=== PATIENT | female | born 1970 | race Caucasian/White ===

== ENCOUNTER → 2016-03-25 | Outpatient (REF) | payer OTHER | END | disposition home or self-care (01) | LOC: M LABDRAW1 17:11 | PROVIDERS: ATTEND Internal Medicine Gastroenterology | DX: R19.7 Diarrhea, unspecified (principal) ==

== ENCOUNTER → 2016-04-07 | Outpatient (CLI) | payer OTHER ==
--- NOTE | 2016-04-07 12:47 | REPMRS ---
Patient History The patient states she had a clinical breast exam in 03/2016. Patient had first child at age 38. Family history of prostate cancer in father at age 50 or over. Took hormonal contraceptives for 8 years. Digital Woman Screen Mammo: April 07, 2016 - Exam #: [id number] Bilateral CC and MLO view(s) were taken. Technologist: Lindsay Kirk, Technologist Prior study comparison: December 25, 2014, digital woman screen mammo performed at [facility] to [facility]. November 15, 2013, digital woman screen mammo performed at [facility]. May 22, 2012, bilateral bilat screen digital mammo, performed at [facility] ([facility] FINDINGS: There are scattered fibroglandular densities. There has been no change in the appearance of the mammogram from the prior studies. There is a mild amount of scattered fibroglandular density which is fairly symmetric. There is no interval development of dominant mass, architectural distortion, or clustered microcalcification suggestive of malignancy. ASSESSMENT: BI-RADS/ACR category 1 mammogram. Negative. Recommendation Routine screening mammogram in 1 year (for women over age 40). This mammogram was interpreted with the aid of an FDA-approved computer-aided dectection system. Electronically Signed By: Giovani Hazel MD 04/07/16 [id number]
== END | disposition home or self-care (01) ==
LOC: M WHC 10:34
PROVIDERS: ATTEND Nurse Practitioner Women's Health
DX: Z12.31 Encounter for screening mammogram for malignant neoplasm of breast (principal); Z78.0 Asymptomatic menopausal state

== ENCOUNTER → 2016-04-07 | Outpatient (REF) | payer OTHER | END | disposition home or self-care (01) | LOC: M SFHCWAGY 10:47 | PROVIDERS: ATTEND Nurse Practitioner Women's Health | DX: Z01.419 Encounter for gynecological examination (general) (routine) without abnormal findings (principal); Z11.51 Encounter for screening for human papillomavirus (HPV) ==

== ENCOUNTER → 2016-05-06 | Outpatient (REF) | payer OTHER ==
[~2016-05-06] MED LIST: BENT10CA PO; CLAR10CA3 PO; GLYB5TA GT; INSUH10VL SC; INVO300T PO; LISI10TA4 PO; LOVA20TA2 PO; METF500T PO
== END ==
LOC: M LABDRAW1 11:41
PROVIDERS: ATTEND Student in an Organized Health Care Education/Training Program
DX: E11.65 Type 2 diabetes mellitus with hyperglycemia (principal)

== ENCOUNTER 2016-05-21 16:06 | Inpatient (IN) | payer OTHER ==
[~2016-05-21] VITALS: Ht 172.7 cm; Wt 79.6 kg
[~2016-05-21 16:06] MED LIST changes: -GLYB5TA GT; +GLYB5TA PO; +INSUDET SC; +METF1000 PO
[2016-05-21] MEDS ORDERED: NS 1,000 ML IV ONE ×2 (17:15→18:30)
[2016-05-21] MEDS ORDERED: METOCLOPRAMIDE INJ 10MG/2ML VIAL (J2765) IV ONE (17:15)
[2016-05-21 18:00] LABS: BASO # 0.1 K/mm3 (0.0-0.2); BASO % 0.6 % (0.0-1.0); EOS % 0.3 % (0.0-3.0); LARGE UNSTAINED CELL # 0.3 K/mm3 (0.0-0.4); LARGE UNSTAINED CELL % 2.4 % (0.0-4.0); LYMPH # 1.1 K/mm3 (1.5-4.5); LYMPH % 10.1 % (24.0-44.0); MEAN CORPUSCULAR HEMOGLOBIN 30.5 pg (27.0-33.0); MEAN CORPUSCULAR HGB CONC 31.6 g/dl (32.0-36.5); MEAN CORPUSCULAR VOLUME 96.5 fl (80.0-96.0); MONO # 0.2 K/mm3 (0.0-0.8); MONO % 2.2 % (0.0-5.0); NEUTROPHILS % 84.5 % (36.0-66.0); PLATELET COUNT, AUTOMATED 287 k/mm3 (150-450); RED CELL DISTRIBUTION WIDTH 12.5 % (11.5-14.5); WHITE BLOOD COUNT 10.7 K/mm3 (4.0-10.0)
[2016-05-21 18:13] LABS: CONTROL LINE HCG INT CTR LINE PRESENT
[2016-05-21 18:24] LABS: ALBUMIN 4.2 GM/DL (3.2-5.2); ALBUMIN/GLOBULIN RATIO 0.84 (1.00-1.93); ALKALINE PHOSPHATASE 84 U/L (45-117); ALT/SGPT 24 U/L (12-78); ANION GAP 25 MEQ/L (8-16); AST/SGOT 14 U/L (15-37); BILIRUBIN,DIRECT 0.1 MG/DL (0.0-0.2); BILIRUBIN,TOTAL 0.5 MG/DL (0.2-1.0); BLOOD UREA NITROGEN 19 MG/DL (7-18); CALCIUM LEVEL 9.3 MG/DL (8.5-10.1); CARBON DIOXIDE LEVEL 9 MEQ/L (21-32); CHLORIDE LEVEL 98 MEQ/L (98-107); CREATININE FOR GFR 1.25 MG/DL (0.55-1.02); GLOMERULAR FILTRATION RATE 49.6 (>58); GLUCOSE, FASTING 321 MG/DL (70-105); SODIUM LEVEL 132 MEQ/L (136-145); TOTAL PROTEIN 9.2 GM/DL (6.4-8.2)
[2016-05-21 18:26] LABS: POTASSIUM SERUM 5.4 MEQ/L (3.5-5.1)
[2016-05-21] MEDS ORDERED: INSULIN IV RATE CHANGE DOCUMENTATION ML/HR XX SCH (18:45)
[2016-05-21] MEDS ORDERED: SODIUM CHLORIDE 0.9% 1000 ML IV ONE (18:45)
[2016-05-21] MEDS ORDERED: INSULIN HUMAN REGULAR 100 UNITS in NS 99 ML IV SCH (18:45)
[2016-05-21 19:39] LABS: VENOUS BASE EXCESS -24.9 (-2.0-2.0); VENOUS O2 SATURATION 98.5 % (60.0-80.0); VENOUS PARTIAL PRESSURE CO2 27.6 mmHg (38.0-50.0); VENOUS PARTIAL PRESSURE O2 147.3 mmHg (30.0-50.0); VENOUS STANDARD HCO3 8.6 MEQ/L
[2016-05-21] MEDS ORDERED: LORA10TA2 PO (19:55)
[2016-05-21] MEDS ORDERED: METF500T4 PO (19:55)
[2016-05-21] MEDS ORDERED: METF-415 PO (19:55)
[2016-05-21] MEDS: LORATADINE 10 MG TAB PO SCH (21:00)
[2016-05-21] MEDS ORDERED: D5W 1,000 ML IV SCH (21:38)
--- NOTE | 2016-05-21 21:55 | HPEPDOC ---
General Date of Admission 05/21/16 10:00pm Chief Complaint The patient is a 46-year-old female admitted with a reason for visit of Vomiting /Diarrhea. Source: Patient Exam Limitations: No limitations Timing/Duration: Day(s) (4) Severity: Moderate Associated Symptoms: Nausea, Vomiting History of Present Illness 46-year old female with PMHx of IDDM, dyslipidemia, HTN, depression, PCOS presents for 4 day history of nausea, vomiting and diarrhea. She describes her vomiting as non-bilous and non-bloody. She states her symptoms did improve until when she began taking bowel prep for a planned EGD and colonoscopy. She states the investigations were for further evaluation of celiac disease. She also describes mid-epigastric pain, non-radiating, sharp, 7/ 10 intensity. She denies shortness of breath, chest pain, headaches, changes in vision. She states she is compliant with her medications, however she states she has been taking less of of basal insulin. She states she was instructed by her PCP to take less insulin when she is not feeling well. Home Medications Scheduled Canagliflozin (Invokana) 300 Mg Tab 300 MG PO DAILY (Reported) Dicyclomine Hcl (Bentyl) 10 Mg Cap 10 MG PO DAILY (Reported) Glyburide (Glyburide) 5 Mg Tab 5 MG PO BID (Reported) Insulin Aspart (Novolog) 100 U/Ml Inj 22 UNITS SC TID (Reported) Insulin Detemir (Levemir) 1 Units/0.01 Ml Susp 40 UNITS SC QHS (Reported) Lisinopril (Lisinopril) 10 Mg Tab 10 MG PO DAILY (Reported) Loratadine (Loratadine) 10 Mg Tab 10 MG PO QHS (Reported) Lovastatin (Lovastatin) 20 Mg Tab 20 MG PO QHS (Reported) Metformin Hydrochloride (Metformin HCl ER) 500 Mg Tab 500 MG PO QAM (Reported) Metformin Hydrochloride (Metformin HCl ER) 1,000 Mg Tab 1,000 MG PO QPM ( Reported) Allergies Coded Allergies: No Known Drug Allergy (Verified Allergy, Unknown, 06/12/12) Social History * Smoker: Denies Alcohol: Denies Drugs: marijuana Review of Symptoms Constitutional: Denies: Chills, Fever, Malaise Eyes: Denies: Pain, Vision change ENT: Denies: Dysphagia, Head Aches Skin: Denies: Jaundice, Rash Pulmonary: Denies: Cough, Dyspnea Cardiovascular: Denies: Chest Pain, Palpitations Gastrointestinal: Reports: Abdominal Pain, Diarrhea, Nausea, Vomiting Genitourinary: Denies: Dysuria Endocrine: Reports: Polydipsia Psych: Reports: Mood Normal Physical Examination General Exam: Positive: Alert, Cooperative, Mild Distress Eye Exam: Positive: Conjunctiva & lids normal, EOMI, PERRLA ENT Exam: Positive: Atraumatic, Mucous membr. moist/pink Neck Exam: Positive: Supple Chest Exam: Positive: Clear to auscultation, Normal air movement Heart Exam: Positive: Rate Normal, Regular Rhythm Telemetry: Positive: No significant arrhythmia Abdomen Exam: Positive: Normal bowel sounds, Soft, Tenderness Extremity Exam: Negative: Edema Psych Exam: Positive: Mental status NL, Oriented x 3 Vital Signs Refer to ER documentation. Laboratory Data Labs 24H Laboratory Tests 2 05/21/16 17:49: Aspartate Amino Transf (AST/SGOT) 14L, Alanine Aminotransferase (ALT/SGPT) 24, Alkaline Phosphatase 84, Total Bilirubin 0.5, Direct Bilirubin 0.1, Albumin 4.2 , Albumin/Globulin Ratio 0.84L, Anion Gap 25H, White Blood Count 10.7H, Red Blood Count 5.99H, Hemoglobin 18.3H, Hematocrit 57.8H, Mean Corpuscular Volume 96.5H, Mean Corpuscular Hemoglobin 30.5, Mean Corpuscular Hemoglobin Concent 31.6L, Red Cell Distribution Width 12.5, Platelet Count 287, Neutrophils (%) ( Auto) 84.5H, Lymphocytes (%) (Auto) 10.1L, Monocytes (%) (Auto) 2.2, Eosinophils (%) (Auto) 0.3, Basophils (%) (Auto) 0.6, Neutrophils # (Auto) 9.0H , Lymphocytes # (Auto) 1.1L, Monocytes # (Auto) 0.2, Eosinophils # (Auto) 0.0, Basophils # (Auto) 0.1, Calcium Level 9.3, Glomerular Filtration Rate 49.6L, Human Chorionic Gonadotropin, Qual NEGATIVE, Lactic Acid (Sepsis) 4.1*H, Large Unclassified Cells # 0.3, Large Unclassified Cells % 2.4, Lipase 83, Osmolality 308H, Salicylates Level 4.9L, Total Protein 9.2H 05/21/16 19:24: Blood Gas Bicarbonate Standard 8.6, Venous Blood Base Excess -24.9L, Venous Blood pH 6.963L, Venous Blood Partial Pressure CO2 27.6L, Venous Blood Partial Pressure O2 147.3H, Venous Blood Total Carbon Dioxide 7.0L, Venous Blood HCO3 6.1L, Venous Blood Oxygen Saturation 98.5H 05/21/16 20:20: Bedside Glucose (Misc Panel) 289H 05/21/16 21:28: Bedside Glucose (Misc Panel) 279H CBC/BMP Laboratory Tests 05/21/16 17:49 Red Blood Count 5.99 H, Mean Corpuscular Volume 96.5 H, Mean Corpuscular Hemoglobin 30.5, Mean Corpuscular Hemoglobin Concent 31.6 L, Red Cell Distribution Width 12.5, Neutrophils (%) (Auto) 84.5 H, Lymphocytes (%) (Auto) 10.1 L, Monocytes (%) (Auto) 2.2, Eosinophils (%) (Auto) 0.3, Basophils (%) ( Auto) 0.6, Neutrophils # (Auto) 9.0 H, Lymphocytes # (Auto) 1.1 L, Monocytes # ( Auto) 0.2, Eosinophils # (Auto) 0.0, Basophils # (Auto) 0.1 Problems (1) DKA (diabetic ketoacidoses) Status: Acute Discussed With: Patient Problem Specific Plan: Monitor Clinically, Repeat Labs Problem Text: Appears to be secondary to non-compliance. Serial BMP, insulin gtt, IV fluids NS transition D5 when FS<200. Transition SC insulin when AG is WNL. Clear liquids for now. (2) Diabetes Status: Chronic Discussed With: Patient Problem Text: Home medications on hold. (3) Hyperlipidemia Status: Chronic Problem Text: Zocor (4) HTN (hypertension) Status: Chronic Discussed With: Patient Problem Specific Plan: Monitor Clinically Problem Text: Lisinopril (5) Depression Status: Chronic (6) PCOS (polycystic ovarian syndrome) Status: Chronic Problem Text: Metformin on hold Plan / VTE VTE Prophylaxis Ordered?: Yes Plan Plan 46-year old female for DKA, appears to be secondary to non-compliance, no obvious infectious process. DKA protocol as above. IVF: Continue Diagnostics: Repeat Labs in AM Anticipated Discharge: Home NELIA LEDBETTER MD May 21, 2016 21:50
[2016-05-21 22:56] LABS: CALCIUM LEVEL 8.4 MG/DL (8.5-10.1); CREATININE FOR GFR 1.27 MG/DL (0.55-1.02); GLOMERULAR FILTRATION RATE 48.7 (>58)
[2016-05-21] MEDS: INSULIN HUMAN REGULAR 100 UNITS in NS 99 ML IV SCH (23:11)
[2016-05-21] MEDS: INSULIN IV RATE CHANGE DOCUMENTATION ML/HR XX SCH (23:26)
[2016-05-21] MEDS: NS 1,000 ML IV SCH (23:27)
[2016-05-21 23:30] VITALS: BP 147/75
[2016-05-21] MEDS: SIMVASTATIN 20 MG TAB PO SCH (23:55)
[2016-05-21] MEDS: ONDANSETRON 4MG/2ML VIAL (J2405) IV PRN (23:56)
[2016-05-22 01:17] LABS: CALCIUM LEVEL 8.2 MG/DL (8.5-10.1); CREATININE FOR GFR 1.2 MG/DL (0.55-1.02); POTASSIUM SERUM 4.8 MEQ/L (3.5-5.1)
[2016-05-22 02:00] VITALS: BP 137/81
[2016-05-22] MEDS: NS 1,000 ML IV SCH (02:23)
[2016-05-22 02:39] LABS: CALCIUM LEVEL 8.2 MG/DL (8.5-10.1); CREATININE FOR GFR 1.14 MG/DL (0.55-1.02); GLOMERULAR FILTRATION RATE 55.1 (>58)
[2016-05-22 02:50] LABS: POTASSIUM SERUM 5.3 MEQ/L (3.5-5.1)
[2016-05-22] MEDS: ONDANSETRON 4MG/2ML VIAL (J2405) IV PRN ×3 (03:24→22:13)
[2016-05-22] MEDS: INSULIN IV RATE CHANGE DOCUMENTATION ML/HR XX SCH ×2 (03:32→06:51)
[2016-05-22 04:00] VITALS: BP 168/81
[2016-05-22] MEDS: D5W/0.45% SODIUM CHLORIDE 1,000 ML IV SCH (04:19)
[2016-05-22] MEDS ORDERED: OMEPRAZOLE 20 MG CAP PO ONE (05:30)
[2016-05-22 06:38] LABS: BASO % 0.2 % (0.0-1.0); EOS # 0.1 K/mm3 (0.0-0.50); EOS % 0.6 % (0.0-3.0); LARGE UNSTAINED CELL # 0.2 K/mm3 (0.0-0.4); LARGE UNSTAINED CELL % 1.1 % (0.0-4.0); LYMPH % 7.2 % (24.0-44.0); MEAN CORPUSCULAR HEMOGLOBIN 30.6 pg (27.0-33.0); MEAN CORPUSCULAR HGB CONC 31.9 g/dl (32.0-36.5); MEAN CORPUSCULAR VOLUME 95.9 fl (80.0-96.0); MONO # 0.5 K/mm3 (0.0-0.8); MONO % 3.6 % (0.0-5.0); NEUTROPHILS # 12.4 K/mm3 (1.8-7.7); NEUTROPHILS % 87.3 % (36.0-66.0); PLATELET COUNT, AUTOMATED 271 k/mm3 (150-450); RED CELL DISTRIBUTION WIDTH 12.7 % (11.5-14.5); WHITE BLOOD COUNT 14.2 K/mm3 (4.0-10.0)
[2016-05-22 07:01] LABS: CALCIUM LEVEL 8.4 MG/DL (8.5-10.1); CREATININE FOR GFR 1.15 MG/DL (0.55-1.02); GLOMERULAR FILTRATION RATE 54.6 (>58)
[2016-05-22 07:04] LABS: POTASSIUM SERUM 5.8 MEQ/L (3.5-5.1)
[2016-05-22 07:28] LABS: MAGNESIUM LEVEL 2.5 MG/DL (1.8-2.4)
[2016-05-22 08:00] VITALS: BP 146/82
--- NOTE | 2016-05-22 08:09 | REP ---
REASON FOR EXAM: Abdominal pain. Comparison exam 12/15/2005, which is the latest prior, a contrast enhanced exam. The lack of intravenous contrast decreases the sensitivity of the exam. The lung bases are clear and unchanged. Limited evaluation of the solid intra-abdominal organs and gallbladder show no gross abnormalities. Granulomatous calcifications are again seen in the liver and spleen status quo. Limited evaluation of the pancreas and adrenal glands shown no gross abnormalities or significant changes from the prior exam. Limited evaluation of the kidneys show no gross abnormalities or significant changes from the prior exam. Limited evaluation of the abdominal aorta and para-aortic regions show no gross abnormalities or significant changes from the prior exam. The intra-abdominal and intrapelvic bowel loops and their mesenteries show no gross abnormalities or significant changes from the prior exam. Scattered colonic diverticula are noted status quo. The appendix is well visualized and is normal. There is no free air or free fluid in the abdomen. No abnormal urinary bladder calcifications are present. There are bilateral pelvic phleboliths. There is no evidence of an intra-abdominal or intrapelvic mass or adenopathy. Bone window technique throughout the exam shows the osseous structures to be stable and intact. IMPRESSION: Limited noncontrast enhanced examination of the abdomen and pelvis is essentially unchanged from the prior exam showing no evidence of acute intra-abdominal or intrapelvic disease. Signed by Patricio Youngblood DO 05/22/2016 10:04 A
[2016-05-22] MEDS: PANTOPRAZOLE 40MG INJ (PROTONIX) (C9113) IV SCH (08:20)
[2016-05-22] MEDS: LISINOPRIL 10 MG TAB PO SCH (08:20)
[2016-05-22] MEDS: DICYCLOMINE 10 MG CAP PO SCH (08:20)
[2016-05-22] MEDS: ENOXAPARIN 40 MG/0.4 ML SYRINGE (J1650) SC SCH (08:21)
[2016-05-22 08:37] LABS: ANION GAP 18 MEQ/L (8-16); BLOOD UREA NITROGEN 20 MG/DL (7-18); CARBON DIOXIDE LEVEL 8 MEQ/L (21-32); CHLORIDE LEVEL 106 MEQ/L (98-107); CREATININE FOR GFR 1.26 MG/DL (0.55-1.02); GLOMERULAR FILTRATION RATE 49.1 (>58); GLUCOSE, FASTING 233 MG/DL (70-105); SODIUM LEVEL 132 MEQ/L (136-145)
[2016-05-22 08:41] LABS: POTASSIUM SERUM 5.2 MEQ/L (3.5-5.1)
--- NOTE | 2016-05-22 09:12 | ECGEPIP ---
Stationary ECG Study [facility] ED Test Date: 2016-05-21 Pat Name: CHRISTY CURTIS Department: Room: [place] [address] Gender: F Manager Of Health: ivania : 1970 Requested By: Etelvina Pemberton Order Number: [id number] Reading MD: Etelvina Pemberton Measurements Intervals [place] Rate: 102 P: 40 PA: 104 QRS: 46 QRSD: 89 T: 11 QT: 351 QTc: 459 Interpretive Statements SINUS TACHYCARDIA WITH SHORT PA INTERVAL ABNORMAL RHYTHM ECG NO PRIOR FOR COMPARISON Electronically Signed On 05-22-2016 9:12:05 EST by Etelvina Pemberton
[2016-05-22 09:25] LABS: VENOUS BASE EXCESS -24.3 (-2.0-2.0); VENOUS O2 SATURATION 53.6 % (60.0-80.0); VENOUS PARTIAL PRESSURE CO2 33.2 mmHg (38.0-50.0); VENOUS PARTIAL PRESSURE O2 27.8 mmHg (30.0-50.0); VENOUS STANDARD HCO3 7.9 MEQ/L; VENOUS TOTAL CO2 8.2 MEQ/L (24.0-28.0)
--- NOTE | 2016-05-22 10:33 | IPNPDOC ---
Text Note Date of Service The patient was seen on 05/22/16. NOTE Subjective: 46 yo F was seen and examined at bedside. Admits to burning reflux type pain going up to her throat. Admits to weakness, fatigue, chills, and nausea at times. Admits to dizziness only when standing to go to the bathroom. She denied dizziness while lying on bed, denies blurred vision, fevers, chest pain, SOB, vomiting, diarrhea, constipation, abdominal pain, rashes/lesions, urinary incontinence, increased urinary frequency, dysuria, hematuria, hematochezia. Nursing reports no acute events overnight. Objective: Vitals: T 97.2, P 112, RR 22, BP 168/81 (110), Pulse Ox: 99% on RA. I's/O's: 350/1600 mLs, -1250 mL balance, Wt: 80.1 kg down from 86.183 kg, BMs: ? General: Ill appearing and fatigued-looking middle-aged female resting in bed. Cooperative but weak. Patient awake, alert and oriented, verbal and able to answer questions appropriately. In mild distress. HEENT: Normocephalic Atraumatic. Grossly normal hearing bilaterally. Sclera Nonicteric. No external nasal lesions. Endocrinology: No thyromegaly. Neck: Supple. No cervical LAD bilaterally. Heart: Regular rhythm, tachycardic, normal S1-S2. No murmurs, rubs, clicks or gallops Respiratory: Lungs clear to auscultation bilaterally. No wheezes, rales or rhonchi. +Tachypnea. Abdomen: Active bowel sounds, soft, no masses to palpation. Generalized nonspecific mild tenderness to palpation of abdomen in all quadrants without rebound or guarding. Extremities: No clubbing, cyanosis, edema. Without amputations/deformities. No pedal edema. MSK: Normal ROM. Vascular: +2 radial pulses bilaterally. Psychiatric: No signs of depression or anxiety Laboratory data: Please see below. Toxicology: Salicylates of 4.9 (low) Most recent fasting glucose: 233 from 237 POC glucose at 9:07: 239 from 220 M.5 (H) Phos pending BUN/Cr: 20/1.26 (high) from 19/1.15 Ca: 8 (low) VBG: pH 6.963 (low) pCO2: 27.6 (low) pO2: 147.3 (high) Compare with BMP value Bicarb/CO2: 8 (low) Imaging: No new imaging today. CT Abdomen/Pelvis prelim report: showed no acute abdominal or intrapelvic disease. Assessment/Plan: 46 yo F with PMH significant for IDDM, HTN, dyslipidemia, PCOS, is presenting for nausea, vomiting, and diarrhea clinically presenting as DKA secondary to non-compliance with her insulin. 1) DKA secondary to noncompliance: ABG shows severe metabolic acidosis. Continue to monitor O2 saturations. Keep NPO. Continue regular insulin drip with NS, monitor fingersticks q1 hours, monitor BMP q2 hours, and monitoring electrolytes. Continue IV fluids NS until fasting glucose reaches <200, and transition to D5 1/2 NS once this occurs. Monitor for normal anion gap. Stop insulin drip once reach normal AG. Follow DKA protocol. Transition to subcutaneous insulin when normal AG reached. Give zofran for nausea and continue protonix for heartburn symptoms. If heartburn not improved, may consider changing PPI or adding another medication. Monitor Mg, phos, levels as well. 2) Severe Metabolic Acidosis and Acute Kidney Injury: VBG as above. BUN 20 and Cr 1.26. Likely intravascular depletion. Nephrology consulted. Appreciate Nephrology input. 3) DM: hold home medications for now until DKA resolves. 4) HTN: continue lisinopril 10 mg daily. 5) HLD: continue simvastatin 20 mg daily. 6) Depression: monitor affect and for any clinical signs that are concerning: i.e. suicidal ideations or wish to harm others or plan. 7) PCOS: hold metformin for now. 8) Generalized Abdominal pain/discomfort: Possibly secondary to DKA. Follow up on GI panel. CT abdomen/pelvis did not show any acute intra-abdominal or intrapelvic disease. 9) Continue home medications. DVT ppx: continue lovenox. GI ppx: protonix. Immunizations as per protocol. VS,Fishbone, I+O VS, Fishbone, I+O Laboratory Tests 05/21/16 17:49 Red Blood Count 5.99 H, Mean Corpuscular Volume 96.5 H, Mean Corpuscular Hemoglobin 30.5, Mean Corpuscular Hemoglobin Concent 31.6 L, Red Cell Distribution Width 12.5, Neutrophils (%) (Auto) 84.5 H, Lymphocytes (%) (Auto) 10.1 L, Monocytes (%) (Auto) 2.2, Eosinophils (%) (Auto) 0.3, Basophils (%) ( Auto) 0.6, Neutrophils # (Auto) 9.0 H, Lymphocytes # (Auto) 1.1 L, Monocytes # ( Auto) 0.2, Eosinophils # (Auto) 0.0, Basophils # (Auto) 0.1 05/21/16 22:08 Calcium Level 8.4 L 05/22/16 00:27 Calcium Level 8.2 L 05/22/16 02:05 Calcium Level 8.2 L 05/22/16 06:27 Calcium Level 8.4 L, Red Blood Count 5.49 H, Mean Corpuscular Volume 95.9, Mean Corpuscular Hemoglobin 30.6, Mean Corpuscular Hemoglobin Concent 31.9 L, Red Cell Distribution Width 12.7, Neutrophils (%) (Auto) 87.3 H, Lymphocytes (%) ( Auto) 7.2 L, Monocytes (%) (Auto) 3.6, Eosinophils (%) (Auto) 0.6, Basophils (% ) (Auto) 0.2, Neutrophils # (Auto) 12.4 H, Lymphocytes # (Auto) 1.0 L, Monocytes # (Auto) 0.5, Eosinophils # (Auto) 0.1, Basophils # (Auto) 0.0 05/22/16 07:52 Calcium Level 8.0 L Vital Signs Date Time Temp Pulse Resp B/P Pulse Ox O2 Delivery O2 Flow Rate FiO2 05/22/16 08:00 97.1 119 20 146/82 98 Room Air I&O- Last 24 Hours up to 6 AM 05/22/16 06:00 Intake Total 1412 ml Output Total 700 ml Balance 712 ml GME ATTESTATION GME ATTESTATION My preceptor for this patient encounter was Dr. Jono Meyer, and was physically present in the building during the encounter and was fully available. As needed, all aspects of the patient interview, examination, medical decision making process, and medical care plan development were reviewed and approved by the preceptor. Preceptor is aware and concurs with the plan as stated in the body of this note and will attest to such by his/her cosignature. JONO ESCALONAME-1 May 22, 2016 10:33
[2016-05-22 10:50] LABS: PHOSPHORUS LEVEL 2.7 MG/DL (2.5-4.9)
[2016-05-22 11:54] LABS: CALCIUM LEVEL 8.2 MG/DL (8.5-10.1); CREATININE FOR GFR 1.23 MG/DL (0.55-1.02); GLOMERULAR FILTRATION RATE 50.5 (>58)
[2016-05-22 11:58] LABS: POTASSIUM SERUM 5.6 MEQ/L (3.5-5.1)
[2016-05-22 12:00] VITALS: BP 158/79
[2016-05-22] MEDS ORDERED: SODIUM BICARBONATE 100 MEQ in D5W 1,000 ML IV SCH (12:00)
[2016-05-22 14:07] LABS: CREATININE FOR GFR 1.19 MG/DL (0.55-1.02); GLOMERULAR FILTRATION RATE 52.5 (>58); POTASSIUM SERUM 4.6 MEQ/L (3.5-5.1)
[2016-05-22 14:27] LABS: ABG BASE EXCESS -21.1 (-2.0-2.0); ABG HCO3 4.7 MEQ/L (22.0-26.0); ABG PARTIAL PRESSURE O2 155.6 mmHg (75.0-100.0); ABG STANDARD HCO3 9.9 MEQ/L (22.0-26.0); ABG TOTAL CO2 5.1 MEQ/L (22.0-29.0)
[2016-05-22 14:29] LABS: ABG PARTIAL PRESSURE CO2 13.3 mmHg (35.0-45.0); ABG pH (ARTERIAL) 7.168 UNITS (7.350-7.450)
[2016-05-22 16:00] VITALS: BP 120/59
[2016-05-22 16:01] LABS: CALCIUM LEVEL 8.1 MG/DL (8.5-10.1); CREATININE FOR GFR 1.07 MG/DL (0.55-1.02); GLOMERULAR FILTRATION RATE 59.3 (>58); POTASSIUM SERUM 4.4 MEQ/L (3.5-5.1)
[2016-05-22] MEDS: SODIUM BICARBONATE 150 MEQ in D5W 1,000 ML IV SCH ×2 (17:30→22:09)
[2016-05-22 17:53] LABS: CALCIUM LEVEL 8.2 MG/DL (8.5-10.1); CREATININE FOR GFR 1.08 MG/DL (0.55-1.02); GLOMERULAR FILTRATION RATE 58.7 (>58); POTASSIUM SERUM 4.3 MEQ/L (3.5-5.1)
[2016-05-22 19:59] LABS: ANION GAP 20 MEQ/L (8-16); BLOOD UREA NITROGEN 14 MG/DL (7-18); CALCIUM LEVEL 8.3 MG/DL (8.5-10.1); CARBON DIOXIDE LEVEL 10 MEQ/L (21-32); CHLORIDE LEVEL 102 MEQ/L (98-107); CREATININE FOR GFR 1.05 MG/DL (0.55-1.02); GLOMERULAR FILTRATION RATE > 60.0 (>58); GLUCOSE, FASTING 258 MG/DL (70-105); POTASSIUM SERUM 3.9 MEQ/L (3.5-5.1); SODIUM LEVEL 132 MEQ/L (136-145)
[2016-05-22 20:00] VITALS: BP 129/60
[2016-05-22 21:57] LABS: ANION GAP 20 MEQ/L (8-16); BLOOD UREA NITROGEN 12 MG/DL (7-18); CALCIUM LEVEL 7.8 MG/DL (8.5-10.1); CARBON DIOXIDE LEVEL 11 MEQ/L (21-32); CHLORIDE LEVEL 102 MEQ/L (98-107); CREATININE FOR GFR 0.99 MG/DL (0.55-1.02); GLOMERULAR FILTRATION RATE > 60.0 (>58); GLUCOSE, FASTING 256 MG/DL (70-105); POTASSIUM SERUM 3.6 MEQ/L (3.5-5.1); SODIUM LEVEL 133 MEQ/L (136-145)
[2016-05-22] MEDS: SIMVASTATIN 20 MG TAB PO SCH (22:10)
[2016-05-22] MEDS: LORATADINE 10 MG TAB PO SCH (22:10)
[2016-05-22] MEDS: INSULIN HUMAN REGULAR 100 UNITS in NS 99 ML IV SCH (22:13)
[2016-05-22] MEDS ORDERED: POTASSIUM CHLORIDE 10 MEQ SR TABLET PO ONE (22:15)
[2016-05-22 22:59] LABS: ABG BASE EXCESS -11.1 (-2.0-2.0); ABG HCO3 11.5 MEQ/L (22.0-26.0); ABG PARTIAL PRESSURE CO2 20.2 mmHg (35.0-45.0); ABG PARTIAL PRESSURE O2 125.3 mmHg (75.0-100.0); ABG TOTAL CO2 12.1 MEQ/L (22.0-29.0); ABG pH (ARTERIAL) 7.372 UNITS (7.350-7.450)
[2016-05-22] MEDS ORDERED: IBUPROFEN 600 MG TAB PO ONE (23:15)
[2016-05-23] VITALS (7 sets, daily range): BP systolic 111–141; BP diastolic 58–91
[2016-05-23] MEDS: SODIUM BICARBONATE 150 MEQ in D5W 1,000 ML IV SCH ×2 (03:19→08:24)
[2016-05-23 03:30] LABS: ANION GAP 21 MEQ/L (8-16); BLOOD UREA NITROGEN 12 MG/DL (7-18); CALCIUM LEVEL 7.8 MG/DL (8.5-10.1); CARBON DIOXIDE LEVEL 15 MEQ/L (21-32); CHLORIDE LEVEL 100 MEQ/L (98-107); CREATININE FOR GFR 0.99 MG/DL (0.55-1.02); GLOMERULAR FILTRATION RATE > 60.0 (>58); GLUCOSE, FASTING 297 MG/DL (70-105); POTASSIUM SERUM 3.7 MEQ/L (3.5-5.1); SODIUM LEVEL 136 MEQ/L (136-145)
[2016-05-23 05:07] LABS: ANION GAP 18 MEQ/L (8-16); BLOOD UREA NITROGEN 12 MG/DL (7-18); CALCIUM LEVEL 7.7 MG/DL (8.5-10.1); CARBON DIOXIDE LEVEL 17 MEQ/L (21-32); CHLORIDE LEVEL 101 MEQ/L (98-107); CREATININE FOR GFR 0.94 MG/DL (0.55-1.02); GLOMERULAR FILTRATION RATE > 60.0 (>58); GLUCOSE, FASTING 285 MG/DL (70-105); MAGNESIUM LEVEL 2.2 MG/DL (1.8-2.4); POTASSIUM SERUM 3.5 MEQ/L (3.5-5.1); SODIUM LEVEL 136 MEQ/L (136-145)
[2016-05-23 05:20] LABS: BASO % 0.3 % (0.0-1.0); EOS # 0.1 K/mm3 (0.0-0.50); EOS % 0.9 % (0.0-3.0); LARGE UNSTAINED CELL # 0.3 K/mm3 (0.0-0.4); LARGE UNSTAINED CELL % 1.9 % (0.0-4.0); LYMPH # 1.6 K/mm3 (1.5-4.5); LYMPH % 10.2 % (24.0-44.0); MEAN CORPUSCULAR HEMOGLOBIN 30.9 pg (27.0-33.0); MEAN CORPUSCULAR HGB CONC 34.5 g/dl (32.0-36.5); MONO # 0.9 K/mm3 (0.0-0.8); MONO % 6.4 % (0.0-5.0); NEUTROPHILS # 10.6 K/mm3 (1.8-7.7); NEUTROPHILS % 80.4 % (36.0-66.0); PLATELET COUNT, AUTOMATED 228 k/mm3 (150-450); RED CELL DISTRIBUTION WIDTH 12.9 % (11.5-14.5); WHITE BLOOD COUNT 13.2 K/mm3 (4.0-10.0)
[2016-05-23 05:21] LABS: MEAN CORPUSCULAR VOLUME 89.5 fl (80.0-96.0)
[2016-05-23] MEDS ORDERED: POTASSIUM CHLORIDE 10 MEQ SR TABLET PO ONE ×2 (06:30→10:00)
[2016-05-23] MEDS: LISINOPRIL 10 MG TAB PO SCH (08:24)
[2016-05-23] MEDS: PANTOPRAZOLE 40MG INJ (PROTONIX) (C9113) IV SCH (08:24)
[2016-05-23] MEDS: DICYCLOMINE 10 MG CAP PO SCH (08:24)
[2016-05-23] MEDS: ENOXAPARIN 40 MG/0.4 ML SYRINGE (J1650) SC SCH (08:24)
[2016-05-23 09:18] LABS: ANION GAP 16 MEQ/L (8-16); BLOOD UREA NITROGEN 10 MG/DL (7-18); CALCIUM LEVEL 8.3 MG/DL (8.5-10.1); CARBON DIOXIDE LEVEL 19 MEQ/L (21-32); CHLORIDE LEVEL 101 MEQ/L (98-107); CREATININE FOR GFR 0.89 MG/DL (0.55-1.02); GLOMERULAR FILTRATION RATE > 60.0 (>58); GLUCOSE, FASTING 241 MG/DL (70-105); POTASSIUM SERUM 3.3 MEQ/L (3.5-5.1); SODIUM LEVEL 136 MEQ/L (136-145)
[2016-05-23] MEDS: IBUPROFEN 400 MG TAB PO PRN ×2 (10:02→18:23)
[2016-05-23 12:37] LABS: ANION GAP 19 MEQ/L (8-16); BLOOD UREA NITROGEN 11 MG/DL (7-18); CALCIUM LEVEL 8.2 MG/DL (8.5-10.1); CARBON DIOXIDE LEVEL 18 MEQ/L (21-32); CHLORIDE LEVEL 100 MEQ/L (98-107); CREATININE FOR GFR 0.82 MG/DL (0.55-1.02); GLOMERULAR FILTRATION RATE > 60.0 (>58); GLUCOSE, FASTING 228 MG/DL (70-105); POTASSIUM SERUM 3.6 MEQ/L (3.5-5.1); SODIUM LEVEL 137 MEQ/L (136-145)
[2016-05-23] MEDS: INSULIN IV RATE CHANGE DOCUMENTATION ML/HR XX SCH (13:12)
[2016-05-23] MEDS ORDERED: SODIUM BICARBONATE 150 MEQ, POTASSIUM CHLORIDE INJ 20 MEQ in D5W 1,000 ML IV SCH (14:00)
--- NOTE | 2016-05-23 14:30 | IPNPDOC ---
Subjective Date Seen The patient was seen on 05/23/16. Subjective Chief Complaint/HPI The patient is a 46-year-old female admitted with a reason for visit of DKA. General: Denies: Chills, Night Sweats Constitutional: Denies: Chills, Fever Eyes: Denies: Pain, Vision change ENT: Denies: Ear Pain, Head Aches Skin: Denies: Lesions, Rash Pulmonary: Denies: Cough, Dyspnea Cardiovascular: Denies: Chest Pain, Palpitations Gastrointestinal: Denies: Abdominal Pain, Nausea, Vomiting Genitourinary: Denies: Dysuria, Frequency Hematologic: Denies: Bleeding Excessively, Bruising Objective Physical Examination General Exam: Positive: Alert, Cooperative, No Acute Distress ENT Exam: Positive: Atraumatic, Mucous membr. moist/pink Neck Exam: Negative: JVD Chest Exam: Positive: Clear to auscultation, Normal air movement Heart Exam: Positive: Rate Normal, Regular Rhythm Telemetry: Positive: Sinus Abdomen Exam: Positive: Soft, Tenderness Extremity Exam: Negative: Swelling, Tenderness Psych Exam: Positive: Mental status NL, Oriented x 3 Assessment /Plan Problems (1) DKA (diabetic ketoacidoses) Status: Acute Response to Treatment: Improving Discussed With: Patient Problem Specific Plan: Monitor Clinically, Repeat Labs Problem Text: 2/2 Gastroenteritis, Decreased Dose of Insulin taken at home On Insulin Drip, Initially Started on NSS-->This has been transitioned to D5W + 150 meq of Bicarbonate with the assistance of Nephrology due to persistent Metabolic Acidemia from volume depletion Will transition to SC insulin when AG closes, and the patient is ready to eat Clear liquids for now. (2) Metabolic acidemia Status: Acute Response to Treatment: Improving Problem Text: 2/2 Above Patient on D5W + 100 meq of Bicarbonate for correction of underlying acidosis Nephrology on board Patient currently compensated Metabolic Acidosis with Respiratory alkalosis Has received 7+ L of Fluids since admission Clinical condition, mentation much improved today We will cont to monitor the patient's BMP (3) Diabetes Status: Chronic Discussed With: Patient Problem Text: Home medications on hold 2/2 above (4) Hyperlipidemia Status: Chronic Response to Treatment: Stable Problem Text: Zocor (5) HTN (hypertension) Status: Chronic Response to Treatment: Stable Discussed With: Patient Problem Specific Plan: Monitor Clinically Problem Text: Lisinopril (6) Depression Status: Chronic Response to Treatment: Stable (7) PCOS (polycystic ovarian syndrome) Status: Chronic Problem Text: Metformin on hold Plan/VTE VTE Prophylaxis Ordered?: Yes Plan IVF: Continue Diagnostics: Repeat Labs in AM Anticipated Discharge: Home VS, I&O, 24H, [facility] Vital Signs/I&O Vital Signs Date Time Temp Pulse Resp B/P Pulse Ox O2 Delivery O2 Flow Rate FiO2 05/23/16 12:00 98.1 118 16 131/78 96 Room Air I&O- Last 24 Hours up to 6 AM 05/23/16 05:59 Intake Total 5055 ml Output Total 5010 ml Balance 45 ml Laboratory Data 24H LABS Laboratory Tests 2 05/22/16 15:07: Bedside Glucose (Misc Panel) 239H 05/22/16 15:21: Anion Gap 19H, Blood Urea Nitrogen 15, Creatinine 1.07H, Sodium Level 129L, Potassium Level 4.4, Chloride Level 100, Carbon Dioxide Level 10L, Calcium Level 8.1L, Glomerular Filtration Rate 59.3 05/22/16 16:06: Bedside Glucose (Misc Panel) 256H 05/22/16 17:08: Bedside Glucose (Misc Panel) 234H 05/22/16 17:21: Anion Gap 21H, Blood Urea Nitrogen 15, Creatinine 1.08H, Sodium Level 131L, Potassium Level 4.3, Chloride Level 101, Carbon Dioxide Level 9L, Calcium Level 8.2L, Glomerular Filtration Rate 58.7 05/22/16 18:08: Bedside Glucose (Misc Panel) 263H 05/22/16 19:28: Anion Gap 20H, Blood Urea Nitrogen 14, Creatinine 1.05H, Sodium Level 132L, Potassium Level 3.9, Chloride Level 102, Carbon Dioxide Level 10L, Calcium Level 8.3L, Glomerular Filtration Rate > 60.0 05/22/16 19:48: Bedside Glucose (Misc Panel) 242H 05/22/16 21:14: Bedside Glucose (Misc Panel) 240H 05/22/16 21:25: Anion Gap 20H, Blood Urea Nitrogen 12, Creatinine 0.99, Sodium Level 133L, Potassium Level 3.6, Chloride Level 102, Carbon Dioxide Level 11L, Calcium Level 7.8L, Glomerular Filtration Rate > 60.0 05/22/16 22:12: Bedside Glucose (Misc Panel) 269H 05/22/16 22:53: Arterial Blood pH 7.372, Arterial Blood Partial Pressure CO2 20.2L, Arterial Blood Partial Pressure O2 125.3H, Arterial Blood Total CO2 12.1L, Arterial Blood HCO3 11.5L, Arterial Blood Base Excess -11.1L, Arterial Blood Oxygen Saturation 99.2H, Blood Gas Bicarbonate Standard 16.0L 05/22/16 23:23: Bedside Glucose (Misc Panel) 246H 05/23/16 00:32: Bedside Glucose (Misc Panel) 259H 05/23/16 01:29: Bedside Glucose (Misc Panel) 273H 05/23/16 01:35: Anion Gap 21H, Blood Urea Nitrogen 12, Creatinine 0.99, Sodium Level 136, Potassium Level 3.7, Chloride Level 100, Carbon Dioxide Level 15L, Calcium Level 7.8L, Glomerular Filtration Rate > 60.0 05/23/16 03:22: Bedside Glucose (Misc Panel) 257H 05/23/16 04:18: Bedside Glucose (Misc Panel) 258H, Anion Gap 18H, White Blood Count 13.2H, Red Blood Count 4.91, Hemoglobin 15.2, Hematocrit 44.0, Mean Corpuscular Volume 89.5 #, Mean Corpuscular Hemoglobin 30.9, Mean Corpuscular Hemoglobin Concent 34.5, Red Cell Distribution Width 12.9, Platelet Count 228, Neutrophils (%) (Auto) 80.4H, Lymphocytes (%) (Auto) 10.2L, Monocytes (%) (Auto) 6.4H, Eosinophils (%) (Auto) 0.9, Basophils (%) (Auto) 0.3, Neutrophils # (Auto) 10.6H, Lymphocytes # (Auto) 1.6, Monocytes # (Auto) 0.9H, Eosinophils # (Auto) 0.1, Basophils # (Auto ) 0.0, Blood Urea Nitrogen 12, Creatinine 0.94, Sodium Level 136, Potassium Level 3.5, Chloride Level 101, Carbon Dioxide Level 17L, Calcium Level 7.7L, Glomerular Filtration Rate > 60.0, Large Unclassified Cells # 0.3, Large Unclassified Cells % 1.9, Magnesium Level 2.2 05/23/16 05:43: Bedside Glucose (Misc Panel) 271H 05/23/16 06:35: Bedside Glucose (Misc Panel) 255H 05/23/16 07:43: Bedside Glucose (Misc Panel) 231H 05/23/16 08:51: Anion Gap 16, Blood Urea Nitrogen 10, Creatinine 0.89, Sodium Level 136, Potassium Level 3.3L, Chloride Level 101, Carbon Dioxide Level 19L, Calcium Level 8.3L, Glomerular Filtration Rate > 60.0 05/23/16 09:10: Bedside Glucose (Misc Panel) 222H 05/23/16 10:04: Bedside Glucose (Misc Panel) 251H 05/23/16 11:01: Bedside Glucose (Misc Panel) 228H 05/23/16 11:57: Bedside Glucose (Misc Panel) 216H 05/23/16 12:06: Anion Gap 19H, Blood Urea Nitrogen 11, Creatinine 0.82, Sodium Level 137, Potassium Level 3.6, Chloride Level 100, Carbon Dioxide Level 18L, Calcium Level 8.2L, Glomerular Filtration Rate > 60.0 05/23/16 13:08: Bedside Glucose (Misc Panel) 188H 05/23/16 14:11: Bedside Glucose (Misc Panel) 170H CBC/BMP Laboratory Tests 05/22/16 15:21 Calcium Level 8.1 L 05/22/16 17:21 Calcium Level 8.2 L 05/22/16 19:28 Calcium Level 8.3 L 05/22/16 21:25 Calcium Level 7.8 L 05/23/16 01:35 Calcium Level 7.8 L 05/23/16 04:18 Calcium Level 7.7 L, Red Blood Count 4.91, Mean Corpuscular Volume 89.5 #, Mean Corpuscular Hemoglobin 30.9, Mean Corpuscular Hemoglobin Concent 34.5, Red Cell Distribution Width 12.9, Neutrophils (%) (Auto) 80.4 H, Lymphocytes (%) (Auto) 10.2 L, Monocytes (%) (Auto) 6.4 H, Eosinophils (%) (Auto) 0.9, Basophils (%) ( Auto) 0.3, Neutrophils # (Auto) 10.6 H, Lymphocytes # (Auto) 1.6, Monocytes # ( Auto) 0.9 H, Eosinophils # (Auto) 0.1, Basophils # (Auto) 0.0 05/23/16 08:51 Calcium Level 8.3 L 05/23/16 12:06 Calcium Level 8.2 L LE VENTURA MD May 23, 2016 14:30
[2016-05-23 16:31] LABS: ANION GAP 17 MEQ/L (8-16); BLOOD UREA NITROGEN 10 MG/DL (7-18); CALCIUM LEVEL 7.8 MG/DL (8.5-10.1); CARBON DIOXIDE LEVEL 18 MEQ/L (21-32); CHLORIDE LEVEL 102 MEQ/L (98-107); CREATININE FOR GFR 0.78 MG/DL (0.55-1.02); GLOMERULAR FILTRATION RATE > 60.0 (>58); GLUCOSE, FASTING 203 MG/DL (70-105); POTASSIUM SERUM 3.6 MEQ/L (3.5-5.1); SODIUM LEVEL 137 MEQ/L (136-145)
--- NOTE | 2016-05-23 17:54 | CR ---
DATE OF CONSULTATION: 05/22/2016 REQUESTING PHYSICIAN: Jono Meyer MD. REASON FOR CONSULTATION: Severe metabolic acidosis in this lady who was admitted with diabetic ketoacidosis. HISTORY OF PRESENT ILLNESS: This is a 46-year-old female who was admitted last evening to [facility] with a history of vomiting and diarrhea for four days. She was found to have diabetic ketoacidosis on admission and has been treated with insulin drip and intravenous (IV) fluids. Nephrology consultation was requested this morning as the patient has been persistently acidotic. PAST MEDICAL AND SURGICAL HISTORY: Significant for: 1. Insulin dependent diabetes. 2. Dyslipidemia. 3. Hypertension. 4. Depression. 5. Polycystic ovary syndrome. MEDICATIONS: Her home medications include: - Invokana 300 mg daily - Bentyl 10 mg daily - glyburide 5 mg twice a day - NovoLog insulin 22 units three times a day - Levemir insulin 40 units at bedtime - lisinopril 10 mg daily - loratadine 10 mg at bedtime - lovastatin 20 mg at bedtime - metformin 500 mg every morning and 1000 mg every evening ALLERGIES: The patient has no known drug allergies. PERSONAL AND SOCIAL HISTORY: No history of smoking, alcohol or drugs other than marijuana. FAMILY HISTORY: There is no family history for kidney problems or diabetes. REVIEW OF SYSTEMS: The patient has been feeling very weak and exhausted. She has complained of excessive thirst and nausea. She denies any fever or chills. She has no headache. She has a dry mouth but denies any ears, nose or sinus problems. Cardiovascular system is significant for shortness of breath. She denies any chest pain. Respiratory system is negative for cough or hemoptysis. Gastrointestinal (GI) system is significant for nausea and diarrhea. She denies any abdominal pain. Genitourinary () system is negative for dysuria or hematuria. There is no history of kidney stones. Musculoskeletal system is negative for arthralgias. There is no history of leg edema. Endocrine system is significant for insulin-requiring diabetes. She denies any thyroid problems or endocrine problems. Hematological system is negative for anticoagulation, excessive bleeding or bruising. Neurological system is negative for seizures or stroke. Psychosocial system is significant for depression. Skin is negative for rash or ulcers. PHYSICAL EXAMINATION: GENERAL: This is a young female lying in the bed who looks quite acutely ill. VITAL SIGNS: Temperature is 96.7 degrees Fahrenheit, heart rate 120 per minute and respiratory rate 26 per minute. Blood pressure 137/80 mmHg and oxygen saturation 99% on room air. HEENT: Head is atraumatic. Oral mucosa is dry. Pupils are equal and reactive to light and sclerae are anicteric. Ears, nose and throat are unremarkable. NECK: Neck is supple and without jugular venous distention (JVD) or thyroid enlargement. RESPIRATORY: Lungs are clear to auscultation bilaterally. CARDIAC: Heart sounds are tachycardiac but regular. ABDOMEN: Soft, mildly tender. Bowel sounds are normal. There is no palpable organomegaly. EXTREMITIES: Have no cyanosis or clubbing. SKIN: Has no rash or ulcers. NEUROLOGIC: She is awake and alert and oriented times three. There is no focal neurological deficit. LABORATORY DATA: Initial CBC showed a WBC count 10.7, hemoglobin 18.3 and hematocrit 57.8. Today WBC count is 14.2, hemoglobin 16.8 and hematocrit 52.6. Platelets are 271. She had a venous blood gas done which showed pH of 6.95, pCO2 of 33.2, pO2 27.8 and bicarb 7.9. A salicylate level is 4.9. Her initial chemistry showed sodium 132 and potassium 5.4. CO2 was 9, BUN 19 and creatinine 1.25. A lactic acid level was 4.1. A repeat lactic acid level this morning is 3.2, sodium is 134 and potassium 5.3. Most recent lactic acid level is now down to 1.4. Sodium is 132 and potassium 5.2. CO2 is 8, BUN 20 and creatinine 1.26. Glucose 233 and calcium 8.0. IMAGING: CT scan of her abdomen and pelvis without IV contrast was unremarkable. PROBLEMS: 1. Severe metabolic acidosis. The patient has multiple risk factors for metabolic acidosis including uncontrolled diabetes with diabetic ketosis, lactic acidosis related to metformin use and metabolic acidosis related to acute renal failure. At present is quite dehydrated and also acidotic. We will switch her IV fluid to sodium bicarbonate drip. Her chemistries are being repeated every two hours. 2. Acute renal failure. This is related to dehydration caused by diabetic ketoacidosis. The patient will be aggressively hydrated with IV fluid 200 mL per hour. We will also start oral fluids as tolerated and clear liquids are being ordered. 3. Hyperkalemia. This is mild and improving. Most likely related to severe acidosis and acute renal failure. We will have to monitor her electrolytes closely as her hyperkalemia is likely to correct as her acidosis is improving. I thank you for involving me in the care of Ms. Stoddard. I will follow her along with you.
[2016-05-23] MEDS ORDERED: DEXTROSE 50% 50 ML SYRINGE IV PRN (18:15)
[2016-05-23] MEDS ORDERED: GLUCAGON FOR INJ 1 MG VIAL (J1610) SC PRN (18:15)
[2016-05-23] MEDS ORDERED: GLUCOSE 4 GM CHEW TABLET PO PRN (18:15)
[2016-05-23] MEDS ORDERED: LEVEMIR (INSULIN DETEMIR) 1 UNITS/0.01ML SC ONE (18:45)
[2016-05-23 20:19] LABS: ANION GAP 18 MEQ/L (8-16); BLOOD UREA NITROGEN 12 MG/DL (7-18); CALCIUM LEVEL 7.8 MG/DL (8.5-10.1); CARBON DIOXIDE LEVEL 16 MEQ/L (21-32); CHLORIDE LEVEL 102 MEQ/L (98-107); CREATININE FOR GFR 0.78 MG/DL (0.55-1.02); GLOMERULAR FILTRATION RATE > 60.0 (>58); GLUCOSE, FASTING 269 MG/DL (70-105); POTASSIUM SERUM 3.8 MEQ/L (3.5-5.1); SODIUM LEVEL 136 MEQ/L (136-145)
[2016-05-23] MEDS: SIMVASTATIN 20 MG TAB PO SCH (20:31)
[2016-05-23] MEDS: HumaLOG INSULIN (NovoLOG) PER UNIT SC SCH (20:32)
[2016-05-23] MEDS: LORATADINE 10 MG TAB PO SCH (20:32)
[2016-05-23] MEDS ORDERED: HumaLOG INSULIN (NovoLOG) PER UNIT SC ONE (20:45)
[2016-05-23] MEDS ORDERED: SODIUM BICARBONATE 150 MEQ, POTASSIUM CHLORIDE INJ 20 MEQ in STERILE WATER LITER BAG 1,... IV SCH (21:00)
[2016-05-24] VITALS (7 sets, daily range): BP systolic 119–154; BP diastolic 74–106
[2016-05-24 00:36] LABS: ANION GAP 16 MEQ/L (8-16); BLOOD UREA NITROGEN 13 MG/DL (7-18); CALCIUM LEVEL 8.4 MG/DL (8.5-10.1); CARBON DIOXIDE LEVEL 19 MEQ/L (21-32); CHLORIDE LEVEL 103 MEQ/L (98-107); CREATININE FOR GFR 0.66 MG/DL (0.55-1.02); GLOMERULAR FILTRATION RATE > 60.0 (>58); GLUCOSE, FASTING 116 MG/DL (70-105); POTASSIUM SERUM 3.4 MEQ/L (3.5-5.1); SODIUM LEVEL 138 MEQ/L (136-145)
[2016-05-24] MEDS: IBUPROFEN 400 MG TAB PO PRN ×3 (03:54→21:12)
[2016-05-24 05:17] LABS: BASO % 0.4 % (0.0-1.0); EOS # 0.1 K/mm3 (0.0-0.50); EOS % 1.1 % (0.0-3.0); LARGE UNSTAINED CELL # 0.2 K/mm3 (0.0-0.4); LARGE UNSTAINED CELL % 2.3 % (0.0-4.0); LYMPH # 2.2 K/mm3 (1.5-4.5); LYMPH % 27.1 % (24.0-44.0); MEAN CORPUSCULAR HEMOGLOBIN 30.1 pg (27.0-33.0); MEAN CORPUSCULAR HGB CONC 34.6 g/dl (32.0-36.5); MEAN CORPUSCULAR VOLUME 87.2 fl (80.0-96.0); MONO # 0.7 K/mm3 (0.0-0.8); MONO % 8.6 % (0.0-5.0); NEUTROPHILS % 60.5 % (36.0-66.0); PLATELET COUNT, AUTOMATED 213 k/mm3 (150-450); RED CELL DISTRIBUTION WIDTH 12.8 % (11.5-14.5); WHITE BLOOD COUNT 8.2 K/mm3 (4.0-10.0)
[2016-05-24 05:23] LABS: ANION GAP 13 MEQ/L (8-16); BLOOD UREA NITROGEN 12 MG/DL (7-18); CALCIUM LEVEL 7.5 MG/DL (8.5-10.1); CARBON DIOXIDE LEVEL 22 MEQ/L (21-32); CHLORIDE LEVEL 103 MEQ/L (98-107); CREATININE FOR GFR 0.67 MG/DL (0.55-1.02); GLOMERULAR FILTRATION RATE > 60.0 (>58); GLUCOSE, FASTING 103 MG/DL (70-105); MAGNESIUM LEVEL 2.1 MG/DL (1.8-2.4); POTASSIUM SERUM 3.4 MEQ/L (3.5-5.1); SODIUM LEVEL 138 MEQ/L (136-145)
[2016-05-24] MEDS ORDERED: POTASSIUM CHLORIDE 10 MEQ SR TABLET PO ONE (07:00)
[2016-05-24] MEDS: HumaLOG INSULIN (NovoLOG) PER UNIT SC SCH ×4 (07:25→21:00)
[2016-05-24] MEDS ORDERED: TANZ1INJ SC (07:27)
[2016-05-24] MEDS: FLUCONAZOLE 100 MG TAB PO SCH (08:35)
[2016-05-24] MEDS: DICYCLOMINE 10 MG CAP PO SCH (08:35)
[2016-05-24] MEDS: PANTOPRAZOLE 40MG TAB (PROTONIX) PO SCH ×2 (08:35→21:12)
[2016-05-24] MEDS: LISINOPRIL 10 MG TAB PO SCH (08:35)
[2016-05-24] MEDS: ENOXAPARIN 40 MG/0.4 ML SYRINGE (J1650) SC SCH (08:36)
[2016-05-24] MEDS: MAALOX 30 ML SUSP *UDC PO PRN ×2 (08:38→21:12)
[2016-05-24] MEDS ORDERED: PANTOPRAZOLE 40MG INJ (PROTONIX) (C9113) IV SCH (09:00)
--- NOTE | 2016-05-24 11:26 | IPNPDOC ---
Text Note Date of Service The patient was seen on 05/24/16. NOTE Subjective: 46 yo F was seen and examined at bedside. Admits to midepigastric tightness/burning/reflux type pain going up to her throat. Denies headache, confusion, dizziness, weakness, fatigue, fevers, chills, chest pain, SOB, nausea , vomiting diarrhea, rashes/lesions, urinary incontinence, increased urinary frequency, dysuria, hematuria, hematochezia. Has not had a bowel movement since she has got here. States she is feeling much better today. Has not eaten for ~1 week. Nursing reports no acute events overnight. Objective: Vitals: T 98, P 84, RR 20, BP 142/94 (110), Pulse Ox: 98% room air. I's/O's: 5019/4500 mLs yesterday, +519 mL balance yesterday, Wt: 79.6 kg today from 80.1 kg yesterday, BMs: 0. General: Stable and well appearing middle-aged female resting in bed. Cooperative with more alertness and mentation. Patient awake and oriented, verbal and able to answer questions appropriately. In no acute distress. HEENT: Normocephalic Atraumatic. Grossly normal hearing bilaterally. Sclera Nonicteric. No external nasal lesions. +Oral thrush. Endocrinology: No thyromegaly. Neck: Supple. No cervical LAD bilaterally. Heart: Regular rhythm, rate, normal S1-S2. No murmurs, rubs, clicks or gallops Respiratory: Lungs clear to auscultation bilaterally. No wheezes, rales or rhonchi. Abdomen: Active bowel sounds, soft, nontender, nondistended, no masses to palpation. Extremities: No clubbing, cyanosis, edema. Without amputations/deformities. No pedal edema. MSK: Normal ROM. Vascular: +2 radial pulses bilaterally. Psychiatric: No signs of depression or anxiety Laboratory data: Please see below. Toxicology: Beta-hydroxybuturate of >46 on 05/22 Most recent fasting glucose: 103 POC glucose at 7:20: 125 M.1 (N) BUN/Cr: 12/0.67 normalized now Ca: 7.5 (low) No ABG today. pH normalized on 05/22. Imaging: No new imaging today. Assessment/Plan: 46 yo F with PMH significant for IDDM, HTN, dyslipidemia, PCOS, is presenting for nausea, vomiting, and diarrhea clinically presenting as DKA secondary to non-compliance with her insulin. 1) DKA secondary to noncompliance: Patient doing much better today with improved mentation and feels better. Is status-post ~10 liters of fluid. Severe metabolic acidosis has improved/ resolved on bicarb drip. Patient was also placed on BiPAP 2 days ago which was stopped after a Pulmonology consult for Dr. Evangelista. Appreciate Pulmonology input. Was being given 3 amps of bicarb this morning which has been stopped as patient's bicarb has normalized. Anion gap has closed and is 13. Patient attempting to eat today. Have transitioned from insulin drip to subcutaneous insulin: levemir 20 units QHS and lispro AC, QHS sliding scale protocol. Has orders for dextrose 50% IV PRN, glucose PO 16 grams PRN, and glucagon 1 mg PRN. Continue to monitor O2 saturations. Is on consistent carbohydrate diet. Give zofran for nausea. Protonix and added mylanta for heartburn symptoms. Will continue to monitor BMPs daily. 2) Severe Metabolic Acidosis and Acute Kidney Injury: FLACA has resolved with BUN 12 and Cr 0.67 today. Was given bicarb drip: D5 1/2 NS with bicarb and managed by nephrology. Has resolved. Follow any further nephrology recommendations. Appreciate Nephrology input. 3) DM: levemir sc 20 units started at lower dose until patient can eat so her sugars do not go too low. 4) HTN: continue lisinopril 10 mg daily. 5) HLD: continue simvastatin 20 mg daily. 6) Depression: monitor affect and for any clinical signs that are concerning: i.e. suicidal ideations or wish to harm others or plan. 7) PCOS: hold metformin for now. 8) Generalized Abdominal pain/discomfort: Possibly secondary to DKA/acidity. CT abdomen/pelvis did not show any acute intra-abdominal or intrapelvic disease. Continue to monitor for improvement. 9) Oral Thrush: Developed today. Have ordered fluconazole 100 mg PO daily. 10) Continue home medications. DVT ppx: continue lovenox. GI ppx: protonix. Immunizations as per protocol. VS,Fishbone, I+O VS, Fishbone, I+O Laboratory Tests 05/23/16 12:06 Calcium Level 8.2 L 05/23/16 16:07 Calcium Level 7.8 L 05/23/16 19:52 Calcium Level 7.8 L 05/24/16 00:01 Calcium Level 8.4 L 05/24/16 04:18 Calcium Level 7.5 L, Red Blood Count 4.92, Mean Corpuscular Volume 87.2, Mean Corpuscular Hemoglobin 30.1, Mean Corpuscular Hemoglobin Concent 34.6, Red Cell Distribution Width 12.8, Neutrophils (%) (Auto) 60.5, Lymphocytes (%) (Auto) 27.1, Monocytes (%) (Auto) 8.6 H, Eosinophils (%) (Auto) 1.1, Basophils (%) ( Auto) 0.4, Neutrophils # (Auto) 5.0, Lymphocytes # (Auto) 2.2, Monocytes # (Auto ) 0.7, Eosinophils # (Auto) 0.1, Basophils # (Auto) 0.0 Vital Signs Date Time Temp Pulse Resp B/P Pulse Ox O2 Delivery O2 Flow Rate FiO2 05/24/16 08:35 149/93 05/24/16 08:00 97.7 70 18 97 Room Air I&O- Last 24 Hours up to 6 AM 05/24/16 06:00 Intake Total 4139 ml Output Total 4150 ml Balance -11 ml GME ATTESTATION GME ATTESTATION My preceptor for this patient encounter was Dr. Jono Meyer, and was physically present in the building during the encounter and was fully available. As needed, all aspects of the patient interview, examination, medical decision making process, and medical care plan development were reviewed and approved by the preceptor. Preceptor is aware and concurs with the plan as stated in the body of this note and will attest to such by his/her cosignature. JONO ESCALONA OGME-1 May 24, 2016 11:26
--- NOTE | 2016-05-24 11:27 | IPN ---
DATE: 05/23/2016 Ms. Stoddard is seen this morning on her bedside. She was seen yesterday for initial consultation due to severe metabolic acidosis in the setting of diabetic ketoacidosis and acute kidney injury. She is feeling much better today. Her fluids were adjusted and labs were monitored closely all day and night. This morning, she reports that her nausea has improved. She denies any fever or chills. She has no dyspnea or chest pain. She is receiving sodium bicarbonate drip at 250 mL per hour since yesterday. Intake and output records from yesterday showed total intake 4035 and output 4960. This morning so far her intake is 2700 and output 1550. On physical exam, temperature 98.8 degrees Fahrenheit, heart rate 88 per minute and respiratory rate 18 per minute. Blood pressure 129/62 mmHg and oxygen saturation 95% on room air. Head is atraumatic. Pupils equal and reactive to light and sclera is anicteric. Ears, nose and throat are unremarkable. Heart exam reveals regular S1, S2. Lungs: Clear to auscultation. Abdomen: Soft and nontender. Without palpable organomegaly. Bowel sounds are normal. Extremities have no cyanosis or clubbing. Skin has no rash or ulcers. Neurologically, she is awake and alert and without a focal neurological deficit. Today's labs show WBC count 13.2, hemoglobin 15.2 and hematocrit 44.0. Platelets 228. Sodium 136 and potassium 3.3. BUN is 10 and creatinine 0.89. Glucose 241 and calcium 8.3. A repeat blood gas last evening showed a pH of 7.37, pCO2 of 20.2 and pO2 125. Bicarb 16. PROBLEMS: 1. Diabetic ketoacidosis. The patient is improving nicely and her acidosis has improved. She has been on intravenous sodium bicarbonate drip at 250 mL/hour. She seems quite well-hydrated now and is tolerating oral intake well. I will cut down the IV fluid to 100 mL/hour. 2. Acute kidney injury. This was mostly due to dehydration and has already improved. She seems well-hydrated now. 3. Hypokalemia. We will add potassium chloride 20 mEq in each liter of IV fluid. Oral potassium supplement might worsen her nausea, so I will avoid it. She has no oral intake of diet so far. I have advised her to increase her oral intake and advance her diet to as tolerated. 4. Hypertension and tachycardia. Blood pressure is controlled and tachycardia has improved as she is now well hydrated. We will continue with IV fluid at 100 mL/hour.
--- NOTE | 2016-05-24 12:36 | IPN ---
DATE: 05/22/2016 NOTE: I was contacted by Dr. Meyer to be aware of Ms. Liz Stoddard in case she required intubation. He was concerned that she might be tiring. It was reported to me that blood gas was 6.9 and that her pCO2 had increased with that level of pH from 27 to 33. I had recommended the use of noninvasive mechanical ventilator to support her while her metabolic acidemia corrected. When I went to enter the orders into the chart, it was noted that those were venous blood gases and not arterial blood gases, and therefore, the pCO2 is meaningless. Arterial blood gas was done which showed a pH of 7.2 and a pCO2 of 13. She also had not tolerated the noninvasive that had been started. I told them to stop the noninvasive mechanical ventilation as it was not indicated as she was clearing her pCO2 better than we would be able to do with any device orthopaedic physician assistant. Her followup blood gas was 7.37/20. She did well overnight and it was appropriately decided that a formal consultation was not indicated.
[2016-05-24] MEDS ORDERED: LIDOCAINE VISCOUS 2% SOLN 15ML UDC SSP PRN (17:30)
[2016-05-24] MEDS: SIMVASTATIN 20 MG TAB PO SCH (21:12)
[2016-05-24] MEDS: LORATADINE 10 MG TAB PO SCH (21:12)
[2016-05-24] MEDS: LEVEMIR (INSULIN DETEMIR) 1 UNITS/0.01ML SC SCH (21:13)
--- NOTE | 2016-05-24 21:56 | IPN ---
DATE: 05/24/2016 SUBJECTIVE: This is a 46-year-old female who was seen and examined at bedside. Overnight, we discontinued her intravenous (IV) fluids and she was given potassium supplementation early this morning. Her insulin drip was discontinued , and she was placed on bridging subcu insulin. This morning, she feels a lot better. She states that previously the reason for her not taking her medication was because she was prepped for an esophagogastroduodenoscopy (EGD) and colonoscopy to workup for celiac disease and, therefore, did not take her insulin and the rest of her diabetic medication for at least a day or two prior to admission. Her shortness of breath is now resolved. She has epigastric pain but only after eating. She has been walking around in her room and is making good urine. No nausea, vomiting, diarrhea, constipation, fevers, chills. OBJECTIVE: VITAL SIGNS: Blood pressure 149/93, heart rate 70, temperature 97.7, respiratory rate 18, pulse oximetry 97% on room air. INTAKE/OUTPUT: Last 24 hours: 5019 and 4500. Weight is 79.6, yesterday it was 80.1. No bowel movement documented. GENERAL: The patient is sitting in bed, comfortable, in no acute distress. She is alert, awake, oriented times three, pleasant, cooperative. No acute respiratory distress. HEENT: Normocephalic, atraumatic. Moist oral mucosa. She does have aphthous ulcer bilateral tongue. CHEST: Epigastric region is exquisitely tender to palpation. HEART: Regular rate and rhythm. S1, S2 present. Did not appreciate murmur. LUNGS: Clear to auscultation bilaterally without wheezing, rales or rhonchi. ABDOMEN: Soft, nontender, nondistended. Bowel sounds present. No guarding, no rebound. No palpable organomegaly. EXTREMITIES: No pedal edema. Pedal pulses present bilaterally. NEUROLOGIC: She is alert, awake, oriented times three without focal deficit. PSYCHIATRIC: Pleasant, cooperative. Normal affect. LABORATORY DATA: WBC 8.2, hemoglobin 14.8, hematocrit 42.9, platelets 213. Sodium 138, potassium 3.4, chloride 103, carbon dioxide 22, BUN 12, creatinine 0.67, glucose 103, calcium 7.5. Glucose had been ranging 107 to 251. IMPRESSION AND PLAN: Ms. Stoddard is a 46-year-old female with a history of insulin-dependent diabetes, presented with severe acidosis. 1. Diabetic ketoacidosis. She was on sodium bicarbonate drip last night and has been responding well and acidosis has improved significantly. Because of her significantly improved condition, we have discontinued bicarbonate early this morning. Advised against restarting metformin in the future as she is at risk for acidosis. 2. Acute kidney injury. Secondary to dehydration from diabetic ketoacidosis. Her renal function is now normalized. 3. Hypokalemia. We have given her a one-time dose of potassium supplementation now that she is back on a diet. No longer reports nausea and should be able to take this without any issues. 4. Hypertension, tachycardia. Blood pressure is somewhat reasonable and tachycardia is now resolved. She is on her home dose lisinopril. 5. Dysphagia. Apparently there was plan for her to have an esophagogastroduodenoscopy, colonoscopy outpatient which prevented her from taking her antihyperglycemic agents. This is being addressed by primary team. Again, the patient is advised against restarting metformin in the future as she is at risk for recurrence of severe acidosis. My preceptor for this patient encounter was Dr. Parker. The preceptor was physically present in the building during the encounter and was fully available. As needed, all aspects of the patient interview, examination, medical decision making process, and medical care plan development were reviewed and approved by the preceptor. The preceptor is aware and concurs with the plan as stated in the body of this note and will attest to such by his/her cosignature. VIK
[2016-05-25 02:00] VITALS: BP 127/77
[2016-05-25 06:00] VITALS: BP 157/90
[2016-05-25] MEDS: IBUPROFEN 400 MG TAB PO PRN ×2 (06:17→18:11)
[2016-05-25] MEDS: MAALOX 30 ML SUSP *UDC PO PRN ×3 (06:18→18:10)
[2016-05-25 07:18] LABS: ANION GAP 16 MEQ/L (8-16); BLOOD UREA NITROGEN 12 MG/DL (7-18); CALCIUM LEVEL 8.1 MG/DL (8.5-10.1); CARBON DIOXIDE LEVEL 15 MEQ/L (21-32); CHLORIDE LEVEL 107 MEQ/L (98-107); CREATININE FOR GFR 0.68 MG/DL (0.55-1.02); GLOMERULAR FILTRATION RATE > 60.0 (>58); GLUCOSE, FASTING 117 MG/DL (70-105); MAGNESIUM LEVEL 2.2 MG/DL (1.8-2.4); POTASSIUM SERUM 3.7 MEQ/L (3.5-5.1); SODIUM LEVEL 138 MEQ/L (136-145)
[2016-05-25 07:25] LABS: BASO % 0.7 % (0.0-1.0); EOS # 0.1 K/mm3 (0.0-0.50); EOS % 1.9 % (0.0-3.0); LARGE UNSTAINED CELL # 0.2 K/mm3 (0.0-0.4); LARGE UNSTAINED CELL % 2.3 % (0.0-4.0); LYMPH # 1.9 K/mm3 (1.5-4.5); LYMPH % 28.5 % (24.0-44.0); MEAN CORPUSCULAR HEMOGLOBIN 30.2 pg (27.0-33.0); MEAN CORPUSCULAR HGB CONC 33.9 g/dl (32.0-36.5); MEAN CORPUSCULAR VOLUME 89.1 fl (80.0-96.0); MONO # 0.5 K/mm3 (0.0-0.8); NEUTROPHILS # 3.9 K/mm3 (1.8-7.7); NEUTROPHILS % 59.6 % (36.0-66.0); PLATELET COUNT, AUTOMATED 193 k/mm3 (150-450); RED CELL DISTRIBUTION WIDTH 12.8 % (11.5-14.5); WHITE BLOOD COUNT 6.5 K/mm3 (4.0-10.0)
[2016-05-25] MEDS: DICYCLOMINE 10 MG CAP PO SCH (09:20)
[2016-05-25] MEDS: PANTOPRAZOLE 40MG TAB (PROTONIX) PO SCH ×2 (09:26→21:30)
[2016-05-25] MEDS: FLUCONAZOLE 100 MG TAB PO SCH (09:26)
[2016-05-25] MEDS: LISINOPRIL 10 MG TAB PO SCH (09:26)
[2016-05-25] MEDS: ENOXAPARIN 40 MG/0.4 ML SYRINGE (J1650) SC SCH (09:27)
[2016-05-25] MEDS: HumaLOG INSULIN (NovoLOG) PER UNIT SC SCH ×4 (09:28→21:31)
--- NOTE | 2016-05-25 13:51 | IPNPDOC ---
Text Note Date of Service The patient was seen on 05/25/16. NOTE Subjective: 46 yo F was seen and examined at bedside. Admits to midepigastric pain type pain after she tries to eat or drink anything. Has been having difficulty swallowing soft foods like apple sauce, could not tolerate mash potatoes. Patient also is not tolerating soft diet such as jello, had chicken noodle soup last night without the chicken due to dysphagia and epigastric pain as described above. Also states she tried swallowing a pill which just came back right out. Reports a poor appetite. Denies throat pain, but admits that parts of what she tries to swallow get stuck in her throat but she is eventually able to get it down. Nursing reports that patient gets some relief with maalox and prilosec when taken, however, when patient tried to have dinner last night with viscous lidocaine, it made the patient want to vomit x3, and did not afford enough relief. Denies headache, confusion, dizziness, weakness, fatigue, fevers, chills, chest pain, SOB, nausea, vomiting, diarrhea, rashes/ lesions, urinary incontinence, increased urinary frequency, dysuria, hematuria, hematochezia. Has not had a bowel movement since she has got here. Nursing reports no acute events overnight. Patient states she is receptive to staying in the hospital for doing an upper endoscopy, however, is resistant to doing bowel prep again for a colonoscopy. Objective: Vitals: T 97.5, P 91, RR 20, BP 157/90 (112), Pulse Ox: 99% room air. I's/O's: 2140/3500 mLs yesterday, -1360 mL balance yesterday, Wt: 79.6 kg yesterday. No wt reported today. BMs: 0. General: Stable and well appearing middle-aged female resting in bed. Cooperative and pleasant. Patient awake and oriented, verbal and able to answer questions appropriately. In no acute distress. HEENT: Normocephalic Atraumatic. Grossly normal hearing bilaterally. Sclera Nonicteric. No external nasal lesions. +Oral thrush. + Bilateral tongue ulcers/ sores. No aphthous ulcers on buccal mucosa very noticeable. Endocrinology: No thyromegaly. Neck: Supple. No cervical LAD bilaterally. Heart: Regular rhythm, rate, normal S1-S2. No murmurs, rubs, clicks or gallops Respiratory: Lungs clear to auscultation bilaterally. No wheezes, rales or rhonchi. Abdomen: +Tenderness to palpation of epigastric area and at xiphoid process. Active bowel sounds, soft, nontender, nondistended, no masses to palpation. Extremities: No clubbing, cyanosis, edema. Without amputations/deformities. No pedal edema. MSK: Normal ROM. Vascular: +2 radial pulses bilaterally. Psychiatric: No signs of depression or anxiety Laboratory data: Please see below. Most recent fasting glucose: 117 POC glucose at 2:29: 126 M.2 (N) Ca: 8.1 (low) Imaging: No new imaging today. Assessment/Plan: 46 yo F with PMH significant for IDDM, HTN, dyslipidemia, PCOS, is presenting for nausea, vomiting, and diarrhea clinically presenting as DKA secondary to non-compliance with her insulin. 1) DKA secondary to noncompliance: Has much improved from acidemia. Severe metabolic acidosis has improved/ resolved with previous management of IV fluids, insulin, D5W with bicarb drip. Anion gap has closed. Patient, however, not tolerating soft diet as expected. On levemir 20 units QHS and lispro AC, QHS sliding scale protocol. Has orders for dextrose 50% IV PRN, glucose PO 16 grams PRN, and glucagon 1 mg PRN. Continue to monitor O2 saturations. Is on consistent carbohydrate diet. Give zofran for nausea. On protonix and mylanta for heartburn symptoms/ esophageal discomfort. Dis continue viscous lidocaine. Will continue to monitor BMPs daily. Patient's metformin is being discontinued and will not be recommended to restart as outpatient due to risk of lactic acidosis/metabolic acidosis. 2) Severe Metabolic Acidosis and Acute Kidney Injury: FLACA has resolved. Follow any further nephrology recommendations. Appreciate Nephrology input. Nephrology has signed off today. 3) Dysphagia, Postprandial Midepigastric Pain, and Oral Bilateral Tongue Ulcers : Patient having dysphagia with both solids and liquids. Differential includes carcinoid tumor vs. crohn's disease vs. celiac's disease vs. wretching vs. other etiology. Patient has positive family hx of Crohn's disease in maternal grandmother and she suspects that her own mother may have had Crohn's as well. Patient states she has had a hx of vomiting and diarrheal symptoms that are severe and caused hot flushing, palpitations, and making her feel very sick. Will make NPO tonight. Will have EGD tomorrow morning by Gastroenterology to evaluate etiology of dysphagia. Patient not interested in doing bowel prep for colonoscopy at this time. 4) DM: levemir sc 20 units started at lower dose until patient can eat normally so her sugars do not go too low. 5) HTN: Stable. Will monitor. Continue lisinopril 10 mg daily for now. 6) HLD: continue simvastatin 20 mg daily. 7) Depression: monitor affect and for any clinical signs that are concerning: i.e. suicidal ideations or wish to harm others or plan. 8) PCOS: hold metformin for now. 9) Oral Thrush/Bilateral Tongue Ulcers: Developed yesterday. Improved from prior. Have ordered fluconazole 100 mg PO daily. 10) Continue home medications. DVT ppx: continue lovenox. GI ppx: protonix. Immunizations as per protocol. VS,Fishbone, I+O VS, Fishbone, I+O Laboratory Tests 05/25/16 06:48 Calcium Level 8.1 L, Red Blood Count 5.03, Mean Corpuscular Volume 89.1, Mean Corpuscular Hemoglobin 30.2, Mean Corpuscular Hemoglobin Concent 33.9, Red Cell Distribution Width 12.8, Neutrophils (%) (Auto) 59.6, Lymphocytes (%) (Auto) 28.5, Monocytes (%) (Auto) 7.0 H, Eosinophils (%) (Auto) 1.9, Basophils (%) ( Auto) 0.7, Neutrophils # (Auto) 3.9, Lymphocytes # (Auto) 1.9, Monocytes # (Auto ) 0.5, Eosinophils # (Auto) 0.1, Basophils # (Auto) 0.0 Vital Signs Date Time Temp Pulse Resp B/P Pulse Ox O2 Delivery O2 Flow Rate FiO2 05/25/16 06:00 97.5 91 20 157/90 99 Room Air I&O- Last 24 Hours up to 6 AM 05/25/16 06:00 Intake Total 2000 ml Output Total 3950 ml Balance -1950 ml GME ATTESTATION GME ATTESTATION My preceptor for this patient encounter was Dr. Heriberto Peterson, and was physically present in the building during the encounter and was fully available. As needed , all aspects of the patient interview, examination, medical decision making process, and medical care plan development were reviewed and approved by the preceptor. Preceptor is aware and concurs with the plan as stated in the body of this note and will attest to such by his/her cosignature. LE ESCALONA OGME-1 May 25, 2016 13:51
[2016-05-25 14:00] VITALS: BP 158/94
--- NOTE | 2016-05-25 16:22 | IPN ---
DATE: 05/25/2016 SUBJECTIVE: This is a 46-year-old female who was seen and examined in the medical/surgical floor. She was transferred from the intensive care unit (ICU) yesterday. This morning denies any chest pain, shortness of breath, palpitations, nausea, vomiting, diarrhea, constipation. She does have pain in her epigastric region which improves with Mylanta. Currently there is plan for her to be nothing by mouth with endoscopy tomorrow with gastroenterology to evaluate her dysphagia. OBJECTIVE: VITAL SIGNS: Blood pressure 127/77, heart rate 76, temperature 98.7, repeat was 97.5, respiration rate 18, pulse oximetry 99% on room air. Intake and output last 24 hours: 2140 and 3500, net negative of 1360. Weight is 79.6 from yesterday, no weight documented today. GENERAL: Patient was lying in bed, comfortable, in no acute distress. She is alert, awake, oriented times three, pleasant and cooperative. No acute respiratory distress. HEENT: Normocephalic, atraumatic. Moist oral mucosa. Aphthous ulcer on tongue bilaterally. CHEST: Epigastric region is mildly tender to palpation. LUNGS: Clear to auscultation bilaterally without audible wheezing, rales, or rhonchi. HEART: Regular rate and rhythm, S1, S2 normal. Could not appreciate murmurs, rubs, or gallops. ABDOMEN: Soft, nontender, nondistended. Bowel sounds present. No guarding. No rebound. EXTREMITIES: No pedal edema. Pedal pulses present bilaterally. NEUROLOGIC: No focal deficits. PSYCHIATRIC: Normal affect. LABORATORY DATA: WBC 6.5, hemoglobin 15.2, hematocrit 44.9, platelets 193. Sodium 138, potassium 3.7, chloride 107, carbon dioxide 15, BUN 12, creatinine 0.68, glucose 117, calcium 8.1, magnesium 2.2. IMPRESSION AND PLAN: Ms. Stoddard is a 46-year-old female with history of insulin-dependent diabetes who presented with severe acidosis. 1. Diabetic ketoacidosis. Previously was on sodium bicarbonate drip and responded well. Acidosis is now resolved. Her acidosis was likely secondary to metformin combined with her underlying diabetic ketoacidosis (DKA) and diarrhea. Will recommend against continuing metformin in the future. 2. Acute kidney injury, secondary to dehydration from diabetic ketoacidosis (DKA). Renal function has normalized. 3. Hypokalemia, resolved. 4. Hypertension. Blood pressure is within reasonable range. She is on her home dose angiotensin-converting enzyme (LINDA) inhibitor. 5. Dysphagia. Currently there is plan for consideration of an endoscopy. From a renal standpoint, the patient has been doing well, therefore we will sign off at this time. Please call with any questions. My preceptor for this patient encounter was Dr. Liset Parker. The preceptor was physically present in the building during the encounter and was fully available. As needed, all aspects of the patient interview, examination, medical decision making process, and medical care plan development were reviewed and approved by the preceptor. The preceptor is aware and concurs with the plan as stated in the body of this note and will attest to such by his cosignature. VIK
[2016-05-25] MEDS: LEVEMIR (INSULIN DETEMIR) 1 UNITS/0.01ML SC SCH (21:30)
[2016-05-25] MEDS: LORATADINE 10 MG TAB PO SCH (21:30)
[2016-05-25] MEDS: SIMVASTATIN 20 MG TAB PO SCH (21:30)
[2016-05-25 22:00] VITALS: BP 133/87
[2016-05-26] VITALS (8 sets, daily range): BP systolic 130–159; BP diastolic 77–99
[2016-05-26] MEDS: D5W/0.9% SODIUM CHLORIDE 1,000 ML IV SCH ×2 (00:46→10:58)
[2016-05-26 07:55] LABS: BASO % 0.6 % (0.0-1.0); EOS # 0.3 K/mm3 (0.0-0.50); EOS % 4.2 % (0.0-3.0); LARGE UNSTAINED CELL # 0.2 K/mm3 (0.0-0.4); LARGE UNSTAINED CELL % 2.8 % (0.0-4.0); LYMPH # 1.8 K/mm3 (1.5-4.5); LYMPH % 29.1 % (24.0-44.0); MEAN CORPUSCULAR HEMOGLOBIN 29.5 pg (27.0-33.0); MEAN CORPUSCULAR HGB CONC 33.6 g/dl (32.0-36.5); MONO # 0.4 K/mm3 (0.0-0.8); MONO % 6.4 % (0.0-5.0); NEUTROPHILS # 3.5 K/mm3 (1.8-7.7); NEUTROPHILS % 56.9 % (36.0-66.0); PLATELET COUNT, AUTOMATED 211 k/mm3 (150-450); RED CELL DISTRIBUTION WIDTH 12.7 % (11.5-14.5); WHITE BLOOD COUNT 6.2 K/mm3 (4.0-10.0)
[2016-05-26 07:59] LABS: ANION GAP 14 MEQ/L (8-16); BLOOD UREA NITROGEN 11 MG/DL (7-18); CALCIUM LEVEL 7.9 MG/DL (8.5-10.1); CARBON DIOXIDE LEVEL 16 MEQ/L (21-32); CHLORIDE LEVEL 110 MEQ/L (98-107); CREATININE FOR GFR 0.57 MG/DL (0.55-1.02); GLOMERULAR FILTRATION RATE > 60.0 (>58); GLUCOSE, FASTING 190 MG/DL (70-105); MAGNESIUM LEVEL 2.1 MG/DL (1.8-2.4); POTASSIUM SERUM 3.7 MEQ/L (3.5-5.1); SODIUM LEVEL 140 MEQ/L (136-145)
[2016-05-26] MEDS: PANTOPRAZOLE 40MG TAB (PROTONIX) PO SCH ×2 (08:51→21:40)
[2016-05-26] MEDS: HumaLOG INSULIN (NovoLOG) PER UNIT SC SCH ×4 (08:52→21:00)
[2016-05-26] MEDS: LISINOPRIL 10 MG TAB PO SCH (08:53)
[2016-05-26] MEDS: DICYCLOMINE 10 MG CAP PO SCH (09:00)
[2016-05-26] MEDS: ENOXAPARIN 40 MG/0.4 ML SYRINGE (J1650) SC SCH (09:00)
[2016-05-26] MEDS: FLUCONAZOLE 100 MG TAB PO SCH (09:00)
[2016-05-26] MEDS ORDERED: LIDOCAINE 2% INJ 100 MG/5 ML SDV (FOR ANES.) As Ordered ONE (12:31)
[2016-05-26] MEDS ORDERED: PROPOFOL 200 MG/20 ML VIAL As Ordered ONE (12:31)
--- NOTE | 2016-05-26 12:51 | ROOR ---
Patient Name: Liz Stoddard Procedure Date: 05/26/2016 12:29 PM Date of : 1970 Age: 46 Room: [facility] Gender: Female Note Status: Finalized Procedure: Upper GI endoscopy + SBB + Biopsies Indications: Dysphagia, Heartburn, Positive celiac serologies Providers: Serjio Ramsay MD Referring MD: Erasmo Stack MD, RAMOS MORELOS DO Requesting Provider: Medicines: Monitored Anesthesia Care Complications: No immediate complications. Procedure: Pre-Anesthesia Assessment: - The heart rate, respiratory rate, oxygen saturations, blood pressure, adequacy of pulmonary ventilation, and response to care were monitored throughout the procedure. The Endoscope was introduced through the mouth, and advanced to the second part of duodenum. The upper GI endoscopy was accomplished without difficulty. The patient tolerated the procedure well. Findings: The Z-line was regular and was found 40 cm from the incisors. Mildly severe esophagitis with no bleeding was found. Biopsies were taken with a cold forceps for histology. The exam of the stomach was otherwise normal. Diffuse mild inflammation characterized by congestion (edema), erosions and erythema was found in the first portion of the duodenum and in the second portion of the duodenum. Biopsies for histology were taken with a cold forceps for evaluation of celiac disease. The exam was otherwise without abnormality. Impression: - Z-line regular, 40 cm from the incisors. - Mildly severe acute esophagitis. Biopsied. - Acute duodenitis. Biopsied. - The examination was otherwise normal. Recommendation: - Patient has a contact number available for emergencies. The signs and symptoms of potential delayed complications were discussed with the patient. Return to normal activities tomorrow. Written discharge instructions were provided to the patient. - High fiber diet. - Continue present medications. - Await pathology results. - Telephone GI clinic for pathology results in 1 week. - Return to referring physician. - The findings and recommendations were discussed with the patient. Serjio Ramsay MD Serjio Ramsay MD 05/26/2016 12:50:43 PM This report has been signed electronically. Number of Addenda: 0 Note Initiated On: 05/26/2016 12:29 PM Estimated Blood Loss: Estimated blood loss: none.
--- NOTE | 2016-05-26 15:51 | IPNPDOC ---
Text Note Date of Service The patient was seen on 05/26/16. NOTE Subjective: 46 yo F was seen and examined at bedside. Admits to improvement in her midepigastric type pain postprandially than before. Admits that she is having an easier time swallowing pills. Was able to eat dinner last night but had to force herself for 2 hours and made her food more soft by mixing gravy into it. Denies food being more stuck in her throat today. Reports that after she ate dinner last night, there was pain initially while eating, but after she was done, she was having no acidity or pain in her stomach. Denies headache, confusion, dizziness, weakness, fatigue, fevers, chills, chest pain, SOB, nausea , vomiting, diarrhea, rashes/lesions, urinary incontinence, increased urinary frequency, dysuria, hematuria, hematochezia. Has not had a bowel movement since she has got here. There were no acute events overnight. Objective: Vitals: T 99.3, P 102, RR 18, BP100/58 (72), Pulse Ox: 99% room air. I's/O's: 2840/3450 mLs yesterday, -610 mLs balance yesterday, No wt reported today. BMs: 0. General: Stable and well appearing middle-aged female resting in bed. Cooperative and pleasant. Patient awake and oriented, verbal and able to answer questions appropriately. In no acute distress. HEENT: Normocephalic Atraumatic. Grossly normal hearing bilaterally. Sclera Nonicteric. No external nasal lesions. + Bilateral tongue ulcers/sores. No aphthous ulcers on buccal mucosa very noticeable. Endocrinology: No thyromegaly. Neck: Supple. No cervical LAD bilaterally. Heart: Regular rhythm, rate, normal S1-S2. No murmurs, rubs, clicks or gallops Respiratory: Lungs clear to auscultation bilaterally. No wheezes, rales or rhonchi. Abdomen: +Mild tenderness to palpation of epigastric area near/at xiphoid process, much improved from yesterday. No other abdominal tenderness. Active bowel sounds, soft, nontender, nondistended, no masses to palpation. Extremities: No clubbing, cyanosis, edema. Without amputations/deformities. No pedal edema. MSK: Normal ROM. Vascular: +2 radial pulses bilaterally. Psychiatric: No signs of depression or anxiety Laboratory data: Please see below. Most recent fasting glucose: 190 POC glucose at 145 at 11:29 Anion Gap: 14. Bicarb Serum: 16 (low) Imaging: No new imaging today. Assessment/Plan: 46 yo F with PMH significant for IDDM, HTN, dyslipidemia, PCOS, is presenting for nausea, vomiting, and diarrhea clinically presenting as DKA secondary to non-compliance with her insulin. 1) DKA secondary to noncompliance: Has resolved. However, patient's Anion Gap is going up and was 14 today and her bicarb was low at 16. Will have to keep a close eye on that. Patient, however, not tolerating soft diet as much as is expected, but is improved from prior. On levemir 20 units QHS and lispro AC, QHS sliding scale protocol. Has orders for dextrose 50% IV PRN, glucose PO 16 grams PRN, and glucagon 1 mg PRN. Continue to monitor O2 saturations. Was made NPO after midnight for EGD procedure today and given D5 Normal Saline throughout night. Give zofran for nausea. On protonix and mylanta for heartburn symptoms/ esophageal discomfort. Still has viscous lidocaine on board. Will continue to monitor BMPs daily. Patient's metformin is being discontinued and will not be recommended to restart as outpatient due to risk of lactic acidosis/metabolic acidosis. 2) Severe Metabolic Acidosis and Acute Kidney Injury: FLACA has resolved. Follow any further nephrology recommendations. Appreciate Nephrology input. Nephrology has signed off today. 3) Dysphagia, Postprandial Midepigastric Pain, and Oral Bilateral Tongue Ulcers : Patient having dysphagia with both solids and liquids. Differential includes carcinoid tumor vs. crohn's disease vs. celiac's disease vs. wretching vs. other etiology. Patient has positive family hx of Crohn's disease in maternal grandmother and she suspects that her own mother may have had Crohn's as well. Was made NPO after midnight last night. Will have EGD tomorrow today by Gastroenterology scheduled ~1:15 PM to evaluate etiology of dysphagia. We have also ordered a 5HIAA 24 hour urine test for ruling out possible carcinoid tumor. 4) Type 2 DM Uncontrolled and On Insulin: levemir sc 20 units started at lower dose until patient can eat normally so her sugars do not go too low. On D5 NS fluids for now. 5) HTN: Stable. Will monitor. Continue lisinopril 10 mg daily for now. 6) HLD: continue simvastatin 20 mg daily. 7) Depression: monitor affect and for any clinical signs that are concerning: i.e. suicidal ideations or wish to harm others or plan. 8) PCOS: hold metformin for now. 9) Oral Thrush/Bilateral Tongue Ulcers: Improved from prior. Have ordered fluconazole 100 mg PO daily. Will continue to monitor. 10) Continue home medications. DVT ppx: continue lovenox. GI ppx: protonix. Immunizations as per protocol. VS,Fishbone, I+O VS, Fishbone, I+O Laboratory Tests 05/26/16 07:16 Calcium Level 7.9 L, Red Blood Count 5.04, Mean Corpuscular Volume 88.0, Mean Corpuscular Hemoglobin 29.5, Mean Corpuscular Hemoglobin Concent 33.6, Red Cell Distribution Width 12.7, Neutrophils (%) (Auto) 56.9, Lymphocytes (%) (Auto) 29.1, Monocytes (%) (Auto) 6.4 H, Eosinophils (%) (Auto) 4.2 H, Basophils (%) ( Auto) 0.6, Neutrophils # (Auto) 3.5, Lymphocytes # (Auto) 1.8, Monocytes # (Auto ) 0.4, Eosinophils # (Auto) 0.3, Basophils # (Auto) 0.0 Vital Signs Date Time Temp Pulse Resp B/P Pulse Ox O2 Delivery O2 Flow Rate FiO2 05/26/16 15:00 98.4 95 18 142/92 99 Room Air I&O- Last 24 Hours up to 6 AM 05/26/16 06:00 Intake Total 2340 ml Output Total 3100 ml Balance -760 ml GME ATTESTATION GME ATTESTATION My preceptor for this patient encounter was Dr. Heriberto Peterson, and was physically present in the building during the encounter and was fully available. As needed , all aspects of the patient interview, examination, medical decision making process, and medical care plan development were reviewed and approved by the preceptor. Preceptor is aware and concurs with the plan as stated in the body of this note and will attest to such by his/her cosignature. LE ESCALONA OGME-1 May 26, 2016 15:51
--- NOTE | 2016-05-26 17:23 | IPN ---
DATE: 05/26/2016 Ms. Stoddard is feeling much better today. She was able to take some dinner last evening. She worked at it slowly. When she had food in her stomach, she said she felt better. Today, temperature is 99.3, pulse 102, respiratory rate 18, blood pressure 100/58, 99% on room air. Intake and output notable for a negative fluid balance of -610. She is awake, appropriately interactive, pleasantly conversant. Breathing is symmetrical and rested. Heart is in a regular rate and rhythm. Abdomen is soft, doughy, nontender. LABORATORY DATA: White cell count 6.2, hemoglobin 14.9. Carbon dioxide 16 which is up from yesterday with an anion gap of 14. ASSESSMENT: This is a 46-year-old who had presented with diabetic ketoacidosis (DKA) and continues to have abdominal pain and difficulty swallowing. Planned for esophagogastroduodenoscopy (EGD) today which has completed at this point. PLAN: 1. Diabetic ketoacidosis. The patient has resolved from that. We will continue with home insulin and advanced diet after EGD. 2. EGD today has shown mildly severe acute esophagitis which was biopsied, acute duodenitis which was biopsied. The patient has been started on sucralfate, and appropriate diet, and proton pump inhibitor (PPI). The patient would benefit from outpatient colonoscopy. Also, we have ordered a 24-hour urine collection for 5H1AA for the possibility of carcinoid. 3. The patient has hypertension which is stable. 4. The patient has hyperlipidemia. 5. The patient has history of depression. 6. The patient has polycystic ovarian syndrome, holding metformin.
[2016-05-26] MEDS: LEVEMIR (INSULIN DETEMIR) 1 UNITS/0.01ML SC SCH (21:40)
[2016-05-26] MEDS: LORATADINE 10 MG TAB PO SCH (21:40)
[2016-05-26] MEDS: SIMVASTATIN 20 MG TAB PO SCH (21:40)
[2016-05-26] MEDS: IBUPROFEN 400 MG TAB PO PRN (21:45)
[2016-05-27 06:00] VITALS: BP 131/89
[2016-05-27 07:18] LABS: ANION GAP 13 MEQ/L (8-16); BLOOD UREA NITROGEN 12 MG/DL (7-18); CALCIUM LEVEL 8.3 MG/DL (8.5-10.1); CARBON DIOXIDE LEVEL 20 MEQ/L (21-32); CHLORIDE LEVEL 108 MEQ/L (98-107); CREATININE FOR GFR 0.45 MG/DL (0.55-1.02); GLOMERULAR FILTRATION RATE > 60.0 (>58); GLUCOSE, FASTING 121 MG/DL (70-105); MAGNESIUM LEVEL 2.2 MG/DL (1.8-2.4); POTASSIUM SERUM 3.2 MEQ/L (3.5-5.1); SODIUM LEVEL 141 MEQ/L (136-145)
[2016-05-27 07:24] LABS: BASO % 0.8 % (0.0-1.0); EOS # 0.3 K/mm3 (0.0-0.50); LARGE UNSTAINED CELL # 0.2 K/mm3 (0.0-0.4); LARGE UNSTAINED CELL % 2.8 % (0.0-4.0); LYMPH # 1.8 K/mm3 (1.5-4.5); LYMPH % 32.5 % (24.0-44.0); MEAN CORPUSCULAR HGB CONC 34.5 g/dl (32.0-36.5); MEAN CORPUSCULAR VOLUME 86.8 fl (80.0-96.0); MONO # 0.4 K/mm3 (0.0-0.8); MONO % 6.4 % (0.0-5.0); NEUTROPHILS # 2.8 K/mm3 (1.8-7.7); NEUTROPHILS % 51.4 % (36.0-66.0); PLATELET COUNT, AUTOMATED 215 k/mm3 (150-450); RED CELL DISTRIBUTION WIDTH 12.9 % (11.5-14.5); WHITE BLOOD COUNT 5.4 K/mm3 (4.0-10.0)
[2016-05-27 08:41] VITALS: BP 139/93
[2016-05-27] MEDS: ENOXAPARIN 40 MG/0.4 ML SYRINGE (J1650) SC SCH (08:41)
[2016-05-27] MEDS: DICYCLOMINE 10 MG CAP PO SCH ×2 (08:41→08:43)
[2016-05-27] MEDS: LISINOPRIL 10 MG TAB PO SCH (08:41)
[2016-05-27] MEDS: PANTOPRAZOLE 40MG TAB (PROTONIX) PO SCH (08:41)
[2016-05-27] MEDS: FLUCONAZOLE 100 MG TAB PO SCH (08:41)
[2016-05-27] MEDS: HumaLOG INSULIN (NovoLOG) PER UNIT SC SCH ×2 (08:42→11:54)
[2016-05-27] MEDS ORDERED: INSUDET SC (10:18)
[2016-05-27] MEDS ORDERED: PANT40TA2 PO (10:18)
[2016-05-27] MEDS ORDERED: FLUC10TA PO (10:18)
[2016-05-27] MEDS ORDERED: INSUHUMDS SC ×2 (10:18)
[2016-05-27] MEDS ORDERED: POTASSIUM CHLORIDE 10 MEQ SR TABLET PO ONE (10:45)
[2016-05-27] MEDS ORDERED: OSEL75CA PO (11:18)
[2016-05-27 14:00] VITALS: BP 132/84
--- NOTE | 2016-05-28 08:12 | DSES ---
DATE OF ADMISSION: 05/21/2016 DATE OF DISCHARGE: 05/27/2016 SPECIALISTS INVOLVED IN HER CARE: Dr. Ramsay. PROCEDURES PERFORMED DURING HER STAY: EGD. DISCHARGE DIAGNOSES: Diabetic ketoacidosis. Hypolipidemia. Hypertension. Depression. Polycystic ovarian syndrome. Dysphagia. Hypokalemia. Mildly severe esophagitis without bleeding. Suspected celiac disease. Possible carcinoid syndrome. Possible Crohn's disease. OTHER SPECIALISTS INVOLVED IN HER CARE: Dr. Evangelista. Dr. Parker. SUMMARY OF HER HOSPITALIZATION: This is a 46-year-old with past medical history of diabetes not known to be insulin dependent. She presented with nausea and vomiting that had been associated with a gastrointestinal (GI) illness and made worse with use of a bowel prep for a planned EGD and colonoscopy. She was found to have diabetic ketoacidosis and severe acidosis at that, was admitted to the intensive care unit, was treated with fluids and insulin with consultation from critical care as well as nephrology as she had persistent metabolic acidosis. Her lowest recorded pH was 6.96 which was venous. She improved slowly. Did receive bicarbonate supplementation. Her hydroxybutyrate was greater than 46. She went on to complain of abdominal discomfort. Refused further colonoscopy attempts but did have an EGD which showed mildly severe esophagitis. On day of discharge, she is tolerating diet and feels much better. Has no complaints of pain, chest pain, shortness of breath. Her son has just been diagnosed with influenza. Temperature is 98.9, pulse 88, respiratory rate 20, blood pressure 131/89, 99% on room air. Awake, alert, pleasant, easily conversant. Breathing is symmetrical and rested. Heart: Regular rate and rhythm. Abdomen: Soft, doughy, nontender. White cell count 5.4, hemoglobin 14.6, BUN 12, creatinine 0.45, carbon dioxide 20. Potassium is 3.2 and will be supplemented. DISCHARGE INSTRUCTIONS: Followup with resident clinic on 06/03 at 2:30. Activity as tolerated. Continue consistent carbohydrate diet. Continue fluconazole 100 mg by mouth daily for 5 more days. Continue Levemir 20 units subcutaneously daily at bedtime. Continue sliding scale as written. Protonix 40 mg by mouth twice daily which I would continue for at least 1 month, Bentyl 10 mg by mouth daily, lisinopril 10 mg by mouth daily, loratadine 10 mg by mouth daily at bedtime, Lovastatin 20 mg by mouth at bedtime. Discontinue her Invokana. Discontinue her glyburide. Discontinue her previous insulin orders. Discontinue metformin and discontinue Tanzeum. Call gastrointestinal (GI) office for pathology followup next week for followup instructions. Patient could likely benefit from colonoscopy as Crohn's is under consideration. Patient is to followup with Dr. Rodarte.
== END 2016-05-27 16:32 | disposition home or self-care (01) | DRG 420 ==
LOC: M ED 18:28 → M ED INP 21:38 → M ICU 23:15 → M MSPAV 05-24 16:13
PROVIDERS: ADMIT Internal Medicine; ATTEND Internal Medicine
PROC: 0DB58ZX Excision of Esophagus, Via Natural or Artificial Opening Endoscopic, Diagnostic (ICD-10-PCS; 2016-05-26)
PROC: 0DB98ZX Excision of Duodenum, Via Natural or Artificial Opening Endoscopic, Diagnostic (ICD-10-PCS; principal; 2016-05-26 11:50)
DX: E13.10 Other specified diabetes mellitus with ketoacidosis without coma (principal); N17.9 Acute kidney failure, unspecified; B37.0 Candidal stomatitis; K90.0 Celiac disease; R13.10 Dysphagia, unspecified; K50.90 Crohn's disease, unspecified, without complications; E78.5 Hyperlipidemia, unspecified; I10 Essential (primary) hypertension; F32.9 Major depressive disorder, single episode, unspecified; E28.2 Polycystic ovarian syndrome; E87.6 Hypokalemia; E86.0 Dehydration; K20.8 Other esophagitis; K29.80 Duodenitis without bleeding; E11.65 Type 2 diabetes mellitus with hyperglycemia; Z79.84 Long term (current) use of oral hypoglycemic drugs; Z91.14 Patient's other noncompliance with medication regimen; Z79.4 Long term (current) use of insulin; Z79.899 Other long term (current) drug therapy

== ENCOUNTER → 2016-06-29 | Outpatient (REF) | payer OTHER ==
[~2016-06-29] MED LIST changes: +FLUC10TA PO; +INSUHUMDS SC; +LORA10TA2 PO; +METF-415 PO; +METF500T4 PO; +OSEL75CA PO; +PANT40TA2 PO; +TANZ1INJ SC
[2016-06-29 16:21] LABS: ANION GAP 8 MEQ/L (8-16); BLOOD UREA NITROGEN 19 MG/DL (7-18); CALCIUM LEVEL 7.9 MG/DL (8.5-10.1); CARBON DIOXIDE LEVEL 24 MEQ/L (21-32); CHLORIDE LEVEL 110 MEQ/L (98-107); CREATININE FOR GFR 0.85 MG/DL (0.55-1.02); GLOMERULAR FILTRATION RATE > 60.0 (>58); GLUCOSE, FASTING 133 MG/DL (70-105); POTASSIUM SERUM 4.4 MEQ/L (3.5-5.1); SODIUM LEVEL 142 MEQ/L (136-145)
== END ==
LOC: M LABDRAW1 15:28
PROVIDERS: ATTEND Physician Assistant Medical
DX: E11.65 Type 2 diabetes mellitus with hyperglycemia (principal); E55.9 Vitamin D deficiency, unspecified

== ENCOUNTER → 2016-07-27 | Outpatient (REF) | payer OTHER | LOC: M SFHCWAGY 11:12 | PROVIDERS: ATTEND Nurse Practitioner Women's Health | DX: N89.8 Other specified noninflammatory disorders of vagina (principal); N90.89 Other specified noninflammatory disorders of vulva and perineum ==

== ENCOUNTER → 2016-08-27 | Outpatient (REF) | payer OTHER | LOC: M SFHCWAGY 17:07 | PROVIDERS: ATTEND Family Medicine | DX: Z11.3 Encounter for screening for infections with a predominantly sexual mode of transmission (principal) ==

== ENCOUNTER → 2016-10-08 | Outpatient (REF) | payer OTHER ==
[~2016-10-08] MED LIST changes: -METF1000 PO; +METF10004 PO; -METF500T PO; +METF500T13 PO
== END ==
LOC: M SFHCWAGY 15:48
PROVIDERS: ATTEND Family Medicine
DX: Z53.8 Procedure and treatment not carried out for other reasons (principal); A59.9 Trichomoniasis, unspecified

== ENCOUNTER → 2017-04-18 | Outpatient (REF) | payer OTHER ==
[2017-04-20 14:13] LABS: HPV HYBRID CAPTURE II Positive (Negative)
== END ==
LOC: M SFHCWAGY 11:04
DX: Z12.4 Encounter for screening for malignant neoplasm of cervix (principal)

== ENCOUNTER → 2017-04-18 | Outpatient (CLI) | payer OTHER | LOC: M WHC 10:06 | DX: Z12.31 Encounter for screening mammogram for malignant neoplasm of breast (principal); Z92.0 Personal history of contraception | CPT/HCPCS: 77067 ==

== ENCOUNTER → 2017-04-19 | Outpatient (REF) | payer BC ==
[2017-04-19 17:24] LABS: INFLUENZA A AMPLIFICATION NEGATIVE (NEGATIVE); INFLUENZA B AMPLIFICATION NEGATIVE (NEGATIVE); RSV AMPLIFICATION NEGATIVE (NEGATIVE)
== END ==
LOC: M LAB REF 16:43
DX: J11.1 Influenza due to unidentified influenza virus with other respiratory manifestations (principal)
CPT/HCPCS: 87070

== ENCOUNTER → 2017-09-04 | Outpatient (CLI) | payer OTHER | LOC: M WUC 10:22 | DX: M51.36 Other intervertebral disc degeneration, lumbar region (principal); M25.78 Osteophyte, vertebrae | CPT/HCPCS: 72110 ==

== ENCOUNTER → 2018-06-08 | Outpatient (CLI) | payer OTHER ==
[~2018-06-08] MED LIST changes: +LORA-243 PO; -LORA10TA2 PO; -PANT40TA2 PO; +PANT40TA3 PO
--- NOTE | 2018-06-08 14:57 | REPMRS ---
Patient History The patient states she had a clinical breast exam in 05/2018. Patient had first child at age 38. Family history of colorectal cancer at age 50 or over and prostate cancer at age 50 or over in father. Taking hormonal contraceptives for 9 years. 3D TOMOSYNTHESIS WAS PERFORMED. Digital Woman Screen Mammo: June 08, 2018 - Exam #: [id number] Bilateral CC and MLO view(s) were taken. Technologist: Shama Colvin, Technologist Prior study comparison: April 18, 2017, digital woman screen mammo performed at [facility]. April 07, 2016, digital woman screen mammo performed at [facility]. FINDINGS: There are scattered fibroglandular densities. There has been no change in the appearance of the mammogram from the prior studies. There is a mild amount of residual fibroglandular tissue which is fairly symmetric. There is no interval development of dominant mass, architectural distortion, or clustered microcalcification suggestive of malignancy. Assessment: BI-RADS/ACR category 1 mammogram. Negative Mammogram. Recommendation Routine screening mammogram in 1 year (for women over age 40). This mammogram was interpreted with the aid of an FDA-approved computer-aided dectection system. Electronically Signed By: Misael Palacios MD 06/08/18 [id number]
== END ==
LOC: M WHC 13:14
PROVIDERS: ATTEND Nurse Practitioner Women's Health
DX: Z12.31 Encounter for screening mammogram for malignant neoplasm of breast (principal)

== ENCOUNTER → 2018-06-08 | Outpatient (REF) | payer OTHER ==
[2018-06-10 16:40] LABS: HPV HYBRID CAPTURE II Negative (Negative)
== END ==
LOC: M SFHCWAGY 13:40
PROVIDERS: ATTEND Nurse Practitioner Women's Health
DX: R87.810 Cervical high risk human papillomavirus (HPV) DNA test positive (principal); Z12.4 Encounter for screening for malignant neoplasm of cervix; Z87.898 Personal history of other specified conditions

== ENCOUNTER → 2019-09-04 | Outpatient (CLI) | payer OTHER ==
[~2019-09-04] MED LIST changes: +METF-838 PO; -METF500T4 PO
== END ==
LOC: M LABSMTC 12:35
PROVIDERS: ATTEND Family Medicine
DX: Z03.818 Encounter for observation for suspected exposure to other biological agents ruled out (principal); Z11.59 Encounter for screening for other viral diseases
CPT/HCPCS: C9803; U0003

== ENCOUNTER → 2020-01-18 | Outpatient (CLI) | payer OTHER ==
[~2020-01-18] MED LIST changes: +PANT40TA29 PO; -PANT40TA3 PO
--- NOTE | 2020-01-18 12:06 | REPMRS ---
Patient History The patient states she had a clinical breast exam in January 2020.Family history of colorectal cancer at age 50 or over and prostate cancer at age 50 or over in father. Taking hormonal contraceptives for 9 years. 3D TOMOSYNTHESIS WAS PERFORMED. The Luis Lopes lifetime risk for breast cancer is 16.0%. Volpara breast density b. Digital Woman Screen Mammo: January 18, 2020 - Exam #: [id number] Bilateral CC and MLO view(s) were taken. Technologist: Arpita Garcia, Technologist Prior study comparison: June 08, 2018, bilateral digital woman screen mammo performed at [facility]. April 18, 2017, digital woman screen mammo performed at [facility]. FINDINGS: There are scattered fibroglandular densities. There has been no change in the appearance of the mammogram from the prior studies. There is a mild amount of residual fibroglandular tissue which is fairly symmetric. There is no interval development of dominant mass, architectural distortion, or clustered microcalcification suggestive of malignancy. Assessment: BI-RADS/ACR category 1 mammogram. Negative Mammogram. Recommendation Routine screening mammogram in 1 year (for women over age 40). This mammogram was interpreted with the aid of an FDA-approved computer-aided dectection system. Electronically Signed By: Misael Palacios MD 01/18/20 [id number]
== END ==
LOC: M WHC 09:21
PROVIDERS: ATTEND Nurse Practitioner Women's Health
DX: Z12.31 Encounter for screening mammogram for malignant neoplasm of breast (principal); Z80.0 Family history of malignant neoplasm of digestive organs; Z80.42 Family history of malignant neoplasm of prostate

== ENCOUNTER → 2020-02-19 | Outpatient (REF) | payer OTHER ==
[2020-02-19 17:38] LABS: BASO # 0.1 10^3/uL (0.0-0.2); BASO % 0.8 % (0.0-1.0); EOS # 0.2 10^3/uL (0.0-0.5); EOS % 2.8 % (0.0-3.0); HEMATOCRIT 43.9 % (36.0-47.0); HEMOGLOBIN 14.7 g/dl (12.0-15.5); LYMPH # 2.5 10^3/uL (1.5-5.0); LYMPH % 29.1 % (24.0-44.0); MEAN CORPUSCULAR HEMOGLOBIN 30.9 pg (27.0-33.0); MEAN CORPUSCULAR HGB CONC 33.5 g/dl (32.0-36.5); MEAN CORPUSCULAR VOLUME 92.4 fl (80.0-96.0); MONO # 0.7 10^3/uL (0.0-0.8); MONO % 7.8 % (0.0-5.0); NEUTROPHILS % 58.9 % (36.0-66.0); PLATELET COUNT, AUTOMATED 209 10^3/uL (150-450); RED BLOOD COUNT 4.75 10^6/uL (4.00-5.40); WHITE BLOOD COUNT 8.5 10^3/uL (4.0-10.0)
[2020-02-19 17:55] LABS: ALBUMIN 3.3 GM/DL (3.2-5.2); ALT/SGPT 41 U/L (12-78); BILIRUBIN,TOTAL 0.5 MG/DL (0.2-1.0); BLOOD UREA NITROGEN 15 MG/DL (7-18); CALCIUM LEVEL 8.8 MG/DL (8.5-10.1); CARBON DIOXIDE LEVEL 28 MEQ/L (21-32); CHLORIDE LEVEL 100 MEQ/L (98-107); CHOLESTEROL LEVEL 141 MG/DL (<200); CHOLESTEROL RISK RATIO 2.517 (<5); CREATININE FOR GFR 0.88 MG/DL (0.55-1.30); FERRITIN 158 NG/ML (8-252); GLOMERULAR FILTRATION RATE > 60.0 (>58); GLUCOSE, FASTING 388 MG/DL (70-100); HDL CHOLESTEROL 56 MG/DL (>40); IRON (FE) 115 UG/DL (50-170); LDL CHOLESTEROL 55 MG/DL (<100); NON-HDL-C 85 MG/DL; PERCENT SATURATION 30.7 % (13.2-45.0); POTASSIUM SERUM 4.4 MEQ/L (3.5-5.1); SODIUM LEVEL 131 MEQ/L (136-145); TOTAL IRON BINDING CAPACITY 374 UG/DL (250-450); TOTAL PROTEIN 6.7 GM/DL (6.4-8.2); TRIGLYCERIDES LEVEL 150 MG/DL (<150)
[2020-02-19 18:00] LABS: HEMOGLOBIN A1c 11.3 %
[2020-02-19 18:15] LABS: CREATININE, URINE 32.5 MG/DL; MALB URINE SIEMENS < 5.0 MG/L; MAU/CREAT RATIO 15.3 MCG/MG (0.0-30.0)
== END ==
LOC: M SFHCPLAZ 15:44
PROVIDERS: ATTEND Internal Medicine
DX: K90.0 Celiac disease (principal); E13.9 Other specified diabetes mellitus without complications; E78.2 Mixed hyperlipidemia

== ENCOUNTER → 2020-03-19 | Outpatient (CLI) | payer OTHER ==
[~2020-03-19] MED LIST changes: +ABIL10TA9 PO; +ADME100I SC; +BASA100I SC; +CYMB60CA3 PO; +PROP40TA62 PO; +SIMV40TA20 PO
== END ==
LOC: M LABSMTC 12:26
PROVIDERS: ATTEND Anesthesiology
DX: Z01.812 Encounter for preprocedural laboratory examination (principal); Z20.822 Contact with and (suspected) exposure to COVID-19

== ENCOUNTER 2020-03-24 07:31 | Day surgery (SDC) | payer OTHER ==
[~2020-03-24] VITALS: Ht 167.6 cm; Wt 96.2 kg
[~2020-03-24 07:31] MED LIST changes: +NS 1,000 ML IV ONE
[2020-03-24] MEDS ORDERED: fentaNYL 100 MCG/2 ML INJECTION (J3010) As Ordered ONE (08:51)
[2020-03-24] MEDS ORDERED: LIDOCAINE 2% 100MG/5ML SDV (FOR ANES.) As Ordered ONE (08:51)
[2020-03-24] MEDS ORDERED: propofoL 500 MG/50 ML VIAL As Ordered ONE (08:51)
--- NOTE | 2020-03-24 08:57 | ROOR ---
Patient Name: Liz Stoddard Procedure Date: 03/24/2020 8:39 AM Date of : 1970 Age: 49 Room: [facility] Gender: Female Note Status: Finalized Procedure: Upper Endoscopy + Biopsies Indications: Exclusion of celiac disease, Follow-up of celiac disease, Diarrhea Providers: Serjio Ramsay MD Referring MD: Garry Pimentel MD Requesting Provider: Medicines: Monitored Anesthesia Care Complications: No immediate complications. Procedure: Pre-Anesthesia Assessment: - The heart rate, respiratory rate, oxygen saturations, blood pressure, adequacy of pulmonary ventilation, and response to care were monitored throughout the procedure. The Endoscope was introduced through the mouth, and advanced to the second part of duodenum. The upper GI endoscopy was accomplished without difficulty. The patient tolerated the procedure well. Findings: The Z-line was regular and was found 40 cm from the incisors. Multiple biopsies were obtained with cold forceps for evaluation to rule out Sewell's Esophagus randomly at the gastroesophageal junction. No other significant abnormalities were identified in a careful examination of the stomach. Biopsies were taken with a cold forceps in the gastric antrum for Helicobacter pylori testing. Decreased folds were found in the first portion of the duodenum and flattening was found in the first portion of the duodenum. Biopsies for histology were taken with a cold forceps for evaluation of celiac disease. The exam was otherwise without abnormality. Impression: - Z-line regular, 40 cm from the incisors. - Duodenal mucosal changes seen, consistent with celiac disease. Biopsied. - The examination was otherwise normal. - Multiple biopsies were obtained at the gastroesophageal junction. - Biopsies were taken with a cold forceps for Helicobacter pylori testing. - The examination was otherwise normal. Recommendation: - Patient has a contact number available for emergencies. The signs and symptoms of potential delayed complications were discussed with the patient. Return to normal activities tomorrow. Written discharge instructions were provided to the patient. - Resume previous diet. - Discharge patient to home. - Continue present medications. - Await pathology results. - Telephone GI clinic for pathology results in 1 week. - Return to referring physician. - The findings and recommendations were discussed with the patient. Procedure Code(s): --- Professional --- 69918, Esophagogastroduodenoscopy, flexible, transoral; with biopsy, single or multiple Diagnosis Code(s): --- Professional --- K31.89, Other diseases of stomach and duodenum K90.0, Celiac disease R19.7, Diarrhea, unspecified CPT copyright 2019 [employer]. All rights reserved. The codes documented in this report are preliminary and upon superintendent tests review may be revised to meet current compliance requirements. Serjio Ramsay MD Serjio Ramsay MD 03/24/2020 8:57:24 AM Electronically signed by Serjio Ramsay MD Number of Addenda: 0 Note Initiated On: 03/24/2020 8:39 AM Estimated Blood Loss: Estimated blood loss: none.
--- NOTE | 2020-03-24 09:23 | ROOR ---
Patient Name: Liz Stoddard Procedure Date: 03/24/2020 8:40 AM Date of : 1970 Age: 49 Room: [facility] Gender: Female Note Status: Finalized Procedure: Total Colonoscopy to Cecum + Cold Snare Polypectomy + Hemoclips + Biopsies Indications: Clinically significant diarrhea of unexplained origin Providers: Serjio Ramsay MD Referring MD: Garry Pimentel MD Requesting Provider: Medicines: Monitored Anesthesia Care Complications: No immediate complications. Procedure: Pre-Anesthesia Assessment: - The heart rate, respiratory rate, oxygen saturations, blood pressure, adequacy of pulmonary ventilation, and response to care were monitored throughout the procedure. The Colonoscope was introduced through the anus and advanced to the cecum, identified by appendiceal orifice and ileocecal valve. The colonoscopy was performed without difficulty. The patient tolerated the procedure well. The quality of the bowel preparation was excellent. Findings: The perianal and digital rectal examinations were normal. Non-bleeding internal hemorrhoids were found during retroflexion. The hemorrhoids were small and Grade I (internal hemorrhoids that do not prolapse). Scattered small-mouthed diverticula were found in the recto-sigmoid colon, sigmoid colon and descending colon. A small polyp was found in the ascending colon. The polyp was sessile. The polyp was removed with a cold snare. Resection and retrieval were complete. Biopsies for histology were taken with a cold forceps from the ascending colon, transverse colon and descending colon for evaluation of microscopic colitis. The exam was otherwise without abnormality on direct and retroflexion views. Impression: - Non-bleeding internal hemorrhoids. - Diverticulosis in the recto-sigmoid colon, in the sigmoid colon and in the descending colon. - One small polyp in the ascending colon, removed with a cold snare. Resected and retrieved. - The examination was otherwise normal on direct and retroflexion views. - Biopsies were taken with a cold forceps from the ascending colon, transverse colon and descending colon for evaluation of microscopic colitis. - The exam was otherwise normal to the cecum. Recommendation: - Patient has a contact number available for emergencies. The signs and symptoms of potential delayed complications were discussed with the patient. Return to normal activities tomorrow. Written discharge instructions were provided to the patient. - High fiber diet. - Discharge patient to home. - Continue present medications. - Await pathology results. - Telephone GI clinic for pathology results in 1 week. - Return to referring physician. - Repeat colonoscopy for surveillance based on pathology results. - Return to referring physician. - The findings and recommendations were discussed with the patient. Procedure Code(s): --- Professional --- 96006, Colonoscopy, flexible; with removal of tumor(s), polyp(s), or other lesion(s) by snare technique 68125, 59, Colonoscopy, flexible; with biopsy, single or multiple Diagnosis Code(s): --- Professional --- K64.0, First degree hemorrhoids K63.5, Polyp of colon R19.7, Diarrhea, unspecified K57.30, Diverticulosis of large intestine without perforation or abscess without bleeding CPT copyright 2019 [employer]. All rights reserved. The codes documented in this report are preliminary and upon scraper operator review may be revised to meet current compliance requirements. Serjio Ramsay MD Serjio Ramsay MD 03/24/2020 9:22:46 AM Electronically signed by Serjio Ramsay MD Number of Addenda: 0 Note Initiated On: 03/24/2020 8:40 AM Estimated Blood Loss: Estimated blood loss: none.
[2020-03-24 09:55] VITALS: BP 110/59
== END 2020-03-24 09:40 | disposition home or self-care (01) ==
LOC: M OPP 07:31
PROVIDERS: ATTEND Internal Medicine Gastroenterology
DX: R19.7 Diarrhea, unspecified (principal); K90.0 Celiac disease; D12.2 Benign neoplasm of ascending colon; K64.0 First degree hemorrhoids; K57.30 Diverticulosis of large intestine without perforation or abscess without bleeding; D13.1 Benign neoplasm of stomach; D13.2 Benign neoplasm of duodenum; K31.89 Other diseases of stomach and duodenum; I10 Essential (primary) hypertension; E78.5 Hyperlipidemia, unspecified; E10.9 Type 1 diabetes mellitus without complications; K21.9 Gastro-esophageal reflux disease without esophagitis; F41.9 Anxiety disorder, unspecified; F32.9 Major depressive disorder, single episode, unspecified; G43.909 Migraine, unspecified, not intractable, without status migrainosus; F43.10 Post-traumatic stress disorder, unspecified; Z79.4 Long term (current) use of insulin; Z79.899 Other long term (current) drug therapy
CPT/HCPCS: 43239; 45380; 45385; 88305; J3010

== ENCOUNTER → 2020-04-28 | Outpatient (CLI) | payer OTHER ==
[~2020-04-28] MED LIST changes: -GLYB5TA PO; +GLYB5TAB6 PO; +LISI10TA22 PO; -LISI10TA4 PO; -NS 1,000 ML IV ONE
== END ==
LOC: M LABSMTC 12:42
PROVIDERS: ATTEND Family Medicine
DX: Z20.822 Contact with and (suspected) exposure to COVID-19 (principal)
CPT/HCPCS: C9803; U0003

== ENCOUNTER → 2020-12-05 | Outpatient (CLI) | payer OTHER ==
[2020-12-05 16:20] LABS: BASO # 0.1 10^3/uL (0.0-0.2); EOS # 0.2 10^3/uL (0.0-0.5); EOS % 3.6 % (0.0-3.0); HEMATOCRIT 43.1 % (36.0-47.0); HEMOGLOBIN 14.1 g/dl (12.0-15.5); LYMPH % 34.7 % (24.0-44.0); MEAN CORPUSCULAR HEMOGLOBIN 31.3 pg (27.0-33.0); MEAN CORPUSCULAR HGB CONC 32.7 g/dl (32.0-36.5); MEAN CORPUSCULAR VOLUME 95.6 fl (80.0-96.0); MONO # 0.5 10^3/uL (0.0-0.8); MONO % 8.3 % (2.0-8.0); NEUTROPHILS % 52.1 % (36.0-66.0); PLATELET COUNT, AUTOMATED 221 10^3/uL (150-450); RED BLOOD COUNT 4.51 10^6/uL (4.00-5.40); WHITE BLOOD COUNT 5.8 10^3/uL (4.0-10.0)
[2020-12-05 16:21] LABS: HEMATOCRIT 43.3 % (36.0-47.0)
[2020-12-05 16:51] LABS: ALBUMIN 2.9 GM/DL (3.2-5.2); ALT/SGPT 21 U/L (12-78); BILIRUBIN,TOTAL 0.5 MG/DL (0.2-1.0); BLOOD UREA NITROGEN 10 MG/DL (7-18); CALCIUM LEVEL 8.8 MG/DL (8.5-10.1); CARBON DIOXIDE LEVEL 26 MEQ/L (21-32); CHLORIDE LEVEL 105 MEQ/L (98-107); CREATININE FOR GFR 0.69 MG/DL (0.55-1.30); FERRITIN 80 NG/ML (8-252); GLOMERULAR FILTRATION RATE > 60.0 (>58); GLUCOSE, FASTING 151 MG/DL (70-100); IRON (FE) 56 UG/DL (50-170); MAGNESIUM LEVEL 1.9 MG/DL (1.8-2.4); PERCENT SATURATION 18.6 % (13.2-45.0); PHOSPHORUS LEVEL 3.4 MG/DL (2.5-4.9); POTASSIUM SERUM 3.7 MEQ/L (3.5-5.1); SODIUM LEVEL 140 MEQ/L (136-145); TOTAL 25(OH) VITAMIN D 20.8 NG/ML (30.0-100.0); TOTAL IRON BINDING CAPACITY 301 UG/DL (250-450); TOTAL PROTEIN 6.1 GM/DL (6.4-8.2); VITAMIN B12 LEVEL > 2000 PG/ML (247-911)
[2020-12-05 17:53] LABS: HEMOGLOBIN A1c 10.7 %
== END ==
LOC: M WUC 13:24
PROVIDERS: ATTEND Surgery
DX: K91.2 Postsurgical malabsorption, not elsewhere classified (principal); Z98.84 Bariatric surgery status; E55.9 Vitamin D deficiency, unspecified

== ENCOUNTER 2021-01-06 07:47 | Inpatient (IN) | payer OTHER ==
[~2021-01-06] VITALS: Ht 172.7 cm; Wt 96.2 kg
[~2021-01-06 07:47] MED LIST changes: -CYMB60CA3 PO; +CYMB60CA4 PO
[2021-01-06] MEDS ORDERED: NS 1,000 ML IV ONE ×2 (07:55)
--- NOTE | 2021-01-06 08:32 | REP ---
INDICATION: DKA. COMPARISON: 05/22/2013 TECHNIQUE: Portable FINDINGS: The technique utilized in obtaining the radiograph has magnified the cardiac silhouette and accentuated the interstitial markings. The superior mediastinal structures are midline. The cardiac silhouette is unremarkable in size, shape, and position. The diaphragmatic surfaces of the lungs are regular, and the costophrenic angles are clear. The pulmonary morrissey are clear. The imaged osseous structures are intact. IMPRESSION: There is no acute cardiopulmonary disease. <Electronically signed by Patricio Youngblood > 01/06/21 [id number]
[2021-01-06] MEDS ORDERED: INSULIN IV RATE CHANGE DOCUMENTATION ML/HR XX SCH (08:50)
[2021-01-06] MEDS ORDERED: HumuLIN R (REGULAR) INSULIN (NovoLIN R) **100U/ML** PER UNIT IV ONE (08:50)
[2021-01-06] MEDS ORDERED: INSULIN REGULAR IN 0.9 % NACL 100 UNIT in IV 1 EA IV SCH ×2 (08:50)
[2021-01-06 08:51] LABS: BASO # 0.2 10^3/uL (0.0-0.2); BASO % 0.8 % (0.0-1.0); EOS % 0.1 % (0.0-3.0); HEMATOCRIT 55.3 % (36.0-47.0); HEMOGLOBIN 16.7 g/dl (12.0-15.5); LYMPH # 2.2 10^3/uL (1.5-5.0); LYMPH % 7.6 % (24.0-44.0); MEAN CORPUSCULAR HEMOGLOBIN 30.9 pg (27.0-33.0); MEAN CORPUSCULAR HGB CONC 30.2 g/dl (32.0-36.5); MEAN CORPUSCULAR VOLUME 102.2 fl (80.0-96.0); MONO # 1.9 10^3/uL (0.0-0.8); MONO % 6.8 % (2.0-8.0); NEUTROPHILS # 23.1 10^3/uL (1.5-8.5); NEUTROPHILS % 81.3 % (36.0-66.0); PLATELET COUNT, AUTOMATED 322 10^3/uL (150-450); RED BLOOD COUNT 5.41 10^6/uL (4.00-5.40); WHITE BLOOD COUNT 28.4 10^3/uL (4.0-10.0)
[2021-01-06 08:51] LABS: ABG BASE EXCESS -31.1 (-2.0-2.0); ABG O2 SATURATION 98.2 % (95.0-99.0); ABG PARTIAL PRESSURE O2 146.4 mmHg (75.0-100.0); ABG STANDARD HCO3 5.4 MEQ/L (22.0-26.0); ABG TOTAL CO2 2.3 MEQ/L (22.0-29.0)
[2021-01-06 08:55] LABS: ABG PARTIAL PRESSURE CO2 11.9 mmHg (35.0-45.0); ABG pH (ARTERIAL) 6.836 UNITS (7.350-7.450)
[2021-01-06] MEDS ORDERED: ARIP1TAB6 PO (09:08)
[2021-01-06] MEDS ORDERED: OMEP-221 PO (09:08)
[2021-01-06] MEDS ORDERED: ALBU8.5H INH (09:09)
[2021-01-06] MEDS ORDERED: HOME MED LIST COMPLETE! XX SCH (09:10)
[2021-01-06 09:24] LABS: ALBUMIN 3.8 GM/DL (3.2-5.2); ALT/SGPT 25 U/L (12-78); BILIRUBIN,DIRECT 0.2 MG/DL (0.0-0.2); BILIRUBIN,TOTAL 0.7 MG/DL (0.2-1.0); BLOOD UREA NITROGEN 21 MG/DL (7-18); CALCIUM LEVEL 9.6 MG/DL (8.5-10.1); CARBON DIOXIDE LEVEL 4 MEQ/L (21-32); CHLORIDE LEVEL 99 MEQ/L (98-107); CREATININE FOR GFR 1.85 MG/DL (0.55-1.30); GLUCOSE, FASTING 716 MG/DL (70-100); LIPASE 21 U/L (73-393); MAGNESIUM LEVEL 2.7 MG/DL (1.8-2.4); PHOSPHORUS LEVEL 7.7 MG/DL (2.5-4.9); POTASSIUM SERUM 6.8 MEQ/L (3.5-5.1); SODIUM LEVEL 128 MEQ/L (136-145)
[2021-01-06 09:32] LABS: HEMOGLOBIN A1c 9.1 %
[2021-01-06] MEDS ORDERED: PIPERACILLIN/TAZOBACTAM SOD 4.5 GM in D5W MINI-BAG PLUS 50 ML IV ONE (09:45)
[2021-01-06] MEDS ORDERED: SODIUM BICARBONATE 8.4% INJ 50 ML SYRINGE IV SCH ×2 (09:45→14:00)
[2021-01-06 10:10] LABS: OSMOLALITY SERUM 329 MOSM/KG (275-295)
--- OUTSIDE RECORDS SUMMARY | 2021-01-06 10:10 | CCD ---
Author Author [facility] Organization [facility] Address Unknown Phone Unavailable Care Team Providers Care Pesticide Applicator Name Role Phone Dayron Syed Unavailable PROBLEMS Type Condition ICD9-CM Code [id number] Code Onset Dates Condition S tatus W/U Status Risk SNOMED Code Notes Problem Bipolar 1 disorder, depressed, partial remission F 31.75 Active confirmed 10017108 Problem Edema extremities R60.0 Active confirmed 42 3295491 Problem Hypertension complicating diabetes E11.69 Activ e confirmed 81684508 Problem Essential hypertension I10 Active confirmed 05847833 Problem PCOS (polycystic ovarian syndrome) E28.2 Activ e confirmed 13017168 Problem Type 1 diabetes mellitus with hyperglycemia E10.65 Active confirmed 283586645942804 Problem Dyslipidemia E78.5 Active confirmed 4000284 07 Problem Type 1 diabetes mellitus without complication E10. 9 Active confirmed 120017568 Problem Celiac disease K90.0 Active confirmed 20302 1005 Problem Mixed hyperlipidemia E78.2 Active confirmed 850273578 Problem Essential (primary) hypertension I10 Active conf irmed 48701913 Problem Insomnia, unspecified type G47.00 Active confirmed 057985185 Problem Depression, unspecified depression type F32.9 Active confirmed 89501796 Problem Moderately severe depression F32.2 Active confirme d 572925756 Problem Bilateral carpal tunnel syndrome G56.03 Active conf irmed 72671793 Problem Papanicolaou smear of cervix with positive high risk human papilloma virus (HPV) test R87.810 Active confirmed 254359061 Problem Allergic rhinitis, unspecified seasonality, unspecifie d trigger J30.9 Active confirmed 06413652 Problem Myalgia M79.1 Active confirmed 50853513 Problem OAB (overactive bladder) N32.81 Active confirmed 936361839 Problem Allergic rhinitis, seasonal J30.2 Active confirmed 270202242 Problem Hypercholesteremia E78.0 Active confirmed 1 5868555 Problem Migraine with aura and without status migrainosu s, not intractable G43.109 Active confirmed 2007056 Problem Severe episode of recurrent major depressive disorder, without psychotic features F33.2 Active confirmed 95111122 Problem KRISTA (latent autoimmune diabetes of adulthood), managed as type 1 E13.9 Active confirmed 169371112 Problem BMI 32.0-32.9,adult Z68.32 Active confirmed 446365118 ALLERGIES Allergen (clinical drug ingredient) Drug/Non Drug Allergy do cumented on EMR Reaction Allergy Type Onset Date Status Gluten Gluten GI Drug Allergy Active ENCOUNTERS from 1970 to 2021-01-03 Encounter Location Date Provider Diagnosis [place] [id number] [facility] [phone] [place] [address] Dec, Dayron Syed IMMUNIZATIONS Vaccine Route Administration Date Status COVID-19 dose #2 given elsewhere Unspecified Unknown Apr 10, 2020 Administered COVID-19 dose #1 given elsewhere Unspecified Unknown Mar 17, 2020 Administered Pneumococcal Adult 0.5mL Pneumovax 23 IM Intramuscular May 20, 2017 Administered Influenza 6mo & up Fluzone IM Intramuscular May 20, 2017 Admi nistered Influenza 6mo & up Fluzone IM Intramuscular Jan 02, 2016 Admi nistered Influenza 6mo & up Fluzone IM Intramuscular Dec 13, 2014 Admi nistered Influenza 18 yrs & older Flublok IM Intramuscular Feb 18, 2020 Administered Influenza 6mo & up Fluzone IM Intramuscular Dec 06, 2013 Admi nistered Influenza 18 yrs & older Flublok IM Intramuscular Jan 02, 2021 Administered Influenza 6mo & up Fluzone IM Intramuscular Feb 23, 2012 Admi nistered Influenza 6mo & up Fluzone IM Intramuscular Dec 18, 2009 Admi nistered SOCIAL HISTORY Tobacco Use: Social History Observation Description Date Details (start date - stop date) Never Smoker Sex Assigned At : Social History Observation Description Sex Assigned At Unknown Audit Question Answer Notes Total Score: 0 Interpretation: Alcohol Education Sexual Hx: Question Answer Notes Had sex in the last 12 months (vaginal, oral, or anal)? Yes LMP: 06/01/18 Have you ever had an STD? Yes Prevention Strategies discussed: Condoms with Men only Use protection? Yes Other? Yes Herpes? No Syphilis? No GC? No Chlamydia? No How often? Most of the time Drug and Alcohol Question Answer Notes Total Score: 0 Interpretation: No problems reported Alcohol Screening: Question Answer Notes Did you have a drink containing alcohol in the past year? No Points 0 Interpretation Negative BMI Care Goal Follow-Up Question Answer Notes Above Normal BMI Follow-Up Lifestyle education regarding t Tobacco Use: Question Answer Notes Are you a: never smoker REASON FOR REFERRAL No Information VITAL SIGNS No information MEDICATIONS Medication SIG (Take, Route, Frequency, Duration) Notes Start Da te End Date Status Imitrex 25 MG 1 tablet as needed; if no re lief in 2 hours, may take a second tablet Orally as directed for 30 day(s) Apr, Active Cefdinir 300 MG 2 capsules Orally once a day for 10 day(s) Sep, Not-Taking Cyclobenzaprine HCl 10 MG 1 tablet at bedtime as neede d Orally TID prn for 10 days May, Not-Taking FreeStyle Sedrick 14 Day Conklin - as directed subcutaneously qid f or 9999 days Dec, Active Safety Insulin Syringes 30G X 5/16" 0.5 ML as directed subcutaneously four times daily for 30 day(s) Jun, Active FreeStyle Sedrick 14 Day Sensor - as directed subcutaneously qid f or 999 days Dec, Active Diclofenac Sodium 75 MG 1 tablet with food or milk O rally Twice a day for 10 days May, Not-Taking Ditropan XL 5 MG 1 tablet Orally Once a day for 30 day(s) Sep, Not-Taking Hibiclens 4 % as directed Externally as ne eded as directed once three times a week Aug, Active predniSONE 10 MG 3 tabs x 2 days, 2 tabs x 2 days, 1 tab x 3 days Orally Once a day for 7 day(s) Sep, Not-Taking Fluconazole 150 MG 1 tablet Orally once daily for 1 day(s) Jan, Not-Taking Admelog 100 UNIT/ML INJECT FOUR TIMES A DAY D IRECTED MAXIMUM DAILY DOSE = 80 UNITS Subcutaneous 20 units QID Active ZyrTEC Allergy 10 MG 1 tablet Orally Once a day for 30 Active Simvastatin 40 MG 1 tablet in the evening Orally Once a day for 30 Active metFORMIN HCl 500 MG 1 tablet with a meal Orally bid for 30 Not-Taking Propranolol HCl 40 MG 1 tablet Orally Once a day for 30 days Active Benzonatate 200 MG 1 capsule Orally Three times a day as needed for cough for 20 days Sep, Not-Taking ARIPiprazole 5 MG 1 tablet Orally Once a day for 30 Active Albuterol Sulfate HFA 108 (90 Base) MCG/ACT INHALE 2 P UFFS BY MOUTH EVERY 4 TO 6 HOURS NEEDED for 25 Active Needle (Disp) for levemir flex pen 1 needle SQ once a day/Dx: E11.9 for 30 day(s) Active OneTouch Verio IQ System w/Device as directed subcutaneously qid for 999 days Dec, Active Lancets 1 lancet ICD:250.02 NIDDM Once a day for 30 Active Glucometer One glucometer Dec, Active Basaglar KwikPen 100 UNIT/ML INJECT 74 UNITS SUBCUTANE OUSLY EVERY MORNING intramuscularly once daily Activ e Nystatin 128047 UNIT/GM 1 application Externally Twice a day for 14 Not-Taking Cymbalta 60 MG 1 capsule Orally Once a day for 30 Active Glucose strip (Verio IQ) as directed subcutaneously qid for 90 day(s) Active Lisinopril 10 MG 1 tab(s) Orally Once a day for 30 Active Mirena (52 MG) 20 MCG/24HR as directed Intrauterine good until 2 025 May, Active PROCEDURES No Information RESULTS No Results REASON FOR VISIT blood sugars MEDICAL (GENERAL) HISTORY Type Description Date Medical History Type I Diabetes Mellitus Medical History Depression Medical History Hypertension Medical History PCOS Medical History past Hx of substance abuse Medical History Mixed hyperlipidemia Medical History Allergic rhinitis, cause unspecified Medical History Edema Medical History Herpes simplex without mention of compli cation Medical History Celiac disease Surgical History C section 05/29/2008 Surgical History colposcopy with jaleel 05/16/17 Hospitalization History Child 05/2008 Hospitalization History DKA 05/21/16-05/27/16 Goals Section No Information Health Concerns No Information MEDICAL EQUIPMENT No Information MENTAL STATUS No Information FUNCTIONAL STATUS No Information ASSESSMENTS No Information PLAN OF TREATMENT Next Appt Details Provider Name:Dayron Syed, 2020-11-0 5 12:45:00 AM, [address] [place] [address] [place], [address], Insurance Providers Payer Name Payer Address Payer Phone Insured Name Patient Relati onship to Insured Coverage Start Date Coverage End Date [facility] [address] [facility] [id number] CHRISTY CURTIS self
--- OUTSIDE RECORDS SUMMARY | 2021-01-06 10:10 | CCD ---
Author Author [facility] Organization [facility] Address Unknown Phone Unavailable Care Team Providers Care Surfacing Technician Name Role Phone Dayron Syed Unavailable PROBLEMS Type Condition ICD9-CM Code [id number] Code Onset Dates Condition S tatus W/U Status Risk SNOMED Code Notes Problem Bipolar 1 disorder, depressed, partial remission F 31.75 Active confirmed 98577895 Problem Edema extremities R60.0 Active confirmed 42 3473050 Problem Hypertension complicating diabetes E11.69 Activ e confirmed 81381017 Problem Essential hypertension I10 Active confirmed 35387892 Problem PCOS (polycystic ovarian syndrome) E28.2 Activ e confirmed 33845915 Problem Type 1 diabetes mellitus with hyperglycemia E10.65 Active confirmed [id number] Problem Dyslipidemia E78.5 Active confirmed 2574550 07 Problem Type 1 diabetes mellitus without complication E10. 9 Active confirmed 495297077 Problem Celiac disease K90.0 Active confirmed 67435 1005 Problem Mixed hyperlipidemia E78.2 Active confirmed 317397969 Problem Essential (primary) hypertension I10 Active conf irmed 39402782 Problem Insomnia, unspecified type G47.00 Active confirmed 967694264 Problem Depression, unspecified depression type F32.9 Active confirmed 64194443 Problem Moderately severe depression F32.2 Active confirme d 041035242 Problem Bilateral carpal tunnel syndrome G56.03 Active conf irmed 88338305 Problem Papanicolaou smear of cervix with positive high risk human papilloma virus (HPV) test R87.810 Active confirmed 557144446 Problem Allergic rhinitis, unspecified seasonality, unspecifie d trigger J30.9 Active confirmed 35920045 Problem Myalgia M79.1 Active confirmed 60601423 Problem OAB (overactive bladder) N32.81 Active confirmed 518443400 Problem Allergic rhinitis, seasonal J30.2 Active confirmed 560897325 Problem Hypercholesteremia E78.0 Active confirmed 1 7753318 Problem Migraine with aura and without status migrainosu s, not intractable G43.109 Active confirmed 1403653 Problem Severe episode of recurrent major depressive disorder, without psychotic features F33.2 Active confirmed 76451881 Problem KRISTA (latent autoimmune diabetes of adulthood), managed as type 1 E13.9 Active confirmed 872899032 Problem BMI 32.0-32.9,adult Z68.32 Active confirmed 385233676 ALLERGIES Allergen (clinical drug ingredient) Drug/Non Drug Allergy do cumented on EMR Reaction Allergy Type Onset Date Status [place] GI Non Drug Allergy Active ENCOUNTERS from 1972 to 2020-11-11 Encounter Location Date Provider Diagnosis [facility] [place] [address] [facility] [phone] [place] [address] 17 Oct, 2020 Dayron Syed Pre-op evaluation Z0 1.818 ; KRISTA (latent autoimmune diabetes of adulthood), managed as type 1 E13.9 and Elevated pulse rate R00.0 IMMUNIZATIONS Vaccine Route Administration Date Status Pneumococcal Adult 0.5mL Pneumovax 23 IM Intramuscular May 20, 2017 Administered Influenza 6mo & up Fluzone IM Intramuscular May 20, 2017 Admi nistered Influenza 6mo & up Fluzone IM Intramuscular Jan 02, 2016 Admi nistered COVID-19 dose #2 given elsewhere Unspecified Unknown Apr 10, 2020 Administered COVID-19 dose #1 given elsewhere Unspecified Unknown Mar 17, 2020 Administered Influenza 6mo & up Fluzone IM Intramuscular Dec 13, 2014 Admi nistered Influenza 18 yrs & older Flublok IM Intramuscular Feb 18, 2020 Administered Influenza 6mo & up Fluzone IM Intramuscular Dec 06, 2013 Admi nistered Influenza 6mo & up Fluzone [...] REASON FOR REFERRAL No Information VITAL SIGNS Weight 215.4 lbs Oct, Weight-kg 97.7 kg Oct, Height 68 in Oct, BMI 32.75 kg/m2 Oct, Heart Rate 107 (repeat 96 bpm) /min Oct, Respiratory Rate 18 /min Oct, Temperature 98.0 degrees Fahrenheit Oct, Oximetry 97 Oct, Blood pressure systolic 122 mm Hg Oct, Blood pressure diastolic 80 mm Hg Oct, MEDICATIONS Medication SIG (Take, Route, Frequency, Duration) Notes Start Da te End Date Status Diclofenac Sodium 75 MG 1 tablet with food or milk O rally Twice a day for 10 days May, Not-Taking Needle (Disp) for levemir flex pen 1 needle SQ once a day/Dx: E11.9 for 30 day(s) Active ZyrTEC Allergy 10 MG 1 tablet Orally Once a day for 30 Active Cefdinir 300 MG 2 capsules Orally once a day for 10 day(s) Sep, Not-Taking Glucometer One glucometer Dec, Active OneTouch Verio IQ System w/Device as directed subcutaneously qid for 999 days Dec, Active Albuterol Sulfate HFA 108 (90 Base) MCG/ACT INHALE 2 P UFFS BY MOUTH EVERY 4 TO 6 HOURS NEEDED for 25 Active Ditropan XL 5 MG 1 tablet Orally Once a day for 30 day(s) Sep, Not-Taking FreeStyle Sedrick 14 Day Hoyt - as directed subcutaneously qid f or 9999 days Dec, Active predniSONE 10 MG 3 tabs x 2 days, 2 tabs x 2 days, 1 tab x 3 days Orally Once a day for 7 day(s) Sep, Not-Taking Fluconazole 150 MG 1 tablet Orally once daily for 1 day(s) Jan, Not-Taking FreeStyle Sedrick 14 Day Sensor - as directed subcutaneously qid f or 999 days Dec, Active ARIPiprazole 5 MG 1 tablet Orally Once a day for 30 Active Lancets 1 lancet ICD:250.02 NIDDM Once a day for 30 Active Cymbalta 60 MG 1 capsule Orally Once a day for 30 Active Simvastatin 40 MG 1 tablet in the evening Orally Once a day for 30 Active Benzonatate 200 MG 1 capsule Orally Three times a day as needed for cough for 20 days Sep, Not-Taking Nystatin 971440 UNIT/GM 1 application Externally Twice a day for 14 Active Basaglar KwikPen 100 UNIT/ML INJECT 74 UNITS SUBCUTANE OUSLY EVERY MORNING intramuscularly once daily Activ e Imitrex 25 MG 1 tablet as needed; if no re lief in 2 hours, may take a second tablet Orally as directed for 30 day(s) Apr, Active Safety Insulin Syringes 30G X 5/16" 0.5 ML as directed subcutaneously four times daily for 30 day(s) Jun, Active Glucose strip (Verio IQ) as directed subcutaneously qid for 90 day(s) Active Cyclobenzaprine HCl 10 MG 1 tablet at bedtime as neede d Orally TID prn for 10 days May, Not-Taking metFORMIN HCl 500 MG 1 tablet with a meal Orally bid for 30 Active Lisinopril 10 MG 1 tab(s) Orally Once a day for 30 Active Mirena (52 MG) 20 MCG/24HR as directed Intrauterine good until 2 025 May, Active Propranolol HCl 40 MG 1 tablet Orally Once a day for 30 Active Admelog 100 UNIT/ML INJECT FOUR TIMES A DAY D IRECTED MAXIMUM DAILY DOSE = 80 UNITS Subcutaneous 20 units QID Active Hibiclens 4 % as directed Externally as ne eded as directed once three times a week Aug, Active PROCEDURES No Information RESULTS No Results REASON FOR VISIT Bariatric Surgery on 11/11/20 @ [facility], done by under general anesthe [facility], Dx Code E66.01. Contact number #[phone] fax # [phone] MEDICAL (GENERAL) HISTORY Type Description Date Medical [...] No Information FUNCTIONAL STATUS No Information ASSESSMENTS Encounter Date Diagnosis Assessment Notes Treatment Notes Treatm ent Clinical Notes Oct, Pre-op evaluation (ICD-10 - Z01.818) Patient will be undergoing Lakesha en Y gastric bypass surgery in 2 weeks time (11/11/20) with Dr. Brennan Forbes at [facility] in [place]. While she has had a preadmission testing session last week at [facility], we went through the nature of the surgery, common side effects, and what will need to change regarding diet and vitamin supplementation post surgery. She recognizes all the side effects and alternatives to surgery and is willing to proceed. A revised cardiac risk index score (RCRI) was calculated today and she scored one-point, class II risk (low risk). On review of current literature for gastric bypass/Lakesha en Y surgery, high risk patients or those with age greater than or equal to 65, BMI greater than or equal to 50, and the presence of at least 2 of 6 cardiopulmonary vascular comorbidities (ischemic heart disease, hypertension, COPD, CHF, ZAHRA, or past history of DVT or PE). Patient is less than 65 years old (50 years old), her BMI today was less than 50 (32.75) and while she is currently being treated for hypertension, she has no history of COPD, CHF, ischemic heart disease, prior DVT or PE, or ZAHRA). Based on this she is not in this high risk gastric bypass class of patient. A stop bang sleep apnea screen was performed today; result is patient is of low risk (2 points; positive for being treated for hypertension and neck circumference of 40 cm). In terms of issues with anesthesia, patient did report some mild to moderate nausea with no emesis that she attributes to the anesthesia during her C- section. Other than this, she has no remarkable prior difficulty with tolerating anesthesia. She just did have both an EGD and a colonoscopy (conscious sedation) 7 months ago that she tolerated without incident. While patient does not dedicate specific time to exercise, she is ambulatory with no restrictions and able to climb a flight of stairs without getting significantly short of breath. Therefore she has at least a metabolic equivalents (METS) of 4 or greater. As stated in HPI, we did not perform any preoperative lab work or administer an EKG today as patient received TSH, A1c, CMP, CBC, and an EKG at her preadmission testing at [facility] last week. Patient signed a release of medical information sheet today which we faxed to Dr. Forbes's office urgently in order to obtain the results of that lab work so we can assess her recent control of her diabetes, electrolytes, renal functioning, kidney functioning, any cardiac electrical abnormalities, and thyroid functioning. In terms of her current medications, this list was reviewed today. Patient reports that Dr. Forbes's office has instructed her to fast for the 3 days prior to her surgery. As a result, we recommended she take half of her long acting dose (37 units of her usual total 74) on the mornings of the days she is fasting as well as the day of her surgery, that she not take her short acting insulin prior to meals over those 3 days, and that she not take her Metformin those 3 days and especially the day of surgery. She is not currently on any antiplatelet medications nor any anticoagulants. She is not currently taking any NSAID medications. We advised that she continue to take her propranolol which she takes primarily for daily prophylaxis of migraines. As she has been on this beta-missael for an extended period of time okay for patient to continue with this and to take with a sip of water on the day of her surgery. We also recommended that the patient continue with both her Abilify and duloxetine for mood and that it is okay to take these medications with a sip of water on the day of her surgery. She will continue to take her lisinopril medication up until 24 hours prior to her surgery, and will resume the lisinopril on day #2 post surgery. All other medications she will take up until the day before surgery but not the day of. At this juncture, until we are able to assess the results of her preoperative lab work and EKG, no decision can be made on whether or not patient is optimized for surgery. *UPDATE: Unfortunately Dr. Forbes's office never got our fax request for records from the preadmission testing at [facility] on 10/21. After repeated attempts over the past week to contact their office to get those records, they were eventually faxed over on 11/10; results as below: Hemoglobin A1c 11.9%, serum glucose 215 Serum calcium 8.4 (lab NL 8.5 to 10.1), serum albumin 3.2 (lab NL 3.4 to 5.0), total protein 6.6, sodium 138, potassium 4.2, chloride 106, bicarb 25.9, anion gap of 10.3, AST 21, ALT 41, alkaline phosphatase 94, total bilirubin 0.40, BUN 14, creatinine 0.66, with calculated glomerular filtration rate greater than 90% WBC 6.7, RBC 4.73, hemoglobin 14.7, hematocrit 45.1, MCV 95.3, MCH 31.1 (lab NL 27 to 31), MCHC 32.6, platelet count 231,000 TSH 2.41 EKG was sent but unfortunately as it was a photocopied version it was relatively difficult to appreciate some of the minute details. It was sinus rhythm with a rate of 60 bpm, QTC of 449 with what appears to be some low voltage in the precordial leads. There is not appear to be any Q waves, ST T wave abnormalities (ST depression, ST elevation), or any U waves;*but it is important to keep in mind that again this was a photocopied version with a lot of background ink making it difficult to fully and accurately assess the study. As a result of this patient's still very poorly controlled A1c (nearly 12%) and the high associated risks that comes with this in terms of poor wound healing and increased risk of infection, along with possible metabolic post operative complications, we do not feel the patient is optimized for her surgery. She needs to have better control of her diabetes. On review of current literature, as a class II obesity patient with diabetes the recommended hemoglobin A1c target prior to bariatric surgery is 6.5 to 7% or less for all patients but can be extended to a hemoglobin A1c of 7 to 8% or less in those pa tients who are difficult to control. This patient clearly is difficult to control but she is nowhere close to the 7 to 8% hemoglobin A1c range. We also spoke directly with an spooler operator who confirmed the increased risk this patient faces of infection, poor wound healing, and possible metabolic issues postoperatively and that until her diabetes is better controlled she should not go for surgery. It will be important to assess with pt's surgeon's office (Dr. Forbes), what they feel is an optimized a1c for bariatric surgery. This pt will need to be seen by endocrinology to assist in better control of her sugars. That may be difficult as the only spooler operator in [place] (Dr. Natalie Rodarte) has discharged this pt for repeated non-compliance and she has been lost to f/u at the [facility] in [place]. We will need to possibly look at other endo outpt offices in [facility], [facility], or [facility]. Oct, KRISTA (latent autoimmune diab etes of adulthood), managed as type 1 (ICD-10 - E13.9) Patient is treated as a type I diabetic. She has a history of positive di antibodies when she was admitted for DKA in 2017. She currently takes 74 units of long acting insulin every morning, along with 20 mg of short acting insulin before meals and 500 mg of Metformin bid. She has been fired by the local spooler operator in [place] previously (Dr. Maria Del Carmen Rodarte) and was lost to follow-up at the [facility] in [place]. When she established care with me, she really checked her blood sugars and when she did they were in the mid to upper 300s. Over the past 8 months she has been titrating up her long-acting dose from 66 units every morning to now 74 units and still is poorly controlled. As discussed in the preop evaluation assessment section, patient's diabetes remains poorly controlled at this time (A1c of 11.9%). As a result, until she gets better control of her diabetes, she is not optimized for bariatric surgery at this time. We calculated her estimated average glucose related to the 11% A1c and that is approximately 280. We also calculated her correction factor as well as insulin to carb ratio. We will need her to see her back but will advise that she increase her long-acting dose to 90 units every morning, as well as take 9 units of short acting prior to meals in addition to a 1:10 scale (sGlu 151 to 160 take additional 1 unit short acting; sGlu 161 to 170 take additional 2 units short acting; etc). 17 Oct, 2020 Elevated pulse rate (ICD-10 - R00.0) Initial presenting heart rate was 107 bpm. When I saw the patient later during the visit while conducting my examination, I measured her pulse to be 96 bpm. She does not usually run on the faster end of normal (her last appointment with me heart rate was 87). As discussed in HPI, she denies any current or recent dyspnea, chest pain, chest pressure, or palpitations. An EKG was done 1 week ago at [facility] in [place] for her preadmission testing. We have requested records to be sent over which will include assessing the recent EKG. PLAN OF TREATMENT Treatment Notes Assessment Notes Clinical Notes Pre-op evaluation Patient will be unde rgoing Lakesha en Y gastric bypass surgery in 2 weeks time (11/11/20) with Dr. Brennan Forbes at [facility] in [place]. While she has had a preadmission testing session last week at [facility], we went through the nature of the surgery, common side effects, and what will need to change regarding diet and vitamin supplementation post surgery. She recognizes all the side effects and alternatives to surgery and is willing to proceed.A revised cardiac risk index score (RCRI) was calculated today and she scored one-point, class II risk (low risk).On review of current literature for gastric bypass/Lakesha en Y surgery, high risk patients or those with age greater than or equal to 65, BMI greater than or equal to 50, and the presence of at least 2 of 6 cardiopulmonary vascular comorbidities (ischemic heart disease, hypertension, COPD, CHF, ZAHRA, or past history of DVT or PE).Patient is less than 65 years old (50 years old), her BMI today was less than 50 (32.75) and while she is currently being treated for hypertension, she has no history of COPD, CHF, ischemic heart disease, prior DVT or PE, or ZAHRA). Based on this she is not in this high risk gastric bypass class of patient.A stop bang sleep apnea screen was performed today; result is patient is of low risk (2 points; positive for being treated for hypertension and neck circumference of 40 cm).In terms of issues with anesthesia, patient did report some mild to moderate nausea with no emesis that she attributes to the anesthesia during her . Other than this, she has no remarkable prior difficulty with tolerating anesthesia. She just did have both an EGD and a colonoscopy (conscious sedation) 7 months ago that she tolerated without incident.While patient does not dedicate specific time to exercise, she is ambulatory with no restrictions and able to climb a flight of stairs without getting significantly short of breath. Therefore she has at least a metabolic equivalents (METS) of 4 or greater.As stated in HPI, we did not perform any preoperative lab work or administer an EKG today as patient received TSH, A1c, CMP, CBC, and an EKG at her preadmission testing at [facility] last week. Patient signed a release of medical information sheet today which we faxed to Dr. Forbes's office urgently in order to obtain the results of that lab work so we can assess her recent control of her diabetes, electrolytes, renal functioning, kidney functioning, any cardiac electrical abnormalities, and thyroid functioning.In terms of her current medications, this list was reviewed today.Patient reports that Dr. Forbes's office has instructed her to fast for the 3 days prior to her surgery. As a result, we recommended she take half of her long acting dose (37 units of her usual total 74) on the mornings of the days she is fasting as well as the day of her surgery, that she not take her short acting insulin prior to meals over those 3 days, and that she not take her Metformin those 3 days and especially the day of surgery.She is not currently on any antiplatelet medications nor any anticoagulants. She is not currently taking any NSAID medications. We advised that she continue to take her propranolol which she takes primarily for daily prophylaxis of migraines. As she has been on this beta-missael for an extended period of time okay for patient to continue with this and to take with a sip of water on the day of her surgery. We also recommended that the patient continue with both her Abilify and duloxetine for mood and that it is okay to take these medications with a sip of water on the day of her surgery. She will continue to take her lisinopril medication up until 24 hours prior to her surgery, and will resume the lisinopril on day #2 post surgery. All other medications she will take up until the day before surgery but not the day of.At this juncture, until we are able to assess the results of her preoperative lab work and EKG, no decision can be made on whether or not patient is optimized for surgery.*UPDATE:Unfortunately Dr. Forbes's office never got our fax request for records from the preadmission testing at [facility] on 10/21. After repeated attempts over the past week to contact their office to get those records, they were eventually faxed over on 11/10; results as below:Hemoglobin A1c 11.9%, serum glucose 215Serum calcium 8.4 (lab NL 8.5 to 10.1), serum albumin 3.2 (lab NL 3.4 to 5.0), total protein 6.6, sodium 138, potassium 4.2, chloride 106, bicarb 25.9, anion gap of 10.3, AST 21, ALT 41, alkaline phosphatase 94, total bilirubin 0.40, BUN 14, creatinine 0.66, with calculated glomerular filtration rate greater than 90%WBC 6.7, RBC 4.73, hemoglobin 14.7, hematocrit 45.1, MCV 95.3, MCH 31.1 (lab NL 27 to 31), MCHC 32.6, platelet count 231,000TSH 2.41EKG was sent but unfortunately as it was a photocopied version it was relatively difficult to appreciate some of the minute details. It was sinus rhythm with a rate of 60 bpm, QTC of 449 with what appears to be some low voltage in the precordial leads. There is not appear to be any Q waves, ST T wave abnormalities (ST depression, ST elevation), or any U waves;*but it is important to keep in mind that again this was a photocopied version with a lot of background ink making it difficult to fully and accurately assess the study.As a result of this patient's still very poorly controlled A1c (nearly 12%) and the high associated risks that comes with this in terms of poor wound healing and increased risk of infection, along with possible metabolic post operative complications, we do not feel the patient is optimized for her surgery.She needs to have better control of her diabetes. On review of current literature, as a class II obesity patient with diabetes the recommended hemoglobin A1c target prior to bariatric surgery is 6.5 to 7% or less for all patients but can be extended to a hemoglobin A1c of 7 to 8% or less in those patients who are difficult to control. This patient clearly is difficult to control but she is nowhere close to the 7 to 8% hemoglobin A1c range. We also spoke directly with an spooler operator who confirmed the increased risk this patient faces of infection, poor wound healing, and possible metabolic issues postoperatively and that until her diabetes is better controlled she should not go for surgery.It will be important to assess with pt's surgeon's office (Dr. Forbes), what they feel is an optimized a1c for bariatric surgery. This pt will need to be seen by endocrinology to assist in better control of her sugars. That may be difficult as the only spooler operator in [place] (Dr. Natalie Rodarte) has discharged this pt for repeated non-compliance and she has been lost to f/u at the [facility] in [place]. We will need to possibly look at other endo outpt offices in [facility], [facility], or [facility]. KRISTA (latent autoimmune diabetes of adulthood), managed as t ype 1 Patient is treated as a type I diabetic. She has a history of positive di antibodies when she was admitted for DKA in 2017. She currently takes 74 units of long acting insulin every morning, along with 20 mg of short acting insulin before meals and 500 mg of Metformin bid. She has been fired by the local spooler operator in [place] previously (Dr. Maria Del Carmen Rodarte) and was lost to follow-up at the [facility] in [place]. When she established care with me, she really checked her blood sugars and when she did they were in the mid to upper 300s. Over the past 8 months she has been titrating up her long-acting dose from 66 units every morning to now 74 units and still is poorly controlled.As discussed in the preop evaluation assessment section, patient's diabetes remains poorly controlled at t his time (A1c of 11.9%). As a result, until she gets better control of her diabetes, she is not optimized for bariatric surgery at this time.We calculated her estimated average glucose related to the 11% A1c and that is approximately 280. We also calculated her correction factor as well as insulin to carb ratio. We will need her to see her back but will advise that she increase her long- acting dose to 90 units every morning, as well as take 9 units of short acting prior to meals in addition to a 1:10 scale (sGlu 151 to 160 take additional 1 unit short acting; sGlu 161 to 170 take additional 2 units short acting; etc). Elevated pulse rate Initial presenting h eart rate was 107 bpm. When I saw the patient later during the visit while conducting my examination, I measured her pulse to be 96 bpm. She does not usually run on the faster end of normal (her last appointment with me heart rate was 87). As discussed in HPI, she denies any current or recent dyspnea, chest pain, chest pressure, or palpitations. An EKG was done 1 week ago at [facility] in [place] for her preadmission testing. We have requested records to be sent over which will include assessing the recent EKG. Next Appt Details 1 MO Reason:post-gastric bypass sx appt and other chronic issues Provider Name:Dayron Kunal, 2020-10-2 2 01:30:00 PM, [address] [facility], , [place], [address], Follow Up:1 MOpost-gastric bypass sx appt and other chronic issues Insurance Providers Payer Name Payer Address Payer Phone Insured Name Patient Relati onship to Insured Coverage Start Date Coverage End Date [facility] [address] [facility] [phone] CHRISTY CURTIS self
--- OUTSIDE RECORDS SUMMARY | 2021-01-06 10:10 | CCD ---
Author Author [facility] Organization [facility] Address Unknown Phone Unavailable Care Team Providers Care Yardage Estimator Name Role Phone Dayron Syed Unavailable PROBLEMS Type Condition ICD9-CM Code [id number] Code Onset Dates Condition S tatus W/U Status Risk SNOMED Code Notes Problem Bipolar 1 disorder, depressed, partial remission F 31.75 Active confirmed 84730457 Problem Edema extremities R60.0 Active confirmed 42 4261546 Problem Hypertension complicating diabetes E11.69 Activ e confirmed 65335283 Problem Essential hypertension I10 Active confirmed 70559152 Problem PCOS (polycystic ovarian syndrome) E28.2 Activ e confirmed 81536204 Problem Type 1 diabetes mellitus with hyperglycemia E10.65 Active confirmed 649733027760865 Problem Dyslipidemia E78.5 Active confirmed 0199194 07 Problem Type 1 diabetes mellitus without complication E10. 9 Active confirmed 805368889 Problem Celiac disease K90.0 Active confirmed 07618 1005 Problem Mixed hyperlipidemia E78.2 Active confirmed 395090471 Problem Essential (primary) hypertension I10 Active conf irmed 80526431 Problem Insomnia, unspecified type G47.00 Active confirmed 200889905 Problem Depression, unspecified depression type F32.9 Active confirmed 71654746 Problem Moderately severe depression F32.2 Active confirme d 409636746 Problem Bilateral carpal tunnel syndrome G56.03 Active conf irmed 80063816 Problem Papanicolaou smear of cervix with positive high risk human papilloma virus (HPV) test R87.810 Active confirmed 978430314 Problem Allergic rhinitis, unspecified seasonality, unspecifie d trigger J30.9 Active confirmed 43187464 Problem Myalgia M79.1 Active confirmed 66070751 Problem OAB (overactive bladder) N32.81 Active confirmed 105959492 Problem Allergic rhinitis, seasonal J30.2 Active confirmed 510329540 Problem Hypercholesteremia E78.0 Active confirmed 1 2089292 Problem Migraine with aura and without status migrainosu s, not intractable G43.109 Active confirmed 1297464 Problem Severe episode of recurrent major depressive disorder, without psychotic features F33.2 Active confirmed 72958600 Problem KRISTA (latent autoimmune diabetes of adulthood), managed as type 1 E13.9 Active confirmed 333718969 Problem BMI 32.0-32.9,adult Z68.32 Active confirmed 832806728 ALLERGIES Allergen (clinical drug ingredient) Drug/Non Drug Allergy do cumented on EMR Reaction Allergy Type Onset Date Status Glutten GI Non Drug Allergy Active ENCOUNTERS from 1972 to 2020-12-04 Encounter Location Date Provider Diagnosis [address] [phone] [place] [address] Nov, Dayron Syed IMMUNIZATIONS Vaccine Route Administration Date Status COVID-19 dose #1 given elsewhere Unspecified Unknown Mar 17, 2020 Administered Influenza 18 yrs & older Flublok IM Intramuscular Feb 18, 2020 Administered Pneumococcal Adult 0.5mL Pneumovax 23 IM Intramuscular May 20, 2017 Administered Influenza 6mo & up Fluzone IM Intramuscular May 20, 2017 Admi nistered Influenza 6mo & up Fluzone IM Intramuscular Jan 02, 2016 Admi nistered Influenza 6mo & up Fluzone IM Intramuscular Dec 13, 2014 Admi nistered COVID-19 dose #2 given elsewhere Unspecified Unknown Apr 10, 2020 Administered Influenza 6mo & up Fluzone [...] Notes Start Da te End Date Status Albuterol Sulfate HFA 108 (90 Base) MCG/ACT INHALE 2 P UFFS BY MOUTH EVERY 4 TO 6 HOURS NEEDED for 25 Active Needle (Disp) for levemir flex pen 1 needle SQ once a day/Dx: E11.9 for 30 day(s) Active Diclofenac Sodium 75 MG 1 tablet with food or milk O rally Twice a day for 10 days May, Not-Taking Cefdinir 300 MG 2 capsules Orally once a day for 10 day(s) Sep, Not-Taking predniSONE 10 MG 3 tabs x 2 days, 2 tabs x 2 days, 1 tab x 3 days Orally Once a day for 7 day(s) Sep, Not-Taking OneTouch Verio IQ System w/Device as directed subcutaneously qid for 999 days Dec, Active Glucometer One glucometer Dec, Active Ditropan XL 5 MG 1 tablet Orally Once a day for 30 day(s) Sep, Not-Taking FreeStyle Sedrick 14 Day [place] - [place] [address] days Dec, Active Propranolol HCl 40 MG 1 tablet Orally Once a day for 30 days Active Fluconazole 150 MG 1 tablet Orally once daily for 1 day(s) Jan, Not-Taking FreeStyle Sedrick 14 Day S[place] - as directed subcutaneously qid f or 999 days Dec, Active Basaglar KwikPen 100 UNIT/ML INJECT 74 UNITS SUBCUTANE OUSLY EVERY MORNING intramuscularly once daily Activ e ARIPiprazole 5 MG 1 tablet Orally Once a day for 30 Active Glucose strip (Verio IQ) as directed subcutaneously qid for 90 day(s) Active Cyclobenzaprine HCl 10 MG 1 tablet at bedtime as neede d Orally TID prn for 10 days May, Not-Taking Benzonatate 200 MG 1 capsule Orally Three times a day as needed for cough for 20 days Sep, Not-Taking metFORMIN HCl 500 MG 1 tablet with a meal Orally bid for 30 Active Simvastatin 40 MG 1 tablet in the evening Orally Once a day for 30 Active Imitrex 25 MG 1 tablet as needed; if no re lief in 2 hours, may take a second tablet Orally as directed for 30 day(s) Apr, Active Safety Insulin Syringes 30G X 5/16" 0.5 ML as directed subcutaneously four times daily for 30 day(s) Jun, Active Nystatin 816653 UNIT/GM 1 application Externally Twice a day for 14 Active ZyrTEC Allergy 10 MG 1 tablet Orally Once a day for 30 Active Lancets 1 lancet ICD:250.02 NIDDM Once a day for 30 Active Cymbalta 60 MG 1 capsule Orally Once a day for 30 Active Mirena (52 MG) 20 MCG/24HR as directed Intrauterine good until 2 025 May, Active Lisinopril 10 MG 1 tab(s) Orally Once a day for 30 Active Admelog 100 UNIT/ML INJECT FOUR TIMES A DAY D IRECTED MAXIMUM DAILY DOSE = 80 UNITS Subcutaneous 20 units QID Active Hibiclens 4 % as directed Externally as ne eded as directed once three times a week Aug, Active PROCEDURES No Information RESULTS No Results REASON FOR VISIT refill MEDICAL (GENERAL) HISTORY Type Description Date Medical [...] Information ASSESSMENTS No Information PLAN OF TREATMENT Medication Medication Name Sig Start Date Stop Date Propranolol HCl 40 MG 1 tablet Orally Once a day for 30 days Next Appt Details Provider Name:Dayron Kunal, 1-10-2 2 01:30:00 PM, [address] [facility] [address], , [place], [address], Insurance Providers Payer Name Payer Address Payer Phone Insured Name Patient Relati onship to Insured Coverage Start Date Coverage End Date [facility] PLAN [facility] [address] [facility] [phone] CHRISTY CURTIS self
--- OUTSIDE RECORDS SUMMARY | 2021-01-06 10:10 | CCD ---
Author Author [facility] Organization [facility] Address Unknown Phone Unavailable Care Team Providers Care Business Data Analyst Name Role Phone Dayron Syed Unavailable PROBLEMS Type Condition ICD9-CM Code [id number] Code Onset Dates Condition S tatus W/U Status Risk SNOMED Code Notes Problem Bipolar 1 disorder, depressed, partial remission F 31.75 Active confirmed 39603250 Problem Edema extremities R60.0 Active confirmed 42 8564163 Problem Hypertension complicating diabetes E11.69 Activ e confirmed 69341967 Problem Essential hypertension I10 Active confirmed 09646335 Problem PCOS (polycystic ovarian syndrome) E28.2 Activ e confirmed 02798113 Problem Type 1 diabetes mellitus with hyperglycemia E10.65 Active confirmed 633831148320140 Problem Dyslipidemia E78.5 Active confirmed 0933643 07 Problem Type 1 diabetes mellitus without complication E10. 9 Active confirmed 560128937 Problem Celiac disease K90.0 Active confirmed 17598 1005 Problem Mixed hyperlipidemia E78.2 Active confirmed 124218892 Problem Essential (primary) hypertension I10 Active conf irmed 51053750 Problem Insomnia, unspecified type G47.00 Active confirmed 686515267 Problem Depression, unspecified depression type F32.9 Active confirmed 00869786 Problem Moderately severe depression F32.2 Active confirme d 516972070 Problem Bilateral carpal tunnel syndrome G56.03 Active conf irmed 84280291 Problem Papanicolaou smear of cervix with positive high risk human papilloma virus (HPV) test R87.810 Active confirmed 044896170 Problem Allergic rhinitis, unspecified seasonality, unspecifie d trigger J30.9 Active confirmed 44339966 Problem Myalgia M79.1 Active confirmed 07031508 Problem OAB (overactive bladder) N32.81 Active confirmed 078751632 Problem Allergic rhinitis, seasonal J30.2 Active confirmed 924330502 Problem Hypercholesteremia E78.0 Active confirmed 1 3509099 Problem Migraine with aura and without status migrainosu s, not intractable G43.109 Active confirmed 1992183 Problem Severe episode of recurrent major depressive disorder, without psychotic features F33.2 Active confirmed 68870502 Problem KRISTA (latent autoimmune diabetes of adulthood), managed as type 1 E13.9 Active confirmed 242797959 Problem BMI 32.0-32.9,adult Z68.32 Active confirmed 181304171 ALLERGIES Allergen (clinical drug ingredient) Drug/Non Drug Allergy do cumented on EMR Reaction Allergy Type Onset Date Status Glutten GI Non Drug Allergy Active ENCOUNTERS from 1972 to 2020-11-11 Encounter Location Date Provider Diagnosis [place] [address] [facility] [phone] [place] [address] Oct, Dayron Syed IMMUNIZATIONS Vaccine Route Administration Date Status Pneumococcal [...] Sep, Not-Taking Glucometer One glucometer Dec, Active VocollectTouch Verio IQ System w/Device as directed subcutaneously qid for 999 days Dec, Active Albuterol Sulfate HFA 108 (90 Base) MCG/ACT INHALE 2 P UFFS BY MOUTH EVERY 4 TO 6 HOURS NEEDED for 25 Active Ditropan XL 5 MG 1 tablet Orally Once a day for 30 day(s) Sep, Not-Taking FreeStyle Sedrick 14 Day [place] - as directed subcutaneously qid f or [...] cough for 20 days Sep, Not-Taking Nystatin 061102 UNIT/GM 1 application Externally Twice a day [...] Information RESULTS No Results REASON FOR VISIT Pre Op clearance surgey tomorrow MEDICAL (GENERAL) HISTORY Type Description Date Medical [...] OF TREATMENT Next Appt Details Provider Name:Dayron Spearsarz, 2020-10-2 2 01:30:00 PM, [address] [facility], , [place], [place], [facility], Insurance Providers Payer Name Payer Address Payer Phone Insured Name Patient Relati onship to Insured Coverage Start Date Coverage End Date [facility] [address] [facility] [phone] CHRISTY CURTIS self
--- OUTSIDE RECORDS SUMMARY | 2021-01-06 10:11 | CCD | Summary of Care ---
Author Author [facility] Organization [facility] Address Unknown Phone Unavailable Care Team Providers Care Flarer Name Role Phone PCP Unavailable Reason for Visit * Auth/Cert Referred By Contact Referred To Contact Status Reason Specialty Diagnoses / Procedures Susana Forbes MD [address] [place] [address] [facility] Or [address] [place] [address] Diagnoses Morbid obesity (CMS/HCC) morbid obesity P rocedures LAPAROSCOPIC ANNIE-EN-Y GASTRIC BYPASS POSSIBLE GASTRIC SLEEVE RESECTION PASSIBLE LAPAROTOMY POSSIBLE HIATAL HERNIA REPAIR POSSIBLE LIVER WEDGE BIOPSY POSSIBLE BOTOX INJECTION Encounter Details Care Team Description Date Type Department Susana Forbes MD [address] [facility] [address] [place], [place] [id number] Ranjan Aviles MD [address] [place] [id number] 11/11/2020 Hospital [facility] - Encounter SURGICAL/ORTHOPEDIC AND 11/14/2020 BARIATRIC UNIT [address] [place] [address] Allergies No Known Active Allergiesdocumented as of this encounter (statuses as of 11/14/2020) Medications End Date Status Medication Sig Dispensed Refills Start Date Active ARIPiprazole (ABILIFY) 5 Take 5 mg by 0 09/17 mg tablet mouth 1 (one) 1 time each day at night. Active fluconazole (DIFLUCAN) Take 150 mg 0 06/18/ 02 150 mg tablet by mouth 1 1 (one) time each day if needed. Active propranoloL (INDERAL) 40 Take 40 mg by 0 06/14 mg tablet mouth 1 (one) 1 time each day at night. 12/11/2020 Active acetaminophen (TYLENOL) Take 2 30 tablet 0 325 mg tablet tablets (650 1 mg total) by mouth every 6 (six) hours if needed for mild pain, headaches or fever. 11/11/2021 Active cyanocobalamin (VITAMIN Take 1 tablet 30 tablet 11 B-12) 1,000 mcg tablet (1,000 mcg 1 total) by mouth 1 (one) time each day. 11/11/2021 Active flintstones complete Chew 2 60 tablet 11 11/11 (FLINTSTONES) chewable tablets 1 1 tablet (one) time each day. Active omeprazole (PriLOSEC) 40 Take 1 [address] capsule capsule (40 mg total) by mouth 1 (one) time each day. For three months after surgery. Do not crush or chew. 12/11/2020 Active simethicone (MYLICON) 80 Chew 1 tablet 30 tablet 0 mg chewable tablet (80 mg total) 1 every 6 (six) hours if needed for flatulence (for gas pain). Active magnesium hydroxide (MILK Take 30 mL by 360 mL 0 OF MAGNESIA) 400 mg/5 mL mouth 2 (two) 1 suspension times a day if needed for constipation. Active enoxaparin (LOVENOX) 40 Inject 0.4 mL 0 mg/0.4 mL syringe (40 mg total) 1 under the skin 1 (one) time each day. For twenty days after discharge Active Basaglar KwikPen U-100 Inject 30 0 02 Insulin 100 unit/mL (3 Units under 1 mL) injection the skin 1 (one) time each day. pcp to decide what doses pre op 11/14/2020 Discontinued (Reorder) Basaglar KwikPen U-100 Inject 74 0 02 Insulin 100 unit/mL (3 Units under 1 mL) injection the skin 1 (one) time each day at night. pcp to decide what doses pre op 11/11/2020 Discontinued (Reorder) enoxaparin (LOVENOX) 40 Inject 0.4 mL 0 mg/0.4 mL syringe (40 mg total) under the skin 1 (one) time each day. For ten days after discharge documented as of this encounter (statuses as of 11/14/2020) Active Problems Problem Noted Date Morbid obesity 10/30/2020 Obesity 10/30/2020 Chronic bronchitis 09/11/2020 PONV (postoperative nausea and vomiting ) Hypertension Hyperlipidemia Diabetes mellitus GERD (gastroesophageal reflux disease) Anxiety Depression documented as of this encounter (statuses as of 11/14/2020) Immunizations Name Administration Dates Next Due Jordya SARS-CoV-2 04/08/2020, 03/11/2020 Vaccination documented as of this encounter Social History Date Tobacco Use Types Packs/Day Years Used Quit: 2011 Former Smoker Cigarettes 1 4 Smokeless Tobacco: Never Used Comments Alcohol Use Standard Drinks/Week rare Yes 0 (1 standard drink = 0.6 o z pure alcohol) Sex Assigned at Date Recorded Not on file Date Recorded COVID-19 Exposure Response 11/11/2020 7:07 AM EDT In the last month, have you been in contact with No / Unsure someone who was confirmed or suspected to have Coronavirus / COVID-19? documented as of this encounter Last Filed Vital Signs Reading Time Taken Comments Vital Sign 118/90 11/14/2020 7:38 AM EDT Blood Pressure 68 11/14/2020 7:38 AM EDT Pulse 36.6 C (97.8 F) 11/14/2020 7:38 AM EDT Temperature 14 11/14/2020 7:38 AM EDT Respiratory Rate 97% 11/14/2020 12:00 AM EDT Oxygen Saturation - - Inhaled Oxygen Concentration 96.5 kg (212 lb 12.8 oz) 11/11/2020 7:01 AM EDT Weight 170.2 cm (5' 7") 11/11/2020 7:01 AM EDT Height 33.33 11/11/2020 7:01 AM EDT Body Mass Index documented in this encounter Discharge Instructions * Attachments The following attachments cannot be sent through Care Everywhere.* Laparoscopic Gastric Bypass Surgery ([place] Islander) documented in this encounter Progress Notes * Jayna Cuellar PA - 11/13/2020 4:37 PM EDT Inpatient Progress Note Christy Stoddard Length of Stay:2 Post Op Day#: 2 Days Post-Op Procedure(s): LAPAROSCOPIC ANNIE-EN-Y GASTRIC BYPASS, LYSIS OF ADHESIONS, LIVER WEDGE BIOPSY Subjective: Patient c/o abdominal pain in the epigastrum. Patient tolerating si ps but has been nauseous all day. No vomiting. Patient is ambulating without dif ficulty. Patient is using incentive spirometer up to 1500. Patient is voiding wi thout difficulty. Patient is passing flatus. Patient c/o migraine. Has had one dose of imitrex but not a second. Had CT this am. Patient denies diarrhea, shortness of breath, chest pain, or calf pain. Physical Exam: Temp (24hrs), Av.3 C (97.4 F), Min:35.8 C (96.4 F), Max:36.8 C (98.3 F) Blood Pressure: BP: 180/92 Pulse: Heart Rate: 77 Temperature: Temp: 36.4 C (97.6 F) Respirations: Resp: 17 Admission Weight: Weight: 96.5 kg (212 lb 12.8 oz) O2 Saturation: SpO2: 96 % Today's Weight: Weight: 96.5 kg (212 lb 12.8 oz) BMI: Body mass index is 33.33 k g/m. Height: Height: 170.2 cm (5' 7") I/O last 3 completed shifts: In: 1380 (14.3 mL/kg) [P.O.:480; I.V.:900 (9.3 mL/kg)] Out: 2500 (25.9 mL/kg) [Urine:2500 (0.7 mL/kg/hr)] Weight: 96.5 kg General: No acute distress CVS: Regular, rhythm and rate Pulmonary: Respirations unlabored Abdomen: Soft and benign; incisions clean, dry, intact; no ecchymosis Extremities: No calf tenderness bilaterally Labs, Imaging, and other Diagnostics: Diagnostic tests reviewed for today's visit: CT scan abd/pelvis shows no gastric dilatation. NO obstruction. Glucometer: 221-330 Had 20 units levemir yesterday Assessment and Plan: Progressing slowly s/p Lap RNY, liver wedge biopsy with persistent nausea, migra ine and hypertension 1. Continue routine post op care. 2. Encourage PO, IS and ambulation 3. Give second dose of imitrex 4. Stop propanolol and start labetalol 5. Marcaine injection for epigastric pain. Dr Forbes injected 10 ML of marcaine with epi in the area of maximum tenderness. She had good relief of her pain. 6. Levemir 30 units today. Will need daily insulin. 7. Not ready for discharge yet. Discussed with Dr Forbes. Signature: JAYNA CUELLAR PA Date: November 13, 2020 Time: 4:38 PM Associated attestation - Susana Forbes MD - 11/13/2020 11:13 PM EDT I agree with above assessment, no changes are recommended. Additional dose Labetalol for 200 mg tonight Then 200 BID starting in AM Turn down IV fluid One dose Lasix Doing somewhat better Still nauseated Susana Forbes MD * Sarahi Méndez - 11/13/2020 11:09 AM EDT Discharge Planning Progress Note Patient Name: Christy Stoddard Today's Date: 11/13/2020 Assessment: Met with patient in accordance with COVID 19 restrictions and protocols who was admitted from home where she lives with her 12 yo son and 5 yo nephew. Patient reports she is independent of all ADLs and denies the use of DME or services at this time. Patient has no HCP, her friend, Garry Lundberg ([phone]) is her em ergency contact. Patient has no advanced directives. PCP is Dr. Cabrera at [facility]. Patient uses [facility] in [place] for prescriptions. 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 Patient received COVID vaccine ( Moderna). Discharge plan is to home pending medical course. SW to follow. Sarahi LAI Discharge Planning: Living Arrangements: Children Support Systems: Family members, Friends/neighbors Assistance Needed: none Type of Residence: Other (Comment) (apartment) Home Care Services: No Patient expects to be discharged to:: home Caregiver: Friend- Garry Lundberg Caregiver Information: [phone] * Pat Guillen, LABORATORY SAMPLE CARRIER - 11/13/2020 10:14 AM EDT Bariatric Surgery Progress Note Christy Stoddard 2 Days Post-Op Pre-Op Diagnosis: Morbid Obesity Post-Op Diagnosis: Morbid Obesity Procedure: Annie Y Gastric Bypass 50 cm pancreaticobiliary limb 150 cm Annie limb Antecolic, Antegastric Wedge liver biopsy Esophagogastrojejunoscopy Lysis of adhesion 20 minutes Subjective: Events of previous shift noted. Patient still feeling nauseous. No dry heaves. Reports that she experienced hiccups prior to dry heaving last night. CT did n ot show any gastric remnant distention. She continues to report epigastric discomfort. Medially to port site. Denies any further involuntary movements of legs or arms that she experienced af ter Zyprexa dose yesterday. Denies SOB, CP, or calf pain. Only taking minimal sips of water with meds.. Belching intermittently , not pa ssing flatus. Patient is ambulating to bathroom, using incentive spirometer, , and voiding we ll. BP had been high. On Propanolol for headaches at home and Lisinopril. Has receiv ed vasotec prn IV. Physical Exam: Temp: [35.8 C (96.4 F)-36.7 C (98.1 F)] 35.8 C (96.4 F) Heart Rate: [64-84] 84 Resp: [16-18] 16 BP: (118-198)/(60-100) 146/84 Intake/Output Summary (Last 24 hours) at 11/13/2020 1014 Last data filed at 11/13/2020 0700 Gross per 24 hour Intake 2310 ml Output 1300 ml Net 1010 ml I/O last 3 completed shifts: In: 1380 (14.3 mL/kg) [P.O.:480; I.V.:900 (9.3 mL/kg)] Out: 2500 (25.9 mL/kg) [Urine:2500 (0.7 mL/kg/hr)] Weight: 96.5 kg General: appears nauseas, tired Heart:: RRR Lungs: no labored breathing Abd: appropriately tender, 6 surgical sites clean, dry and intact. No erythema noted. Ext:No calf tenderness, no edema present in bilateral lower extremities Accucheck: 330 this am(Patient had Levemir 20 units subcut yesterday) Assessment and Plan: 50 yo Female, s/p LRNY with persistant nausea, hypertensive and uncontrolled blo od sugars 2 Days Post-Op Continue routine post op care. Ambulate, Encourage ICS DVT prophylaxis/Heparin. GI prophylaxis/Protonix. Zofran 16mg IV Levemir 30 units this am, Glycemic control D/W Dr. Forbes, who examined patient this am. ADOD: Not ready for discharge Signature: PAT GUILLEN FNP Date: November 13, 2020 Time: 10:14 AM Associated attestation - Susana Forbes MD - 11/13/2020 11:11 PM EDT I agree with above assessment, no changes are recommended. Injected marcaine 0.25% epigastric port site Pt feeling somewhat better Needs better BP controll Start Labetealol 100 BID Stop propranolol Susana Forbes MD * Susana Forbes MD - 11/13/2020 5:36 AM EDT Called Pt in pain Hypertension and "dry heaves" Stat CT No gastric dilitation , no sbo Discussed adan nursing Additional toradol dose Vasotec, zofran Will see this AM Susana Forbes MD * Sarahi Méndez - 11/12/2020 3:30 PM EDT Discharge Planning Progress Note Patient Name: Christy Stoddard Today's Date: 11/12/2020 Assessment: Attempted to meet with patient x 2 who is sleeping and does not awaken to this w orkers presence. SW to follow. Sarahi LAI Discharge Planning: * Pat Guillen, LABORATORY SAMPLE CARRIER - 11/12/2020 7:20 AM EDT Bariatric Surgery Progress Note Christy Stoddard 1 Day Post-Op Pre-Op Diagnosis: Morbid Obesity Post-Op Diagnosis: Morbid Obesity Procedure: Annie Y Gastric Bypass 50 cm pancreaticobiliary limb 150 cm Annie limb Antecolic, Antegastric Wedge liver biopsy Esophagogastrojejunoscopy Lysis of adhesion 20 minutes Subjective: Events of previous shift noted. Patient feels alittle better this am. Stated sh e had increased nausea and dry heaves last night. Had one episode of emesis whic h she described as blood tinged . She is experiencing epigastric discomfort. No hiccups. Denies SOB, CP, or calf pain. Not Belching but states she passed alittle flatus last night. She denies feeling bloated. Patient is ambulating , using incentive spirometer to 1500, and voiding well. Patient developed dry heaves again. Dr Aviles called. Orders given. Physical Exam: Temp: [36.2 C (97.2 F)-37.2 C (99 F)] 36.9 C (98.4 F) Heart Rate: [76-86] 84 Resp: [11-26] 18 BP: (120-154)/(66-93) 136/76 Intake/Output Summary (Last 24 hours) at 11/12/2020 0720 Last data filed at 11/12/2020 0100 Gross per 24 hour Intake 2420 ml Output 1900 ml Net 520 ml I/O last 3 completed shifts: In: 2420 (25.1 mL/kg) [P.O.:120; I.V.:1800 (18.6 mL/kg); IV Piggyback:500] Out: 1900 (19.7 mL/kg) [Urine:1900 (0.5 mL/kg/hr)] Weight: 96.5 kg General: NAD, comfortable, affect great Heart:: RRR Lungs: no labored breathing Abd: appropriately tender, 6 surgical sites clean, dry and intact. No erythema noted. Ext:No calf tenderness, no edema present in bilateral lower extremities Accucheck: 258-324, (Had Levemir 30 units in PACU) Assessment and Plan: 1 Day Post-Op Continue routine post op care. Ambulate, Encourage ICS & lovenox education. Discharge Instructions given to patient DVT prophylaxis/Heparin. GI prophylaxis/Protonix. Glycemic control, Levemir 20 units given today. Patient instructed to stay NPO. Zyprexa 10mg IM once ordered.. D/W Dr. Aviles ADOD: Not ready for discharge Signature: PAT GUILLEN FNP Date: November 12, 2020 Time: 7:20 AM Associated attestation - Ranjan Aviles MD - 11/12/2020 12:33 PM EDT I saw and evaluated the patient, participating in the schaefer portions of the servic e. I reviewed Rachel Coyle note. I agree with the findings and pl an. Nausea persists but somewhat better with zyprexa. Needs to increase po intak e. Not ready for discharge * Jayna Cuellar PA - 11/11/2020 6:00 PM EDT Subjective Patient is awake alert comfortable. Some nausea. Speaking freely. Tolerating sip s. Ambulated to BR. Voiding. Objective Physical Exam Vitals reviewed. Constitutional: General: She is not in acute distress. Appearance: Normal appearance. She is obese. HENT: Head: Normocephalic and atraumatic. Eyes: General: No scleral icterus. Extraocular Movements: Extraocular movements intact. Conjunctiva/sclera: Conjunctivae normal. Pupils: Pupils are equal, round, and reactive to light. Cardiovascular: Rate and Rhythm: Normal rate and regular rhythm. Pulmonary: Effort: Pulmonary effort is normal. No respiratory distress. Abdominal: General: There is no distension. Palpations: Abdomen is soft. There is no mass. Comments: Surgical wounds well apposed and without erythema or drainage. Musculoskeletal: General: No swelling or tenderness. Normal range of motion. Cervical back: Normal range of motion and neck supple. No tenderness. Skin: General: Skin is warm and dry. Findings: No rash. Neurological: General: No focal deficit present. Mental Status: She is alert and oriented to person, place, and time. Last Recorded Vitals Blood pressure 140/82, pulse 82, temperature 36.9 C (98.4 F), resp. rate 16, height 1.702 m (5' 7"), weight 96.5 kg (212 lb 12.8 oz), last menstrual per iod 11/11/2020, SpO2 99 %, not currently . Relevant Results I have reviewed the available lab and diagnostic results as appropriate. GLUCOSE: 324, 309, 239 Had 30 units levemir Assessment/Plan Assesment: stable post op s/p Laparoscopic RNY, liver wedge biopsy, CARSON PLAN: Continue to monitor Continue current care. Encourage po fluids, ICS and ambulation when able. ADOD in 1-[address] Forbes Associated attestation - Susana Forbes MD - 11/13/2020 5:39 AM EDT I agree with above assessment, no changes are recommended. Susana Forbes MD documented in this encounter H&P Notes * Susana Forbes MD - 11/11/2020 9:26 AM EDT Brought in for scanning, thanks] No changes Susana Forbes MD documented in this encounter Consult Notes * Claudette Raza RD CDN - 11/12/2020 8:33 AM EDT Adult Nutrition Assessment Name: Christy Stoddard Date: 1970 Date of Visit: 11/12/20 Reason for Assessment: Post bariatric surgery consult Interview deferred "I feel sick". Nutritional Orders: No Known Allergies Dietary Orders (From admission, onward) Start Ordered 11/11/20 1304 Adult NPO diet NPO except: Other (specify); Explanatory comment: Water and dilute juice Diet effective now Question Answer Comment NPO except: Other (specify) Explanatory comment: Water and dilute juice 11/11/20 1303 Assessment Anthropometrics Measurements: Height: 1.702 m (5' 7") Weight: 96.5 kg (212 lb 12.8 oz) Body mass index is 33.33 kg/m. 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 Nutrition Focused Physical Findings: Overall appearance: appears well nourished Body language: sitting up in bed appears ill and stated "I feel sick" Nerves and cognition: alert and oriented Cardiovascular/pulmonary: room air Head and Eyes: WNL Digestive system: Had N , dry heaves, 1 episode of emesis. Per pt not tolerating sips. N/A gas pain. N/A belch. a little per notes flatus. Skin: surgical lap sites Diagnosis Nutrition Diagnosis Obese, Class III related to energy intake greater than energy needs for extended period as evidenced by BMI of 33.33. Intervention Nutrition Prescription Meals/Snacks: Continue to follow post bariatric surgery diet Supplements: n/a Nutrition Education: Monitor need to review schaefer points of post bariatric diet and mportance of hydrat ion Monitoring and Evaluating Nutrition Goals/Monitoring: Food & Nutrition Related History Outcomes: tolerance to diet advancement Anthropometric Measurement Outcomes: weight loss toward healthy BMI Followup: Level: B documented in this encounter Nursing Notes * Patricia Erazo RN - 11/14/2020 1:19 AM EDT Assessment per nursing flow sheet, AAO, able to make her needs known. LSC, denies SOB or difficulty breathing. RA. 6 abdominal lap sites clean/dry/intact. C/o nausea, Zofran given with relief. At HS BP 170/92, PRN Vasotec IV 1.25 mg and scheduled Lisinopril given, at 231 5 BP-98/60, Labetalol 100mg was not given. CS-342, 303, insulin coverage given as ordered. Will continue to monitor, call oro within reach. EOSS: pt states feels much better, slept in short intervals, safety and comfort maintained. * Natalia Aguiar RN - 11/13/2020 5:34 PM EDT Assessment per fs- Pt A&O x4, can make needs known. LSC, abd rounded, tender, BS hypoactive. 6 lap sites C/D/I. +flatus, LBM 8/28. Pt reports not taking many sips today, reports nausea when sipping. Dry heaves a times, spit up saliva. Pt had a few ice chips throughout the day. Pts BP high throughout the shift, MD aware, meds adjusted, vasotec, Sumatriptan, and lasix x1. IVPB zofran x1. Will continue to monitor. Pt voiding, menses, oob independently. Pt resting in bed with call oro in reach. EOSS- Md in pts room, stated to give night dose of labetalol now- given, report given to oncoming rn. * Dafne Bell RN - 11/13/2020 4:00 AM EDT At 0400- 0500- Pt. Complained of severe headache and nausea- Imitrex and Compazi ne given with no relief . BP 198/100- Vasotec given. BP down to 184/82.Pt then d eveloped dry hives bringing up phlegm and severe epigastric pain. Dr. Leidy moore led - returned call after 3rd attempt. Stat CT scan ordered and performed. Dr. Archie britton called to report to this technical report writer that there where no significant findings found on CT Scan. Toradol and Zofran ordered and given. 0600- Pt. Repo rts some relief with headache epigastric discomfort but continues with severe na usea. BP at this time. 180/90. Devorah ALMOND PASTE MOLDER in to see pt. At this time and is aware of recent events. Dr. Forbes to be in to see the patient. * Dafne Bell RN - 11/13/2020 1:23 AM EDT Assessment per flow sheet. Lap sites x 6- dry with dermabond intact. +BS- hypoac tive. Pt. States a small amount of flatus and belching. Pt. States nausea much i mproved from earlier post-op and has started to sip on water and is tolerating i t well . Some meds attempted and pt. Tolerated them also. Pt. OOB to BR- voidin g large amounts without difficulty- +menses. CS's- 184/201. RA sat 98%. ICS enco uraged- uses up to 1500. VSS. * Chastity Dickson RN - 11/12/2020 5:44 PM EDT Assessment per FS. Able to make needs known. 6 Lap sites clean dry and intact. Nausea and vomiting noted this am. Routine zofran given for N/V with little effe ct. Zyprexa ordered x1 and tolerated well. C/O headache PRN tordal given x2. Vas otec x2 for increased BP with effect. SCD's on. Took miniscule sips of water in am.. Tolerated a few ice chips. States passing flatus. OOB to bathroom voiding w ell. New IV placed in R hand & infusing. Safety maintained. * Saqib Cortes RN - 11/12/2020 1:19 AM EDT Assessment per FS; Pt AAOx3, pt tolerates RA WDL, iv site intact and patent w/ f luids infusing, LR bolus due in the AM, pt throughout the first half of the shif t was quite tired, nauseous and in discomfort, calls were put out to MD Stefan martin nd he was made aware of the pt's condition(being nauseous for hours, not being a ble to take in oral medications, not tolerating sips of water), however, pt's co ndition has changed for the better since midnight, voids WDL, call oro within r each and safety maintained. * Kandace Ruano RN - 11/11/2020 6:09 PM EDT Assessment per fs. From Pacu 1300. AAO, sleeps in between care. OOB to br, voide d. Abd soft, bs hypo, little belching, no flatus. 6 lap sites D&I with dermabond. IVF infusing. Tolerating small sips, intermittent nausea, no v omiting. Meds per emar. Vasotec given for elevated BP. documented in this encounter Miscellaneous Notes * Care Plan - Patricia Erazo RN - 11/14/2020 3:25 AM EDT Problem: Pain - Adult Goal: Verbalizes/displays adequate comfort level or baseline comfort level Outcome: Progressing Flowsheets (Taken 11/14/2020323) Verbalizes/displays adequate comfort level or baseline comfort level: Encourage patient to monitor pain and request assistance Assess pain using appropriate pain scale Problem: Gastrointestinal - Adult Goal: Minimal or absence of nausea and vomiting Outcome: Progressing Flowsheets (Taken 11/14/2020323) Minimal or absence of nausea and vomiting: Administer IV fluids as ordered to ensure adequate hydration Maintain NPO status until nausea and vomiting are resolved Administer ordered antiemetic medications as needed Goal: Maintains or returns to baseline bowel function Outcome: Progressing Flowsheets (Taken 11/14/2020323) Maintains or returns to baseline bowel function: Assess bowel function Encourage oral fluids to ensure adequate hydration Problem: Skin/Tissue Integrity - Adult Goal: Skin integrity remains intact Outcome: Progressing Flowsheets (Taken 11/14/2020323) Skin integrity remains intact: TWICE DAILY: Assess and document skin integrity EVERY SHIFT: Monitor for areas of redness and/or skin breakdown Goal: Incisions, wounds, or drain sites healing without S/S of infection Outcome: Progressing Flowsheets (Taken 11/14/2020 0324) Incision(s), wound(s), or drain site(s) healing without S/S of infection: TWICE DAILY: Assess and document skin integrity TWICE DAILY: Assess and document dressing/incision, wound bed, drain sites and surrounding tissue Goal: Oral mucous membranes remain intact Outcome: Progressing Flowsheets (Taken 11/14/2020323) Oral mucous membranes remain intact: Assess oral mucosa and hygiene practices Problem: Chronic Conditions and Co-morbidities Goal: Patient's chronic conditions and co-morbidity symptoms are monitored and m aintained or improved Outcome: Progressing Problem: Safety Adult - Fall Goal: Free from fall injury Outcome: Progressing Flowsheets (Taken 11/14/2020323) Free from fall injury: Assess patient frequently for physical needs Educate patient/family on patient safety, including physical limitations Modify environment to reduce risk of injury [place] fall precautions as indicated by assessment Instruct patient to call for assistance with activity based on assessment Problem: Discharge Planning Goal: Discharge to home or other facility with appropriate resources Outcome: Progressing Problem: Gastrointestinal - Adult Goal: Maintains adequate nutritional intake Outcome: Not Progressing * Aurora Yang - Natalia Aguiar RN - 11/13/2020 5:33 PM EDT Problem: Pain - Adult Goal: Verbalizes/displays adequate comfort level or baseline comfort level Outcome: Not Progressing Problem: Gastrointestinal - Adult Goal: Minimal or absence of nausea and vomiting Outcome: Not Progressing Goal: Maintains or returns to baseline bowel function Outcome: Not Progressing Goal: Maintains adequate nutritional intake Outcome: Not Progressing Problem: Discharge Planning Goal: Discharge to home or other facility with appropriate resources Outcome: Not Progressing Problem: Skin/Tissue Integrity - Adult Goal: Skin integrity remains intact Outcome: Progressing Goal: Incisions, wounds, or drain sites healing without S/S of infection Outcome: Progressing Goal: Oral mucous membranes remain intact Outcome: Progressing Problem: Chronic Conditions and Co-morbidities Goal: Patient's chronic conditions and co-morbidity symptoms are monitored and m aintained or improved Outcome: Progressing Problem: Safety Adult - Fall Goal: Free from fall injury Outcome: Progressing * Care Plan - Dafne Bell RN - 11/13/2020 12:43 AM EDT Problem: Gastrointestinal - Adult Goal: Minimal or absence of nausea and vomiting Outcome: Progressing Goal: Maintains or returns to baseline bowel function Outcome: Progressing Goal: Maintains adequate nutritional intake Outcome: Progressing Problem: Skin/Tissue Integrity - Adult Goal: Skin integrity remains intact Outcome: Progressing Goal: Oral mucous membranes remain intact Outcome: Progressing Problem: Chronic Conditions and Co-morbidities Goal: Patient's chronic conditions and co-morbidity symptoms are monitored and m aintained or improved Outcome: Progressing Problem: Safety Adult - Fall Goal: Free from fall injury Outcome: Progressing Problem: Discharge Planning Goal: Discharge to home or other facility with appropriate resources Outcome: Progressing * Aurora Yang - Chastity Dickson RN - 11/12/2020 5:43 PM EDT Problem: Pain - Adult Goal: Verbalizes/displays adequate comfort level or baseline comfort level Outcome: Progressing Problem: Gastrointestinal - Adult Goal: Minimal or absence of nausea and vomiting Outcome: Progressing Goal: Maintains or returns to baseline bowel function Outcome: Progressing Goal: Maintains adequate nutritional intake Outcome: Progressing Goal: Establish and maintain optimal ostomy function Outcome: Progressing Problem: Skin/Tissue Integrity - Adult Goal: Skin integrity remains intact Outcome: Progressing Goal: Incisions, wounds, or drain sites healing without S/S of infection Outcome: Progressing Goal: Oral mucous membranes remain intact Outcome: Progressing Problem: Chronic Conditions and Co-morbidities Goal: Patient's chronic conditions and co-morbidity symptoms are monitored and m aintained or improved Outcome: Progressing Problem: Safety Adult - Fall Goal: Free from fall injury Outcome: Progressing Problem: Discharge Planning Goal: Discharge to home or other facility with appropriate resources Outcome: Progressing * Saqib Robertson RN - 11/12/2020 1:19 AM EDT Problem: Pain - Adult Goal: Verbalizes/displays adequate comfort level or baseline comfort level Outcome: Progressing Problem: Gastrointestinal - Adult Goal: Minimal or absence of nausea and vomiting Outcome: Progressing Goal: Maintains or returns to baseline bowel function Outcome: Progressing Goal: Maintains adequate nutritional intake Outcome: Progressing Goal: Establish and maintain optimal ostomy function Outcome: Progressing Problem: Skin/Tissue Integrity - Adult Goal: Skin integrity remains intact Outcome: Progressing Goal: Incisions, wounds, or drain sites healing without S/S of infection Outcome: Progressing Goal: Oral mucous membranes remain intact Outcome: Progressing Problem: Chronic Conditions and Co-morbidities Goal: Patient's chronic conditions and co-morbidity symptoms are monitored and m aintained or improved Outcome: Progressing Problem: Safety Adult - Fall Goal: Free from fall injury Outcome: Progressing Problem: Discharge Planning Goal: Discharge to home or other facility with appropriate resources Outcome: Progressing * Care Plan - Kandace Ruano RN - 11/11/2020 4:52 PM EDT Problem: Pain - Adult Goal: Verbalizes/displays adequate comfort level or baseline comfort level Outcome: Progressing Problem: Gastrointestinal - Adult Goal: Minimal or absence of nausea and vomiting Outcome: Progressing Goal: Maintains or returns to baseline bowel function Outcome: Progressing Goal: Maintains adequate nutritional intake Outcome: Progressing Goal: Establish and maintain optimal ostomy function Outcome: Progressing Problem: Skin/Tissue Integrity - Adult Goal: Skin integrity remains intact Outcome: Progressing Goal: Incisions, wounds, or drain sites healing without S/S of infection Outcome: Progressing Goal: Oral mucous membranes remain intact Outcome: Progressing Problem: Chronic Conditions and Co-morbidities Goal: Patient's chronic conditions and co-morbidity symptoms are monitored and m aintained or improved Outcome: Progressing Problem: Safety Adult - Fall Goal: Free from fall injury Outcome: Progressing Problem: Discharge Planning Goal: Discharge to home or other facility with appropriate resources Outcome: Progressing * Perioperative Nursing Note - Hanna Dunne RN - 11/11/2020 1:03 PM EDT Report given to: Kim Mohr RN. on 1st floor. Reviewed medical history, allergies, medications, and surgical complications as necessary. * Progress Note - Hanna Dunne RN - 11/11/2020 12:48 PM EDT Pt medicated with Hydralaize 5 mg for SBP 142/93 * Progress Note - Hanna Dunne RN - 11/11/2020 12:47 PM EDT Pt medicated with Labetalol 10mg for SBP 142/93 * Op Note - Susana Forbes MD - 11/11/2020 10:30 AM EDT Bariatric Surgery Operative Report Patient Name: Christy Stoddard Date of : 1970 Age 50 y.o. Procedure: Surgeon Susana Forbes MD Annie Y Gastric Bypass 50 cm pancreaticobiliary limb 150 cm Annie limb Antecolic, Antegastric Wedge liver biopsy Esophagogastrojejunoscopy Lysis of adhesion 20 minutes Senior Electrical Engineer Supervisor Reclamation: Christian Garica RN Scrub Person: [facility] [place] Primary Dock Manager: DOUG Honeycutt Anesthesia Anesthesia Staff: Anesthesiologist: Kamilah Goetz MD Anesthesia: General Diagnoses Pre-Op Diagnosis: Pre-op Diagnosis * Morbid obesity (CMS/HCC) [E66.01] Post-Op Diagnosis: Post-op Diagnosis * Morbid obesity (CMS/HCC) [E66.01] Estimated Blood Loss: 5 ml Complications: none Implants: None Drains: none Findings Central obesity and fatty liver. Blunt edge, enlarged, omental adhesions LUQ, no clear explaination, lysed to get access to abdominal wall Indications Christy Stoddard is a 50 y.o. year old female who suffers from severe obesity for her entire adult life. She cannot control her weight with diet and exercise. We ight 221 pounds 66 inches tall , BMI 35.6 herweight status significantly impacts her activities of daily lewis ng. her comorbid conditions are Diabetes, Hypertension and Hyperlipidemia , She meets the NIH criteria for weight loss surgery, surgery is medically necessary. I recommended a Annie Y Gastric Bypass. Description of Procedure: Christy Stoddard was placed on the table in supine position, administered general anesthesia, and endotracheally intubated. her abdomen was prepped and draped as a sterile field, entered under direct vision with a 12-mm Optiview port, RUQ, p neumoperitoneum was established, 10-mm scope was introduced, and standard 6-port technique was used. After omental adhesions to the lUQ abdominal wall were lyse d. There are two 12 mm ports on the right, midclavicular line, two 12 mm ports on the left anterior axillary line, a 12 mm periumbilical port, and a 5 mm subxi phoid port. The omentum was divided and a wedge biopsy was obtained from the left lobe of th e liver. The Annie was constructed by starting at the ligament of Treitz measurin g 50 cm along the jejunum for the pancreaticobiliary limb, this was pushed to th e patient's left and an additional 150 cm for the Annie limb. A 60-mm blue cartri dge was used to divide the bowel at 50 cm and create the jejunojejunostomy. The mesenteric defect and enterotomy was closed with a V-Loc, exposed by my shyam harris.The Annie was brought antecolic antegastric, the patient was placed in steep r everse Trendelenburg, and the NG tube was removed. A Hiatal hernia was not present. The gastric pouch was created by sharpening the angle of His as well as exposing left elian, measuring 7 cm along the lesser curve and dissecting the lesser omen marcie from the lesser curve entering the lesser sac. A 60-mm green cartridge was u sed to staple transversely across the lesser curve 50 mm and then parallel to th e lesser curve to the angle of His, the pouch from the stomach using a 30-Gabonese bougie as a guide. The gastrojejunal anastomosis was created by stap ling the Annie to the anterior wall of the pouch with a 60-mm blue cartridge inse rted 3 cm, the remaining enterotomy was closed in 2 layers with a V-Loc and the Annie limb was anchored to the pouch at the apex of the anastomosis with another V-Loc. This was tested for leaks, my academic affairs assistant clamped the Annie limb with a phyllis l clamp, and flooded the field with saline. I endoscoped the patient, insuffla ting air into the pouch , there were no leaks. The retro Annie space was closed w ith a V-Loc. The ports were removed under direct vision. The umbilical port site fascia was closed with a 0-Vicryl. Hemostasis was excellent. Pneumoperitoneum was relieved. Skin incisions were closed with subcuticular sutures of 4-0 Vicry l. Sterile dressings were applied. The patient tolerated the procedure well. Signature: SUSANA FORBES MD Date: November 11, 2020 Time: 11:24 AM documented in this encounter Plan of Treatment Order Schedule Name Type Priority Associated Diag noses 0000, 0400, 0800, 1200, 1600, 2000 until discontinued starting 11/11/2020, 18 completed POCT glucose meter docked Point of Care Routine device Testing-Docked Device For RT frequency use only for continuous procedures with task-based reminders at 8a and 8p until discontinued starting 11/11/2020, 7 completed BIPAP/CPAP - Mode: CPAP; Respiratory Routine Specify pressure: Auto Care (4-20); Keep O2 Sat greater than: 92%; Times to be worn: Times of sleep Health Maintenance Due Date Last Done Comments Cervical Cancer Screening 1970 Colonoscopy 1970 Colorectal Cancer 1970 Screening FIT-DNA 1970 FOBT Annual 1970 Sigmoidoscopy 1970 MMR Vaccines (1 of 1 - 1973 Standard series) Varicella Vaccines (1 of 1973 2 - 2-dose childhood series) DTaP,Tdap,and Td Vaccines 05/17/1979 (1 - Tdap) Influenza Vaccine (#1) 2020 Pneumococcal Vaccine: 65+ 2037 Years (1 of 1 - PPSV23) COVID-19 Vaccine Completed 04/08/2020, 03/11/2020 HIB Vaccines Aged Out No longer eligible based on patient's age to complete this topic Hepatitis A Vaccines Aged Out No longer eligibl e based on patient's age to complete this topic Hepatitis B Vaccines Aged Out No longer eligibl e based on patient's age to complete this topic IPV Vaccines Aged Out No longer eligible based on patient's age to complete this topic documented as of this encounter Procedures Comments Procedure Name Priority Date/Time Associated Diag nosis POCT GLUCOSE METER Routine 11/14/2020 UNSOLICITED RESULTS 4:35 PM EDT POCT GLUCOSE METER Routine 11/14/2020 UNSOLICITED RESULTS 12:24 PM EDT POCT GLUCOSE METER Routine 11/14/2020 UNSOLICITED RESULTS 8:36 AM EDT POCT GLUCOSE METER Routine 11/14/2020 UNSOLICITED RESULTS 3:38 AM EDT POCT GLUCOSE METER Routine 11/13/2020 UNSOLICITED RESULTS 11:32 PM EDT POCT GLUCOSE METER Routine 11/13/2020 UNSOLICITED RESULTS 8:46 PM EDT POCT GLUCOSE METER Routine 11/13/2020 UNSOLICITED RESULTS 4:15 PM EDT POCT GLUCOSE METER Routine 11/13/2020 UNSOLICITED RESULTS 11:54 AM EDT POCT GLUCOSE METER Routine 11/13/2020 UNSOLICITED RESULTS 8:08 AM EDT BIPAP/CPAP Routine 11/13/2020 8:[address] ABDOMEN PELVIS WO STAT 11/13/2020 CONTRAST 5:27 AM EDT POCT GLUCOSE METER Routine 11/13/2020 UNSOLICITED RESULTS 3:56 AM EDT POCT GLUCOSE METER Routine 11/12/2020 UNSOLICITED RESULTS 11:42 PM EDT POCT GLUCOSE METER Routine 11/12/2020 UNSOLICITED RESULTS 8:10 PM EDT BIPAP/CPAP Routine 11/12/2020 8:00 PM EDT POCT GLUCOSE METER Routine 11/12/2020 UNSOLICITED RESULTS 5:57 PM EDT POCT GLUCOSE METER Routine 11/12/2020 UNSOLICITED RESULTS 1:28 PM EDT POCT GLUCOSE METER Routine 11/12/2020 UNSOLICITED RESULTS 9:25 AM EDT BIPAP/CPAP Routine 11/12/2020 8:00 AM EDT POCT GLUCOSE METER Routine 11/12/2020 UNSOLICITED RESULTS 3:34 AM EDT POCT GLUCOSE METER Routine 11/11/2020 UNSOLICITED RESULTS 11:41 PM EDT POCT GLUCOSE METER Routine 11/11/2020 UNSOLICITED RESULTS 8:06 PM EDT BIPAP/CPAP Routine 11/11/2020 8:00 PM EDT POCT GLUCOSE METER Routine 11/11/2020 UNSOLICITED RESULTS 4:55 PM EDT POCT GLUCOSE METER Routine 11/11/2020 UNSOLICITED RESULTS 12:40 PM EDT POCT GLUCOSE METER Routine 11/11/2020 UNSOLICITED RESULTS 11:42 AM EDT SURGICAL PATHOLOGY Routine 11/11/2020 10:39 AM EDT OXYGEN DAILY PROTOCOL Routine 11/11/2020 10:00 AM EDT OXYGEN DAILY PROTOCOL Routine 11/11/2020 10:00 AM EDT BIPAP/CPAP Routine 11/11/2020 10:00 AM EDT BIPAP/CPAP Routine 11/11/2020 10:00 AM EDT BIPAP/CPAP Routine 11/11/2020 10:00 AM EDT CREATION, GASTRIC BYPASS, 11/11/2020 Morbid obes ity (CMS/HCC) LAPAROSCOPIC, WITH 9:49 AM EDT ANNIE-EN-Y GASTROENTEROSTOMY POCT GLUCOSE METER Routine 11/11/2020 UNSOLICITED RESULTS 6:15 AM EDT , URINE STAT 11/11/2020 5:50 AM EDT documented in this encounter Results * POCT whole blood glucose unsolicited results (11/14/2020 4:35 PM EDT) Glucose, 266 (H) 70 - 110 mg/dl MV Fingerstick Comment: LABORATORIES The above 1 analytes were performed by [facility] [address], ,[place] [address] Specimen Kasqh-pp-Dznn Whole Blood Performing Organization Address [facility] P ck Number [facility] [address] [place], [place] [id number] DAGMAR RONQUILLO MD * POCT whole blood glucose unsolicited results (11/14/2020 12:24 PM EDT) Glucose, 297 (H) 70 - 110 mg/dl [facility] Fingerstick Comment: LABORATORIES The above 1 analytes were performed by [facility] [address] ,[place] [address] Specimen Sbvzh-td-Inbg Whole Blood Performing Organization Address [facility] [facility] P ck Number [facility] [address] [place] [address] DAGMAR RONQUILLO MD * POCT whole blood glucose unsolicited results (11/14/2020 8:36 AM EDT) Glucose, 335 (H) 70 - 110 mg/dl [facility] Fingerstick Comment: LABORATORIES The above 1 analytes were performed by [facility] [address], ,[place] [address] Specimen Fbdzx-dy-Vfkq Whole Blood Performing Organization Address [facility] P ck Number [facility] [address] [place] [id number] DAGMAR RONQUILLO MD * POCT whole blood glucose unsolicited results (11/14/2020 3:38 AM EDT) Glucose, 269 (H) 70 - 110 mg/dl [facility] Fingerstick Comment: LABORATORIES The above 1 analytes were performed by [facility] [address], ,[place] [address] Specimen Qxuqt-fm-Mjzs Whole Blood Performing Organization Address [facility] [facility] P ck Number [facility] [address] [place] [id number] DAGMAR RONQUILLO MD * POCT whole blood glucose unsolicited results (11/13/2020 11:32 PM EDT) Glucose, 303 (H) 70 - 110 mg/dl [facility] Fingerstick Comment: LABORATORIES The above 1 analytes were performed by [facility] [address], ,[place] [address] Specimen Milih-yx-Tkhu Whole Blood Performing Organization Address [facility] P ck Number [facility] [address] [place] [id number] DAGMAR RONQUILLO MD * POCT whole blood glucose unsolicited results (11/13/2020 8:46 PM EDT) Glucose, 342 (H) 70 - 110 mg/dl [facility] Fingerstick Comment: LABORATORIES The above 1 analytes were performed by [facility] [address], ,[place] [address] Specimen Wngbk-be-Dnls Whole Blood Performing Organization Address [facility] P ck Number [facility] [address] [place] [id number] DAGMAR RONQUILLO MD * POCT whole blood glucose unsolicited results (11/13/2020 4:15 PM EDT) Glucose, 268 (H) 70 - 110 mg/dl [facility] Fingerstick Comment: LABORATORIES The above 1 analytes were performed by [facility] [address], ,[place] [address] Specimen Kyrim-zd-Pcjv Whole Blood Performing Organization Address [facility] P ck Number [facility] [address] [place] [id number] DAGMAR RONQUILLO MD * POCT whole blood glucose unsolicited results (11/13/2020 11:54 AM EDT) Glucose, 234 (H) 70 - 110 mg/dl [facility] Fingerstick Comment: LABORATORIES The above 1 analytes were performed by [facility] [address], ,[place] [address] Specimen Iufyh-pk-Kjti Whole Blood Performing Organization Address City/[facility] [facility]/ZIP Code P ck Number [facility] [address] [place] [address] DAGMAR RONQUILLO MD * POCT whole blood glucose unsolicited results (11/13/2020 8:08 AM EDT) Glucose, 330 (H) 70 - 110 mg/dl [facility] Fingerstick Comment: LABORATORIES The above 1 analytes were performed by [facility] [address] ,[place] [address] Specimen Ddgch-mr-Jydn Whole Blood Performing Organization Address [facility] P ck Number [facility] [address] [place] [id number] DAGMAR RONQUILLO MD * CT abdomen pelvis wo IV contrast (11/13/2020 5:27 AM EDT) Specimen Impressions Performed At . [facility] PS[facility] Findings compatible with the recent gastric bypass s urgery, with no obvious RESULTING AGENCY radiographic evidence of intestinal obs truction or ileus. Small amount of free intraperitoneal air consistent with the recent procedure. Examination slightly limited by the lack of intravenous and oral contrast. 2. Slightly prominent urinary bladder dis tention, clinical correlation advised. 3. Additional, nonurgent observations, as noted in the body of the report. Electronically Signed by Hillary Peres 11/13/2020 8:00 AM Narrative Performed At Patient: CHRISTY STODDARD [facility] PS[facility] RESULTING AGENCY : 1970 PACS [facility] Procedure: CT ABDOMEN PELVIS WO CONTRAS T Provider: SUSANA FORBES CLINICAL HISTORY: 50-year-old female status post gastric bypass surgery 11/11/2020 with moderate, left-sided abd ominal pain and nausea since the surgery. TECHNIQUE: Axial images of the abdomen and pelvis were obtained and displayed with coronal and sagittal reformats. The patient was not administered intravenous contrast, as per requisitio n. Sips of oral contrast were attempted but unsuccessful. CT imaging was performed utilizing dos e reduction techniques, including automated exposure control an d iterative reconstruction technique. ENCOUNTER: Initial. COMPARISON: No prior studies are availa ble for comparison. FINDINGS: Please note that the lack of intravenou s and oral contrast somewhat compromises the overall sensitivity and specificity of the exam. Lower Thorax: The lung bases are clear. The heart is not enlarged. Bones: Degenerative changes of the spin e. Abdominal Wall: Small-moderate amount o f subcutaneous emphysema and areas of subcutaneous stranding compatible with the recent surgical procedure. No significant abdominal wall hernia. Liver: Punctate calcifications. Otherwise unremarkable. Gallbladder and Biliary System: Gallbladder unremarkable, with no calc ified gallstones. No intra- or extra-hepatic biliary ductal dilatation. Spleen: Punctate calcifications. Pancreas: Normal. Adrenal Glands: Normal. Kidneys and Ureters: Normal. No hydronephrosis. Urinary Bladder: Somewhat prominently distended urinary bladder. Reproductive: IUD within the uterus. No obvious pelvic masses. Stomach and Bowel: Findings compatible with the recent ga stric bypass surgery. No dilated loops of large or small phyllis l. Scattered colonic diverticula, with no radiographic evidence of diverticuli tis. Appendix: Normal. Peritoneum and Mesentery: Small amount of free intraperitoneal a ir compatible with the recent surgical procedure. No abnormal fluid collections. Lymph Nodes: No abdominal, retroperitoneal, pelvic or inguinal adenopathy. Vasculature: Normal. No abdominal aorti c aneurysm. Procedure Note Interface, Radiology Results In - 11/13/2020 8:01 AM EDT Patient: CHRISTY STODDARD : 1970 PACS System: [employer] [facility] Procedure: CT ABDOMEN PELVIS WO CONTRAST Provider: SUSANA FORBES CLINICAL HISTORY: 50-year-old female status post gastric bypass surgery 11/11/2020 with moderate, left-sided abdo gildardo pain and nausea since the surgery. TECHNIQUE: Axial images of the abdomen and pelvis were obtained and displayed with coronal and sagittal reformats. The patient was not administered intravenous contrast, as per requisition. Sips of oral contrast were attempted but unsuccessful. CT imaging was performed utilizing dose reduction techniques, including automated exposure control and iterative reconstruction technique. ENCOUNTER: Initial. COMPARISON: No prior studies are available for comparison. FINDINGS: Please note that the lack of intravenous and oral contrast somewhat compromises the overall sensitivity and specificity of the exam. Lower Thorax: The lung bases are clear. The heart is not enlarged. Bones: Degenerative changes of the spine. Abdominal Wall: Small-moderate amount of subcutaneous emphysema and areas of subcutaneous stranding compatible with the recent surgical procedure. No significant abdominal wall hernia. Liver: Punctate calcifications. Otherwise unremarkable. Gallbladder and Biliary System: Gallbladder unremarkable, with no calcified gallstones. No intra- or extra-hepatic biliary ductal dilatation. Spleen: Punctate calcifications. Pancreas: Normal. Adrenal Glands: Normal. Kidneys and Ureters: Normal. No hydronephrosis. Urinary Bladder: Somewhat prominently distended urinary bladder. Reproductive: IUD within the uterus. No obvious pelvic masses. Stomach and Bowel: Findings compatible with the recent gastric bypass surgery. No dilated loops of large or small bowel. Scattered colonic diverticula, with no radiographic evidence of diverticulitis. Appendix: Normal. Peritoneum and Mesentery: Small amount of free intraperitoneal air compatible with the recent surgical procedure. No abnormal fluid collections. Lymph Nodes: No abdominal, retroperitoneal, pelvic or inguinal adenopathy. Vasculature: Normal. No abdominal aortic aneurysm. IMPRESSION: 1. Findings compatible with the recent gastric bypass surgery, with no obvious radiographic evidence of intestinal obstruction or ileus. Small amount of free intraperitoneal air consistent with the recent procedure. Examination slightly limited by the lack of intravenous and oral contrast. 2. Slightly prominent urinary bladder d istention, clinical correlation advised. 3. Additional, nonurgent observations, as noted in the body of the report. Electronically Signed by Desmond Lester MD 11/13/2020 8:00 AM Performing Organization Address City/State/[facility] Code P ck Number [facility] INCOMING PS360 RESULTING AGENCY * POCT whole blood glucose unsolicited results (11/13/2020 3:56 AM EDT) Glucose, 221 (H) 70 - 110 mg/dl [facility] Fingerstick Comment: LABORATORIES The above 1 analytes were performed by [facility] [address] [place] [address], ,[place] [address] Specimen Mywqa-qd-Yjng Whole Blood Performing Organization Address City/[facility]/ZIP Code P ck Number [facility] [address] [place] [id number] DAGMAR RONQUILLO MD * POCT whole blood glucose unsolicited results (11/12/2020 11:42 PM EDT) Glucose, 201 (H) 70 - 110 mg/dl [facility] Fingerstick Comment: LABORATORIES The above 1 analytes were performed by [facility] [address], ,[place] [address] Specimen Yxxcg-zq-Zgew Whole Blood Performing Organization Address [facility] P ck Number [facility] [address] [place] [phone] DAGMAR RONQUILLO MD * POCT whole blood glucose unsolicited results (11/12/2020 8:10 PM EDT) Glucose, 184 (H) 70 - 110 mg/dl [facility] Fingerstick Comment: LABORATORIES The above 1 analytes were performed by [facility] [address], ,[place] [address] Specimen Dcuvg-hk-Mobq Whole Blood Performing Organization Address [facility] P ck Number [facility] [address] [place] [id number] DAGMAR RONQUILLO MD * POCT whole blood glucose unsolicited results (11/12/2020 5:57 PM EDT) Glucose, 229 (H) 70 - 110 mg/dl [facility] Fingerstick Comment: LABORATORIES The above 1 analytes were performed by [facility] [address], ,[place] [address] Specimen Bdsub-to-Dtvw Whole Blood Performing Organization Address [facility] P ck Number [facility] [address] [place] [phone] DAGMAR RONQUILLO MD * POCT whole blood glucose unsolicited results (11/12/2020 1:28 PM EDT) Glucose, 214 (H) 70 - 110 mg/dl [facility] Fingerstick Comment: LABORATORIES The above 1 analytes were performed by [facility] [address], ,[place] [address] Specimen Gwnjd-ko-Ivzw Whole Blood Performing Organization Address City/[facility] P ck Number [facility] [address] [place] [phone] DAGMAR RONQUILLO MD * POCT whole blood glucose unsolicited results (11/12/2020 9:25 AM EDT) Glucose, 227 (H) 70 - 110 mg/dl [facility] Fingerstick Comment: LABORATORIES The above 1 analytes were performed by [facility] [address], ,[place] [address] Specimen Eflbx-zg-Ukne Whole Blood Performing Organization Address [facility] P ck Number [facility] [address] [place] [phone] DAGMAR RONQUILLO MD * POCT whole blood glucose unsolicited results (11/12/2020 3:34 AM EDT) Glucose, 258 (H) 70 - 110 mg/dl [facility] Fingerstick Comment: LABORATORIES The above 1 analytes were performed by [facility] [address], ,[place] [address] Specimen Zurzn-lx-Xeeh Whole Blood Performing Organization Address [facility] P ck Number [facility] [address] [place] [phone] DAGMAR RONQUILLO MD * POCT whole blood glucose unsolicited results (11/11/2020 11:41 PM EDT) Glucose, 286 (H) 70 - 110 mg/dl [facility] Fingerstick Comment: LABORATORIES The above 1 analytes were performed by [facility] [address], ,[place] [address] Specimen Epzpm-bc-Gmlx Whole Blood Performing Organization Address [facility] P ck Number [facility] [address] [place] [phone] DAGMAR RONQUILLO MD * POCT whole blood glucose unsolicited results (11/11/2020 8:06 PM EDT) Glucose, 228 (H) 70 - 110 mg/dl [facility] Fingerstick Comment: LABORATORIES The above 1 analytes were performed by [facility] [address], ,[place] [address] Specimen Lynaj-qm-Qjxo Whole Blood Performing Organization Address [facility] P ck Number [facility] [address] [place] [id number] DAGMAR RONQUILLO MD * POCT whole blood glucose unsolicited results (11/11/2020 4:55 PM EDT) Glucose, 239 (H) 70 - 110 mg/dl [facility] Fingerstick Comment: LABORATORIES The above 1 analytes were performed by [facility] [address], ,[place] [address] Specimen Atiyx-mi-Cdeh Whole Blood Performing Organization Address [facility] P ck Number [facility] [address] [place] [id number] DAGMAR RONQUILLO MD * POCT whole blood glucose unsolicited results (11/11/2020 12:40 PM EDT) Glucose, 309 (H) 70 - 110 mg/dl [facility] Fingerstick Comment: LABORATORIES The above 1 analytes were performed by [facility] [address], ,[place] [address] Specimen Dtrtj-ud-Lnwk Whole Blood Performing Organization Address [facility] P ck Number [facility] [address] [place] [phone] DAGMAR RONQUILLO MD * POCT whole blood glucose unsolicited results (11/11/2020 11:42 AM EDT) Glucose, 324 (H) 70 - 110 mg/dl [facility] Fingerstick Comment: LABORATORIES The above 1 analytes were performed by [facility] [address], ,[place] [address] Specimen Sxruj-mi-Wycn Whole Blood Performing Organization Address [facility] P ck Number [facility] [address] [place] [id number] DAGMAR RONQUILLO MD * Surgical Pathology (11/11/2020 10:39 AM EDT) Specimen Tissue - Liver structure (body structure) Narrative Performed At [facility] [address] [place] [address] [place] Fax PATHOLOGY CLIA# [id number] Surgical Pathology Report PATIENT: CHRISTY STODDARD MR #: [id number] Date Collected: 11/11/2020 Date Received: 11/11/2020 : 1970 Age: 50 y.o. Date Reported: 11/13/2020 Sex: F Location: [place] [address] Attending Physician: SUSANA FORBES Clinical Information: MORBID OBESITY Specimen: LIVER WEDGE BIOPSY FINAL DIAGNOSIS LIVER WEDGE BIOPSY: STEATOSIS, MINIMAL. NO SIGNIFICANT FIBROSIS, HEPATOCELLULAR DEGENERATIVE CHANGE OR INFLAMMATORY COM PONENT IDENTIFIED. NEGATIVE FOR KUPFFER CELL OR HEPATOCELL ULAR IRON DEPOSITION. LDM/KB Comment The subcapsular wedge of liver biopsy h as minimal macrovesicular steatosis estimated at <2%. Portal area s are readily identified without increased number of chronic inflammator y cells or fibrosis. Some hepatocyte optically clear nuclei are p resent. No significant hepatocellular degenerative change is found. Trichrome and reticulin stains are evaluated. An iron stain is negative for hepatocel lular or Kupffer cell iron deposition. Correlation with clinical, imaging and additional laboratory data is recommended. LDM/kb Gross The specimen is received in formalin, l abeled liver wedge biopsy and consists of two brown irregular portion s of hepatic tissue measuring 1.3 x 1.0 x 0.7 cm and 1.5 x 1.2 x 1.0 cm. De th portions of tissue display areas of smooth glistening capsule. Sectioning o f the tissue reveals light brown homogenous smooth cut surfaces without gross lesions. A account development representative section of each portion of tissue is padilla bmitted in the same cassette. TJ/slm Electronically Signed By: Richard Ronquillo MD CPT: 15663q0, 23265 Pathologist I ATTEST THAT THE ABOVE DIAGNOSIS IS BA SED UPON MY PERSONAL MICROSCOPIC EXAMINATION OF THE SLIDES (AND/OR OTHER MATERIAL), AND THAT I HAV E REVIEWED AND APPROVED THIS REPORT. PERFORMED AT: [facility] [address] [place] [address] THE TECHNICAL COMPONENT WAS PERFORMED A T [facility], [address] [place] [address]. VENUE MANAGER: RICHARD RONQUILLO M.D. IA# [id number]. CHRISTY STODDARD Page 1 of 1 Performing Organization Address [facility] P ck Number [facility] [address] [place] [address] DAGMAR RONQUILLO MD * POCT whole blood glucose unsolicited results (11/11/2020 6:15 AM EDT) [facility] Glucose, 291 (H) 70 - 110 mg/dl [facility] Fingerstick Comment: LABORATORIES The above 1 analytes were performed by [facility] [address] [place] [address], ,[place] [address] Specimen Zwrzd-aj-Myju Whole Blood Performing Organization Address [facility] P ck Number [facility] [address] [place] [address] DAGMAR RONQUILLO MD * , urine (11/11/2020 5:50 AM EDT) [facility] Urine Negative Negative [facility] Comment: LABORATORIES The above 1 analytes were performed by [facility] [address] [place] [address], ,[place] [address] Specimen Urine Performing Organization Address [facility] P ck Number [facility] [address] [place] [address] DAGMAR RONQUILLO MD documented in this encounter Visit Diagnoses Diagnosis Morbid obesity (CMS/HCC) - Primary Morbid obesity Obesity Obesity, unspecified PONV (postoperative nausea and vomiting ) Nausea with vomiting Hypertension Unspecified essential hypertension Hyperlipidemia Other and unspecified hyperlipidemia Chronic bronchitis (CMS/HCC) Unspecified chronic bronchitis Diabetes mellitus (CMS/HCC) Type II or unspecified type diabetes me llitus without mention of complication, not stated as uncontrolled GERD (gastroesophageal reflux disease) Esophageal reflux Anxiety Anxiety state, unspecified Depression Depressive disorder, not elsewhere clas sified documented in this encounter Administered Medications Action Date Dose Rate Site Medication Order MAR Action 11/14/2020 12:25 PM EDT 1,000 mg acetaminophen (TYLENOL) tablet 1,000 mg Given 1,000 mg, oral, Every 8 hours, First dose on Tue11/11/20 at 2115, Phase II/O n Unit, start 8 hours after final intravenous acetaminophen dose 1,000 mg Given 11/14/2020 5:47 AM EDT 1,000 mg Given 11/13/2020 9:10 PM EDT 11/13/2020 8:58 PM EDT 5 mg ARIPiprazole (ABILIFY) tablet 5 mg Given 5 mg, oral, Nightly, First dose on Tue11/11/20 at 2100, Phase II/On Unit 5 mg Given 11/12/2020 8:20 PM EDT 5 mg Given 11/11/2020 10:58 PM EDT 11/14/2020 5:53 AM EDT 75 mL/hr 75 mL/hr dextrose 5 % and lactated Ringer's New Bag infusion 75 mL/hr, intravenous, at 75 mL/hr, Continuous, Starting on Tue11/11/20 at 1315, Phase II/On Unit, Discontinue whe n patient taking adequate PO fluids. If patient had urinary catheter discontinued, wait until after first voiding. 75 mL/hr 75 mL/hr Rate/Dose Change 11/13/2020 4:04 PM EDT 150 mL/hr 150 mL/hr New Bag 11/13/2020 6:01 AM EDT 11/13/2020 9:12 PM EDT 1.25 mg enalaprilat (VASOTEC) injection 1.25 mg Given 1.25 mg, intravenous, Every 6 hours PRN , for systolic BP greater than 140 and/or diastolic BP greater than 90, Starting on Tue11/11/20 at 1303, Phase II/On Uni t 1.25 mg Given 11/13/2020 11:49 AM EDT 1.25 mg Given 11/13/2020 4:11 AM EDT 11/14/2020 4:35 PM EDT 300 mg gabapentin (NEURONTIN) capsule 300 mg Given 300 mg, oral, 3 times daily, First dose on Tue11/11/20 at 1600, Phase II/On Uni t 300 mg Given 11/14/2020 8:39 AM EDT 300 mg Given 11/11/2020 3:14 PM EDT 11/14/2020 6:08 AM EDT 5,000 Units Right Lo wer Abdomen heparin (porcine) injection 5,000 Units Given 5,000 Units, subcutaneous, Every 8 hours, First dose on Tue11/11/20 at 1500, Phase II/On Unit, Adjust start time as needed 5,000 Units Left Lower Abdomen Given 11/13/2020 11:40 PM EDT 5,000 Units Left Lower Abdomen Given 11/13/2020 3:14 PM EDT 11/14/2020 12:27 PM EDT 10 Units Left Low er Abdomen insulin aspart (NovoLOG) inj pen 0-14 Given Units 0-14 Units, subcutaneous, Every 4 hours scheduled, First dose on Tue11/11/20 at 1600, Phase II/On Unit, Blood Sugar Dos e Less than 140 No Insulin 141-180 4 Unit s 181-220 6 Units 221-260 8 Units 261-300 10 Units 301-350 12 Units 351-400 14 Units Call Provider if Blood Sugar is greater than 350. 12 Units Left Lower Abdomen Given 11/14/2020 8:50 AM EDT 10 Units Left Upper Arm (Back ) Given 11/14/2020 3:38 AM EDT 11/14/2020 8:38 AM EDT 200 mg labetaloL (NORMODYNE) tablet 200 mg Given 200 mg, oral, 2 times daily, First dose on Tue11/14/20 at 0900 11/13/2020 9:11 PM EDT 10 mg lisinopriL (PRINIVIL) tablet 10 mg Given 10 mg, oral, Nightly, First dose on Tue11/11/20 at 2100, Phase II/On Unit, Hold for systolic blood pressure less than 110 10 mg Given 11/12/2020 8:20 PM EDT 10 mg Given 11/11/2020 10:57 PM EDT 11/14/2020 8:39 AM EDT 4 mg ondansetron (ZOFRAN) injection 4 mg Given 4 mg, intravenous, Every 6 hours, First dose on Tue11/11/20 at 1800, Phase II/O n Unit, Give IV if patient is unable to take orally. 4 mg Given 11/14/2020 3:35 AM EDT 4 mg Given 11/13/2020 9:12 PM EDT 11/14/2020 4:35 PM EDT 4 mg ondansetron (ZOFRAN-ODT) dispersible Given tablet 4 mg 4 mg, oral, Every 6 hours, First dose o n Tue11/11/20 at 1800, Phase II/On Unit 11/11/2020 3:14 PM EDT 40 mg pantoprazole (PROTONIX) EC tablet 40 mg Given 40 mg, oral, Daily, First dose on Tue11/11/20 at 1630, Phase II/On Unit, Do not crush, chew, or split. 11/14/2020 8:39 AM EDT 40 mg pantoprazole (PROTONIX) injection 40 mg Given 40 mg, intravenous, Administer over 2 Minutes, Daily, First dose on Tue11/11/20 at 1630, Phase II/On Unit, Give IV if patient is unable to take orally. 40 mg Given 11/13/2020 8:19 AM EDT 40 mg Given 11/12/2020 11:15 AM EDT 11/13/2020 3:49 AM EDT 10 mg prochlorperazine (COMPAZINE) tablet 10 Given mg 10 mg, oral, Every 6 hours PRN, nausea, Starting on Tue11/11/20 at 1303, Phase II/On Unit 10 mg Given 11/11/2020 3:22 PM EDT 11/14/2020 6:29 PM EDT 80 mg simethicone (MYLICON) chewable tablet 80 Given mg 80 mg, oral, Every 6 hours scheduled, First dose on Tue11/11/20 at 1800, Phas e II/On Unit 80 mg Given 11/14/2020 12:25 PM EDT 80 mg Given 11/14/2020 5:47 AM EDT 11/13/2020 3:52 AM EDT 25 mg SUMAtriptan (IMITREX) tablet 25 mg Given 25 mg, oral, Once as needed, migraine, Starting on Tue11/11/20 at 1303, Phase II/On Unit, May repeat dose once in 2 hours if no relief. Do not exceed 2 doses in 24 hours. Action Date Dose Rate Site Medication Order MAR Action 11/11/2020 3:12 PM EDT 1,000 mg 400 mL/hr acetaminophen (OFIRMEV) IV 1,000 mg New Bag 1,000 mg, intravenous, at 400 mL/hr, Administer over 15 Minutes, Once, On 11/11/20 at 1315, 1 dose, Phase II/On Unit 11/11/2020 7:19 AM EDT 1,000 mg acetaminophen (TYLENOL) tablet 1,000 mg Given 1,000 mg, oral, Once, On Tue11/11/20 at 0600, 1 dose, Preprocedure, house calls nurse to surgery 11/11/2020 7:50 AM EDT 2 puffs albuterol HFA (VENTOLIN HFA) 90 Given mcg/actuation inhaler 2 puff 2 puff, inhalation, Once, On Tue 1 at 0600, 1 dose, Preprocedure 11/11/2020 7:20 AM EDT 0.25 mg ALPRAZolam (XANAX) tablet 0.25 mg Given 0.25 mg, oral, Once, On Tue11/11/20 at 0600, 1 dose, Preprocedure, house calls nurse to surgery 11/11/2020 10:03 AM EDT 2 g 200 mL/hr ceFAZolin (ANCEF) IVPB 2 g New Bag 2 g, intravenous, at 200 mL/hr, Administer over 30 Minutes, house calls nurse, Starting on Tue11/11/20 at 0553, 1 dose , Preprocedure, Administer within 60 minutes of incision. premix bag, Indications: prevention of perioperativ e infection 11/11/2020 7:19 AM EDT 200 mg celecoxib (CeleBREX) capsule 200 mg Given 200 mg, oral, Once, On Tue11/11/20 at 0600, 1 dose, Preprocedure, house calls nurse to surgery 11/11/2020 7:19 AM EDT 0.1 mg cloNIDine (CATAPRES) tablet 0.1 mg Given 0.1 mg, oral, Once, On Tue11/11/20 at 0600, 1 dose, Preprocedure, house calls nurse to surgery 11/11/2020 7:19 AM EDT 4 mg dexAMETHasone (DECADRON) tablet 4 mg Given 4 mg, oral, Once, On Tue11/11/20 at 0600, 1 dose, Preprocedure, house calls nurse to surgery 11/11/2020 7:20 AM EDT 5 mg dronabinoL (MARINOL) capsule 5 mg Given 5 mg, oral, Once, On Tue11/11/20 at 0600, 1 dose, Preprocedure, house calls nurse to surgery 11/14/2020 6:29 PM EDT 40 mg Left Low er Abdomen enoxaparin (LOVENOX) syringe 40 mg Given 40 mg, subcutaneous, During hospitalization, Starting on Tue 1 at 1303, 1 dose, Phase II/On Unit, Give Once, ON DISCHARGE. 11/11/2020 7:19 AM EDT 20 mg famotidine (PEPCID) tablet 20 mg Given 20 mg, oral, Once, On Tue11/11/20 at 0600, 1 dose, Preprocedure, Administer with sip of water on arrival/environmental solutions engineer. 11/13/2020 4:55 PM EDT 20 mg furosemide (LASIX) injection 20 mg Given 20 mg, intravenous, Once, On Annette 11/13/20 at 1645, 1 dose, Phase II/On Unit 11/11/2020 7:20 AM EDT 300 mg gabapentin (NEURONTIN) capsule 300 mg Given 300 mg, oral, Once, On Tue11/11/20 at 0600, 1 dose, Preprocedure, house calls nurse to surgery 11/11/2020 7:20 AM EDT 5,000 Units Left Low er Abdomen heparin (porcine) injection 5,000 Units Given 5,000 Units, subcutaneous, Once, On Tue11/11/20 at 0600, 1 dose, Preprocedure, house calls nurse to surgery 11/11/2020 12:31 PM EDT 5 mg hydrALAZINE (APRESOLINE) injection 5 mg Given 5 mg, intravenous, Every 20 min PRN, Systolic BP >140 and/or Diastolic BP >90, Starting on Tue11/11/20 at 1132, Recovery (only), To be given in PACU Only. 11/11/2020 12:40 PM EDT 12 Units Right Up per Arm (Back) insulin aspart (NovoLOG) inj pen 0-14 Given Units 0-14 Units, subcutaneous, Every 1 hour, First dose on Tue11/11/20 at 1145, Recovery (only), Blood Sugar Dose Less than 140 No Insulin 141-180 4 Units 181-220 6 Units 221-260 8 Units 261-300 10 Units 301-350 12 Units 351-400 14 Units Call Provider if Blood Sugar is greater than 350. 12 Units Left Upper Arm (Back ) Given 11/11/2020 11:45 AM EDT 11/12/2020 10:46 AM EDT 20 Units Left Low er Abdomen insulin detemir (LEVEMIR) inj pen 20 Given Units 20 Units, subcutaneous, Once, On Tue11/12/20 at 0715, 1 dose, Before holding basal insulin, contact provider for approval to hold. 11/11/2020 11:46 AM EDT 30 Units Left Upp er Arm (Back) insulin detemir (LEVEMIR) inj pen 30 Given Units 30 Units, subcutaneous, Once, On Tue11/11/20 at 1200, 1 dose, Recovery (only), IN PACU FOR GLUCOSE 324 11/13/2020 10:18 AM EDT 30 Units Right Lo wer Abdomen insulin detemir (LEVEMIR) inj pen 30 Given Units 30 Units, subcutaneous, Once, On Tue11/13/20 at 1015, 1 dose, Before holding basal insulin, contact provider for approval to hold. 11/14/2020 4:44 PM EDT 30 Units Left Upp er Arm (Back) insulin detemir (LEVEMIR) inj pen 30 Given Units 30 Units, subcutaneous, Once, On Tue11/14/20 at 1630, 1 dose, Before holding basal insulin, contact provider for approval to hold. 11/11/2020 7:53 AM EDT 8 Units Left Upp er Arm (Back) insulin regular (HumuLIN-R) injection 8 Given Units 8 Units, subcutaneous, Once, On Tue11/11/20 at 0715, 1 dose, Preprocedure 11/12/2020 4:19 PM EDT 30 mg ketorolac (TORADOL) injection 30 mg Given 30 mg, intravenous, Every 8 hours PRN, severe pain, moderate to severe pain, Starting on Tue11/11/20 at 1303, 3 doses, Phase II/On Unit 30 mg Given 11/12/2020 9:12 AM EDT 30 mg Given 11/11/2020 10:00 PM EDT 11/13/2020 5:54 AM EDT 30 mg ketorolac (TORADOL) injection 30 mg Given 30 mg, intravenous, Once, On Annette 11/13/20 at 0545, 1 dose 11/11/2020 12:29 PM EDT 10 mg labetaloL (NORMODYNE) injection 10 mg Given 10 mg, intravenous, Every 5 min PRN, Systolic BP >140, Starting on Tue11/11/20 at 1132, Recovery (only), To be given in PACU Only. 11/13/2020 6:15 PM EDT 100 mg labetaloL (NORMODYNE) tablet 100 mg Given 100 mg, oral, 2 times daily, First dose on Annette 11/13/20 at 2100 11/12/2020 6:23 AM EDT 1,000 mL lactated Ringer's bolus 1,000 mL New Bag 1,000 mL, intravenous, Once, On Tue11/12/20 at 0600, 1 dose, Phase II/On Unit, BOLUS - Post-Op Day #1 11/11/2020 7:21 AM EDT 1,000 mL 500 mL/hr lactated Ringer's bolus 500 mL New Bag 500 mL, intravenous, at 500 mL/hr, Administer over 1 Hours, Once, On Tue11/11/20 at 0600, 1 dose, Preprocedure 11/11/2020 10:08 AM EDT lactated Ringer's infusion New Bag 100 mL/hr, intravenous, at 100 mL/hr, Continuous, Starting on Tue11/11/20 at 0600, Preprocedure 100 mL/hr 100 mL/hr New Bag 11/11/2020 9:34 AM EDT 11/11/2020 7:25 AM EDT 100 mL/hr 100 mL/hr lactated Ringer's infusion New Bag 100 mL/hr, intravenous, at 100 mL/hr, Continuous, Starting on Tue11/11/20 at 0600, Preprocedure 11/11/2020 11:40 AM EDT 100 mL/hr 100 mL/hr lactated Ringer's infusion Restarted 100 mL/hr, intravenous, at 100 mL/hr, Continuous, Starting on Tue11/11/20 at 1145, Recovery (only) 11/12/2020 9:13 AM EDT 10 mg Left Del toid OLANZapine (ZyPREXA) injection 10 mg Given 10 mg, intramuscular, Once, On Tue11/12/20 at 0830, 1 dose, Each 10 mg vial to be reconstituted with 2.1 mL sterile water for infusion to give a concentration of approx 5 mg/mL. Use immediately. Discard unused portion. 11/13/2020 10:18 AM EDT 16 mg 200 mL/hr ondansetron (ZOFRAN) 16 mg in sodium New Bag chloride 0.9% 50 mL IVPB 16 mg, intravenous, at 200 mL/hr, Administer over 15 Minutes, Once, On 11/13/20 at 0930, 1 dose, Give IV if patient is unable to take orally. 11/12/2020 5:08 PM EDT 8 mg 200 mL/hr ondansetron (ZOFRAN) 8 mg in sodium New Bag chloride 0.9% 50 mL IVPB 8 mg, intravenous, at 200 mL/hr, Administer over 15 Minutes, Once, On 11/12/20 at 1615, 1 dose 11/11/2020 11:53 AM EDT 4 mg ondansetron (ZOFRAN) injection 4 mg Given 4 mg, intravenous, Every 15 min PRN, nausea, Starting on Tue11/11/20 at 1132 , 1 dose, Recovery (only) 11/11/2020 7:19 AM EDT 10 mg prochlorperazine (COMPAZINE) tablet 10 Given mg 10 mg, oral, Once, On Tue11/11/20 at 0600, 1 dose, Preprocedure, house calls nurse to surgery 11/11/2020 7:19 AM EDT 1 patch Behind L eft Ear scopolamine (TRANSDERM-SCOP) patch 1 Medication patch Applied 1 patch, topical, Administer over 24 Hours, Once, On Tue11/11/20 at 0600, 1 dose, Preprocedure, Apply behind ear prior to going to surgery. Remove patch at 09:00 on POD #1. Apply to hairless area of skin behind the ear. Delivers approximately 1 mg over 3 days. 11/13/2020 4:34 PM EDT 25 mg SUMAtriptan (IMITREX) tablet 25 mg Given 25 mg, oral, Once, On Tue11/13/20 at 1700, 1 dose, May repeat dose once in 2 hours if no relief. Do not exceed 2 doses in 24 hours. documented in this encounter Active and Recently Administered Medications Times are shown in EDT. 11/13/2020 11/14/2020 Medication Order 11/12/2020 0515 (Not Given - Provider: Dafne Servin RN - Reason: Other - Comment: nausea)1315 (Not Given - Provider: Natalia Aguiar RN - Reason: Patient/family refused)2109 (Given - Provider: Patricia Erazo RN) 0547 (Given - Provider: Patricia Erazo RN)1225 (Given - Provider: Chastity Dickson RN)2114 (Due) acetaminophen (TYLENOL) tablet 1,000 mg 0528 (Given - 1,000 mg, oral, Every 8 hours, First Provider: Ahil dose on Tue11/11/20 at 2115, Phase II/On ROLANDO Cortes )1315 Unit, start 8 hours after final (Not Given - intravenous acetaminophen dose Provider: Chastity Dickson RN - Reason: Other - Comment: patient having nausea)2020 (Given - Provider: Dafne Bell RN) 2057 (Given - Provider: Patricia Erazo RN) 2100 (Due) ARIPiprazole (ABILIFY) tablet 5 mg 2019 (Given - 5 mg, oral, Nightly, First dose on Tue Provider: Jevon castillo 11/11/20 at 2100, Phase II/On Unit ROLANDO Bell) 0745 (Due) bupivacaine-epinephrine (MARCAINE w/EPI ) 0.25 %-1:200,000 injection 20 mL 20 mL, infiltration, Once, On Annette 1 at 0745, 1 dose 1829 (Given - Provider: Chastity Dickson RN - Comment: Self adminstered) enoxaparin (LOVENOX) syringe 40 mg (COMPLETED) 40 mg, subcutaneous, During hospitalization, Starting on Tue 1 at 1303, 1 dose, Phase II/On Unit, Give Once, ON DISCHARGE. 1655 (Given - Provider: Natalia sifuentes RN) furosemide (LASIX) injection 20 mg (COMPLETED) 20 mg, intravenous, Once, On Annette 11/13/20 at 1645, 1 dose, Phase II/On Unit 0820 (Not Given - Provider: Natalia vázquez RN - Reason: Patient/family refused)1600 (Not Given - Provider: Natalia Aguiar RN - Reason: Patient/family refused)2100 (Not Given - Provider: Patricia Eraoz RN - Reason: Patient/family refused) 0839 (Given - Provider: Chastity Dickson RN)1635 (Given - Provider: Chastity Dickson RN)2100 (Due) gabapentin (NEURONTIN) capsule 300 mg 0900 (Not Give n - 300 mg, oral, 3 times daily, First dose Provider: Alexandr man on Tue11/11/20 at 1600, Phase II/On Unit ROLANDO Dickson - Reason: Other - Comment: Pt. having nausea vomiting)1600 (Not Given - Provider: Chastity Dicksno RN - Reason: Other - Comment: Nausea)2100 (Not Given - Provider: Dafne Bell RN - Reason: Other - Comment: minimal meds due to nausea) 0624 (Given - Provider: Dafne parrish RN)1514 (Given - Provider: Natalia Aguiar RN)2340 (Given - Provider: Patricia Erazo RN) 0608 (Given - Provider: Patricia Erazo RN)1500 (Not Given - Provider: Chastity Dickson RN - Reason: Contraindicated)2300 (Due) heparin (porcine) injection 5,000 Units 0610 (Given - 5,000 Units, subcutaneous, Every 8 Provider: Ahil hours, First dose on Tue11/11/20 at ROLANDO Cortes)1532 1500, Phase II/On Unit, Adjust start (Given - Provid er: time as needed Chastity Dickson RN)2337 (Given - Provider: Dafne Bell RN) 0359 (Given - Provider: Dafne parrish RN - Comment: [id number])0820 (Given - Provider: Natalia Aguiar RN - Comment: 330)1155 (Given - Provider: Natalia Cosme, RN - Comment: [phone] (Given - Provider: Natalia Aguiar RN - Comment: [phone] (Given - Provider: Patricia Erazo RN - Comment: [phone])2341 (Given - Provider: Patricia Erazo RN - Comment: cs-303) 0338 (Given - Provider: Patricai Erazo RN - Comment: cs 269)0850 (Given - Provider: Chastity Dickson RN - Comment: [phone] (Given - Provider: Chastity Dickson RN)1600 (Not Given - Provider: Chastity Dickson RN - Reason: Other - Comment: Gave x1 order long acting insulin)1999 (Due) insulin aspart (NovoLOG) inj pen 0-14 0500 (Given - Units Provider: Ahil 0-14 Units, subcutaneous, Every 4 hours ROLANDO Cortes) 1047 scheduled, First dose on Tue11/11/20 at (Given - Pro vider: 1600, Phase II/On Unit, Blood Sugar Dose Chastity koehler, Less than 140 No Insulin 141-180 4 Units RN)1332 (Gi soni - 181-220 6 Units 221-260 8 Units 261-300 Provider: Alexandr man 10 Units 301-350 12 Units 351-400 14 ROLANDO Dickson)1800 Units Call Provider if Blood Sugar is (Given - Prov ider: greater than 350. Chastity Dickson RN)2019 (Given - Provider: Dafne Bell RN - Comment: [phone])2348 (Given - Provider: Dafne Bell RN - Comment: cs-201) insulin detemir (LEVEMIR) inj pen 20 1046 (Given - Units (COMPLETED) Provider: Chastity 20 Units, subcutaneous, Once, On Tue ROLANDO Dickson) 11/12/20 at 0715, 1 dose, Before holding basal insulin, contact provider for approval to hold. 1018 (Given - Provider: Natalia sifuentes RN) insulin detemir (LEVEMIR) inj pen 30 Units (COMPLETED) 30 Units, subcutaneous, Once, On Annette 11/13/20 at 1015, 1 dose, Before holding basal insulin, contact provider for approval to hold. 1644 (Given - Provider: Chastity Dickson RN) insulin detemir (LEVEMIR) inj pen 30 Units (COMPLETED) 30 Units, subcutaneous, Once, On Tue11/14/20 at 1630, 1 dose, Before holding basal insulin, contact provider for approval to hold. 0554 (Given - Provider: Dafne parrish RN) ketorolac (TORADOL) injection 30 mg (COMPLETED) 30 mg, intravenous, Once, On Tue11/13/20 at 0545, 1 dose 1815 (Given - Provider: Natalia sifuentes RN - Comment: Dr forbes stated to give night dose now) labetaloL (NORMODYNE) tablet 100 mg (CANCELED) 100 mg, oral, 2 times daily, First dose on Tue11/13/20 at 2100 2315 (Not Given - Provider: Patricia chao RN - Reason: Patient/family refused - Comment: BP-98/60, hr-98) labetaloL (NORMODYNE) tablet 100 mg 100 mg, oral, Once, On Tue11/13/20 at 2315, 1 dose 0838 (Given - Provider: Chastity Dickson RN)2099 (Due) labetaloL (NORMODYNE) tablet 200 mg 200 mg, oral, 2 times daily, First dose on Tue11/14/20 at 0900 lactated Ringer's bolus 1,000 mL 0623 (New Bag - (COMPLETED) Provider: Ahil 1,000 mL, intravenous, Once, On Tue ROLANDO Cortes) 11/12/20 at 0600, 1 dose, Phase II/On Unit, BOLUS - Post-Op Day #1 2110 (Given - Provider: Patricia Erazo RN) 2099 (Due) lisinopriL (PRINIVIL) tablet 10 mg 2019 (Given - 10 mg, oral, Nightly, First dose on Tue Provider: [facility] 11/11/20 at 2100, Phase II/On Unit, Hold ROLANDO Bell) for systolic blood pressure less than 110 2099 (Not Given - Provider: Patricia chao RN - Reason: Patient/family refused) 2099 (Due) loratadine (CLARITIN) tablet 10 mg 2099 (Not Given - 10 mg, oral, Nightly, First dose on Tue Provider: [facility] 11/11/20 at 2100, Phase II/On Unit ROLANDO Bell - Reason: Other - Comment: minimal meds due to nausea) OLANZapine (ZyPREXA) injection 10 mg 0913 (Given - (COMPLETED) Provider: Chastity 10 mg, intramuscular, Once, On Tue ROLANDO Dickson) 11/12/20 at 0830, 1 dose, Each 10 mg vial to be reconstituted with 2.1 mL sterile water for infusion to give a concentration of approx 5 mg/mL. Use immediately. Discard unused portion. 1018 (New Bag - Provider: Natalia wilcox RN) ondansetron (ZOFRAN) 16 mg in sodium chloride 0.9% 50 mL IVPB (COMPLETED) 16 mg, intravenous, at 200 mL/hr, Administer over 15 Minutes, Once, On 11/13/20 at 0930, 1 dose, Give IV if patient is unable to take orally. ondansetron (ZOFRAN) 8 mg in sodium 1708 (New Bag - chloride 0.9% 50 mL IVPB (COMPLETED) Provider: Alessandra ah 8 mg, intravenous, at 200 mL/hr, ROLANDO Dickson) Administer over 15 Minutes, Once, On 11/12/20 at 1615, 1 dose 0501 (Given - Provider: Dafne parrish RN)1514 (Given - Provider: Natalia Aguiar, ROLANDO)2112 (Given - Provider: Patricia Erazo, ROLANDO) 0335 (Given - Provider: Patricia Erazo RN)0839 (Given - Provider: Chastity Dickson RN)1635 (See Alternative - Provider: Chastity Dickson RN)2100 (Due - Provider: Magda Paulino, PharmD) ondansetron (ZOFRAN) injection 4 0528 (Given - mg(Linked Group 1) Provider: Ahil 4 mg, intravenous, Every 6 hours, First Sebastian RN) 1115 dose on Tue11/11/20 at 1800, Phase II/On (Given - Pr ovider: Unit, Give IV if patient is unable to Chastity Dickson , take orally. RN)1800 (See Alternative - Provider: Chastity Dickson RN)2337 (Given - Provider: Dafne Bell RN) 0501 (See Alternative - Provider: Dafne Bell RN)1514 (See Alternative - Provider: Natalia Aguiar RN)2112 (See Alternative - Provider: Patricia Erazo RN) 0335 (See Alternative - Provider: Patricia Erazo RN)0839 (See Alternative - Provider: Chastity Dickson RN)1635 (Given - Provider: Chastity Dickson RN)2100 (Due - Provider: Magda Paulino, EduardoD) ondansetron (ZOFRAN-ODT) dispersible 0528 (See tablet 4 mg(Linked Group 1) Alternative - 4 mg, oral, Every 6 hours, First dose on Provider: Melissa ornelas Tue11/11/20 at 1800, Phase II/On Unit ROLANDO Cortes)11 15 (See Alternative - Provider: Chastity Dickson RN)1800 (Not Given - Provider: Chastity Dickson RN - Reason: Other - Comment: Gave 1700 Zofran)2337 (See Alternative - Provider: Dafne Bell RN) 0819 (See Alternative - Provider: Danitza Aguiar RN) 0839 (See Alternative - Provider: Deep Dickson RN) pantoprazole (PROTONIX) EC tablet 40 1115 (See mg(Linked Group 2) Alternative - 40 mg, oral, Daily, First dose on Tue Provider: Luke [facility] 11/11/20 at 1630, Phase II/On Unit, Do Randolph RN) not crush, chew, or split. 0819 (Given - Provider: Natalia sifuentes RN) 0839 (Given - Provider: Chastity Dickson RN) pantoprazole (PROTONIX) injection 40 1115 (Given - mg(Linked Group 2) Provider: Chastity 40 mg, intravenous, Administer over 2 ROLANDO Dickson) Minutes, Daily, First dose on Tue11/11/20 at 1630, Phase II/On Unit, Give IV if patient is unable to take orally. 0600 (Not Given - Provider: Dafne Servin RN - Reason: Other - Comment: nausea)1153 (Given - Provider: Natalia Aguiar RN)1715 (Given - Provider: Natalia Aguiar RN)2340 (Given - Provider: Patricia Erazo RN) 0547 (Given - Provider: Patricia Erazo RN)1225 (Given - Provider: Chastity Dickson RN)1829 (Given - Provider: Chastity Dickson RN) simethicone (MYLICON) chewable tablet 80 0000 (Not G iven - mg Provider: Saqib 80 mg, oral, Every 6 hours scheduled, ROLANDO Cortes - First dose on Tue11/11/20 at 1800, Phase Reason: II/On Unit Patient/family refused - Comment: Pt states she is "unable to take pills, she feels she will be nausous/throw up".)0528 (Given - Provider: Saqib Cortes RN)1126 (Given - Provider: Chastity Dickson RN)1708 (Given - Provider: Chastity Dickson RN)2340 (Given - Provider: Dafne Bell RN) 2100 (Not Given - Provider: Patricia chao RN - Reason: Patient/family refused) 2100 (Due) simvastatin (ZOCOR) tablet 40 mg 2100 (Not Given - 40 mg, oral, Nightly, First dose on Tue Provider: [facility] 11/11/20 at 2100, Phase II/On Unit ROLANDO Bell - Reason: Other - Comment: minimal meds due to nausea) 1634 (Given - Provider: Natalia sifuentes RN) SUMAtriptan (IMITREX) tablet 25 mg (COMPLETED) 25 mg, oral, Once, On Annette 11/13/20 at 1700, 1 dose, May repeat dose once in 2 hours if no relief. Do not exceed 2 doses in 24 hours. 11/13/2020 11/14/2020 Medication Order 11/12/2020 0601 (New Bag - Provider: Dafne Newton RN)1604 (Rate/Dose Change - Provider: Natalia Aguiar RN) 0553 (New Bag - Provider: Patricia Braun ch, RN) dextrose 5 % and lactated Ringer's 0824 (New Bag - infusion Provider: Chastity 75 mL/hr, intravenous, at 75 mL/hr, Randolph, ROLANDO)1532 (New Continuous, Starting on Tue11/11/20 at Bag - Provide r: 1315, Phase II/On Unit, Discontinue when Chastity koehler, patient taking adequate PO fluids. If RN)2337 (New B ag - patient had urinary catheter Provider: Dafne discontinued, wait until after first ROLANDO Bell ) voiding. 11/13/2020 11/14/2020 Medication Order 11/12/2020 albuterol HFA (VENTOLIN HFA) 90 mcg/actuation inhaler 2 puff 2 puff, inhalation, Every 4 hours PRN, wheezing, shortness of breath, Starting on Tue11/11/20 at 0953, Recovery & On Unit cyclobenzaprine (FLEXERIL) tablet 10 mg 10 mg, oral, 3 times daily PRN, muscle spasms, Starting on Tue11/11/20 at 1303 , Phase II/On Unit dextrose (D10W) 10 % bolus 125-250 mL 125-250 mL, intravenous, at 375-750 mL/hr, Administer over 20 Minutes, As needed, hypoglycemia treatment panel, Starting on Tue11/11/20 at 1303, Phase II/On Unit, Hypoglycemia Treatment Protocol 0411 (Given - Provider: Dafne parrish RN)1149 (Given - Provider: Natalia Aguiar RN)2112 (Given - Provider: Patricia Erazo RN) enalaprilat (VASOTEC) injection 1.25 mg 0932 (Given - 1.25 mg, intravenous, Every 6 hours PRN, Provider: Shiva lundy for systolic BP greater than 140 and/or Randolph, ROLANDO)1 557 diastolic BP greater than 90, Starting (Given - Prov ider: on Tue11/11/20 at 1303, Phase II/On Unit Chastity koehler RN) glucagon injection 1 mg 1 mg, intramuscular, As needed, hypoglycemia treatment panel, Starting on Tue11/11/20 at 1303, Phase II/On Unit, Hypoglycemia Treatment Protocol glucose (GLUTOSE) 40% oral gel 15-30 g 15-30 g, oral, As needed, low blood sugar, hypoglycemia treatment protocol, Starting on Tue11/11/20 at 1303, Phase II/On Unit, Hypoglycemia Treatment Protocol ketorolac (TORADOL) injection 30 mg 0912 (Given - (COMPLETED) Provider: Chastity 30 mg, intravenous, Every 8 hours PRN, ROLANDO Dickson)16 19 severe pain, moderate to severe pain, (Given - Provi jamel: Starting on Tue11/11/20 at 1303, 3 Chastity Randolph, R N) doses, Phase II/On Unit 0349 (Given - Provider: Dafne parrish RN) prochlorperazine (COMPAZINE) tablet 10 mg 10 mg, oral, Every 6 hours PRN, nausea, Starting on Tue11/11/20 at 1303, Phase II/On Unit 0352 (Given - Provider: Dafne parrish RN) SUMAtriptan (IMITREX) tablet 25 mg 25 mg, oral, Once as needed, migraine, Starting on Tue11/11/20 at 1303, Phase II/On Unit, May repeat dose once in 2 hours if no relief. Do not exceed 2 doses in 24 hours. Order Group 1: ondansetron (ZOFRAN-ODT) dispersible ta blet 4 mgJump to med 4 mg, oral, Every 6 hours, First dose o n Tue11/11/20 at 1800, Phase II/On Unit Or ondansetron (ZOFRAN) injection 4 mgJump to med 4 mg, intravenous, Every 6 hours, First dose on Tue11/11/20 at 1800, Phase II/On Unit
Give IV if patient is unable to take orally.
Group 2: pantoprazole (PROTONIX) EC tablet 40 mg Jump to med 40 mg, oral, Daily, First dose on Tue at 1630, Phase II/On Unit
Do not crush, chew, or split.
Or pantoprazole (PROTONIX) injection 40 mg Jump to med 40 mg, intravenous, Administer over 2 M inutes, Daily, First dose on Tue11/11/20 at 1630, Phase II/On Unit
Give IV if patient is unable to take orally.
documented in this encounter Insurance Type Payer Benefit Subscriber ID Effective Phone Address Plan / Dates Group [facility] [id number] 2020-P resent Guarantor Name Account Relation to Date of Phone Florentino dasilva Address Type Patient Christy Stoddard Personal/F Self [phone] [facility] [address] (Home) [place] [address] documented as of this encounter Advance Directives Date Inactivated Comments Code Status Date Activated Full Code 11/11/2020 5:53 AM
--- OUTSIDE RECORDS SUMMARY | 2021-01-06 10:11 | CCD ---
Author Author [facility] Organization [facility] Address Unknown Phone Unavailable Care Team Providers Care Night Supervisor Name Role Phone Arpita Camargo Unavailable PROBLEMS Type Condition ICD9-CM Code [id number] Code Onset Dates Condition S tatus W/U Status Risk SNOMED Code Notes Problem Bipolar 1 disorder, depressed, partial remission F 31.75 Active confirmed 23966516 Problem Edema extremities R60.0 Active confirmed 42 2656152 Problem Hypertension complicating diabetes E11.69 Activ e confirmed 68509702 Problem Essential hypertension I10 Active confirmed 77706658 Problem PCOS (polycystic ovarian syndrome) E28.2 Activ e confirmed 39044477 Problem Type 1 diabetes mellitus with hyperglycemia E10.65 Active confirmed 045447459958393 Problem Dyslipidemia E78.5 Active confirmed 4105319 07 Problem Type 1 diabetes mellitus without complication E10. 9 Active confirmed 808102901 Problem Celiac disease K90.0 Active confirmed 29526 1005 Problem Mixed hyperlipidemia E78.2 Active confirmed 761194935 Problem Essential (primary) hypertension I10 Active conf irmed 83202557 Problem Insomnia, unspecified type G47.00 Active confirmed 627846310 Problem Depression, unspecified depression type F32.9 Active confirmed 84160415 Problem Moderately severe depression F32.2 Active confirme d 649403431 Problem Bilateral carpal tunnel syndrome G56.03 Active conf irmed 52455897 Problem Papanicolaou smear of cervix with positive high risk human papilloma virus (HPV) test R87.810 Active confirmed 556819943 Problem Allergic rhinitis, unspecified seasonality, unspecifie d trigger J30.9 Active confirmed 00332202 Problem Myalgia M79.1 Active confirmed 95374401 Problem OAB (overactive bladder) N32.81 Active confirmed 161012462 Problem Allergic rhinitis, seasonal J30.2 Active confirmed 452398749 Problem Hypercholesteremia E78.0 Active confirmed 1 2443937 Problem Migraine with aura and without status migrainosu s, not intractable G43.109 Active confirmed 3908237 Problem Severe episode of recurrent major depressive disorder, without psychotic features F33.2 Active confirmed 78973141 Problem KRISTA (latent autoimmune diabetes of adulthood), managed as type 1 E13.9 Active confirmed 629251299 Problem BMI 32.0-32.9,adult Z68.32 Active confirmed 067554053 ALLERGIES Allergen (clinical drug ingredient) Drug/Non Drug Allergy do cumented on EMR Reaction Allergy Type Onset Date Status [place] GI Non Drug Allergy Active ENCOUNTERS from 1970 to 2020-10-28 Encounter Location Date Provider Diagnosis [facility] [phone] [place] [address] 16 Oct, 2020 Arpita Camargo Candidiasis of vulva and vagina B37.3 IMMUNIZATIONS Vaccine Route Administration Date Status COVID-19 [...] Notes Start Da te End Date Status Safety Insulin Syringes 30G X 5/16" 0.5 ML as directed subcutaneously four times daily for 30 day(s) Jun, Active Propranolol HCl 40 MG 1 tablet Orally Once a day for 30 Active Fluconazole 150 MG 1 tablet Orally once daily for 1 day(s) Jan, Active Needle (Disp) for levemir flex pen 1 needle SQ once a day/Dx: E11.9 for 30 day(s) Active Simvastatin 40 MG 1 tablet in the evening Orally Once a day for 30 Active Mirena (52 MG) 20 MCG/24HR as directed Intrauterine good until 2 025 May, Active Imitrex 25 MG 1 tablet as needed; if no re lief in 2 hours, may take a second tablet Orally as directed for 30 day(s) Apr, Active ZyrTEC Allergy 10 MG 1 tablet Orally Once a day for 30 Active Hibiclens 4 % as directed Externally as ne eded as directed once three times a week Aug, Active Basaglar KwikPen 100 UNIT/ML INJECT 66 UNITS SUBCUTANE OUSLY AT BEDTIME intramuscularly once daily for 23 Active Admelog 100 UNIT/ML INJECT FOUR TIMES A DAY D IRECTED MAXIMUM DAILY DOSE = 80 UNITS Subcutaneous 20 units QID Active Albuterol Sulfate HFA 108 (90 Base) MCG/ACT INHALE 2 P UFFS BY MOUTH EVERY 4 TO 6 HOURS NEEDED for 25 Active Pravastatin Sodium 40 mg 1 tablet Orally Once a day for 30 day(s ) Dec, Active Glucose strip (Verio IQ) as directed subcutaneously qid for 90 day(s) Active Diclofenac Sodium 75 MG 1 tablet with food or milk O rally Twice a day for 10 days 24 Mar, 2021 Active ARIPiprazole 5 MG 1 tablet Orally Once a day for 30 Active FreeStyle [place] 14 Day [place] - as directed subcutaneously qid f or 9999 days Dec, Active Nystatin 295608 UNIT/GM 1 application Externally Twice a day for 14 Active Glucometer One glucometer Dec, Active FreeStyle [place] 14 Day Sensor - as directed subcutaneously qid f or 999 days Dec, Active [employer] IQ System w/Device as directed subcutaneously qid for 999 days Dec, Active Cefdinir 300 MG 2 capsules Orally once a day for 10 day(s) Sep, Active metFORMIN HCl 500 MG 1 tablet with a meal Orally bid for 30 Active Lancets 1 lancet ICD:250.02 NIDDM Once a day for 30 Active Cyclobenzaprine HCl 10 MG 1 tablet at bedtime as neede d Orally TID prn for 10 days May, Active Benzonatate 200 MG 1 capsule Orally Three times a day as needed for cough for 20 days Sep, Active Ditropan XL 5 MG 1 tablet Orally Once a day for 30 day(s) Sep, Active Lisinopril 10 MG 1 tab(s) Orally Once a day for 30 Active Cymbalta 60 MG 1 capsule Orally Once a day for 30 Active predniSONE 10 MG 3 tabs x 2 days, 2 tabs x 2 days, 1 tab x 3 days Orally Once a day for 7 day(s) Sep, Active PROCEDURES No Information RESULTS No Results [...] C section 05/29/2008 Surgical History colposcopy with arpita 05/16/17 Hospitalization History Child 05/2008 Hospitalization History DKA 05/21/16-05/27/16 Goals Section No Information Health Concerns No Information MEDICAL EQUIPMENT No Information MENTAL STATUS No Information FUNCTIONAL STATUS No Information ASSESSMENTS Encounter Date Diagnosis Assessment Notes Treatment Notes Treatm ent Clinical Notes Oct, Candidiasis of vulva and vagina (ICD-10 - B37.3) PLAN OF TREATMENT Medication Medication Name Sig Start Date Stop Date Ditropan XL 5 MG 1 tablet Orally Once a day for 30 day(s) Sep predniSONE 10 MG 3 tabs x 2 days, 2 tabs x 2 days, 1 tab x 3 days Orally Once a day for 7 day(s) Sep, Fluconazole 150 MG 1 tablet Orally once daily for 1 day(s) 06 2019 Benzonatate 200 MG 1 capsule Orally Three times a day as needed for cough for 20 days Sep, Albuterol Sulfate HFA 108 (90 Base) MCG/ACT INHALE 2 P UFFS BY MOUTH EVERY 4 TO 6 HOURS NEEDED for 25 ZyrTEC Allergy 10 MG 1 tablet Orally Once a day for 30 Cefdinir 300 MG 2 capsules Orally once a day for 10 day(s) 2020 Next Appt Details Provider Name:Dayron Syed, 2020-10- 7 11:15:00 AM, [address] [facility], , [place], [address], Insurance Providers Payer Name Payer Address Payer Phone Insured Name Patient Relati onship to Insured Coverage Start Date Coverage End Date [facility] [employer] [facility] [address] [facility] [address] CHRISTY CURTIS self
--- OUTSIDE RECORDS SUMMARY | 2021-01-06 10:12 | CCD ---
Author Author [facility] Organization [facility] Address Unknown Phone Unavailable Care Team Providers Care Manager Product Support Name Role Phone Cole Martines MD Unavailable Unavailable Cole Martines MD Unavailable Unavailable Cole Martines MD Unavailable Unavailable Cole Martines MD Unavailable Unavailable Cole Martines MD Unavailable Unavailable Cole Martines MD Unavailable Unavailable Cole Martines MD Unavailable Unavailable Cole Martines MD Unavailable Unavailable Cole Martines MD Unavailable Unavailable Cole Martines MD Unavailable Unavailable Cole Martines MD Unavailable Unavailable Cole Martines MD Unavailable Unavailable Cole Martines MD Unavailable Unavailable Cole Martines MD Unavailable Unavailable Cole Martines MD Unavailable Unavailable Cole Martines MD Unavailable Unavailable Cole Martines MD Unavailable Unavailable Cole Martines MD Unavailable Unavailable Cole Martines MD Unavailable Unavailable Cole Martines MD Unavailable Unavailable Cole Martines MD Unavailable Unavailable Cole Martines MD Unavailable Unavailable Cole Martines MD Unavailable Unavailable Cole Martines MD Unavailable Unavailable Cole Martines MD Unavailable Unavailable Cole Martines MD Unavailable Unavailable Cole Martines MD Unavailable Unavailable Cole Martines MD Unavailable Unavailable Cole Martines MD Unavailable Unavailable Cole Martines MD Unavailable Unavailable Cole Martines MD Unavailable Unavailable Cole Martines MD Unavailable Unavailable Cole Martines MD Unavailable Unavailable Cole Martines MD Unavailable Unavailable Cole Martines MD Unavailable Unavailable Cole Martines MD Unavailable Unavailable Cole Martines MD Unavailable Unavailable Cole Martines MD Unavailable Unavailable Cole Martines MD Unavailable Unavailable Cole Martinse MD Unavailable Unavailable Cole Martines MD Unavailable Unavailable Cole Martines MD Unavailable Unavailable Cole Martines MD Unavailable Unavailable Cole Martines MD Unavailable Unavailable Cole Martines MD Unavailable Unavailable Cole Martines MD Unavailable Unavailable Cole Mratines MD Unavailable Unavailable Cole Martines MD Unavailable Unavailable Cole Martines MD Unavailable Unavailable Cole Martines MD Unavailable Unavailable Cole Martines MD Unavailable Unavailable Cole Martines MD Unavailable Unavailable Cole Martines MD Unavailable Unavailable Cole Martines MD Unavailable Unavailable Cole Martines MD Unavailable Unavailable Cole Martines MD Unavailable Unavailable Cole Martines MD Unavailable Unavailable Cole Martines MD Unavailable Unavailable Cole Martines MD Unavailable Unavailable Cole Martines MD Unavailable Unavailable Cole Martines MD Unavailable Unavailable Cole Martines MD Unavailable Unavailable Cole Martines MD Unavailable Unavailable Cole Martines MD Unavailable Unavailable Cole Martines MD Unavailable Unavailable Cole Martines MD Unavailable Unavailable Cole Martines MD Unavailable Unavailable Cole Martines MD Unavailable Unavailable Cole Martines MD Unavailable Unavailable Cole Martines MD Unavailable Unavailable Cole Martines MD Unavailable Unavailable Cole Martines MD Unavailable Unavailable Cole Martines MD Unavailable Unavailable Cole Martines MD Unavailable Unavailable Cole Martines MD Unavailable Unavailable Cole Martines MD Unavailable Unavailable Cole Martines MD Unavailable Unavailable Cole Martines MD Unavailable Unavailable Cole Martines MD Unavailable Unavailable Cole Martines MD Unavailable Unavailable Cole Martines MD Unavailable Unavailable Cole Martines MD Unavailable Unavailable Cole Martines MD Unavailable Unavailable Cole Martines MD Unavailable Unavailable Cole Martines MD Unavailable Unavailable Cole Martines MD Unavailable Unavailable Cole Martines MD Unavailable Unavailable Cole Martines MD Unavailable Unavailable Cole Martines MD Unavailable Unavailable Cole Martines MD Unavailable Unavailable Cole Martines MD Unavailable Unavailable Cole Martines MD Unavailable Unavailable Cole Martines MD Unavailable Unavailable GENOVEVA PENN MD Unavailable Unavailable Agnes Ramsay MD Unavailable Unavailable Agnes Ramsay MD Unavailable Unavailable Agnes Ramsay MD Unavailable Unavailable Agnes Ramsay MD Unavailable Unavailable Agnes Ramsay MD Unavailable Unavailable Agnes Ramsay MD Unavailable Unavailable Agnes Ramsay MD Unavailable Unavailable SobiaAgnes MD Unavailable Unavailable Sobia S Serjio MEDRANO Unavailable Unavailable Sobia S Serjio MEDRANO Unavailable Unavailable Sobia S Serjio MEDRANO Unavailable Unavailable Sobia S Serjio MEDRANO Unavailable Unavailable Sobia S Serjio MEDRANO Unavailable Unavailable Sobia S Serjio MD Unavailable Unavailable Sobia S Serjio MD Unavailable Unavailable Sobia S Serjio MD Unavailable Unavailable Sobia S Serjio MD Unavailable Unavailable Sobia S Serjio MEDRANO Unavailable Unavailable Sobia S Serjio MEDRANO Unavailable Unavailable Sobia S Serjio MEDRANO Unavailable Unavailable Sobia S Serjio MD Unavailable Unavailable Sobia S Serjio MEDRANO Unavailable Unavailable Sobia S Serjio MEDRANO Unavailable Unavailable Sobia S Serjio MEDRANO Unavailable Unavailable SobiaAgnes ware MD Unavailable Unavailable Agnes Ramsay MD Unavailable Unavailable SobiaAgnes ware MD Unavailable Unavailable SobiaAgnes ware MD Unavailable Unavailable Agnes Ramsay MD Unavailable Unavailable Agnes Ramsay MD Unavailable Unavailable Agnes Ramsay MD Unavailable Unavailable Agnes Ramsay MD Unavailable Unavailable Agnes Ramsay MD Unavailable Unavailable Agnes Ramsay MD Unavailable Unavailable Agnes Ramsay MD Unavailable Unavailable Agnes Ramsay MD Unavailable Unavailable Agnes Ramsay MD Unavailable Unavailable Agnes Ramsay MD Unavailable Unavailable Agnes Ramsay MD Unavailable Unavailable Agnes Ramsay MD Unavailable Unavailable Agnes Ramsay MD Unavailable Unavailable Agnes Ramsay MD Unavailable Unavailable Agnes Ramsay MD Unavailable Unavailable Agnes Ramsay MD Unavailable Unavailable Agnes Ramsay MD Unavailable Unavailable Agnes Ramsay MD Unavailable Unavailable Agnes Ramsay MD Unavailable Unavailable Agnes Ramsay MD Unavailable Unavailable Agnes Ramsay MD Unavailable Unavailable Agnes Ramsay MD Unavailable Unavailable Federico Yu DMD Unavailable Unavailable Melissa Forbes MD Unavailable Unavailable Melissa Forbes MD Unavailable Unavailable Melissa Forbes MD Unavailable Unavailable Melissa Forbes MD Unavailable Unavailable Melissa Forbes MD Unavailable Unavailable Melissa Forbes MD Unavailable Unavailable Melissa Forbes MD Unavailable Unavailable Melissa Frobes MD Unavailable Unavailable Melissa Forbes MD Unavailable Unavailable Melissa Forbes MD Unavailable Unavailable Melissa Forbes MD Unavailable Unavailable Melissa Forbes MD Unavailable Unavailable Leidy, A Brennan MEDRANO Unavailable Unavailable Leidy, A Brennan MEDRANO Unavailable Unavailable Leidy, A Brennan MEDRANO Unavailable Unavailable Leidy, A Brennan MEDRANO Unavailable Unavailable Leidy, A Brennan MEDRANO Unavailable Unavailable Leidy, A Brennan MEDRANO Unavailable Unavailable Leidy, A Brennan MEDRANO Unavailable Unavailable Leidy, A Brennan MEDRANO Unavailable Unavailable Leidy, A Brennan MEDRANO Unavailable Unavailable Leidy, A Brennan MEDRANO Unavailable Unavailable Leidy, A Brennan MEDRANO Unavailable Unavailable Leidy, A Brennan MEDRANO Unavailable Unavailable Leidy, A Brennan MEDRANO Unavailable Unavailable Leidy, A Brennan MEDRANO Unavailable Unavailable Leidy, A Brennan MEDRANO Unavailable Unavailable Leidy, A Brennan MEDRANO Unavailable Unavailable Leidy, A Brennan MEDRANO Unavailable Unavailable Leidy, A Brennan MEDRANO Unavailable Unavailable Leidy, A Brennan MEDRANO Unavailable Unavailable Leidy, A Brennan MEDRANO Unavailable Unavailable Leidy, A Brennan MEDRANO Unavailable Unavailable Leidy, A Brennan MEDRANO Unavailable Unavailable Leidy, A Brennan MEDRANO Unavailable Unavailable Leidy, A Brennan MEDRANO Unavailable Unavailable Leidy, A Brennan MEDRANO Unavailable Unavailable Leidy, A Brennan MEDRANO Unavailable Unavailable Leidy, A Brennan MEDRANO Unavailable Unavailable Leidy, A Brennan MEDRANO Unavailable Unavailable Leidy, A Brennan MEDRANO Unavailable Unavailable Leidy, A Brennan MEDRANO Unavailable Unavailable Leidy, A Brennan MEDRANO Unavailable Unavailable Leidy, A Brennan MEDRANO Unavailable Unavailable Leidy, A Brennan MEDRANO Unavailable Unavailable Leidy, A Brennan MEDRANO Unavailable Unavailable Leidy, A Brennan MEDRANO Unavailable Unavailable Leidy, A Brennan MEDRANO Unavailable Unavailable Leidy, A Brennan MEDRANO Unavailable Unavailable Leidy, A Brennan MEDRANO Unavailable Unavailable Leidy, A Brennan MEDRANO Unavailable Unavailable Leidy, A Brennan MEDRANO Unavailable Unavailable Leidy, A Brennan MEDRANO Unavailable Unavailable Leidy, A Brennan MEDRANO Unavailable Unavailable Leidy, A Brennan MEDRANO Unavailable Unavailable Leidy, A Brennan MEDRANO Unavailable Unavailable Leidy, A Brennan MEDRANO Unavailable Unavailable Leidy, A Brennan MEDRANO Unavailable Unavailable Leidy, A Brennan MEDRANO Unavailable Unavailable Leidy, A Brennan MEDRANO Unavailable Unavailable Leidy, A Brennan MEDRANO Unavailable Unavailable Leidy, A Brennan MEDRANO Unavailable Unavailable Leidy, A Brennan MEDRANO Unavailable Unavailable Leidy, A Brennan MEDRANO Unavailable Unavailable Leidy, A Brennan MEDRANO Unavailable Unavailable Leidy, A Brennan MEDRANO Unavailable Unavailable Leidy, A Brennan MEDRANO Unavailable Unavailable Leidy, A Brennan MEDRANO Unavailable Unavailable Leidy, A Brennan MEDRANO Unavailable Unavailable Leidy, A Brennan MEDRANO Unavailable Unavailable Leidy, A Brennan MEDRANO Unavailable Unavailable Leidy, A Brennan MEDRANO Unavailable Unavailable Leidy, A Brennan MEDRANO Unavailable Unavailable Leidy, A Brennan MEDRANO Unavailable Unavailable Leidy, A Brennan MEDRANO Unavailable Unavailable Leidy, A Brennan MD Unavailable Unavailable Leidy, Melissa Amin MD Unavailable Unavailable Leidy, A Brennan MEDRANO Unavailable Unavailable Leidy, Melissa Amin MD Unavailable Unavailable Leidy, Melissa Amin MD Unavailable Unavailable Leidy, Melissa Amin MD Unavailable Unavailable Leidy, Melissa Amin MD Unavailable Unavailable Leidy, Melissa Amin MD Unavailable Unavailable Leidy, Melissa Amin MD Unavailable Unavailable Leidy, Melissa Amin MD Unavailable Unavailable Leidy, Melissa Amin MD Unavailable Unavailable Leidy, Melissa Amin MD Unavailable Unavailable Leidy, Melissa Amin MD Unavailable Unavailable Leidy, Melissa Amin MD Unavailable Unavailable Leidy, Melissa Amin MD Unavailable Unavailable Leidy, Melissa Amin MD Unavailable Unavailable Leidy, Melissa Amin MD Unavailable Unavailable Leidy, A Brennan MEDRANO Unavailable Unavailable Leidy, A Brennan MEDRANO Unavailable Unavailable Leidy, Melissa Amin MD Unavailable Unavailable Leidy, Melissa Amin MD Unavailable Unavailable Leidy, Melissa Amin MD Unavailable Unavailable Leidy, Melissa Amin MD Unavailable Unavailable Leidy, Melissa Amin MD Unavailable Unavailable Leidy, Melissa Amin MD Unavailable Unavailable Leidy, Melissa Amin MD Unavailable Unavailable Leidy, Melissa Amin MD Unavailable Unavailable Leidy, Melissa Amin MD Unavailable Unavailable Leidy, Melissa Amin MD Unavailable Unavailable Leidy, Melissa Amin MD Unavailable Unavailable Leidy, Melissa Amin MD Unavailable Unavailable Leidy, Melissa Amin MD Unavailable Unavailable Commey, Ranjan Unavailable Unavailable Commey, Ranjan Unavailable Unavailable Commey, Ranjan Unavailable Unavailable Commey, Ranjan Unavailable Unavailable Commey, Ranjan Unavailable Unavailable Commey, Ranjan Unavailable Unavailable Commey, Ranjan Unavailable Unavailable Commey, Ranjan Unavailable Unavailable Commey, Ranjan Unavailable Unavailable Commey, Ranjan Unavailable Unavailable Commey, Ranjan Unavailable Unavailable Commey, Ranjan Unavailable Unavailable Commey, Ranjan Unavailable Unavailable Commey, Ranjan Unavailable Unavailable Commey, Ranjan Unavailable Unavailable Commey, Ranjan Unavailable Unavailable Commey, Ranjan Unavailable Unavailable Commey, Ranjan Unavailable Unavailable Commey, Ranjan Unavailable Unavailable Commey, Ranjan Unavailable Unavailable Commey, Ranjan Unavailable Unavailable Commey, Ranjan Unavailable Unavailable Commey, Ranjan Unavailable Unavailable Commey, Ranjan Unavailable Unavailable Commey, Ranjan Unavailable Unavailable Commey, Ranjan Unavailable Unavailable Commey, Ranjan Unavailable Unavailable Commey, Ranjan Unavailable Unavailable Commey, Ranjan Unavailable Unavailable Commey, Ranjan Unavailable Unavailable Commey, Ranjan Unavailable Unavailable Ocampo, [place]al Unavailable Unavailable Ocampo, [place] Unavailable Unavailable Ocampo, [place] Unavailable Unavailable Ocampo, [place] Unavailable Unavailable Ocampo, [place] Unavailable Unavailable Ocampo, [place] Unavailable Unavailable Ocampo, [place] Unavailable Unavailable Ocampo, [place] Unavailable Unavailable Ocampo, [place] Unavailable Unavailable Ocampo, [place] Unavailable Unavailable Ocampo, [place] Unavailable Unavailable Ocampo, [place] Unavailable Unavailable Ocampo, [place] Unavailable Unavailable Re-disclosure Warning The records that you are about to access may contain information from federally-assisted alcohol or drug abuse programs. If such information is present, then the following federally mandated warning applies: This information has been disclosed to you from records protected by federal confidentiality rules (42 CFR part 2). The federal rules prohibit you from making any further disclosure of this information unless further disclosure is expressly permitted by the written consent of the person to whom it pertains or as otherwise permitted by 42 CFR part 2. A general authorization for the release of medical or other information is NOT sufficient for this purpose. The Federal rules restrict any use of the information to criminally investigate or prosecute any alcohol or drug abuse patient.The records that you are about to access may contain highly sensitive health information, the redisclosure of which is protected by Article 27-F of the [facility] Public Health law. If you continue you may have access to information: Regarding HIV / AIDS; Provided by facilities licensed or operated by the [facility] Office of Mental Health; or Provided by the [facility] Office for People With Developmental Disabilities. If such information is present, then the following [facility] mandated warning applies: This information has been disclosed to you from confidential records which are protected by state law. State law prohibits you from making any further disclosure of this information without the specific written consent of the person to whom it pertains, or as otherwise permitted by law. Any unauthorized further disclosure in violation of state law may result in a fine or mcfp sentence or both. A general authorization for the release of medical or other information is NOT sufficient authorization for further disc losure. Allergies and Adverse Reactions Type Description Substance Reaction Status Data Source(s ) Propensity to adverse reactions NO KNOWN ALLERGIES NO KNOWN ALLERGIES [facility] Propensity to adverse reactions NO ALLERGIES ON FILE NO ALLERGIES ON FILE [facility] Allergy to substance Allergy to substance Allergy to substance ANDREZ ([facility]) Allergy to substance Allergy to substance Allergy to substance ANDREZ ([facility]) Allergy to substance Allergy to substance Allergy to substance ANDREZ ([facility]) Allergy to substance Allergy to substance Allergy to substance ANDREZ ([facility]) Family History Family Member Name Family Member Gender Family Member Status Date o f Status Description Data Source(s) Unknown Unknown Problem MEDENT ([facility]) Unknown Male Problem MEDENT ([facility]) Unknown Unknown Problem MEDENT ([facility]) Encounters Encounter Providers Location Date Indications Data Source(s ) Unknown [address] [facility] [address] 12/16/2020 12:00:00 AM EDT eCW1 ([facility]) [place] [address] [facility] [address] 12/02/2020 12:00:00 AM EDT eCW1 ([facility]) INPATIENT Attender: Ranjan Estrella ravin: Brennan Forbes MDAdmitter: Brennan Forbes MD [id number] 11/11/2020 04:57:00 AM EDT - 11/14/2020 06:42:00 PM EDT [facility] Patient discharged. INPATIENT Attender: GUSTABO PENN MD [id number] 11/10/2020 07:38:59 AM EDT [facility] [place] [address] [facility] [address] 11/10/2020 12:00:00 AM EDT eCW1 ([facility]) Outpatient [id number] 11/06/2020 02:42:00 PM EDT - 021 11:59:00 PM EDT [facility] [place] [address] [facility] [address] 10/28/2020 12:00:00 AM EDT eCW1 ([facility]) [place] [address] [facility] [address] 10/27/2020 12:00:00 AM EDT eCW1 ([facility]) Outpatient [id number] 10/21/2020 09:33:00 AM EDT - 021 10:31:36 AM EDT [facility] Unknown [address] [facility] [address] 09/26/2020 12:00:00 AM EDT eCW1 ([facility]) [place] [address] [facility] [address] 09/11/2020 12:00:00 AM EDT eCW1 ([facility]) [place] [address] [facility] [address] 09/11/2020 12:00:00 AM EDT eCW1 ([facility]) [place] [address] [facility] [address] 07/10/2020 12:00:00 AM EDT eCW1 ([facility]) [place] [address] [facility] [address] 06/04/2020 12:00:00 AM EDT eCW1 ([facility]) [place] [address] [facility] [address] 06/04/2020 12:00:00 AM EDT eCW1 ([facility]) Unknown [address] [facility] [address] 06/01/2020 12:00:00 AM EDT eCW1 ([facility]) [place] [address] [facility] [address] 05/20/2020 12:00:00 AM EST eCW1 ([facility]) Unknown [address] [facility] [address] 05/20/2020 12:00:00 AM EST eCW1 ([facility]) Unknown [address] [place] [address], [place] [address] 05/06/2020 12:00:00 AM EST eCW1 ([facility]) Russell Martines MD: [address] [place] [phone], Ph. Attender: Russell Martines MD [facility] Medical 05/02/2020 12:00:00 AM EST ANDREZ ([facility]) Unknown [address] [facility] Y [address] 04/29/2020 12:00:00 AM EST [facility]CW1 ([facility]) Unknown [address] [facility] Y [address] 04/28/2020 12:00:00 AM EST [facility]CW1 [facility]) Unknown [address] [facility] Y [address] 04/25/2020 12:00:00 AM EST [facility]CW1 [facility]) Unknown [address] [facility] Y [address] 04/15/2020 12:00:00 AM EST [facility] Unknown [address] [facility] [address] 04/14/2020 12:00:00 AM EST [facility]CW1 [facility]) DAVID ThackerC: [address] [place] [phone], Ph. Attender: Coral Ocampo [facility] 04/08/2020 12:00:00 AM EST ANDREZ ([facility]) DAVID ThackerC: [address] [place] [phone], Ph. Attender: Coral Ocampo [facility] 04/08/2020 12:00:00 AM EST ANDREZ ([facility]) Russell Martines MD: [address] [place] [phone], Ph. Attender: Russell Martines MD [facility] Medical 03/11/2020 12:00:00 AM EST ANDREZ ([facility]) Russell Martines MD: [address] [place] [address], Ph. Attender: Russell Martines MD [facility] Medical 03/11/2020 12:00:00 AM EST ANDREZ ([facility]) Russell Martines MD: [address] [place] [phone], Ph. Attender: Russell Martines MD [facility] Medical 03/11/2020 12:00:00 AM EST ANDREZ ([facility]) Russell Martines MD: [address] [place] [phone], Ph. Attender: Russell Martines MD [facility] Medical 03/11/2020 12:00:00 AM EST [facility]RE[facility] ([facility]) Unknown [address] [facility] [address] 03/10/2020 12:00:00 AM EST [facility]CW1 [facility] Unknown [address] [facility] Y [address] 03/10/2020 12:00:00 AM EST [facility]CW1 [facility]) Outpatient Attender: Serjio Ramsay MD Main Office 02/26/2020 09:00:00 AM EST MEDENT ([facility]) Outpatient [address] [facility] Y [address] 02/18/2020 12:00:00 AM EST [facility]CW1 [facility] Outpatient [address] [facility] Y [address] 01/18/2020 12:00:00 AM EST [facility]CW1 [facility] Unknown [address] [facility] Y [address] 01/01/2020 12:00:00 AM EDT eCW1 ([facility]) Outpatient Attender: Federico Yu DMD [facility] 12/31/2019 03:05:01 PM EDT [facility] Unknown [address] [facility] Y [address] 12/23/2019 12:00:00 AM EDT eCW1 ([facility]) [place] [address] [facility] [address] 12/21/2019 12:00:00 AM EDT eCW1 ([facility]) [place] [address] [facility] [address] 12/21/2019 12:00:00 AM EDT eCW1 ([facility]) [place] [address] [facility] [address] 12/18/2019 12:00:00 AM EDT eCW1 ([facility]) [place] [address] [facility] [address] 12/13/2019 12:00:00 AM EDT eCW1 ([facility]) Immunizations Vaccine Date Status Description Data Source(s) influenza, recombinant, quadrIvalent,injectable, prese rvative free 01/02/2021 02:09:00 PM EDT completed eCW1 ([facility]) COVID-19 dose #2 given elsewhere Unspecified 04/10/2020 02:5 3:00 PM EST completed eCW1 ([facility]) COVID-19 dose #2 given elsewhere Unspecified 04/10/2020 02:5 3:00 PM EST completed eCW1 ([facility]) COVID-19 dose #2 given elsewhere Unspecified 04/10/2020 02:5 3:00 PM EST completed eCW1 ([facility]) COVID-19 dose #2 given elsewhere Unspecified 04/10/2020 02:5 3:00 PM EST completed eCW1 ([facility]) COVID-19 dose #2 given elsewhere Unspecified 04/10/2020 02:5 3:00 PM EST completed eCW1 ([facility]) COVID-19 dose #2 given elsewhere Unspecified 04/10/2020 02:5 3:00 PM EST completed eCW1 ([facility]) COVID-19 dose #2 given elsewhere Unspecified 04/10/2020 02:5 3:00 PM EST completed eCW1 ([facility]) COVID-19 dose #2 given elsewhere Unspecified 04/10/2020 02:5 3:00 PM EST completed eCW1 ([facility]) COVID-19, mRNA, LNP-S, PF, 100 mcg/0.5 mL dose 04/08/2020 03 :05:20 PM EST completed .5 mL ANDREZ ([facility]) COVID-19, mRNA, LNP-S, PF, 100 mcg/0.5 mL dose 04/08/2020 03 :05:20 PM EST completed .5 mL ANDREZ ([facility]) 207 04/08/2020 12:00:00 AM EST completed <td I D="[id number]">Moderna SARS-CoV-2 Vaccination</td><td>04/08/2020, 03/11/2020</td><td></td> [facility] COVID-19 VACCINE Moderna 04/08/2020 12:00:00 AM EST completed [facility] Vaccine Series Complete: YESThis Data wa s Submitted to [facility] Via [employer]. COVID-19 dose #1 given elsewhere Unspecified 03/17/2020 02:5 2:00 PM EST completed eCW1 ([facility]) COVID-19 dose #1 given elsewhere Unspecified 03/17/2020 02:5 2:00 PM EST completed eCW1 ([facility]) COVID-19 dose #1 given elsewhere Unspecified 03/17/2020 02:5 2:00 PM EST completed eCW1 ([facility]) COVID-19 dose #1 given elsewhere Unspecified 03/17/2020 02:5 2:00 PM EST completed eCW1 ([facility]) COVID-19 dose #1 given elsewhere Unspecified 03/17/2020 02:5 2:00 PM EST completed eCW1 ([facility]) COVID-19 dose #1 given elsewhere Unspecified 03/17/2020 02:5 2:00 PM EST completed eCW1 ([facility]) COVID-19 dose #1 given elsewhere Unspecified 03/17/2020 02:5 2:00 PM EST completed eCW1 ([facility]) COVID-19 dose #1 given elsewhere Unspecified 03/17/2020 02:5 2:00 PM EST completed eCW1 ([facility]) COVID-19, mRNA, LNP-S, PF, 100 mcg/0.5 mL dose 03/11/2020 05 :28:44 PM EST completed 03/11/20200.5 mL ANDREZ ([facility]) COVID-19, mRNA, LNP-S, PF, 100 mcg/0.5 mL dose 03/11/2020 05 :28:44 PM EST completed .5 mL ANDREZ ([facility]) COVID-19, mRNA, LNP-S, PF, 100 mcg/0.5 mL dose 03/11/2020 05 :28:44 PM EST completed 03/11/20200.5 mL ANDREZ ([facility]) COVID-19, mRNA, LNP-S, PF, 100 mcg/0.5 mL dose 03/11/2020 05 :28:44 PM EST completed 03/11/20200.5 mL ANDREZ ([facility]) 207 03/11/2020 12:00:00 AM EST completed <td I D="[id number]">Moderna SARS-CoV-2 Vaccination</td><td>04/08/2020, 03/11/2020</td><td></td> [facility] COVID-19 VACCINE Moderna 03/11/2020 12:00:00 AM EST completed NYSIIS Vaccine Series Complete: NOThis Data was Submitted to [facility] Via [employer]. influenza, recombinant, quadrIvalent,injectable, prese rvative free 02/18/2020 04:44:00 PM EST completed eCW1 ([facility]) influenza, recombinant, quadrIvalent,injectable, prese rvative free 02/18/2020 04:44:00 PM EST completed eCW1 ([facility]) influenza, recombinant, quadrIvalent,injectable, prese rvative free 02/18/2020 04:44:00 PM EST completed eCW1 ([facility]) influenza, recombinant, quadrIvalent,injectable, prese rvative free 02/18/2020 04:44:00 PM EST completed eCW1 ([facility]) influenza, recombinant, quadrIvalent,injectable, prese rvative free 02/18/2020 04:44:00 PM EST completed eCW1 ([facility]) influenza, recombinant, quadrIvalent,injectable, prese rvative free 02/18/2020 04:44:00 PM EST completed eCW1 ([facility]) influenza, recombinant, quadrIvalent,injectable, prese rvative free 02/18/2020 04:44:00 PM EST completed eCW1 ([facility]) influenza, recombinant, quadrIvalent,injectable, prese rvative free 02/18/2020 04:44:00 PM EST completed eCW1 ([facility]) influenza, recombinant, quadrIvalent,injectable, prese rvative free 02/18/2020 04:44:00 PM EST completed eCW1 ([facility]) influenza, recombinant, quadrIvalent,injectable, prese rvative free 02/18/2020 04:44:00 PM EST completed eCW1 ([facility]) influenza, recombinant, quadrIvalent,injectable, prese rvative free 02/18/2020 04:44:00 PM EST completed eCW1 ([facility]) influenza, recombinant, quadrIvalent,injectable, prese rvative free 02/18/2020 04:44:00 PM EST completed eCW1 ([facility]) influenza, recombinant, quadrIvalent,injectable, prese rvative free 02/18/2020 04:44:00 PM EST completed eCW1 ([facility]) influenza, recombinant, quadrIvalent,injectable, prese rvative free 02/18/2020 04:44:00 PM EST completed eCW1 ([facility]) influenza, recombinant, quadrIvalent,injectable, prese rvative free 02/18/2020 04:44:00 PM EST completed eCW1 ([facility]) influenza, recombinant, quadrIvalent,injectable, prese rvative free 02/18/2020 04:44:00 PM EST completed eCW1 ([facility]) influenza, recombinant, quadrIvalent,injectable, prese rvative free 02/18/2020 04:44:00 PM EST completed eCW1 ([facility]) influenza, recombinant, quadrIvalent,injectable, prese rvative free 02/18/2020 04:44:00 PM EST completed eCW1 ([facility]) influenza, recombinant, quadrIvalent,injectable, prese rvative free 02/18/2020 04:44:00 PM EST completed eCW1 ([facility]) influenza, recombinant, quadrIvalent,injectable, prese rvative free 02/18/2020 04:44:00 PM EST completed eCW1 ([facility]) influenza, recombinant, quadrIvalent,injectable, prese rvative free 02/18/2020 04:44:00 PM EST completed eCW1 ([facility]) influenza, recombinant, quadrIvalent,injectable, prese rvative free 02/18/2020 04:44:00 PM EST completed eCW1 ([facility]) influenza, recombinant, quadrIvalent,injectable, prese rvative free 02/18/2020 04:44:00 PM EST completed eCW1 ([facility]) Medications Medication Brand Name Start Date Product Form Dose Route Admi nistrative Instructions Pharmacy Instructions Status Indications Reaction Description Data Source(s) Matty George U-100 Insulin 100 unit/mL (3 mL) injection 2128-9067-43 11/14/2020 12:00:00 AM EDT 30 U subcutaneous active Inject 30 Units under the skin 1 (one) time each day. pcp to decide what doses pre op [facility] Simethicone 80 MG Chewable Tablet simethicone (MYLICON ) 80 mg chewable tablet simethicone (MYLICON) 80 mg chewable tablet 11/11/2020 12:00:00 AM EDT 80 mg oral active Chew 1 tablet (80 mg total) every 6 (six) hours if needed for flatulence (for gas pain). [facility] Magnesium Hydroxide 80 MG/ML Oral Suspen rosario magnesium hydroxide (MILK OF MAGNESIA) 400 mg/5 mL suspension magnesium hydroxide (MILK OF MAGNESIA) 4 00 mg/5 mL suspension 11/11/2020 12:00:00 AM EDT 30 mL oral acti ve Take 30 mL by mouth 2 (two) times a day if needed for constipation. [facility] 0.4 ML Enoxaparin sodium 100 MG/ML Prefi lled Syringe enoxaparin (LOVENOX) 40 mg/0.4 mL syringe enoxaparin (LOVENOX) 40 mg/0.4 mL syringe 11/11/2020 1 2:00:00 AM EDT 40 mg subcutaneous active Inj ect 0.4 mL (40 mg total) under the skin 1 (one) time each day. For twenty days after discharge [facility] Acetaminophen 325 MG Oral Tablet acetaminophen (TYLENO L) 325 mg tablet acetaminophen (TYLENOL) 325 mg tablet 11/11/2020 12:00:00 AM EDT 65 0 mg oral active Take 2 tablets (650 mg total) by mouth every 6 (six) hours if needed for mild pain, headaches or fever. [facility] Vitamin B 12 1 MG Oral Tablet cyanocobalamin (VITAMIN B-12) 1,000 mcg tablet cyanocobalamin (VITAMIN B-12) 1,000 mcg tablet 11/11/2020 12:00:00 AM EDT 1000 ug oral active Take 1 tab let (1,000 mcg total) by mouth 1 (one) time each day. [facility] flintstones complete (FLINTSTONES) chewable tablet 2039071411/11/2020 12:00:00 AM EDT 2 {tbl} oral active Chew 2 tablets 1 (one) time each day. [facility] Basaglar Ariel U-100 Insulin 100 unit/mL (3 mL) injection [id number] 10/01/2020 12:00:00 AM EDT 74 U subcutaneous aborted Inject 74 Units under the skin 1 (one) time each day at night. pcp to decide what doses pre op [facility] aripiprazole 5 MG Oral Tablet ARIPiprazole (ABILIFY) 5 mg tablet ARIPiprazole (ABILIFY) 5 mg tablet 09/17/2020 12:00:00 AM EDT 5 mg oral active Take 5 mg by mouth 1 (one) time each day at night. [facility] cefdinir 300 MG Oral Capsule Cefdinir 300 MG Cefdinir 300 MG 09/11/2020 12:00:00 AM EDT 2.0 {capsules} suspended Cefdin ir 300 MG eCW1 ([facility]) benzonatate 200 MG Oral Capsule Benzonatate 200 MG Benzonata te 200 MG 09/11/2020 12:00:00 AM EDT 1.0 {capsule} active B enzonatate 200 MG eCW1 ([facility]) 24 HR Oxybutynin chloride 5 MG Extended Release Oral Tablet [Ditropan] Ditropan XL 5 MG Ditropan XL 5 MG 09/11/2020 12:00:00 AM EDT 1.0 {tablet} suspended Ditropan XL 5 MG eCW1 ([facility]) cefdinir 300 MG Oral Capsule Cefdinir 300 MG Cefdinir 300 MG 09/11/2020 12:00:00 AM EDT 2.0 {capsules} active Cefdinir 300 MG eCW1 ([facility]) 24 HR Oxybutynin chloride 5 MG Extended Release Oral Tablet [Ditropan] Ditropan XL 5 MG Ditropan XL 5 MG 09/11/2020 12:00:00 AM EDT 1.0 {tablet} suspended Ditropan XL 5 MG eCW1 ([facility]) benzonatate 200 MG Oral Capsule Benzonatate 200 MG Benzonata te 200 MG 09/11/2020 12:00:00 AM EDT 1.0 {capsule} suspended Benzonatate 200 MG eCW1 ([facility]) Prednisone 10 MG Oral Tablet predniSONE 10 MG predniSONE 10 MG 09/11/2020 12:00:00 AM EDT suspended predn iSONE 10 MG eCW1 ([facility]) cefdinir 300 MG Oral Capsule Cefdinir 300 MG Cefdinir 300 MG 09/11/2020 12:00:00 AM EDT 2.0 {capsules} active Cefdinir 300 MG eCW1 ([facility]) benzonatate 200 MG Oral Capsule Benzonatate 200 MG Benzonata te 200 MG 09/11/2020 12:00:00 AM EDT 1.0 {capsule} active Benzonatate 200 MG eCW1 ([facility]) 24 HR Oxybutynin chloride 5 MG Extended Release Oral Tablet [Ditropan] Ditropan XL 5 MG Ditropan XL 5 MG 09/11/2020 12:00:00 AM EDT 1.0 {tablet} active Ditropan XL 5 MG eCW1 ([facility]) cefdinir 300 MG Oral Capsule Cefdinir 300 MG Cefdinir 300 MG 09/11/2020 12:00:00 AM EDT 2.0 {capsules} suspended Cefdi eliezer 300 MG eCW1 ([facility]) cefdinir 300 MG Oral Capsule Cefdinir 300 MG Cefdinir 300 MG 09/11/2020 12:00:00 AM EDT 2.0 {capsules} suspended Cefdi eliezer 300 MG eCW1 ([facility]) benzonatate 200 MG Oral Capsule Benzonatate 200 MG Benzonata te 200 MG 09/11/2020 12:00:00 AM EDT 1.0 {capsule} suspended Benzonatate 200 MG eCW1 ([facility]) 24 HR Oxybutynin chloride 5 MG Extended Release Oral Tablet [Ditropan] Ditropan XL 5 MG Ditropan XL 5 MG 09/11/2020 12:00:00 AM EDT 1.0 {tablet} active Ditropan XL 5 MG eCW1 ([facility]) benzonatate 200 MG Oral Capsule Benzonatate 200 MG Benzonata te 200 MG 09/11/2020 12:00:00 AM EDT 1.0 {capsule} suspended Benzonatate 200 MG eCW1 ([facility]) Prednisone 10 MG Oral Tablet predniSONE 10 MG predniSONE 10 MG 09/11/2020 12:00:00 AM EDT active predniSO NE 10 MG eCW1 ([facility]) cefdinir 300 MG Oral Capsule Cefdinir 300 MG Cefdinir 300 MG 09/11/2020 12:00:00 AM EDT 2.0 {capsules} suspended Cefdi eliezer 300 MG eCW1 ([facility]) 24 HR Oxybutynin chloride 5 MG Extended Release Oral Tablet [Ditropan] Ditropan XL 5 MG Ditropan XL 5 MG 09/11/2020 12:00:00 AM EDT 1.0 {tablet} suspended Ditropan XL 5 MG eCW1 ([facility]) cefdinir 300 MG Oral Capsule Cefdinir 300 MG Cefdinir 300 MG 09/11/2020 12:00:00 AM EDT 2.0 {capsules} active Cefdinir 300 MG eCW1 ([facility]) cefdinir 300 MG Oral Capsule Cefdinir 300 MG Cefdinir 300 MG 09/11/2020 12:00:00 AM EDT 2.0 {capsules} active Cefdinir 300 MG eCW1 ([facility]) 24 HR Oxybutynin chloride 5 MG Extended Release Oral Tablet [Ditropan] Ditropan XL 5 MG Ditropan XL 5 MG 09/11/2020 12:00:00 AM EDT 1.0 {tablet} suspended Ditropan XL 5 MG eCW1 ([facility]) Prednisone 10 MG Oral Tablet predniSONE 10 MG predniSONE 10 MG 09/11/2020 12:00:00 AM EDT active predniSO NE 10 MG eCW1 ([facility]) Prednisone 10 MG Oral Tablet predniSONE 10 MG predniSONE 10 MG 09/11/2020 12:00:00 AM EDT suspended predn iSONE 10 MG eCW1 ([facility]) benzonatate 200 MG Oral Capsule Benzonatate 200 MG Benzonata te 200 MG 09/11/2020 12:00:00 AM EDT 1.0 {capsule} suspended Benzonatate 200 MG eCW1 ([facility]) Prednisone 10 MG Oral Tablet predniSONE 10 MG predniSONE 10 MG 09/11/2020 12:00:00 AM EDT suspended predn iSONE 10 MG eCW1 ([facility]) benzonatate 200 MG Oral Capsule Benzonatate 200 MG Benzonata te 200 MG 09/11/2020 12:00:00 AM EDT 1.0 {capsule} active Benzonatate 200 MG eCW1 ([facility]) Prednisone 10 MG Oral Tablet predniSONE 10 MG predniSONE 10 MG 09/11/2020 12:00:00 AM EDT active predniSO NE 10 MG eCW1 ([facility]) 24 HR Oxybutynin chloride 5 MG Extended Release Oral Tablet [Ditropan] Ditropan XL 5 MG Ditropan XL 5 MG 09/11/2020 12:00:00 AM EDT 1.0 {tablet} active Ditropan XL 5 MG eCW1 ([facility]) Prednisone 10 MG Oral Tablet predniSONE 10 MG predniSONE 10 MG 09/11/2020 12:00:00 AM EDT suspended predn iSONE 10 MG eCW1 ([facility]) 24 HR Oxybutynin chloride 5 MG Extended Release Oral Tablet [Ditropan] Ditropan XL 5 MG Ditropan XL 5 MG 09/11/2020 12:00:00 AM EDT 1.0 {tablet} active Ditropan XL 5 MG eCW1 ([facility]) Prednisone 10 MG Oral Tablet predniSONE 10 MG predniSONE 10 MG 09/11/2020 12:00:00 AM EDT active predniSO NE 10 MG eCW1 ([facility]) benzonatate 200 MG Oral Capsule Benzonatate 200 MG Benzonata te 200 MG 09/11/2020 12:00:00 AM EDT 1.0 {capsule} active Benzonatate 200 MG eCW1 ([facility]) Fluconazole 150 MG Oral Tablet fluconazole (DIFLUCAN) 150 mg tablet fluconazole (DIFLUCAN) 150 mg tablet 06/18/2020 12:00:00 AM EDT 150 mg oral active Take 150 mg by mouth 1 (one) time each day if needed. [facility] Propranolol Hydrochloride 40 MG Oral Tablet propranolo L (INDERAL) 40 mg tablet propranoloL (INDERAL) 40 mg tablet 06/14/2020 12:00:00 AM EDT 40 mg oral active Take 40 mg by mouth 1 (one) time each day at night. [facility] Diclofenac Sodium 75 MG Delayed Release Oral Tablet Diclofen ac Sodium 75 MG 06/04/2020 12:00:00 AM EDT 1.0 {tablet_with_food_or_milk} active Diclofenac Sodium 75 MG eCW1 ([facility]) Cyclobenzaprine hydrochloride 10 MG Oral Tablet Cyclob enzaprine HCl 10 MG Cyclobenzaprine HCl 10 MG 06/04/2020 12:00:00 AM EDT 1.0 {tablet_at_bedtime_as_needed} suspended Cyclobenzaprine HCl 10 MG eCW1 ([facility]) Diclofenac Sodium 75 MG Delayed Release Oral Tablet Diclofen ac Sodium 75 MG 06/04/2020 12:00:00 AM EDT 1.0 {tablet_with_food_or_milk} active Diclofenac Sodium 75 MG eCW1 ([facility]) Diclofenac Sodium 75 MG Delayed Release Oral Tablet Diclofen ac Sodium 75 MG 06/04/2020 12:00:00 AM EDT 1.0 {tablet_with_food_or_milk} active Diclofenac Sodium 75 MG eCW1 ([facility]) Cyclobenzaprine hydrochloride 10 MG Oral Tablet Cyclob enzaprine HCl 10 MG Cyclobenzaprine HCl 10 MG 06/04/2020 12:00:00 AM EDT 1.0 {tablet_at_bedtime_as_needed} active Cy clobenzaprine HCl 10 MG eCW1 ([facility]) Cyclobenzaprine hydrochloride 10 MG Oral Tablet Cyclob enzaprine HCl 10 MG Cyclobenzaprine HCl 10 MG 06/04/2020 12:00:00 AM EDT 1.0 {tablet_at_bedtime_as_needed} suspended Cyclobenzaprine HCl 10 MG eCW1 ([facility]) Cyclobenzaprine hydrochloride 10 MG Oral Tablet Cyclob enzaprine HCl 10 MG Cyclobenzaprine HCl 10 MG 06/04/2020 12:00:00 AM EDT 1.0 {tablet_at_bedtime_as_needed} active Cy clobenzaprine HCl 10 MG eCW1 ([facility]) Cyclobenzaprine hydrochloride 10 MG Oral Tablet Cyclob enzaprine HCl 10 MG Cyclobenzaprine HCl 10 MG 06/04/2020 12:00:00 AM EDT 1.0 {tablet_at_bedtime_as_needed} suspended Cyclobenzaprine HCl 10 MG eCW1 ([facility]) Diclofenac Sodium 75 MG Delayed Release Oral Tablet Diclofen ac Sodium 75 MG 06/04/2020 12:00:00 AM EDT 1.0 {tablet_with_food_or_milk} suspended Diclofenac Sodium 75 MG eCW1 ([facility]) Diclofenac Sodium 75 MG Delayed Release Oral Tablet Diclofen ac Sodium 75 MG 06/04/2020 12:00:00 AM EDT 1.0 {tablet_with_food_or_milk} suspended Diclofenac Sodium 75 MG eCW1 ([facility]) Diclofenac Sodium 75 MG Delayed Release Oral Tablet Diclofen ac Sodium 75 MG 06/04/2020 12:00:00 AM EDT 1.0 {tablet_with_food_or_milk} suspended Diclofenac Sodium 75 MG eCW1 ([facility]) Cyclobenzaprine hydrochloride 10 MG Oral Tablet Cyclob enzaprine HCl 10 MG Cyclobenzaprine HCl 10 MG 06/04/2020 12:00:00 AM EDT 1.0 {tablet_at_bedtime_as_needed} suspended Cyclobenzaprine HCl 10 MG eCW1 ([facility]) Diclofenac Sodium 75 MG Delayed Release Oral Tablet Diclofen ac Sodium 75 MG 06/04/2020 12:00:00 AM EDT 1.0 {tablet_with_food_or_milk} active Diclofenac Sodium 75 MG eCW1 ([facility]) Cyclobenzaprine hydrochloride 10 MG Oral Tablet Cyclob enzaprine HCl 10 MG Cyclobenzaprine HCl 10 MG 06/04/2020 12:00:00 AM EDT 1.0 {tablet_at_bedtime_as_needed} active Cy clobenzaprine HCl 10 MG eCW1 ([facility]) Cyclobenzaprine hydrochloride 10 MG Oral Tablet Cyclob enzaprine HCl 10 MG Cyclobenzaprine HCl 10 MG 06/04/2020 12:00:00 AM EDT 1.0 {tablet_at_bedtime_as_needed} active Cy clobenzaprine HCl 10 MG eCW1 ([facility]) Cyclobenzaprine hydrochloride 10 MG Oral Tablet Cyclob enzaprine HCl 10 MG Cyclobenzaprine HCl 10 MG 06/04/2020 12:00:00 AM EDT 1.0 {tablet_at_bedtime_as_needed} active Cy clobenzaprine HCl 10 MG eCW1 ([facility]) Cyclobenzaprine hydrochloride 10 MG Oral Tablet Cyclob enzaprine HCl 10 MG Cyclobenzaprine HCl 10 MG 06/04/2020 12:00:00 AM EDT 1.0 {tablet_at_bedtime_as_needed} active Cy clobenzaprine HCl 10 MG eCW1 ([facility]) Diclofenac Sodium 75 MG Delayed Release Oral Tablet Diclofen ac Sodium 75 MG 06/04/2020 12:00:00 AM EDT 1.0 {tablet_with_food_or_milk} suspended Diclofenac Sodium 75 MG eCW1 ([facility]) Diclofenac Sodium 75 MG Delayed Release Oral Tablet Diclofen ac Sodium 75 MG 06/04/2020 12:00:00 AM EDT 1.0 {tablet_with_food_or_milk} active Diclofenac Sodium 75 MG eCW1 ([facility]) Diclofenac Sodium 75 MG Delayed Release Oral Tablet Diclofen ac Sodium 75 MG 06/04/2020 12:00:00 AM EDT 1.0 {tablet_with_food_or_milk} active Diclofenac Sodium 75 MG eCW1 ([facility]) Diclofenac Sodium 75 MG Delayed Release Oral Tablet Diclofen ac Sodium 75 MG 06/04/2020 12:00:00 AM EDT 1.0 {tablet_with_food_or_milk} active Diclofenac Sodium 75 MG eCW1 ([facility]) Cyclobenzaprine hydrochloride 10 MG Oral Tablet Cyclob enzaprine HCl 10 MG Cyclobenzaprine HCl 10 MG 06/04/2020 12:00:00 AM EDT 1.0 {tablet_at_bedtime_as_needed} active Cy clobenzaprine HCl 10 MG eCW1 ([facility]) 200 ACTUAT Albuterol 0.09 MG/ACTUAT Mete red Dose Inhaler [ProAir] ProAir HFA 108 (90 Base) MCG/ACT ProAir HFA 108 (90 Base) MCG/ACT 05/20/2020 12:00:00 AM EST 2.0 {puffs_as_needed} active Pr oAir HFA 108 (90 Base) MCG/ACT eCW1 ([facility]) 200 ACTUAT Albuterol 0.09 MG/ACTUAT Mete red Dose Inhaler [ProAir] ProAir HFA 108 (90 Base) MCG/ACT ProAir HFA 108 (90 Base) MCG/ACT 05/20/2020 12:00:00 AM EST 2.0 {puffs_as_needed} active Pr oAir HFA 108 (90 Base) MCG/ACT eCW1 ([facility]) cetirizine hydrochloride 10 MG Oral Tablet [Zyrtec] Zy rtec Allergy 10 MG Zyrtec Allergy 10 MG 05/20/2020 12:00:00 AM EST 1.0 {tablet} active Zyrtec Allergy 10 MG eCW1 ([facility]) cetirizine hydrochloride 10 MG Oral Tablet [Zyrtec] Zy rTEC Allergy 10 MG ZyrTEC Allergy 10 MG 05/20/2020 12:00:00 AM EST 1.0 {tablet} active ZyrTEC Allergy 10 MG eCW1 ([facility]) benzonatate 200 MG Oral Capsule Benzonatate 200 MG Benzonata te 200 MG 05/20/2020 12:00:00 AM EST 1.0 {capsule} active Benzonatate 200 MG eCW1 ([facility]) benzonatate 200 MG Oral Capsule Benzonatate 200 MG Benzonata te 200 MG 05/20/2020 12:00:00 AM EST 1.0 {capsule} active Benzonatate 200 MG eCW1 ([facility]) cetirizine hydrochloride 10 MG Oral Tablet [Zyrtec] Zy rTEC Allergy 10 MG ZyrTEC Allergy 10 MG 05/20/2020 12:00:00 AM EST 1.0 {tablet} active ZyrTEC Allergy 10 MG eCW1 ([facility]) doxycycline hyclate 100 MG Oral Capsule Doxycycline Hy clate 100 MG Doxycycline Hyclate 100 MG 05/20/2020 12:00:00 AM EST 1.0 {capsule} active Doxycycline Hyclate 100 MG eCW1 ([facility]) cetirizine hydrochloride 10 MG Oral Tablet [Zyrtec] Zy rtec Allergy 10 MG Zyrtec Allergy 10 MG 05/20/2020 12:00:00 AM EST 1.0 {tablet} active Zyrtec Allergy 10 MG eCW1 ([facility]) cetirizine hydrochloride 10 MG Oral Tablet [Zyrtec] Zy rtec Allergy 10 MG Zyrtec Allergy 10 MG 05/20/2020 12:00:00 AM EST 1.0 {tablet} active Zyrtec Allergy 10 MG eCW1 ([facility]) 200 ACTUAT Albuterol 0.09 MG/ACTUAT Mete red Dose Inhaler [ProAir] ProAir HFA 108 (90 Base) MCG/ACT ProAir HFA 108 (90 Base) MCG/ACT 05/20/2020 12:00:00 AM EST 2.0 {puffs_as_needed} active Pr oAir HFA 108 (90 Base) MCG/ACT eCW1 ([facility]) doxycycline hyclate 100 MG Oral Capsule Doxycycline Hy clate 100 MG Doxycycline Hyclate 100 MG 05/20/2020 12:00:00 AM EST 1.0 {capsule} active Doxycycline Hyclate 100 MG eCW1 ([facility]) 200 ACTUAT Albuterol 0.09 MG/ACTUAT Mete red Dose Inhaler [ProAir] ProAir HFA 108 (90 Base) MCG/ACT ProAir HFA 108 (90 Base) MCG/ACT 05/20/2020 12:00:00 AM EST 2.0 {puffs_as_needed} active Pr oAir HFA 108 (90 Base) MCG/ACT eCW1 ([facility]) cetirizine hydrochloride 10 MG Oral Tablet [Zyrtec] Zy rtec Allergy 10 MG Zyrtec Allergy 10 MG 05/20/2020 12:00:00 AM EST 1.0 {tablet} active Zyrtec Allergy 10 MG eCW1 ([facility]) cetirizine hydrochloride 10 MG Oral Tablet [Zyrtec] Zy rtec Allergy 10 MG Zyrtec Allergy 10 MG 05/20/2020 12:00:00 AM EST 1.0 {tablet} active Zyrtec Allergy 10 MG eCW1 ([facility]) cetirizine hydrochloride 10 MG Oral Tablet [Zyrtec] Zy rtec Allergy 10 MG Zyrtec Allergy 10 MG 05/20/2020 12:00:00 AM EST 1.0 {tablet} active Zyrtec Allergy 10 MG eCW1 ([facility]) 200 ACTUAT Albuterol 0.09 MG/ACTUAT Mete red Dose Inhaler [ProAir] ProAir HFA 108 (90 Base) MCG/ACT ProAir HFA 108 (90 Base) MCG/ACT 05/20/2020 12:00:00 AM EST 2.0 {puffs_as_needed} active Pr oAir HFA 108 (90 Base) MCG/ACT eCW1 ([facility]) benzonatate 200 MG Oral Capsule Benzonatate 200 MG Benzonata te 200 MG 05/20/2020 12:00:00 AM EST 1.0 {capsule} active Benzonatate 200 MG eCW1 ([facility]) doxycycline hyclate 100 MG Oral Capsule Doxycycline Hy clate 100 MG Doxycycline Hyclate 100 MG 05/20/2020 12:00:00 AM EST 1.0 {capsule} active Doxycycline Hyclate 100 MG eCW1 ([facility]) 200 ACTUAT Albuterol 0.09 MG/ACTUAT Mete red Dose Inhaler [ProAir] ProAir HFA 108 (90 Base) MCG/ACT ProAir HFA 108 (90 Base) MCG/ACT 05/20/2020 12:00:00 AM EST 2.0 {puffs_as_needed} active Pr oAir HFA 108 (90 Base) MCG/ACT eCW1 ([facility]) Nystatin 464189 UNT/ML Topical Cream Nystatin 492424 U NIT/GM Nystatin 639720 UNIT/GM 04/29/2020 12:00:00 AM EST 1.0 {application} active Nystatin 205950 UNIT/GM eCW1 ([facility]) Nystatin 425795 UNT/ML Topical Cream Nystatin 589650 U NIT/GM Nystatin 606293 UNIT/GM 04/29/2020 12:00:00 AM EST 1.0 {application} active Nystatin 539569 UNIT/GM eCW1 ([facility]) Nystatin 775725 UNT/ML Topical Cream Nystatin 434153 U NIT/GM Nystatin 406057 UNIT/GM 04/29/2020 12:00:00 AM EST 1.0 {application} active Nystatin 250730 UNIT/GM eCW1 ([facility]) Nystatin 142508 UNT/ML Topical Cream Nystatin 552419 U NIT/GM Nystatin 723412 UNIT/GM 04/29/2020 12:00:00 AM EST 1.0 {application} active Nystatin 384841 UNIT/GM eCW1 ([facility]) Nystatin 854909 UNT/ML Topical Cream Nystatin 274717 U NIT/GM Nystatin 507317 UNIT/GM 04/29/2020 12:00:00 AM EST 1.0 {application} active Nystatin 062390 UNIT/GM eCW1 ([facility]) Nystatin 895206 UNT/ML Topical Cream Nystatin 391552 U NIT/GM Nystatin 779113 UNIT/GM 04/29/2020 12:00:00 AM EST 1.0 {application} active Nystatin 885040 UNIT/GM eCW1 ([facility]) Nystatin 332762 UNT/ML Topical Cream Nystatin 354782 U NIT/GM Nystatin 473603 UNIT/GM 04/29/2020 12:00:00 AM EST 1.0 {application} active Nystatin 442364 UNIT/GM eCW1 ([facility]) Suprep Bowel Prep Kit Suprep Bowel Prep Kit 02/26/2020 12:00:00 AM EST active MEDENT ([facility]) Metformin hydrochloride 500 MG Oral Tablet Metformin H Cl 500 MG Metformin HCl 500 MG 02/18/2020 12:00:00 AM EST 1.0 {tablet_with_a_meal} active Metformin HCl 500 MG eCW1 ([facility]) Metformin hydrochloride 500 MG Oral Tablet Metformin H Cl 500 MG Metformin HCl 500 MG 02/18/2020 12:00:00 AM EST 1.0 {tablet_with_a_meal} active Metformin HCl 500 MG eCW1 ([facility]) Metformin hydrochloride 500 MG Oral Tablet Metformin H Cl 500 MG Metformin HCl 500 MG 02/18/2020 12:00:00 AM EST 1.0 {tablet_with_a_meal} active Metformin HCl 500 MG eCW1 ([facility]) Metformin hydrochloride 500 MG Oral Tablet Metformin H Cl 500 MG Metformin HCl 500 MG 02/18/2020 12:00:00 AM EST 1.0 {tablet_with_a_meal} active Metformin HCl 500 MG eCW1 ([facility]) Metformin hydrochloride 500 MG Oral Tablet Metformin H Cl 500 MG Metformin HCl 500 MG 02/18/2020 12:00:00 AM EST 1.0 {tablet_with_a_meal} active Metformin HCl 500 MG eCW1 ([facility]) Metformin hydrochloride 500 MG Oral Tablet Metformin H Cl 500 MG Metformin HCl 500 MG 02/18/2020 12:00:00 AM EST 1.0 {tablet_with_a_meal} active Metformin HCl 500 MG eCW1 ([facility]) Metformin hydrochloride 500 MG Oral Tablet Metformin H Cl 500 MG Metformin HCl 500 MG 02/18/2020 12:00:00 AM EST 1.0 {tablet_with_a_meal} active Metformin HCl 500 MG eCW1 ([facility]) Metformin hydrochloride 500 MG Oral Tablet Metformin H Cl 500 MG Metformin HCl 500 MG 02/18/2020 12:00:00 AM EST 1.0 {tablet_with_a_meal} active Metformin HCl 500 MG eCW1 ([facility]) Metformin hydrochloride 500 MG Oral Tablet Metformin H Cl 500 MG Metformin HCl 500 MG 02/18/2020 12:00:00 AM EST 1.0 {tablet_with_a_meal} active Metformin HCl 500 MG eCW1 ([facility]) Metformin hydrochloride 500 MG Oral Tablet Metformin H Cl 500 MG Metformin HCl 500 MG 02/18/2020 12:00:00 AM EST 1.0 {tablet_with_a_meal} active Metformin HCl 500 MG eCW1 ([facility]) Metformin hydrochloride 500 MG Oral Tablet Metformin H Cl 500 MG Metformin HCl 500 MG 02/18/2020 12:00:00 AM EST 1.0 {tablet_with_a_meal} active Metformin HCl 500 MG eCW1 ([facility]) Metformin hydrochloride 500 MG Oral Tablet Metformin H Cl 500 MG Metformin HCl 500 MG 02/18/2020 12:00:00 AM EST 1.0 {tablet_with_a_meal} active Metformin HCl 500 MG eCW1 ([facility]) Metformin hydrochloride 500 MG Oral Tablet Metformin H Cl 500 MG Metformin HCl 500 MG 02/18/2020 12:00:00 AM EST 1.0 {tablet_with_a_meal} active Metformin HCl 500 MG eCW1 ([facility]) Metformin hydrochloride 500 MG Oral Tablet Metformin H Cl 500 MG Metformin HCl 500 MG 02/18/2020 12:00:00 AM EST 1.0 {tablet_with_a_meal} active Metformin HCl 500 MG eCW1 ([facility]) Metformin hydrochloride 500 MG Oral Tablet Metformin H Cl 500 MG Metformin HCl 500 MG 02/18/2020 12:00:00 AM EST 1.0 {tablet_with_a_meal} active Metformin HCl 500 MG eCW1 ([facility]) Fluconazole 150 MG Oral Tablet Fluconazole 150 MG 01/18/2020 12:00: 00 AM EST 1.0 {tablet} active Fluconazole 150 MG eCW1 ([facility]) Fluconazole 150 MG Oral Tablet Fluconazole 150 MG 01/18/2020 12:00: 00 AM EST 1.0 {tablet} active Fluconazole 150 MG eCW1 ([facility]) Fluconazole 150 MG Oral Tablet Fluconazole 150 MG 01/18/2020 12:00: 00 AM EST 1.0 {tablet} active Fluconazole 150 MG eCW1 ([facility]) Fluconazole 150 MG Oral Tablet Fluconazole 150 MG 01/18/2020 12:00: 00 AM EST 1.0 {tablet} active Fluconazole 150 MG eCW1 ([facility]) Fluconazole 150 MG Oral Tablet Fluconazole 150 MG 01/18/2020 12:00: 00 AM EST 1.0 {tablet} suspended Fluconazole 150 M G eCW1 ([facility]) Fluconazole 150 MG Oral Tablet Fluconazole 150 MG 01/18/2020 12:00: 00 AM EST 1.0 {tablet} suspended Fluconazole 150 M G eCW1 ([facility]) Fluconazole 150 MG Oral Tablet Fluconazole 150 MG 01/18/2020 12:00: 00 AM EST 1.0 {tablet} active Fluconazole 150 MG eCW1 ([facility]) Fluconazole 150 MG Oral Tablet Fluconazole 150 MG 01/18/2020 12:00: 00 AM EST 1.0 {tablet} active Fluconazole 150 MG eCW1 ([facility]) Fluconazole 150 MG Oral Tablet Fluconazole 150 MG 01/18/2020 12:00: 00 AM EST 1.0 {tablet} active Fluconazole 150 MG eCW1 ([facility]) Fluconazole 150 MG Oral Tablet Fluconazole 150 MG 01/18/2020 12:00: 00 AM EST 1.0 {tablet} active Fluconazole 150 MG eCW1 ([facility]) Fluconazole 150 MG Oral Tablet Fluconazole 150 MG 01/18/2020 12:00: 00 AM EST 1.0 {tablet} active Fluconazole 150 MG eCW1 ([facility]) Fluconazole 150 MG Oral Tablet Fluconazole 150 MG 01/18/2020 12:00: 00 AM EST 1.0 {tablet} active Fluconazole 150 MG eCW1 ([facility]) Fluconazole 150 MG Oral Tablet Fluconazole 150 MG 01/18/2020 12:00: 00 AM EST 1.0 {tablet} active Fluconazole 150 MG eCW1 ([facility]) Fluconazole 150 MG Oral Tablet Fluconazole 150 MG 01/18/2020 12:00: 00 AM EST 1.0 {tablet} active Fluconazole 150 MG eCW1 ([facility]) Fluconazole 150 MG Oral Tablet Fluconazole 150 MG 01/18/2020 12:00: 00 AM EST 1.0 {tablet} active Fluconazole 150 MG eCW1 ([facility]) Fluconazole 150 MG Oral Tablet Fluconazole 150 MG 01/18/2020 12:00: 00 AM EST 1.0 {tablet} active Fluconazole 150 MG eCW1 ([facility]) Fluconazole 150 MG Oral Tablet Fluconazole 150 MG 01/18/2020 12:00: 00 AM EST 1.0 {tablet} suspended Fluconazole 150 M G eCW1 ([facility]) Fluconazole 150 MG Oral Tablet Fluconazole 150 MG 01/18/2020 12:00: 00 AM EST 1.0 {tablet} active Fluconazole 150 MG eCW1 ([facility]) Fluconazole 150 MG Oral Tablet Fluconazole 150 MG 01/18/2020 12:00: 00 AM EST 1.0 {tablet} active Fluconazole 150 MG eCW1 ([facility]) Fluconazole 150 MG Oral Tablet Fluconazole 150 MG 01/18/2020 12:00: 00 AM EST 1.0 {tablet} active Fluconazole 150 MG eCW1 ([facility]) Fluconazole 150 MG Oral Tablet Fluconazole 150 MG 01/18/2020 12:00: 00 AM EST 1.0 {tablet} active Fluconazole 150 MG eCW1 ([facility]) Fluconazole 150 MG Oral Tablet Fluconazole 150 MG 01/18/2020 12:00: 00 AM EST 1.0 {tablet} active Fluconazole 150 MG eCW1 ([facility]) Fluconazole 150 MG Oral Tablet Fluconazole 150 MG 01/18/2020 12:00: 00 AM EST 1.0 {tablet} active Fluconazole 150 MG eCW1 ([facility]) Fluconazole 150 MG Oral Tablet Fluconazole 150 MG 01/18/2020 12:00: 00 AM EST 1.0 {tablet} suspended Fluconazole 150 M G eCW1 ([facility]) OneTouch Verio IQ System w/Device OneTouch Verio IQ System w /Device 01/01/2020 12:00:00 AM EDT active OneTouch Verio IQ System w/Device eCW1 ([facility]) FreeStyle Sedrick 14 Day Sensor - FreeStyle [place]rick 14 Day Senso r - 01/01/2020 12:00:00 AM EDT active FreeStyl e [place] 14 Day Sensor - eCW1 ([facility]) Simvastatin 40 MG Oral Tablet Simvastatin 40 MG 01/01/2020 12:00:00 AM EDT 1.0 {tablet_in_the_evening} active Simvast atin 40 MG eCW1 ([facility]) FreeStyle [place]rick 14 Day [place] - FreeStyle [place]rick 14 Day [place] - 01/01/2020 12:00:00 AM EDT active FreeStyl e [place] 14 Day [place] - eCW1 ([facility]) FreeStyle [place] 14 Day [place] - FreeStyle [place] 14 Day [place] - 01/01/2020 12:00:00 AM EDT active FreeStyl e [place] 14 Day [place] - eCW1 ([facility]) FreeStyle [place]rick 14 Day Sensor - FreeStyle [place] 14 Day Senso r - 01/01/2020 12:00:00 AM EDT active FreeStyl e [place] 14 Day Sensor - eCW1 ([facility]) OneTouch Verio IQ System w/Device OneTouch Verio IQ System w /Device 01/01/2020 12:00:00 AM EDT active OneTouch Verio IQ System w/Device eCW1 ([facility]) FreeStyle [place] 14 Day [place] - FreeStyle [place] 14 Day [place] - 01/01/2020 12:00:00 AM EDT active FreeStyl e [place] 14 Day [place] - eCW1 ([facility]) FreeStyle [place] 14 Day [place] - FreeStyle [place] 14 Day [place] - 01/01/2020 12:00:00 AM EDT active FreeStyl e [place] 14 Day [place] - eCW1 ([facility]) FreeStyle [place] 14 Day Sensor - FreeStyle [place] 14 Day Senso r - 01/01/2020 12:00:00 AM EDT active FreeStyl e [place] 14 Day Sensor - eCW1 ([facility]) FreeStyle [place] 14 Day Sensor - FreeStyle [place] 14 Day Senso r - 01/01/2020 12:00:00 AM EDT active FreeStyl e [place] 14 Day Sensor - eCW1 ([facility]) Simvastatin 40 MG Oral Tablet Simvastatin 40 MG 01/01/2020 12:00:00 AM EDT 1.0 {tablet_in_the_evening} active Simvast atin 40 MG eCW1 ([facility]) FreeStyle [place] 14 Day Sensor - FreeStyle [place] 14 Day Senso r - 01/01/2020 12:00:00 AM EDT active FreeStyl e [place] 14 Day Sensor - eCW1 ([facility]) OneTouch Verio IQ System w/Device OneTouch Verio IQ System w /Device 01/01/2020 12:00:00 AM EDT active OneTouch Verio IQ System w/Device eCW1 ([facility]) FreeStyle [place] 14 Day [place] - FreeStyle [place] 14 Day [place] - 01/01/2020 12:00:00 AM EDT active FreeStyl e [place] 14 Day [place] - eCW1 ([facility]) FreeStyle [place] 14 Day [place] - FreeStyle [place] 14 Day [place] - 01/01/2020 12:00:00 AM EDT active FreeStyl e [place] 14 Day [place] - eCW1 ([facility]) OneTouch Verio IQ System w/Device OneTouch Verio IQ System w /Device 01/01/2020 12:00:00 AM EDT active OneTouch Verio IQ System w/Device eCW1 ([facility]) FreeStyle [place] 14 Day Sensor - FreeStyle [place] 14 Day Senso r - 01/01/2020 12:00:00 AM EDT active FreeStyl e [place] 14 Day Sensor - eCW1 ([facility]) OneTouch Verio IQ System w/Device OneTouch Verio IQ System w /Device 01/01/2020 12:00:00 AM EDT active OneTouch Verio IQ System w/Device eCW1 ([facility]) OneTouch Verio IQ System w/Device OneTouch Verio IQ System w /Device 01/01/2020 12:00:00 AM EDT active OneTouch Verio IQ System w/Device eCW1 ([facility]) Glucose strip (Verio IQ) UNK 01/01/2020 12:00:00 AM EDT active Glucose strip (Verio IQ) eCW1 ([facility]) FreeStyle [place] 14 Day [place] - FreeStyle [place] 14 Day [place] - 01/01/2020 12:00:00 AM EDT active FreeStyl e [place] 14 Day [place] - eCW1 ([facility]) Simvastatin 40 MG Oral Tablet Simvastatin 40 MG 01/01/2020 12:00:00 AM EDT 1.0 {tablet_in_the_evening} active Simvast atin 40 MG eCW1 ([facility]) FreeStyle [place] 14 Day Sensor - FreeStyle [place] 14 Day Senso r - 01/01/2020 12:00:00 AM EDT active FreeStyl e [place] 14 Day Sensor - eCW1 ([facility]) OneTouch Verio IQ System w/Device OneTouch Verio IQ System w /Device 01/01/2020 12:00:00 AM EDT active OneTouch Verio IQ System w/Device eCW1 ([facility]) OneTouch Verio IQ System w/Device OneTouch Verio IQ System w /Device 01/01/2020 12:00:00 AM EDT active OneTouch Verio IQ System w/Device eCW1 ([facility]) Glucose strip (Verio IQ) UNK 01/01/2020 12:00:00 AM EDT active Glucose strip (Verio IQ) eCW1 ([facility]) OneTouch Verio IQ System w/Device OneTouch Verio IQ System w /Device 01/01/2020 12:00:00 AM EDT active OneTouch Verio IQ System w/Device eCW1 ([facility]) FreeStyle [place] 14 Day [place] - FreeStyle [place] 14 Day [place] - 01/01/2020 12:00:00 AM EDT active FreeStyl e [place] 14 Day [place] - eCW1 ([facility]) OneTouch Verio IQ System w/Device OneTouch Verio IQ System w /Device 01/01/2020 12:00:00 AM EDT active OneTouch Verio IQ System w/Device eCW1 ([facility]) OneTouch Verio IQ System w/Device OneTouch Verio IQ System w /Device 01/01/2020 12:00:00 AM EDT active OneTouch Verio IQ System w/Device eCW1 ([facility]) OneTouch Verio IQ System w/Device OneTouch Verio IQ System w /Device 01/01/2020 12:00:00 AM EDT active OneTouch Verio IQ System w/Device eCW1 ([facility]) FreeStyle [place] 14 Day Sensor - FreeStyle [place] 14 Day Senso r - 01/01/2020 12:00:00 AM EDT active FreeStyl e [place] 14 Day Sensor - eCW1 ([facility]) FreeStyle [place] 14 Day Sensor - FreeStyle [place] 14 Day Senso r - 01/01/2020 12:00:00 AM EDT active FreeStyl e [place] 14 Day Sensor - eCW1 ([facility]) FreeStyle [place] 14 Day [place] - FreeStyle [place] 14 Day [place] - 01/01/2020 12:00:00 AM EDT active FreeStyl e [place] 14 Day [place] - eCW1 ([facility]) Simvastatin 40 MG Oral Tablet Simvastatin 40 MG 01/01/2020 12:00:00 AM EDT 1.0 {tablet_in_the_evening} active Simvast atin 40 MG eCW1 ([facility]) Glucose strip (Verio IQ) UNK 01/01/2020 12:00:00 AM EDT active Glucose strip (Verio IQ) eCW1 ([facility]) FreeStyle [place] 14 Day Sensor - FreeStyle [place] 14 Day Senso r - 01/01/2020 12:00:00 AM EDT active FreeStyl e [place] 14 Day Sensor - eCW1 ([facility]) Glucose strip (Verio IQ) UNK 01/01/2020 12:00:00 AM EDT active Glucose strip (Verio IQ) eCW1 ([facility]) Glucose strip (Verio IQ) UNK 01/01/2020 12:00:00 AM EDT active Glucose strip (Verio IQ) eCW1 ([facility]) FreeStyle [place] 14 Day [place] - FreeStyle [place] 14 Day [place] 01/01/2020 12:00:00 AM EDT active FreeStyl e [place] 14 Day [place] - eCW1 ([facility]) FreeStyle [place] 14 Day Sensor - FreeStyle [place] 14 Day Senso r - 01/01/2020 12:00:00 AM EDT active FreeStyl e [place] 14 Day Sensor - eCW1 ([facility]) FreeStyle [place] 14 Day Sensor - FreeStyle [place] 14 Day Senso r - 01/01/2020 12:00:00 AM EDT active FreeStyl e [place] 14 Day Sensor - eCW1 ([facility]) FreeStyle [place] 14 Day [place] - FreeStyle [place] 14 Day [place] - 01/01/2020 12:00:00 AM EDT active FreeStyl e [place] 14 Day [place] - eCW1 ([facility]) FreeStyle [place] 14 Day Sensor - FreeStyle [place] 14 Day Senso r - 01/01/2020 12:00:00 AM EDT active FreeStyl e [place] 14 Day Sensor - eCW1 ([facility]) OneTouch Verio IQ System w/Device OneTouch Verio IQ System w /Device 01/01/2020 12:00:00 AM EDT active OneTouch Verio IQ System w/Device eCW1 ([facility]) Simvastatin 40 MG Oral Tablet Simvastatin 40 MG 01/01/2020 12:00:00 AM EDT 1.0 {tablet_in_the_evening} active Simvast atin 40 MG eCW1 ([facility]) Simvastatin 40 MG Oral Tablet Simvastatin 40 MG 01/01/2020 12:00:00 AM EDT 1.0 {tablet_in_the_evening} active Simvast atin 40 MG eCW1 ([facility]) OneTouch Verio IQ System w/Device OneTouch Verio IQ System w /Device 01/01/2020 12:00:00 AM EDT active OneTouch Verio IQ System w/Device eCW1 ([facility]) FreeStyle [place] 14 Day Sensor - FreeStyle [place] 14 Day Senso r - 01/01/2020 12:00:00 AM EDT active FreeStyl e [place] 14 Day Sensor - eCW1 ([facility]) FreeStyle [place] 14 Day Sensor - FreeStyle [place] 14 Day Senso r - 01/01/2020 12:00:00 AM EDT active FreeStyl e [place] 14 Day Sensor - eCW1 ([facility]) OneTouch Verio IQ System w/Device OneTouch Verio IQ System w /Device 01/01/2020 12:00:00 AM EDT active OneTouch Verio IQ System w/Device eCW1 ([facility]) FreeStyle [place] 14 Day Sensor - FreeStyle [place] 14 Day Senso r - 01/01/2020 12:00:00 AM EDT active FreeStyl e [place] 14 Day Sensor - eCW1 ([facility]) Glucose strip (Verio IQ) UNK 01/01/2020 12:00:00 AM EDT active Glucose strip (Verio IQ) eCW1 ([facility]) FreeStyle [place] 14 Day Sensor - FreeStyle [place] 14 Day Senso r - 01/01/2020 12:00:00 AM EDT active FreeStyl e [place] 14 Day Sensor - eCW1 ([facility]) FreeStyle [place] 14 Day Sensor - FreeStyle [place] 14 Day Senso r - 01/01/2020 12:00:00 AM EDT active FreeStyl e [place] 14 Day Sensor - eCW1 ([facility]) FreeStyle [place] 14 Day [place] - FreeStyle [place] 14 Day [place] - 01/01/2020 12:00:00 AM EDT active FreeStyl e [place] 14 Day [place] - eCW1 ([facility]) FreeStyle [place]rick 14 Day Sensor - FreeStyle [place] 14 Day Senso r - 01/01/2020 12:00:00 AM EDT active FreeStyl e [place] 14 Day Sensor - eCW1 ([facility]) Simvastatin 40 MG Oral Tablet Simvastatin 40 MG 01/01/2020 12:00:00 AM EDT 1.0 {tablet_in_the_evening} active Simvast atin 40 MG eCW1 ([facility]) FreeStyle [place] 14 Day [place] - FreeStyle [place] 14 Day [place] - 01/01/2020 12:00:00 AM EDT active FreeStyl e [place] 14 Day [place] - eCW1 ([facility]) Simvastatin 40 MG Oral Tablet Simvastatin 40 MG 01/01/2020 12:00:00 AM EDT 1.0 {tablet_in_the_evening} active Simvast atin 40 MG eCW1 ([facility]) Glucose strip (Verio IQ) UNK 01/01/2020 12:00:00 AM EDT active Glucose strip (Verio IQ) eCW1 ([facility]) Glucose strip (Verio IQ) UNK 01/01/2020 12:00:00 AM EDT active Glucose strip (Verio IQ) eCW1 ([facility]) FreeStyle [place] 14 Day [place] - FreeStyle [place] 14 Day [place] - 01/01/2020 12:00:00 AM EDT active FreeStyl e [place] 14 Day [place] - eCW1 ([facility]) OneTouch Verio IQ System w/Device OneTouch Verio IQ System w /Device 01/01/2020 12:00:00 AM EDT active OneTouch Verio IQ System w/Device eCW1 ([facility]) OneTouch Verio IQ System w/Device OneTouch Verio IQ System w /Device 01/01/2020 12:00:00 AM EDT active OneTouch Verio IQ System w/Device eCW1 ([facility]) OneTouch Verio IQ System w/Device OneTouch Verio IQ System w /Device 01/01/2020 12:00:00 AM EDT active OneTouch Verio IQ System w/Device eCW1 ([facility]) Glucose strip (Verio IQ) UNK 01/01/2020 12:00:00 AM EDT active Glucose strip (Verio IQ) eCW1 ([facility]) OneTouch Verio IQ System w/Device OneTouch Verio IQ System w /Device 01/01/2020 12:00:00 AM EDT active OneTouch Verio IQ System w/Device eCW1 ([facility]) FreeStyle [place] 14 Day Sensor - FreeStyle [place] 14 Day Senso r - 01/01/2020 12:00:00 AM EDT active FreeStyl e [place] 14 Day Sensor - eCW1 ([facility]) OneTouch Verio IQ System w/Device OneTouch Verio IQ System w /Device 01/01/2020 12:00:00 AM EDT active OneTouch Verio IQ System w/Device eCW1 ([facility]) Glucose strip (Verio IQ) UNK 01/01/2020 12:00:00 AM EDT active Glucose strip (Verio IQ) eCW1 ([facility]) FreeStyle [place] 14 Day [place] - FreeStyle [place] 14 Day [place] - 01/01/2020 12:00:00 AM EDT active FreeStyl e [place] 14 Day [place] - eCW1 ([facility]) Simvastatin 40 MG Oral Tablet Simvastatin 40 MG 01/01/2020 12:00:00 AM EDT 1.0 {tablet_in_the_evening} active Simvast atin 40 MG eCW1 ([facility]) OneTouch Verio IQ System w/Device OneTouch Verio IQ System w /Device 01/01/2020 12:00:00 AM EDT active OneTouch Verio IQ System w/Device eCW1 ([facility]) Simvastatin 40 MG Oral Tablet Simvastatin 40 MG 01/01/2020 12:00:00 AM EDT 1.0 {tablet_in_the_evening} active Simvast atin 40 MG eCW1 ([facility]) Glucose strip (Verio IQ) UNK 01/01/2020 12:00:00 AM EDT active Glucose strip (Verio IQ) eCW1 ([facility]) Glucose strip (Verio IQ) UNK 01/01/2020 12:00:00 AM EDT active Glucose strip (Verio IQ) eCW1 ([facility]) FreeStyle [place] 14 Day Sensor - FreeStyle [place] 14 Day Senso r - 01/01/2020 12:00:00 AM EDT active FreeStyl e [place] 14 Day Sensor - eCW1 ([facility]) FreeStyle [place] 14 Day [place] - FreeStyle [place] 14 Day [place] - 01/01/2020 12:00:00 AM EDT active FreeStyl e [place] 14 Day [place] - eCW1 ([facility]) Simvastatin 40 MG Oral Tablet Simvastatin 40 MG 01/01/2020 12:00:00 AM EDT 1.0 {tablet_in_the_evening} active Simvast atin 40 MG eCW1 ([facility]) Simvastatin 40 MG Oral Tablet Simvastatin 40 MG 01/01/2020 12:00:00 AM EDT 1.0 {tablet_in_the_evening} active Simvast atin 40 MG eCW1 ([facility]) Glucose strip (Verio IQ) UNK 01/01/2020 12:00:00 AM EDT active Glucose strip (Verio IQ) eCW1 ([facility]) FreeStyle [place] 14 Day [place] - FreeStyle [place] 14 Day [place] - 01/01/2020 12:00:00 AM EDT active FreeStyl e [place] 14 Day [place] - eCW1 ([facility]) OneTouch Verio IQ System w/Device OneTouch Verio IQ System w /Device 01/01/2020 12:00:00 AM EDT active OneTouch Verio IQ System w/Device eCW1 ([facility]) OneTouch Verio IQ System w/Device OneTouch Verio IQ System w /Device 01/01/2020 12:00:00 AM EDT active OneTouch Verio IQ System w/Device eCW1 ([facility]) FreeStyle [place] 14 Day Sensor - FreeStyle [place] 14 Day [place]enso r - 01/01/2020 12:00:00 AM EDT active FreeStyl e [place] 14 Day Sensor - eCW1 ([facility]) FreeStyle [place] 14 Day [place] - FreeStyle [place] 14 Day [place] 01/01/2020 12:00:00 AM EDT active FreeStyl e [place] 14 Day [place] - eCW1 ([facility]) FreeStyle [place] 14 Day Sensor - FreeStyle [place] 14 Day [place]enso r - 01/01/2020 12:00:00 AM EDT active FreeStyl e [place] 14 Day Sensor - eCW1 ([facility]) FreeStyle [place] 14 Day [place] - FreeStyle [place] 14 Day [place] 01/01/2020 12:00:00 AM EDT active FreeStyl e [place] 14 Day [place] - eCW1 ([facility]) FreeStyle [place] 14 Day [place] - FreeStyle [place] 14 Day [place] - 01/01/2020 12:00:00 AM EDT active FreeStyl e [place] 14 Day [place] - eCW1 ([facility]) Simvastatin 40 MG Oral Tablet Simvastatin 40 MG 01/01/2020 12:00:00 AM EDT 1.0 {tablet_in_the_evening} active Simvast atin 40 MG eCW1 ([facility]) FreeStyle [place] 14 Day Sensor - FreeStyle [place] 14 Day Senso r - 01/01/2020 12:00:00 AM EDT active FreeStyl e [place] 14 Day Sensor - eCW1 ([facility]) FreeStyle [place] 14 Day [place] - FreeStyle [place] 14 Day [place] - 01/01/2020 12:00:00 AM EDT active FreeStyl e [place] 14 Day [place] - eCW1 ([facility]) FreeStyle [place] 14 Day Sensor - FreeStyle [place] 14 Day [place] - 01/01/2020 12:00:00 AM EDT active FreeStyl e [place] 14 Day Sensor - eCW1 ([facility]) FreeStyle [place] 14 Day Sensor - FreeStyle [place] 14 Day [place]enso [place] - 01/01/2020 12:00:00 AM EDT active FreeStyl e [place] 14 Day Sensor - eCW1 ([facility]) Glucose strip (Verio IQ) UNK 01/01/2020 12:00:00 AM EDT active Glucose strip (Verio IQ) eCW1 ([facility]) FreeStyle [place] 14 Day [place] - FreeStyle [place] 14 Day [place] - 01/01/2020 12:00:00 AM EDT active FreeStyl e [place] 14 Day [place] - eCW1 ([facility]) OneTouch Verio IQ System w/Device OneTouch Verio IQ System w /Device 01/01/2020 12:00:00 AM EDT active OneTouch Verio IQ System w/Device eCW1 ([facility]) FreeStyle [place] 14 Day Sensor - FreeStyle [place] 14 Day [place]enso r - 01/01/2020 12:00:00 AM EDT active FreeStyl e [place] 14 Day Sensor - eCW1 ([facility]) OneTouch Verio IQ System w/Device OneTouch Verio IQ System w /Device 01/01/2020 12:00:00 AM EDT active OneTouch Verio IQ System w/Device eCW1 ([facility]) OneTouch Verio IQ System w/Device OneTouch Verio IQ System w /Device 01/01/2020 12:00:00 AM EDT active OneTouch Verio IQ System w/Device eCW1 ([facility]) OneTouch Verio IQ System w/Device OneTouch Verio IQ System w /Device 01/01/2020 12:00:00 AM EDT active OneTouch Verio IQ System w/Device eCW1 ([facility]) Simvastatin 40 MG Oral Tablet Simvastatin 40 MG 01/01/2020 12:00:00 AM EDT 1.0 {tablet_in_the_evening} active Simvast atin 40 MG eCW1 ([facility]) Simvastatin 40 MG Oral Tablet Simvastatin 40 MG 01/01/2020 12:00:00 AM EDT 1.0 {tablet_in_the_evening} active Simvast atin 40 MG eCW1 ([facility]) Simvastatin 40 MG Oral Tablet Simvastatin 40 MG 01/01/2020 12:00:00 AM EDT 1.0 {tablet_in_the_evening} active Simvast atin 40 MG eCW1 ([facility]) Glucose strip (Verio IQ) UNK 01/01/2020 12:00:00 AM EDT active Glucose strip (Verio IQ) eCW1 ([facility]) FreeStyle [place] 14 Day [place] - FreeStyle [place] 14 Day [place] - 01/01/2020 12:00:00 AM EDT active FreeStyl e [place] 14 Day [place] - eCW1 ([facility]) FreeStyle [place] 14 Day [place] - FreeStyle [place] 14 Day [place] - 01/01/2020 12:00:00 AM EDT active FreeStyl e [place] 14 Day [place] - eCW1 ([facility]) FreeStyle [place] 14 Day [place] - FreeStyle [place] 14 Day [place] - 01/01/2020 12:00:00 AM EDT active FreeStyl e [place] 14 Day [place] - eCW1 ([facility]) FreeStyle [employer] 14 Day Sensor - FreeStyle [place] 14 Day [place] - 01/01/2020 12:00:00 AM EDT active FreeStyl e [place] 14 Day Sensor - eCW1 ([facility]) FreeStyle [place] 14 Day [place] - FreeStyle [place] 14 Day [place] - 01/01/2020 12:00:00 AM EDT active FreeStyl e [place] 14 Day [place] - eCW1 ([facility]) Glucose strip (Verio IQ) UNK 01/01/2020 12:00:00 AM EDT active Glucose strip (Verio IQ) eCW1 ([facility]) FreeStyle [place] 14 Day [place] - FreeStyle [place] 14 Day [place] - 01/01/2020 12:00:00 AM EDT active FreeStyl e [place] 14 Day [place] - eCW1 ([facility]) OneTouch Verio IQ System w/Device OneTouch Verio IQ System w /Device 01/01/2020 12:00:00 AM EDT active OneTouch Verio IQ System w/Device eCW1 ([facility]) FreeStyle [place] 14 Day [place] - FreeStyle [place] 14 Day [place] - 01/01/2020 12:00:00 AM EDT active FreeStyl e [place] 14 Day [place] - eCW1 ([facility]) Propranolol Hydrochloride 40 MG Oral Tablet Propranolo l HCl 40 MG Propranolol HCl 40 MG 12/20/2019 12:00:00 AM EDT 1.0 {tablet} ac tive Propranolol HCl 40 MG [facility]CW1 [facility] [facility]) Test Strips - UNK 12/20/2019 12:00:00 AM EDT acti ve Test Strips - eCW1 ([facility]) Glucometer UNK 12/20/2019 12:00:00 AM EDT active Glucometer eCW1 ([facility]) Glucometer UNK 12/20/2019 12:00:00 AM EDT active Glucometer eCW1 ([facility]) Propranolol Hydrochloride 40 MG Oral Tablet Propranolo l HCl 40 MG Propranolol HCl 40 MG 12/20/2019 12:00:00 AM EDT 1.0 {tablet} ac tive Propranolol HCl 40 MG eCW1 ([facility]) Glucometer UNK 12/20/2019 12:00:00 AM EDT active Glucometer eCW1 ([facility]) Glucometer UNK 12/20/2019 12:00:00 AM EDT active Glucometer eCW1 ([facility]) Propranolol Hydrochloride 40 MG Oral Tablet Propranolo l HCl 40 MG Propranolol HCl 40 MG 12/20/2019 12:00:00 AM EDT 1.0 {tablet} ac tive Propranolol HCl 40 MG eCW1 ([facility]) Propranolol Hydrochloride 40 MG Oral Tablet Propranolo l HCl 40 MG Propranolol HCl 40 MG 12/20/2019 12:00:00 AM EDT 1.0 {tablet} ac tive Propranolol HCl 40 MG eCW1 ([facility]) Glucometer UNK 12/20/2019 12:00:00 AM EDT active Glucometer eCW1 ([facility]) Test Strips - UNK 12/20/2019 12:00:00 AM EDT acti ve Test Strips - eCW1 ([facility]) Propranolol Hydrochloride 40 MG Oral Tablet Propranolo l HCl 40 MG Propranolol HCl 40 MG 12/20/2019 12:00:00 AM EDT 1.0 {tablet} ac tive Propranolol HCl 40 MG eCW1 ([facility]) Glucometer UNK 12/20/2019 12:00:00 AM EDT active Glucometer eCW1 ([facility]) Glucometer UNK 12/20/2019 12:00:00 AM EDT active Glucometer eCW1 ([facility]) Propranolol Hydrochloride 40 MG Oral Tablet Propranolo l HCl 40 MG Propranolol HCl 40 MG 12/20/2019 12:00:00 AM EDT 1.0 {tablet} ac tive Propranolol HCl 40 MG eCW1 ([facility]) Glucometer UNK 12/20/2019 12:00:00 AM EDT active Glucometer eCW1 ([facility]) Propranolol Hydrochloride 40 MG Oral Tablet Propranolo l HCl 40 MG Propranolol HCl 40 MG 12/20/2019 12:00:00 AM EDT 1.0 {tablet} ac tive Propranolol HCl 40 MG eCW1 ([facility]) Glucometer UNK 12/20/2019 12:00:00 AM EDT active Glucometer eCW1 ([facility]) Test Strips - UNK 12/20/2019 12:00:00 AM EDT acti ve Test Strips - eCW1 ([facility]) Glucometer UNK 12/20/2019 12:00:00 AM EDT active Glucometer eCW1 ([facility]) Test Strips - UNK 12/20/2019 12:00:00 AM EDT acti ve Test Strips - eCW1 ([facility]) Glucometer UNK 12/20/2019 12:00:00 AM EDT active Glucometer eCW1 ([facility]) Glucometer UNK 12/20/2019 12:00:00 AM EDT active Glucometer eCW1 ([facility]) Test Strips - UNK 12/20/2019 12:00:00 AM EDT acti ve Test Strips - eCW1 ([facility]) Glucometer UNK 12/20/2019 12:00:00 AM EDT active Glucometer eCW1 ([facility]) Glucometer UNK 12/20/2019 12:00:00 AM EDT active Glucometer eCW1 ([facility]) Glucometer UNK 12/20/2019 12:00:00 AM EDT active Glucometer eCW1 ([facility]) Propranolol Hydrochloride 40 MG Oral Tablet Propranolo l HCl 40 MG Propranolol HCl 40 MG 12/20/2019 12:00:00 AM EDT 1.0 {tablet} ac tive Propranolol HCl 40 MG eCW1 ([facility]) Test Strips - UNK 12/20/2019 12:00:00 AM EDT acti ve Test Strips - eCW1 ([facility]) Test Strips - UNK 12/20/2019 12:00:00 AM EDT acti ve Test Strips - eCW1 ([facility]) Test Strips - UNK 12/20/2019 12:00:00 AM EDT acti ve Test Strips - eCW1 ([facility]) Test Strips - UNK 12/20/2019 12:00:00 AM EDT acti ve Test Strips - eCW1 ([facility]) Propranolol Hydrochloride 40 MG Oral Tablet Propranolo l HCl 40 MG Propranolol HCl 40 MG 12/20/2019 12:00:00 AM EDT 1.0 {tablet} ac tive Propranolol HCl 40 MG eCW1 ([facility]) Test Strips - UNK 12/20/2019 12:00:00 AM EDT acti ve Test Strips - eCW1 ([facility]) Glucometer UNK 12/20/2019 12:00:00 AM EDT active Glucometer eCW1 ([facility]) Glucometer UNK 12/20/2019 12:00:00 AM EDT active Glucometer eCW1 ([facility]) Glucometer UNK 12/20/2019 12:00:00 AM EDT active Glucometer eCW1 ([facility]) Glucometer UNK 12/20/2019 12:00:00 AM EDT active Glucometer eCW1 ([facility]) Glucometer UNK 12/20/2019 12:00:00 AM EDT active Glucometer eCW1 ([facility]) Test Strips - UNK 12/20/2019 12:00:00 AM EDT acti ve Test Strips - eCW1 ([facility]) Test Strips - UNK 12/20/2019 12:00:00 AM EDT acti ve Test Strips - eCW1 ([facility]) Test Strips - UNK 12/20/2019 12:00:00 AM EDT acti ve Test Strips - eCW1 ([facility]) Glucometer UNK 12/20/2019 12:00:00 AM EDT active Glucometer eCW1 ([facility]) Glucometer UNK 12/20/2019 12:00:00 AM EDT active Glucometer eCW1 ([facility]) Glucometer UNK 12/20/2019 12:00:00 AM EDT active Glucometer eCW1 ([facility]) Glucometer UNK 12/20/2019 12:00:00 AM EDT active Glucometer eCW1 ([facility]) Test Strips - UNK 12/20/2019 12:00:00 AM EDT acti ve Test Strips - eCW1 ([facility]) Glucometer UNK 12/20/2019 12:00:00 AM EDT active Glucometer eCW1 ([facility]) Glucometer UNK 12/20/2019 12:00:00 AM EDT active Glucometer eCW1 ([facility]) Glucometer UNK 12/20/2019 12:00:00 AM EDT active Glucometer eCW1 ([facility]) Glucometer UNK 12/20/2019 12:00:00 AM EDT active Glucometer eCW1 ([facility]) Test Strips - UNK 12/20/2019 12:00:00 AM EDT acti ve Test Strips - eCW1 ([facility]) Test Strips - UNK 12/20/2019 12:00:00 AM EDT acti ve Test Strips - eCW1 ([facility]) Glucometer UNK 12/20/2019 12:00:00 AM EDT active Glucometer eCW1 ([facility]) Glucometer UNK 12/20/2019 12:00:00 AM EDT active Glucometer eCW1 ([facility]) 0.4 ML Enoxaparin sodium 100 MG/ML Prefi lled Syringe enoxaparin (LOVENOX) 40 mg/0.4 mL syringe enoxaparin (LOVENOX) 40 mg/0.4 mL syringe 40 mg subcutaneous aborted Inject 0.4 m L (40 mg total) under the skin 1 (one) time each day. For ten days after discharge [facility] Insurance Providers Payer name Policy type / Coverage type Policy ID Covered alliance party ID Covered alliance party's relationship to tan Policy Tan Plan Information [employer] Medigap Part B [id number] Self [id number] [employer] Medigap Part B [id number] Self [id number] [employer] Medig[employer] Part B [id number] Self [id number] [employer] Medigap Part B [id number] Self [id number] [employer] Medigap Part B [id number] Self [id number] [employer] Medig[employer] Part B [id number] Self [id number] [employer] Medigap Part B [id number] Self [id number] [employer] Medigap Part B [id number] Self [id number] [facility] Community Plan Commercial [id number] Self [id number] [facility] Community Plan Commercial [id number] Self [id number] [facility] Community Plan Commercial [id number] Self [employer] COMMUNITY PLAN MCDHMO [id number] SP [id number] UNHC COMMUNITY PLAN MCDHMO [id number] SP [id number] [facility] MEDICAID [id number] Self [id number] [facility] [id number] Self [id number] [facility] [id number] ANSI-Medicaid [id number] ANSI-Medicaid [id number] ANSI-Medicaid [id number] [employer] Medigap Part B [id number] Self [id number] [facility] ([facility]) [id number] Self [id number] [facility] [id number] SP [id number] BC[employer] CHILD HEALTH PLUS [id number] SP [id number] [facility] ([facility]) [id number] Self [id number] [facility] ([facility]) [id number] Self [employer] Medigap Part B [id number] Self [facility] Medicaid Medicaid [id number] Self [facility] [id number] SP [id number] [employer] P [id number] S [id number] [facility] BLUE [id number] SP [id number] [facility] [id number] SP [id number] [facility](MCAID) O [id number] S [id number] [facility] P [id number] S [id number] Medicaid Dental S [id number] S [id number] ANSI-Medicaid [id number] ANSI-Medicaid [id number] ANSI-Medicaid [id number] ANSI-Medicaid [id number] ANSI-Medicaid [id number] ANSI-Medicaid [id number] ANSI-Medicaid [id number] ANSI-Medicaid [id number] [facility] Health Maintenance Organization (O) [id number] Self [id number] ANSI-Medicaid [id number] ANSI-Medicaid [id number] ANSI-Medicaid [id number] Problems, Conditions, and Diagnoses Code Display Name Description Problem Type Effective Dates Data Source(s) E66.01 Morbid (severe) obesity due to excess ca lories Morbid (severe) obesity due to excess calories Diagnosis 11/11/2020 04:57:00 AM EDT [facility] Z01.818 Encounter for other preprocedural examin ation Encounter for other preprocedural examination Diagnosis 10/21/2020 09:33:29 AM EDT [facility] N32.81 [id number] OAB (overactive bladder) Problem 09/11/2020 12:00:00 AM EDT eCW1 ([facility]) J30.9 [id number] Allergic rhinitis, unspecified s easonality, unspecified trigger Problem 05/20/2020 12:00:00 AM EST eCW1 ([facility]) Z68.32 [id number] BMI 32.0-32.9,adult Problem 05/04/2020 12:00 :00 AM EST eCW1 ([facility]) [id number] Diarrhea Diarrhea Problem 02/26/2020 12:00:00 AM ES T MEDENT ([facility]) E13.9 [id number] 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), managed as type 1 Problem 12/23/2019 12:00:00 AM EDT eCW1 ([facility]) Surgeries/Procedures Procedure Description Date Indications Data Source(s) POCT GLUCOSE METER UNSOLICITED RESULTS <td>POCT GLUCOS E METER UNSOLICITED RESULTS</td><td>Routine</td><td>11/14/2020 4:35 PM EDT</td><td></td><td> </td> 11/14/2020 04:35:00 PM EDT [facility] POCT GLUCOSE METER UNSOLICITED RESULTS <td>POCT GLUCOS E METER UNSOLICITED RESULTS</td><td>Routine</td><td>11/14/2020 12:24 PM EDT</td><td></td><td> </td> 11/14/2020 12:24:00 PM EDT [facility] POCT GLUCOSE METER UNSOLICITED RESULTS <td>POCT GLUCOS E METER UNSOLICITED RESULTS</td><td>Routine</td><td>11/14/2020 8:36 AM EDT</td><td></td><td> </td> 11/14/2020 08:36:00 AM EDT [facility] POCT GLUCOSE METER UNSOLICITED RESULTS <td>POCT GLUCOS E METER UNSOLICITED RESULTS</td><td>Routine</td><td>11/14/2020 3:38 AM EDT</td><td></td><td> </td> 11/14/2020 03:38:00 AM EDT [facility] POCT GLUCOSE METER UNSOLICITED RESULTS <td>POCT GLUCOS E METER UNSOLICITED RESULTS</td><td>Routine</td><td>11/13/2020 11:32 PM EDT</td><td></td><td> </td> 11/13/2020 11:32:00 PM EDT [facility] POCT GLUCOSE METER UNSOLICITED RESULTS <td>POCT GLUCOS E METER UNSOLICITED RESULTS</td><td>Routine</td><td>11/13/2020 8:46 PM EDT</td><td></td><td> </td> 11/13/2020 08:46:00 PM EDT [facility] POCT GLUCOSE METER UNSOLICITED RESULTS <td>POCT GLUCOS E METER UNSOLICITED RESULTS</td><td>Routine</td><td>11/13/2020 4:15 PM EDT</td><td></td><td> </td> 11/13/2020 04:15:00 PM EDT [facility] POCT GLUCOSE METER UNSOLICITED RESULTS <td>POCT GLUCOS E METER UNSOLICITED RESULTS</td><td>Routine</td><td>11/13/2020 11:54 AM EDT</td><td></td><td> </td> 11/13/2020 11:54:00 AM EDT [facility] POCT GLUCOSE METER UNSOLICITED RESULTS <td>POCT GLUCOS E METER UNSOLICITED RESULTS</td><td>Routine</td><td>11/13/2020 8:08 AM EDT</td><td></td><td> </td> 11/13/2020 08:08:00 AM EDT [facility] BIPAP/CPAP <td>BIPAP/CPAP</td><td>Routi ne</td><td>11/13/2020 8:00 AM EDT</td><td></td><td></td> 11/13/2020 08:00:06 AM EDT [facility] CT ABDOMEN & PELVIS W/O CONTRAST MATERIAL <td>CT ABDOM EN PELVIS WO CONTRAST</td><td>STAT</td><td>11/13/2020 5:27 AM EDT</td><td></td><td> </td> 11/13/2020 05:27:40 AM EDT [facility] POCT GLUCOSE METER UNSOLICITED RESULTS <td>POCT GLUCOS E METER UNSOLICITED RESULTS</td><td>Routine</td><td>11/13/2020 3:56 AM EDT</td><td></td><td> </td> 11/13/2020 03:56:00 AM EDT [facility] POCT GLUCOSE METER UNSOLICITED RESULTS <td>POCT GLUCOS E METER UNSOLICITED RESULTS</td><td>Routine</td><td>11/12/2020 11:42 PM EDT</td><td></td><td> </td> 11/12/2020 11:42:00 PM EDT [facility] POCT GLUCOSE METER UNSOLICITED RESULTS <td>POCT GLUCOS E METER UNSOLICITED RESULTS</td><td>Routine</td><td>11/12/2020 8:10 PM EDT</td><td></td><td> </td> 11/12/2020 08:10:00 PM EDT [facility] BIPAP/CPAP <td>BIPAP/CPAP</td><td>Routi ne</td><td>11/12/2020 8:00 PM EDT</td><td></td><td></td> 11/12/2020 08:00:05 PM EDT [facility] POCT GLUCOSE METER UNSOLICITED RESULTS <td>POCT GLUCOS E METER UNSOLICITED RESULTS</td><td>Routine</td><td>11/12/2020 5:57 PM EDT</td><td></td><td> </td> 11/12/2020 05:57:00 PM EDT [facility] POCT GLUCOSE METER UNSOLICITED RESULTS <td>POCT GLUCOS E METER UNSOLICITED RESULTS</td><td>Routine</td><td>11/12/2020 1:28 PM EDT</td><td></td><td> </td> 11/12/2020 01:28:00 PM EDT [facility] POCT GLUCOSE METER UNSOLICITED RESULTS <td>POCT GLUCOS E METER UNSOLICITED RESULTS</td><td>Routine</td><td>11/12/2020 9:25 AM EDT</td><td></td><td> </td> 11/12/2020 09:25:00 AM EDT [facility] BIPAP/CPAP <td>BIPAP/CPAP</td><td>Routi ne</td><td>11/12/2020 8:00 AM EDT</td><td></td><td></td> 11/12/2020 08:00:09 AM EDT [facility] POCT GLUCOSE METER UNSOLICITED RESULTS <td>POCT GLUCOS E METER UNSOLICITED RESULTS</td><td>Routine</td><td>11/12/2020 3:34 AM EDT</td><td></td><td> </td> 11/12/2020 03:34:00 AM EDT [facility] POCT GLUCOSE METER UNSOLICITED RESULTS <td>POCT GLUCOS E METER UNSOLICITED RESULTS</td><td>Routine</td><td>11/11/2020 11:41 PM EDT</td><td></td><td> </td> 11/11/2020 11:41:00 PM EDT [facility] POCT GLUCOSE METER UNSOLICITED RESULTS <td>POCT GLUCOS E METER UNSOLICITED RESULTS</td><td>Routine</td><td>11/11/2020 8:06 PM EDT</td><td></td><td> </td> 11/11/2020 08:06:00 PM EDT [facility] BIPAP/CPAP <td>BIPAP/CPAP</td><td>Routi ne</td><td>11/11/2020 8:00 PM EDT</td><td></td><td></td> 11/11/2020 08:00:06 PM EDT [facility] POCT GLUCOSE METER UNSOLICITED RESULTS <td>POCT GLUCOS E METER UNSOLICITED RESULTS</td><td>Routine</td><td>11/11/2020 4:55 PM EDT</td><td></td><td> </td> 11/11/2020 04:55:00 PM EDT [facility] POCT GLUCOSE METER UNSOLICITED RESULTS <td>POCT GLUCOS E METER UNSOLICITED RESULTS</td><td>Routine</td><td>11/11/2020 12:40 PM EDT</td><td></td><td> </td> 11/11/2020 12:40:00 PM EDT [facility] POCT GLUCOSE METER UNSOLICITED RESULTS <td>POCT GLUCOS E METER UNSOLICITED RESULTS</td><td>Routine</td><td>11/11/2020 11:42 AM EDT</td><td></td><td> </td> 11/11/2020 11:42:00 AM EDT [facility] REVISION/REPLMT NEUROSTIMLATOR ELTRD CRANIAL NRV <td>S URGICAL PATHOLOGY</td><td>Routine</td><td>11/11/2020 10:39 AM EDT</td><td></td><td> </td> 11/11/2020 10:39:00 AM EDT [facility] OXYGEN DAILY PROTOCOL <td>OXYGEN DAILY PROTOCOL</td><td>Routine</td><td>11/11/2020 10:00 AM EDT</td><td></td><td></td> 11/11/2020 10:00:13 AM EDT [facility] OXYGEN DAILY PROTOCOL <td>OXYGEN DAILY PROTOCOL</td><td>Routine</td><td>11/11/2020 10:00 AM EDT</td><td></td><td></td> 11/11/2020 10:00:13 AM EDT [facility] BIPAP/CPAP <td>BIPAP/CPAP</td><td>Routi ne</td><td>11/11/2020 10:00 AM EDT</td><td></td><td></td> 11/11/2020 10:00:13 AM EDT [facility] BIPAP/CPAP <td>BIPAP/CPAP</td><td>Routi ne</td><td>11/11/2020 10:00 AM EDT</td><td></td><td></td> 11/11/2020 10:00:13 AM EDT [facility] BIPAP/CPAP <td>BIPAP/CPAP</td><td>Routi ne</td><td>11/11/2020 10:00 AM EDT</td><td></td><td></td> 11/11/2020 10:00:13 AM EDT [facility] CREATION, GASTRIC BYPASS, LAPAROSCOPIC, WITH ANNIE-EN-Y GASTROENTEROSTOMY <td>CREATION, GASTRIC BYPASS, LAPAROSCOPIC, WITH ANNIE-EN-Y GASTROENTEROSTOMY</td><td></td><td>11/11/2020 9:49 AM EDT</td><td> Morbid obesity (CMS/HCC)</td><td></td> 11/11/2020 09:49:00 AM EDT - 11/11/2020 11:52:00 AM EDT Morbid obesity (CMS/HCC) [facility] Morbid obesity ([facility]/HCC) POCT GLUCOSE METER UNSOLICITED RESULTS <td>POCT GLUCOS E METER UNSOLICITED RESULTS</td><td>Routine</td><td>11/11/2020 6:15 AM EDT</td><td></td><td> </td> 11/11/2020 06:15:00 AM EDT [facility] GONADOTROPIN CHORIONIC QUALITATIVE <td>, URINE</td><td>STAT</td><td>11/11/2020 5:50 AM EDT</td><td></td><td> </td> 11/11/2020 05:50:00 AM EDT [facility] UPPER NDSC BIOPSY SINGLE/MULTIPLE 03/24/2020 12:00:00 AM EST [facility] ([facility]) COLONOSCOPY W/BIOPSY SINGLE/MULTIPLE 03/24/2020 12:00: 00 AM EST [facility] ([facility]) Imm: Flublok Quadrivalent 18 years & older 0.5mL IM Influenz a 02/18/2020 12:00:00 AM EST eCW1 ([facility]) Results ID Date Data Source [id number] 12/30/2020 07:55:32 AM EDT [facility] Name Value Range Interpretation Code Description Data Anna rce(s) Supporting Document(s) Progress Notes [facility] ALMYIp6eMrSXYwEt44/GNMxnNEFwo3DxWDyqJOc6UOzsUBJdS2QkNXS7eK6aSPP4DYoLBuUkLoTqGQT1 lbm [file] DQo+Kj2Xl5ChjfQ0dePgRIryKZA5DL9USDCPZ8GLDc== ID Date Data Source [id number] 12/30/2020 07:55:22 AM EDT [facility] Name Value Range Interpretation Code Description Data Anna rce(s) Supporting Document(s) Discharge Summary [facility] BHERTs6sXnFECdPp38/QHCtiYRVul4EgWSseVZy9UIdqHTHwV5RoTLG8lH3pMPB8AMdPWzCuQtLpHQC7 lbm [file] 0tOa3z1EzDi3VmS80R1wGnJPZYIHd6nmPuj+rTtQDHIUKYAd5+ZpehUQEWYDRH79CDQ6XITfM20Lj+muñoz Zzg1C30WcxSuvcyUpMWl4PX7iejDE8ackrJdrppH5C eU2bec0ugtmhVGcXgfdeXBbjQlcPkh2FbpuTDjEqU0SCWz0YOjT9V1i7YhBAu0WxDhQyh1EW1KKEuMPI 1zlZEKdl7SHzCxMXYdQtcS9IBZfxsVw3G5Sr2B2sKwxuIyAiEve3U6Io+KAOars02Ceh01hg1PNetpQd /HH8KQOLSXSD1m5YECEA7HDYhebEHOD6djRaPMc226 [file] aQesXVVZWrQ2RXmnVVffWAHFJj3T ID Date Data Source [id number] 11/14/2020 07:40:16 PM EDT [facility] Name Value Range Interpretation Code Description Data Anna rce(s) Supporting Document(s) Nursing Note [facility] WNHRZi1gNkKWLfCs32/LUIbxQWFnu8FmMZscUFr2JWykHJLqC8XvXQV4cQ6iZMM9EFaHWaWhMpTmUTWa lbm [file] AgICAgICAgICAgICAgICAgICAgICAgICAgICAgICAgICAgICAgICAgICAgICAgICAgICAgICAgICAgIC AgICAgICAgICAgICAgICAgICAgICAgICAgICAgICAg ICAgDQogICAgICAgICAgICAgICAgICAgICAgICAgICAgICAgICAgICAgICAgICAgICAgICAgICAgICAg ICAgICAgICAgICAgICAgICAgICAgICAgICAgICAgICAgICAgICAgICAgICAgDQogICAgICAgICAgICAg ICAgICAgICAgICAgICAgICAgICAgICAgICAgICAgIC AgICAgICAgICAgICAgICAgICAgICAgICAgICAgICAgICAgICAgICAgICAgICAgICAgICAgICAgDQogIC AgICAgICAgICAgICAgICAgICAgICAgICAgICAgICAgICAgICAgICAgICAgICAgICAgICAgICAgICAgIC AgICAgICAgICAgICAgICAgICAgICAgICAgICAgICAg ICAgICAgDQogICAgICAgICAgICAgICAgICAgICAgICAgICAgICAgICAgICAgICAgICAgICAgICAgICAg ICAgICAgICAgICAgICAgICAgICAgICAgICAgICAgICAgICAgICAgICAgICAgICAgDQogICAgICAgICAg ICAgICAgICAgICAgICAgICAgICAgICAgICAgICAgIC AgICAgICAgICAgICAgICAgICAgICAgICAgICAgICAgICAgICAgICAgICAgICAgICAgICAgICAgICAgDQ ogICAgICAgICAgICAgICAgICAgICAgICAgICAgICAgICAgICAgICAgICAgICAgICAgICAgICAgICAgIC AgICAgICAgICAgICAgICAgICAgICAgICAgICAgICAg ICAgICAgICAgDQogICAgICAgICAgICAgICAgICAgICAgICAgICAgICAgICAgICAgICAgICAgICAgICAg ICAgICAgICAgICAgICAgICAgICAgICAgICAgICAgICAgICAgICAgICAgICAgICAgICAgDQogICAgICAg ICAgICAgICAgICAgICAgICAgICAgICAgICAgICAgIC AgICAgICAgICAgICAgICAgICAgICAgICAgICAgICAgICAgICAgICAgICAgICAgICAgICAgICAgICAgIC AgDQogICAgICAgICAgICAgICAgICAgICAgICAgICAgICAgICAgICAgICAgICAgICAgICAgICAgICAgIC AgICAgICAgICAgICAgICAgICAgICAgICAgICAgICAg HBEqYMIfAJIjTXTkIGw5N4acXWEtEOIvZU9aTJt4Yq1+TMqMPkPzSDY1duMjcW9XVX0rt3TyYKguOUDx o3LmEIc2RC3QILRvRJgpNE3YLBlsfv9TCBKnGRYwfWIVc0abHeQqHQL1OHDeLfpwJX3JDARaM8vrwlKg HRAlHNEPFJ1RFrDgA8EojX70GXGELj6+DQplbmRvYm jPNjAwOPXcn9VrCBr7OM6SNUAmHdbjz4NuVbLvYMPZEUueJG8FGZZ3CZJgHBQzXz1RBPPvF762sdYyRD 2LPh5ENcXtQJ6kym4TXwVjDXTrGqfFTtl3BZofLV1ZfEMiENeAbBVvfH7nSF5llPHbSsvvL3F7dXZkiW CZdLsuNDcsKDNQGET6AXicFs8rIBIcASI7HjAmGFQJ LB7CPSLhZJAjyGZvXYNlTVADEQ7NQKobLOC6KknrtjTkqVKyWMjkLS9FMXFjxwIhOjMhRNEKLTn+Pg0K WM0eq9IdVFasXGPoNP8wcc5DKPbEPzUaM3Y5lCXcA3V5EQgkBx0TXNTrGUNqYvVxJWJMMReqQY6IZQ2s fdT3AV1PeUMnONGaZKYykXNeQMz8C94jxWIgELwnSQ 0KICA+Manuela+Yp0PWAXcCUHoQNNxNsWoMUURIqYmR3PqG6JDr0LdT9LdXE48jSmhdhKeQDbnTF8TQA6bNV KfNMHVIJ0PbJBtjZ2enbNmVlCwDLFBLhFjR74wtZYtVMEsMLXgIPRmCt7FBLOrJ7VzjdJupSionaSkUU QdQQIEZG2HKChzzqEmbTKvvGhuJD04oJqdEJ9UXc3L CzBcTJ7nrg5BtJBhEp9UMCAqBY6LRFTfWTKgUANyLEO9PSToIoPmUXjoWGUlJYPfYZE3HZSyEHMvLA4V QbTkQIFuHUp8LoCeTGHdZNCdog0TEGOsOJSsUAR5BGIhCOSfXJVwZUcaZKWpUNDjPZL3KOVtBSLcPQ5A QbVvKJThMGE2QIivUKEaWNVomp1TRQJrKKGbWRZ6He SbYUYqDCCvQAzxBXSpKVSdCqVqPJTtTORjAB9ARnUvOPZhGCZ4PwZpSNWrNKOkqq3TYSQnGZJkXaDjNq IySKJxMSCuRLwtKOMuAPXpNVL5VFXlDAOoQU2JRrLlWRSwBOHxRvVeFLYuTIIefq8DTDTqZGOoLWU9FK MgHCZaORNfCZerLTPtXUG3ObedSZCjGWNoPB3SWdPv FVDgXUwsHEokYXXiYYGqqj8MIOKwGTZpUbTdNDBqUYQpNFSbMLqzDBVwSNO0AGD1HLUlBRWkXR8KLhVe UOCfPIz5MXEqAFWdDTQfzi8VMSSfRZRgUHX8XmKdCFZaRRUwYLlgOGQmAGE4UmRwCPWcWUVxZS4JSbBa SIOuFKg7APCtNQVrTOPmtm6MOJQrRGSvHDOhPVYaLR UuIWSuZJujRVIcVYBbXcO0JBYaGCUwXU1AYqTyBVLaKwX8WtsuWBMjZXPwra9BSNMwLOQwKOv2FTYkUT DzGFRsYRv3liOriCWbPSc5UU5MS9IupgChXvZGNd7Tf585BZN5MCNoKf4BE4qpNn3cZDIpCVMNQs9CFB s3EKGdJMmhHQU9PpbyO3B2GUGuDbKlDeCoEpZhQzgr YTI+UJcbEAQcXIPfORr1TOBxTzQxThU4JTG2JVN6NLMsGxVrPq0zIKLQGu5+DQpzdGFydHhyZWYNCjIx EiI6BDdlOWBHGm6S ID Date Data Source [id number] 11/14/2020 06:47:11 PM EDT [facility] Name Value Range Interpretation Code Description Data Anna rce(s) Supporting Document(s) Nursing Note [facility] VCXLTn4tAoMSFyLw01/WZPsxRHRbs0AeYFysYYg5SQoeSMGkA2NdRRZ6aI8jNNO3LOkQYkWxOpAaNVFe lbm [file] FcMvSR3ICHv= ID Date Data Source [id number] 11/14/2020 06:46:56 PM EDT [facility] Name Value Range Interpretation Code Description Data Anna rce(s) Supporting Document(s) Care Plan [facility] AYIYCz8sTlPDOhRi64/XPJktUPKtf0MmDWreJPb4MCdhBIFjQ8YwKVT4pJ4gFKZ3SKqEJoPeHhDwRKYw lbm [file] 8p3r7Lrr2czjK5GBTD4L4VP0Kh5hqBPONZ5pma7/Muñoz [file] PLMyNkHbTOp6FaH+VM5rSTp+Yf8Oc1TqlxY7daDcTGriNnT9US2OMJHUF6PVJy== ID Date Data Source [id number] 11/14/2020 04:48:00 PM EDT [facility] Name Value Range Interpretation Code Description Data Anna rce(s) Supporting Document(s) Glucose, Fingerstick 266 mg/dl 70-110 Above high normal [facility] The above 1 analytes were performed by [facility] [facility] [id number], ,[place] [address] ID Date Data Source [id number] 11/14/2020 12:26:00 PM EDT [facility] Name Value Range Interpretation Code Description Data Anna rce(s) Supporting Document(s) Glucose, Fingerstick 297 mg/dl 70-110 Above high normal [facility] The above 1 analytes were performed by [facility] [id number], ,[place] [address] ID Date Data Source [id number] 11/14/2020 08:53:00 AM EDT [facility] Name Value Range Interpretation Code Description Data Anna rce(s) Supporting Document(s) Glucose, Fingerstick 335 mg/dl 70-110 Above high normal [facility] The above 1 analytes were performed by [facility] [id number], ,[place] [address] ID Date Data Source [id number] 11/14/2020 06:09:42 AM EDT [facility] Name Value Range Interpretation Code Description Data Anna rce(s) Supporting Document(s) Nursing Note [facility] FEUFIl2dVhRNAhEr94/JCTjeXVSgx1MfXVjhUCw5GLgbHGJaI1GrOIX2uK0fLZT3QOlGMdIhQnFbTWLy lbm [file] ICAgICAgICAgICAgICAgICAgICAgICAgICAgICAgICAgICAgICAgICAgICAgICAgICAgICAgICAgICAg ICAgICAgICAgICAgICAgICAgICAgICAgDQogICAgICAgICAgICAgICAgICAgICAgICAgICAgICAgICAg ICAgICAgICAgICAgICAgICAgICAgICAgICAgICAgIC AgICAgICAgICAgICAgICAgICAgICAgICAgICAgICAgICAgDQogICAgICAgICAgICAgICAgICAgICAgIC AgICAgICAgICAgICAgICAgICAgICAgICAgICAgICAgICAgICAgICAgICAgICAgICAgICAgICAgICAgIC AgICAgICAgICAgICAgICAgDQogICAgICAgICAgICAg ICAgICAgICAgICAgICAgICAgICAgICAgICAgICAgICAgICAgICAgICAgICAgICAgICAgICAgICAgICAg ICAgICAgICAgICAgICAgICAgICAgICAgICAgDQogICAgICAgICAgICAgICAgICAgICAgICAgICAgICAg ICAgICAgICAgICAgICAgICAgICAgICAgICAgICAgIC AgICAgICAgICAgICAgICAgICAgICAgICAgICAgICAgICAgICAgDQogICAgICAgICAgICAgICAgICAgIC AgICAgICAgICAgICAgICAgICAgICAgICAgICAgICAgICAgICAgICAgICAgICAgICAgICAgICAgICAgIC AgICAgICAgICAgICAgICAgICAgDQogICAgICAgICAg ICAgICAgICAgICAgICAgICAgICAgICAgICAgICAgICAgICAgICAgICAgICAgICAgICAgICAgICAgICAg ICAgICAgICAgICAgICAgICAgICAgICAgICAgICAgDQogICAgICAgICAgICAgICAgICAgICAgICAgICAg ICAgICAgICAgICAgICAgICAgICAgICAgICAgICAgIC AgICAgICAgICAgICAgICAgICAgICAgICAgICAgICAgICAgICAgICAgDQogICAgICAgICAgICAgICAgIC AgICAgICAgICAgICAgICAgICAgICAgICAgICAgICAgICAgICAgICAgICAgICAgICAgICAgICAgICAgIC AgICAgICAgICAgICAgICAgICAgICAgDQogICAgICAg ICAgICAgICAgICAgICAgICAgICAgICAgICAgICAgICAgICAgICAgICAgICAgICAgICAgICAgICAgICAg VUKzRAMnWZQzILDtBALhFAIlHHDqIIYfQTJvONDvBDAhMFr2M6zrVRDuCLMrOU3bBPf6Hl4+DQoNCmVu BSR6xdTvgA0NZF0rn1UyDGfjDADpk9SfGJp1JR5TVI UxHNhwUM5QHHgbrc1IJSCuEWQjtFBPu7qnBvAdPHZ8XKTtXibfAU7ACKOdP1xcwsJaXEGrJWJUJB9XEb RtZ7NyfD17XELJBq7+KLskstSiYcyXMaDqNZOkh2HxTQy7YS9WFNJtHhiyc6UjAyArERNQCGmeCI1TEK N0VOBoMFEySr8PUMHlX316tlLaDI7NAz2XJmSqWK8n ey6OHgVnXPLxBzuLXzq9SBefTH6UeKFwTMrLjQUhfE7iUT9apHOiDgznTWrirVybFZpazrVsfezpySsy Ns0uEZPtKP0eKhOfIsAwERJ7UTpdGL8qFScdZT5KVHU6OXrxYDPlCQEfB4fIXgVbIMyqQALeqAobEP9B RdByB7EnzwBadRLaAnQxOVDLEy7+DQplbmRvYmoNCj C5KNBxo5MyDBz8QI8ORVLdHZlkFD9TPCOcrR3qBDbqHJ3XLfPeJNBpNJYBDhIlB75goTFyMMr3G4WxTu VkZGVkRmlsZXMgPDwvTmFtZXMgWyBdDQogID4+ID4+KBjhYS2RJSnndrPyWDEsYv1PCHDsJAEpNO9gFP KsLPKmW8Z9wUwjGZXKZgYhZ7kmxbweUJ4bRFHbT835 dHlbraIeTXDyIGIzMu1SBNSfEBH3LPVykUOqPoQeTUJEMYrsTM6BaMWhVKT8hS9nPPuaOPDuVYZuS5qJ FlDzdEkxQW08gNzrjxPbnVPnOKb+Oy2LPH7pl4HiLZu8cyNxHWkkKUQ2DQpbPJImPDDfZRBrVVX9DAL9 FZRTCoVzNLSfZJXtWTgtWAKbMKObav2ZFOCiUTNtOV XpHAMsNGMtKNYpOVzrHJAgNAFsXFH7URFvVUWsIU0JNkBvMVNmYCJhAAxeNAAgMTEgej3TPOFbMRLhXF g7IiJeONOgMXIqLJwoCENlOHGbAEQ6PGUwMINmWZ1OTnDgWVNyMWPhRFWrZFZyYKLdjv8WKVDiLAQpGx TbYYSnVOTyTGUxWPyvQPZrZLPpAipaWZZuAHZgLK9V ZeVgEPPxQHJsBXwcECFoOTFdxb1DKFVcTJFsHNK8EtQcAONeLUUcAJgyMXHoJUZ1LnZ7GVBfOSPdRG0S MeMcQNBsUToiPweaKUGpQBSiub1ASPZnAOLeTcO3AiIpAGUgFVVbYCjdEPDbDIE0FpNeQZJgGCEpMI4S AbMaLDUtISo3GDLoHBHtBQKnwl3BEOMnRWHiWav2AW VqJZSyMWBxGMtoFPQjMWM5DBAdFZFmEWFnNL9JPtDxGXTiYGkmYCLpPGMeJJEvro9JDANbDUJwQRP2WY JtKBWuEWYxBZcqTJAnHGL2RlR5XPPlJTJsQX1TPvXwHPMmCnKeUSXnRVUkIPTzav1PZUEyJQBcEDQkHg SmAGNxMCYlWGfaFVQaCOAgUuXxOSEyWSSfOS5DRiLu ODndDAMCWup8NVeuK8m4UVLgPE5XP2Put8NnPmYzNGXXXHnaZE1uexYgWCWnAq4FV8mDLdw6BJquHxMw Yrl7HUYuSuNuQPHoF2UlIZGrGMJ1KMKdUF3nHRxyRBLcYhMjFHVcAORiMRHsLFKtSdPdQDT0Zwr6SzJj TjJpEQ5SQi8KEzB9MKM0zWNzQd1ULaW3PIEKPaEuBY8VTAt= ID Date Data Source [id number] 11/14/2020 03:40:00 AM EDT [facility] Name Value Range Interpretation Code Description Data Anna rce(s) Supporting Document(s) Glucose, Fingerstick 269 mg/dl 70-110 Above high normal [facility] The above 1 analytes were performed by [facility] [id number], ,[place] [address] ID Date Data Source [id number] 11/14/2020 03:26:00 AM EDT [facility] Name Value Range Interpretation Code Description Data Anna rce(s) Supporting Document(s) Care Plan [facility] HLXPGp7oDoKNQeRc22/SDDldZVJhw9VcDHjvSOq2RXebCURcQ8VtEUX2kL2cTEV2DKfTXvLjBjKjRUTq lbm [file] w2hM0hxGZheIt//CcASx4oQ/BK5lx770taTBfzZ [file] M8mlc8x5TmjHmLMMXW+D9AqO3Qk9ZBMSs1utS4dixIBo10Ls/l6fuxn/Muñoz/cIq0Ms07vCDEkymcTh6U0 [file] MTYzOCAwMDAwMCBuDQowMDAwMDIyNTgwIDAwMDAwIG 9VAbAnAXMnQgP2EgggKUTjQJOfbq1RNKIgALMqRqh0LZWaULRtONCwZSwnNEGzUEAhEWO9UPZnLCIyVY 0POkCvRADeMaBnZLXaWYYfVTBanz7ZPSClVWSxAAR6HSUuVZPaLJJbSUsfQOUqYTUdOZh1BUAxMIIsMZ 5BZwYzGHYkQKF0RnSoAFSbJBKeus2LGKSpJZI5ZZK8 MEPxHHYsIGNaAJgtZLReHPU0Bmt0AKHbOSCwKA4HHhCyBNRnSTN2FGNfKYIrPOUivw7IRLLtYBR2QjL6 RZHaFCKdPWViMOgnAYIoEEG8OEB2GFQtPEQtVE6ZWlTbYRCsARI8BVEtJVUqCKPwxx1HJFJfGDO2TrXp OiYeMAQmNKGkFKbdPFZwGAM7ZrSsRDHaJZPhGN8XPe SpFWOiHRy2AmKnJCOtVVYocs1JPSWiEAQ2CXu8DfVnNODmFXRjOSw3xwPlqLTfCMa8QA1AR2SaufEnYi lIGa9Mr466YVE5KDQjGw3SI6veMv2wWKJaOCBLJy2AANa9NtMvBALzDeEjH0XtMhHvEmO7CVN1YhB4FX B7CDL1T1L+SDr6LzI9W1GfALCzBPYxUGGsODCzPRMp SPU0WaV9TeBtTr7mJQDOSx5+KXeatXUjdWapZJAAOgY8KAKpMJdhNEJEKd6U ID Date Data Source [id number] 11/13/2020 11:37:00 PM EDT [facility] Name Value Range Interpretation Code Description Data Anna rce(s) Supporting Document(s) Glucose, Fingerstick 303 mg/dl 70-110 Above high normal [facility] The above 1 analytes [facility] [id number], ,[place] [address] ID Date Data Source [id number] 11/13/2020 11:13:42 PM EDT [facility] Name Value Range Interpretation Code Description Data Anna rce(s) Supporting Document(s) Progress Notes [facility] RSSKDu8zUwMAHnQc13/YTRpoYHOpe6DqSPsoGLm7WOwzRUQfK2MkIMI1jC2yRPL1MMnAKoLvIgXxKBXe lbm [file] UHKcRTLiGjF3NRG1LUX9WMD9RaR1NaIfVF4TDt3LEoH4XWB6iPBcYy2YKUCnQPRKLkXfJN2PACa= ID Date Data Source [id number] 11/13/2020 11:11:47 PM EDT [facility] Name Value Range Interpretation Code Description Data Anna rce(s) Supporting Document(s) Progress Notes [facility] KEGKJi2hZpCJNrYm62/QNFfvWGCoz6IoXYteUXw7QFheKPOdB3PdFQU2qR2qEYL8BHjQRaTmUcOuKXAc lbm [file] AgICAgICAgICAgICAgICAgICAgICAgICAgICAgICAg ICAgICAgICAgICAgICAgICAgICAgICAgICAgICAgICAgICAgICAgICAgICAgICAgICAgDQogICAgICAg ICAgICAgICAgICAgICAgICAgICAgICAgICAgICAgICAgICAgICAgICAgICAgICAgICAgICAgICAgICAg ICAgICAgICAgICAgICAgICAgICAgICAgICAgICAgIC AgDQogICAgICAgICAgICAgICAgICAgICAgICAgICAgICAgICAgICAgICAgICAgICAgICAgICAgICAgIC AgICAgICAgICAgICAgICAgICAgICAgICAgICAgICAgICAgICAgICAgICAgDQogICAgICAgICAgICAgIC AgICAgICAgICAgICAgICAgICAgICAgICAgICAgICAg ICAgICAgICAgICAgICAgICAgICAgICAgICAgICAgICAgICAgICAgICAgICAgICAgICAgICAgDQogICAg ICAgICAgICAgICAgICAgICAgICAgICAgICAgICAgICAgICAgICAgICAgICAgICAgICAgICAgICAgICAg ICAgICAgICAgICAgICAgICAgICAgICAgICAgICAgIC AgICAgDQogICAgICAgICAgICAgICAgICAgICAgICAgICAgICAgICAgICAgICAgICAgICAgICAgICAgIC AgICAgICAgICAgICAgICAgICAgICAgICAgICAgICAgICAgICAgICAgICAgICAgDQogICAgICAgICAgIC AgICAgICAgICAgICAgICAgICAgICAgICAgICAgICAg ICAgICAgICAgICAgICAgICAgICAgICAgICAgICAgICAgICAgICAgICAgICAgICAgICAgICAgICAgDQog ICAgICAgICAgICAgICAgICAgICAgICAgICAgICAgICAgICAgICAgICAgICAgICAgICAgICAgICAgICAg ICAgICAgICAgICAgICAgICAgICAgICAgICAgICAgIC AgICAgICAgDQogICAgICAgICAgICAgICAgICAgICAgICAgICAgICAgICAgICAgICAgICAgICAgICAgIC AgICAgICAgICAgICAgICAgICAgICAgICAgICAgICAgICAgICAgICAgICAgICAgICAgDQogICAgICAgIC AgICAgICAgICAgICAgICAgICAgICAgICAgICAgICAg ICAgICAgICAgICAgICAgICAgICAgICAgICAgICAgICAgICAgICAgICAgICAgICAgICAgICAgICAgICAg RAi0H3vvRVMpZLSyTQ6hGJi3Lq0+YPtBGbYpCZT1piTqmR2XZL2ml7RuSGhrPBRqq3NbNPt6AC4ICJQd VHntEU9AHTzhfr3VDSJiUPIciZIBd2chFjGoQNE8IP LqLguqOV2GYCBfY8tyazKeFXMwFLINEKovTOAHVGygDSITQH3LFfSfK6NqiH94QDDYMl3+DQplbmRvYm fJWnVxVKHpn1XpTLz0FP5PUDHqNllag2GtJnPmHYMEAPfkMO3JBQT9UNRoDXUtQn8XKGBhA526ppChBA 8QWg4ZNoAuJM5vjr5EZkOxSGRaEcwBOxq3OQqiVM2G xNZhJHiNlf3rwjEfsiTVj6XvpzSymBTFqsledEEpSXFHa2fyACXUEsLyXRAoMR2fKaMoFtIzXSH6TEXv WF7cFYfqCQ8YXUA0KOojSFGpCRFzL8kAAbGrHTrpKRZwiAmfJL5YFdVsA9AqvjCwwBKoXbJbUBVIKv5+ YGjcbsRsGpoSGsB1BAMix0BpWEk3VE4PGMKiYVcwXJ 6LVLGfxP9zPIxpBO9JQcCfLIHhJSXQTlWuZ78cvWEiRSf8I1IrEtHjSDIcUrzuETXyJVmiQaWdXPJmGi BdDQogID4+ID4+LSfyPO6SMGswkoKnSVUcQr8CMGBmQDOeWP2aFXZbLXVvG0V2aLdlDHWTNmZbR9hmxa ugPR9gOMOpC095sGojjgOtOMKbXQKgVo7QNEEtTJZ0 PDVgmTBaJnWiJIGBZIrhXB0FjZJiHMH1tO2tERdgHOQzWBPwW9wAMdQhkOczYX79zBruwjElwFDuHHb+ Qh5HRO9rs3IcYMt0sgAlTTfbPNW3WHmnASXaVZKaNFKuKMJ5AAV4MDNVStGiDMBnBSLkNMeoEANvZKRo bh4DNLNhRGQoKFD3AHJeUETrYKEhUSwiDPFaZJZpOW TdTBByVHMvKL1LIhTbLZOlVTZsHVokICKjQRZlgg0RQAYeUOCfFwP5QILqXAFrRTToHAhjKEOeKDZyMk ujCJDhOKKdTD4WHlYdRPIyWYR8JudvSTSvZRFevn3OLIYeWVOsTBM6ByDiPCKuBVSjMQnyGPZiEAY7ZI LzZTPxUANzUT7EHeIxRNWjXUT9DOpcYJFwVGDchq9K HWIbOSCyMuF8BjLxCURbPENmSWegFCRnLAS3HLl9CRFnGABlBI6FDeCnZMIxQSwqZvDqPPQqKBYjth5Z XGTjRQSaFLOhFdKvHZSeZDZoWKqdPXNnZWT2AjJkEWYuXCGjEC6QTeSnIAOdHQc6FCEiKUGiTODlrr2N TGQiKBMhFAB7PQNaWWUrAXHoHAwdKZVaRONuMTJ9TB BbOHPrBW6CKlMxJXJtNGF7YBGxBTHsVQEsui5FTOKrLNPkTWeqXRRgNCPyDLYnNTzzGFPuZCEfTMD0LT GlXFRyMI5DDtJpQPUxSHZfYTOgUWCoCRCrwr6NLQDrYJPwPbC9LrLfDLZyIBNeVFezKQGjWWOdReEzQG VuMYQbJK1GTfOjRFEiMHU2FSHsHELgBLFtph4CLYGd MCAtGFNvApSiGFYiCBNgDWciZIRzIDR8TfSrIXTqHHTlSQ9BWcShXGCiJSl0InJwEMEaMGDsmd3CJRLs NEIiCYN3MPTzYOAsAJHiSHapPEZzFPU9BcJcRNSiGOFtMA9XKrRnXMFhHRi3NhSnMBGmMNHhle8KVITm MDAyMTEyMSAwMDAwMCBuDQowMDAwMDIxMTkyIDAwMD LqWV2KJtQqPYKuRoGrUKRrVWZcUFVjqa1FyLZntYjsdb5XOCiCFl8KsTwnBAJ7YHldOs3biKRmTHOeBL OWZp7MsbZkCWPpTJXTKDfwPGFcXOU7XJc6CzNjVkwuO7AlOeSfLqT3LQL6DEW0NrHwYpK9NiU7PSv9Fw fkHwEnDbS9VrQ5HmDwLJpoEcg0KKcpQTFfXXi+IF0g DQo+Zj6Bh7UbeyY3whCpQUleSVK2DP0SIFXIO6AKSm== ID Date Data Source [id number] 11/13/2020 08:50:00 PM EDT [facility] Name Value Range Interpretation Code Description Data Anna rce(s) Supporting Document(s) Glucose, Fingerstick 342 mg/dl 70-110 Above high normal [facility] The above 1 analytes were performed by [facility] [id number],[facility] [id number],[place] [address] ID Date Data Source [id number] 11/13/2020 05:37:28 PM EDT [facility] Name Value Range Interpretation Code Description Data Anna rce(s) Supporting Document(s) Nursing Note [facility] NXEAUx4fNcBTRdZs01/QLBljGWSnz1SyBXbrEQz1DKcyUSWfO8LjSGD8bW6eMBS7PDvWMbWaEyVtVRQs lbm [file] ICAgICAgICAgICAgICAgICAgICAgICAgICAgICAgICAgICAgICAgICAgICAgICAgICAgICAgICAgICAg ICAgICAgICAgICAgICAgICAgICAgICAgICANCiAgIC AgICAgICAgICAgICAgICAgICAgICAgICAgICAgICAgICAgICAgICAgICAgICAgICAgICAgICAgICAgIC AgICAgICAgICAgICAgICAgICAgICAgICAgICAgICAgICAgICANCiAgICAgICAgICAgICAgICAgICAgIC AgICAgICAgICAgICAgICAgICAgICAgICAgICAgICAg ICAgICAgICAgICAgICAgICAgICAgICAgICAgICAgICAgICAgICAgICAgICAgICANCiAgICAgICAgICAg ICAgICAgICAgICAgICAgICAgICAgICAgICAgICAgICAgICAgICAgICAgICAgICAgICAgICAgICAgICAg ICAgICAgICAgICAgICAgICAgICAgICAgICAgICANCi AgICAgICAgICAgICAgICAgICAgICAgICAgICAgICAgICAgICAgICAgICAgICAgICAgICAgICAgICAgIC AgICAgICAgICAgICAgICAgICAgICAgICAgICAgICAgICAgICAgICANCiAgICAgICAgICAgICAgICAgIC AgICAgICAgICAgICAgICAgICAgICAgICAgICAgICAg ICAgICAgICAgICAgICAgICAgICAgICAgICAgICAgICAgICAgICAgICAgICAgICAgICANCiAgICAgICAg ICAgICAgICAgICAgICAgICAgICAgICAgICAgICAgICAgICAgICAgICAgICAgICAgICAgICAgICAgICAg ICAgICAgICAgICAgICAgICAgICAgICAgICAgICAgIC ANCiAgICAgICAgICAgICAgICAgICAgICAgICAgICAgICAgICAgICAgICAgICAgICAgICAgICAgICAgIC AgICAgICAgICAgICAgICAgICAgICAgICAgICAgICAgICAgICAgICAgICANCiAgICAgICAgICAgICAgIC AgICAgICAgICAgICAgICAgICAgICAgICAgICAgICAg ICAgICAgICAgICAgICAgICAgICAgICAgICAgICAgICAgICAgICAgICAgICAgICAgICAgICANCiAgICAg ICAgICAgICAgICAgICAgICAgICAgICAgICAgICAgICAgICAgICAgICAgICAgICAgICAgICAgICAgICAg ICAgICAgICAgICAgICAgICAgICAgICAgICAgICAgIC AgICANCjw/rYSgG2nbfYDonbV3N5gjQy8HVf1VSH0ks6QoYUYdLFzainElLanXFqNxBISmYvcNInx9TY wmWL0MgQNyG5OzY4KgMEtdMH5ZZVTpMNSsrLQbYMUoOZLnGmP4IOBeYBgqYM6YeEBhFAcmKPKfHPZaYP 8WJYGmX053gnRmQA1HIi0XTcKpHM7nuj7HHpWjSIAn TwoQKln1IDcvDD6RuZFfeXQuUqKcZBEZDyGqH1wun1NaJrPcCGBCUJpaXZ5Ws8AvoEBsTBx+Uj6IKH5c v4VlYRqgJzRbQG0oib9SJVgUEmNhM4XbmWxwDA32odKvlwkfUm40CJJpgASNMD4jnwYtPOCWgUd8u4Xx ldEzUKPKRVW6UAmtPg5eHJYmXYQ5DlH1RXZZFA3QQW MmDAGuxFToAFFkGYRPYE0YXNkxNOZ3YdyhgqIfyBAsBQawVA0CUXWpgcCcRcXeXOCGNZt+Jh6YFV0mj7 TzTXuyEOMtZO5saq0UUEvBZpCrX0N4rNArD0T3JWhbQb9UABSjXBXxOvMuUURNHSnlTG9QFM8izyJ9MO 5ZlCUkPJSnESHfjVSfEQz7Z51pvEAfJYssHU1CUUD+ Manuela+Mj4YNCVtHHXgNHUxSkSvTJTGQuLnZ0GvK7EFa9FzS9XkKW05zKgunbKeTGohEQ9OCS3xVLTlVVYP CX0IyYVpfQ7ejdEiRhFsNBPCAmZbZ05yjXCoRMYvFTScWEJqHt5UIAQlE4RdxiExbJgtilGvDEAfPEVN TK5MJZdeacXvtWCnhHyhDB86uHpzCU1YNi8FKsSbII 6wym6AwLTfTj5OGCEdNX7NKAJtPJVnHLQkZOL4LXVhCfHjZUisTRSeLRGqUWG0DFLaNJDrCM1TQuFiLY UbSFtpCezmKWBhZUIetw7DCZNmXSRwEGknBoQuEYDeVKWzXEwhWAMkBINlHHF3WPUvLJHwRK8HVwRpUK ZkVEQ4GGTmEJUeUTTmue5LEOUoOSAzITsbQCAjSLFb XVSjXNklTIKiMICjWvJqIQCrQQXgER8HWlXlYXWxRQO1DvChSAXlUOEpox3KYLMwCDNjWzP5JFIpKTQs XMTvWOzwGWIoTUX2LHJ1ZBXtBRIcNN0SGrGdYSGzXYVfBNTnSWZiPTWtwf3WTIDlLMExTLK7XxRlVIBq OULfCDgiSEYtFEG2MGO0XVHqMRFhHK0SDuPxDQFjRZ uwJPQjDVUwORNwtx9NIJGyIOIsRxE0AIJcEIOmTHUxBWatDWJjUWG9UvJcTDFiXFGmQE9DBvJwVVHePP o5OSybUTLfFKAubu9SNNVyYOFaOZP9GNRzKTEvTCBqMZlnTHDyBTT2MCu5DGNfKNSyWS8RXsThQTQuXK ozMRihCASvVNAtps8UMBIlGNVpTLQ3NgCeCOLzYVRa LJiqJEZaKHRsBAIoDEQqVUDwEN3EOnVaJUSpAoC8YlOrAGOoCEQunp7VWMPsUQHuYUIkCyDqBNYgDEEt LJr6mkMkhASvQRl4DU1FA8WpbqKbLpHKCl4Ck791HFF5FOYxZl5ND1mpRp6fTNNiEVPYMa3TTUt6DSRn EtO9SYj6CjW8MNJcUbU7NsF8OJgfXUA1XBGtQfZ+ID c2MsLmXzs0SjgjCCRgIoIdRlBwTcpqAQC0Fdu0KDH7Dx8gFNUWOc9+QDzmuKMtrAbgMVHFJiXxQbQ3OX zzXKGKWe4Q ID Date Data Source [id number] 11/13/2020 05:34:08 PM EDT [facility] Name Value Range Interpretation Code Description Data Anna rce(s) Supporting Document(s) Care Plan [facility] ICLKSk7gAyNUKnAt14/MGCsmDNYis7EtMUziJTy9CZkyUXEqK9BbVSW7gS3xGLL6WHpJZxSfEvDhCJAb lbm [file] ICAgICAgICAgICAgICAgICAgICAgICAgICAgICAgIC AgICAgICAgICAgICAgICANCiAgICAgICAgICAgICAgICAgICAgICAgICAgICAgICAgICAgICAgICAgIC AgICAgICAgICAgICAgICAgICAgICAgICAgICAgICAgICAgICAgICAgICAgICAgICAgICAgICAgICANCi AgICAgICAgICAgICAgICAgICAgICAgICAgICAgICAg ICAgICAgICAgICAgICAgICAgICAgICAgICAgICAgICAgICAgICAgICAgICAgICAgICAgICAgICAgICAg ICAgICAgICANCiAgICAgICAgICAgICAgICAgICAgICAgICAgICAgICAgICAgICAgICAgICAgICAgICAg ICAgICAgICAgICAgICAgICAgICAgICAgICAgICAgIC AgICAgICAgICAgICAgICAgICANCiAgICAgICAgICAgICAgICAgICAgICAgICAgICAgICAgICAgICAgIC AgICAgICAgICAgICAgICAgICAgICAgICAgICAgICAgICAgICAgICAgICAgICAgICAgICAgICAgICAgIC ANCiAgICAgICAgICAgICAgICAgICAgICAgICAgICAg ICAgICAgICAgICAgICAgICAgICAgICAgICAgICAgICAgICAgICAgICAgICAgICAgICAgICAgICAgICAg ICAgICAgICAgICANCiAgICAgICAgICAgICAgICAgICAgICAgICAgICAgICAgICAgICAgICAgICAgICAg ICAgICAgICAgICAgICAgICAgICAgICAgICAgICAgIC AgICAgICAgICAgICAgICAgICAgICANCiAgICAgICAgICAgICAgICAgICAgICAgICAgICAgICAgICAgIC AgICAgICAgICAgICAgICAgICAgICAgICAgICAgICAgICAgICAgICAgICAgICAgICAgICAgICAgICAgIC AgICANCiAgICAgICAgICAgICAgICAgICAgICAgICAg ICAgICAgICAgICAgICAgICAgICAgICAgICAgICAgICAgICAgICAgICAgICAgICAgICAgICAgICAgICAg ICAgICAgICAgICAgICANCiAgICAgICAgICAgICAgICAgICAgICAgICAgICAgICAgICAgICAgICAgICAg ICAgICAgICAgICAgICAgICAgICAgICAgICAgICAgIC AgICAgICAgICAgICAgICAgICAgICAgICANCjw/xYCiM4brkUHjohU2S3vfJn1ZBm2CCR1oo2PdETQgVD gocuIbTtkQJzDaUOEdNvlNNam5GLlgGO5ToSMvH6OdT8NnZPrgJV0EHGYuNSOwvRLzPIEsKTJlVqN4RT QvVYknVF5MjXGlSTjlQIGsOWSrIJ0OSUGyF956mtMh YE6CVi6WXxBtFU2hfb8SKkGzTTEjCeoAHat9PEvwYR8KmYOfbXAlQxLjRRTYHxAuS8sqp8OhHrCdVCVJ QTfvCU9Uu7TjmXUtEZi+Bx2KUK4cr3YtEVipWdLnLL8eod3PDOdIBuLpR9HimIkyNXZzumRxIJujszJo jAUXWU6dciEmYKCUmBf7z1DbcgIcPDKXERQ9IXofHq 7aIIIrKLF0FqKpUHLBLX0PEOXkOURbsHReYOPjFWANDC0YPThjIGX5LmuhxiJpcUIdQXpsYX2FGSCryv QgMjUgMCBSDQo+Sm6KQA0jq7XlECdbJxKaOW9ybo4LOOyGPjZrW6F8pKEfV9T0XPbxKb8FXAIuLYXzRt PeDMXPRYyjTS3WXG9jnoY6EB0QnEQaIOHsZUWwvZBf ZZh2P45jyNAfZHcpBS9OXFT+Manuela+Ey4GGMNbYSAaMULyIcZkBPISWyJkB4VvG0CQe7KmP0IkPZ01eVov gtAmVZniBC5WGK4lPFDfMLDBIA3BfTZrgD8tiuQwPSJmOXRZDqFwV19gpMTlPPFfHLF8TVDtMr3TXBIu R7CjxaCipNtdmlRxSYRfLTYRRG2HFKzcqmObzGZtiH ncVJ93vQywUV8BFu2RHxCfDQ2red2CaYIfJl3IMGRaUA5LJEPdNGMeNENaCVI5PUNjYvWrGRdeUOIuGI WcCLX7YXReSGJiOI5ELoZrLRAxPyE5XLNmWGYhBFWfkl1AKYAfNCQzYgC8AnAwTKPpXVIhZBjmEJCmAK DoQXI3PRRpQOGvMD0ANuHxLNGdYMNuSCqbYVFhGSXe iz6UVECpZRVtMpFgGjOrTTHkFPBhIVzzOCCuDBLfSnHjKZAjQIGeKG8BMdZnEOOkBFE2AoQoOSQaTTWw iz1FMSLfLEUyZyN6RrVmXGKbTJKkUZllNOJtNUD8GeH1QADeRMKaFA6WMmLnVFPmMBH9PMErRTZuQOUu xv9GRNMrQGWdEFp2LDTtUQWoGCHfQFozOCIxYWK5Db KiWCLkHDStUP5IKcDsMEIdVUz9GCjhIFGpXZGkdl4DYZJdQMRdFzs9ZVGhGAYfOLIwFNofWVDhGPI6JK y6VDDtFZNlSP0PZyIzXMQaMGjbBFSeUSPxIZBcxo5JFMYnAYJlZHT8GaJkDZZkMQTvHHsjGXDfOCS2Ew y5RKNkHKSmWW9IQkCmLPUeNUm4MmDnYPEfDSOljz0F IPBqIDAbHUOwVsYmTAEyLJCjQZaxQWRuLGEvZqa2GRPxAVJyAC9CCkKbAVEsAnR6HdBoBYTbAZNwhi1R QPXmCDBrFXIhUtIaKKYhJMYfZTdxPVEqGUIfQzIeMHTnGVYjTU0GYjNjNYIcNyM9BRAkXANrLIFvqq5J ZEMdZNOzEqa4PYBmUZZjGLCzKBh5vkNzlVLyJYk8MN 0EO1HkhuRxEfgZEh4Gy727JOZ1FGCtZu5SH5mnCe5nNMHqVYLNWm6IKQu7HbE0UnQzPjYeTMC7YEZnWX CbOGTnUNR6OeY4LnWoMRP+IFlfEjsfWkX5SfD7TgLeExVmOTH3BGMdEHgbZyTsSwK5Aw9qPQTKUu6+DQ idnHRgjIctGHSJCgJgSmZbHBdgFKFXLi4V ID Date Data Source [id number] 11/13/2020 04:17:00 PM EDT [facility] Name Value Range Interpretation Code Description Data Anna rce(s) Supporting Document(s) Glucose, Fingerstick 268 mg/dl 70-110 Above high normal [facility] The above 1 analytes were performed by [facility] [id number] [facility], ,[place] [address] ID Date Data Source [id number] 11/13/2020 11:56:00 AM EDT [facility] Name Value Range Interpretation Code Description Data Anna rce(s) Supporting Document(s) Glucose, Fingerstick 234 mg/dl 70-110 Above high normal [facility] The above 1 analytes were performed by [facility] [id number] [facility], ,[place] [address] ID Date Data Source [id number] 11/13/2020 11:26:14 AM EDT [facility] Name Value Range Interpretation Code Description Data Anna rce(s) Supporting Document(s) Progress Notes [facility] GJEZRv1sCcZYNmUj17/YDDrhVVJtf3BuDZnuITj6FKcwJQYmZ5KtGRH2fD2fIWF6WKvPSwGcGcCjECEw lbm [file] ICAgICAgICAgICAgICAgICAgICAgICAgICAgICAgICAgICAgICAgICAgICAgICAgICAgICAgICAgICAg ICAgICAgICAgICAgDQogICAgICAgICAgICAgICAgIC AgICAgICAgICAgICAgICAgICAgICAgICAgICAgICAgICAgICAgICAgICAgICAgICAgICAgICAgICAgIC AgICAgICAgICAgICAgICAgICAgICAgDQogICAgICAgICAgICAgICAgICAgICAgICAgICAgICAgICAgIC AgICAgICAgICAgICAgICAgICAgICAgICAgICAgICAg ICAgICAgICAgICAgICAgICAgICAgICAgICAgICAgICAgDQogICAgICAgICAgICAgICAgICAgICAgICAg ICAgICAgICAgICAgICAgICAgICAgICAgICAgICAgICAgICAgICAgICAgICAgICAgICAgICAgICAgICAg ICAgICAgICAgICAgICAgDQogICAgICAgICAgICAgIC AgICAgICAgICAgICAgICAgICAgICAgICAgICAgICAgICAgICAgICAgICAgICAgICAgICAgICAgICAgIC AgICAgICAgICAgICAgICAgICAgICAgICAgDQogICAgICAgICAgICAgICAgICAgICAgICAgICAgICAgIC AgICAgICAgICAgICAgICAgICAgICAgICAgICAgICAg ICAgICAgICAgICAgICAgICAgICAgICAgICAgICAgICAgICAgDQogICAgICAgICAgICAgICAgICAgICAg ICAgICAgICAgICAgICAgICAgICAgICAgICAgICAgICAgICAgICAgICAgICAgICAgICAgICAgICAgICAg ICAgICAgICAgICAgICAgICAgDQogICAgICAgICAgIC AgICAgICAgICAgICAgICAgICAgICAgICAgICAgICAgICAgICAgICAgICAgICAgICAgICAgICAgICAgIC AgICAgICAgICAgICAgICAgICAgICAgICAgICAgDQogICAgICAgICAgICAgICAgICAgICAgICAgICAgIC AgICAgICAgICAgICAgICAgICAgICAgICAgICAgICAg ICAgICAgICAgICAgICAgICAgICAgICAgICAgICAgICAgICAgICAgDQogICAgICAgICAgICAgICAgICAg ICAgICAgICAgICAgICAgICAgICAgICAgICAgICAgICAgICAgICAgICAgICAgICAgICAgICAgICAgICAg IPLlMQJuQJWuMPXzODYwTDViUYEdZWp5G6kqLJRfQU BlAC3yTBq0Qj8+TDsDSwGuYKB1nrAcbL2WOY3su6BcLQhhXZTfi4TuNYz9TA2XTWVqWCemVD2INLdwfj 7MYMSrRCEtkAPPl5zoAaDyQJM0XRDfHuhkTL6CJQJaF4ystwYhRAHtOFVPVL2IWfJlT6AweH23FLIXEf 4+TTpjypItGtvTEaH6ZZLxq3KcXYf1YO7HNIEmMiyy c3ClOoMvGLPVIPwgTB6ZUUP6UHZ4OJBcHs2DCWCnZ369tuMdCZ6ALy9ZFwMvOI0xgz0KLmGdBZNxXwfF Xfx1QEwxHN1YcCZyUFzQby2etuBryiTCt9MkfwYdaHYTTUD5XKCjLU6eOYP4JZjeWp2sCPKrPRFtOfL4 GSCVAL9PXSUoNOTdcOPcVNFcBWLHMH2MXOmbMRM0Li wrroTusWZuJZbjYI1FKARlchCnZlZtVXURBAq+Dp6MZK8li1ZyFGmtHiLhHW5iwn3IBDoKMwDrA8P9mX IbL4B2GOjrAn5ERZAiOAPuChHsSIUMXWjrNQ7AGU0rbxN9WX6BaADgLAZtPYUtwRFwKUx4Z57waVBdKM gkYE6QOWQ+Manuela+Vx0ULBPhPIPsFNRaZkYaNBXTDwAc N6JwC4KBg9BzT8XfOM62aZbaryFzUMhfHY1PTJ6tXZBaFWXNCJ1XfHDrkY7xqxOtATHqPOWOTpMiM01x kVVkDNQtWTV1QRGfMm2RGBEgT3HvpvIkrBrkwpQeQRLwFHOYAI3RVJtyrgOnxPTweNxzBV42bYxdLW9Q Xf6WDjVjFP1shy9BsTXcGc6QDXLtQE0XEVQdPKUcGJ MxDNQ9KDTtVuCrTVouDOSiHPOgCBI4TSKpZVUyNI9OIsZzSQZbNcLdZtDyZFEcVWDexm7GWMYmZQFhFv rgGOExSDFcRZOuIRukCRCdIYPtUTP4EYChVOHhTI4FOgLtTZFmNKOzFAXzPDZcNSVbfu6CRGMdYAOeTi Z3IMHmGIGfCJAoALrkFZCeRQXoBWQpTCAsFWXrEQ9D XjNjJBCcNIK8CMKtJNCcZLMhrp4ZWLNjNMPfRubgAZUkFTMuCHRqFQhfOOKlUBG1XEx3EDOcIWOeHZ3G ZcGhCEKyYMNoIYRrCSGiJDLrzl2RCYXhOFFwPMJ1ZsKpUZFjCYAzUJdtIYEjRRN3NaG9IFLgHHUtWP7X ZdYoJNCmJRe2TeNaFYBwCDPvqj9BZZPuLIHxNGH4RS ZlDIAwYKRwIDqtIBZoEBQ7WsorFDRxGINuAI1XDmMyVMScPVg4UlWlCDUgLLGtna1TFFVeUEHlIKJ6BD GfXJSfRJPnVIuaAHLnSQC9WwFcYZIcTMAlPM8AQqOnZXQaOWk3DdpfEDCkXHMktc3QNTWyZZInNDd5NA NvLKYoRRMiAOsxZRZoHIWfVSG0UQPyBEVzFX5BYpVw FZTcRxEqChomEHEeFKJsik1CPMNlCJKhYLI3RULaQBBuQEIdDRbsLMDgEWXtOZU5GKUdFPVxPJ6DTlNn HLHiMbTyLplnGLQfVWCwhz5CKNJtTYHeNeCtNAMoFYNiQFVzTPf0fyFnbKWoUNb2KU2VE7XjmnZhPoaZ Rr7Pk376UWH0HVDpZl5SR9efVy3nFYPoITXYOb5WJE g4ZIiqDRL0ChL3HBD0Z9ZfRVVeZMwuDzYkGQaoCsDoDNZ+LRdcC0G2TdR4Ses6CFByJcX3HcO3GTNrMy L9H6GbCFDtTO5eICQMHx5+TLrhvDLngTtkNPDJTlEiULJzNLzeIWNXKt5A ID Date Data Source [id number] 11/13/2020 08:12:00 AM EDT [facility] Name Value Range Interpretation Code Description Data Anna rce(s) Supporting Document(s) Glucose, Fingerstick 330 mg/dl 70-110 Above high normal [facility] The above 1 analytes were performed by [facility] [id number],[place] [address] ID Date Data Source [id number] 11/13/2020 08:00:30 AM EDT [facility] Patient: CHRISTY CURTIS : 1970 M RN: [phone] [facility] ABDOM[facility] PELVIS WO CONTRAST Provider: BRENNAN ROSENBAUMINICAL HISTORY: 50-year-old female status post gastric bypass surgery8/ with moderate, left-sided abdominal pain and nausea since the surgery.TECHNIQUE: Axial images of the abdomen and pelvis were obtained and displayedwith coronal and sagittal reformats. The patient was not administeredintravenous contrast, as per requisition. Sips of oral contrast were attemptedbut unsuccessful. CT imaging was performed utilizing dose reduction techniques,including automated exposure control and iterative reconstruction technique.ENCOUNTER: Initial.COMPARISON: No prior studies are available for comparison. FINDINGS: Please note that the lack of intravenous and oral contrast somewhat compromisesthe overall sensitivity and specificity of the exam.Lower Thorax: The lung bases are clear. The heart is not enlarged.De brandon: Degenerative changes of the spine.Abdominal Wall: Small-moderate amount of subcutaneous emphysema and areas ofsubcutaneous stranding compatible with the recent surgical procedure. Nosignificant abdominal wall hernia.Liver: Punctate calcifications. Otherwise unremarkable.Gallbladder and Biliary System: Gallbladder unremarkable, with no calcifiedgallstones. No intra- or extra- hepatic biliary ductal dilatation.Spleen: Punctate calcifications.Pancreas: Normal.Adrenal Glands: Normal.Kidneys and Ureters: Normal. No hydronephrosis. Urinary Bladder: Somewhat prominently distended urinary bladder.Reproductive: IUD within the uterus. No obvious pelvic masses.Stomach and Bowel: Findings compatible with the recent gastric bypass surgery. No dilated loops of large or small bowel. Scattered colonic diverticula, withno radiographic evidence of diverticulitis. Appendix: Normal.Peritoneum and Mesentery: Small amount of free intraperitoneal air compatiblewith the recent surgical procedure. No abnormal fluid collections.Lymph Nodes: No abdominal, retroperitoneal, pelvic or inguinal adenopathy. Vasculature: Normal. No abdominal aortic aneurysm.IMPRESSION: 1. Findings compatible with the recent gastric bypass surgery, with no obviousradiographic evidence of intestinal obstruction or ileus. Small amount of freeintraperitoneal air consistent with the recent procedure. Examination slightlylimited by the lack of intravenous and oral contrast.2. Slightly prominent urinary bladder distention, clinical correlation advised.3. Additional, nonurgent observations, as noted in the body of the re port.Electronically Signed by Desmond Lester MD 11/13/2020 8:00 AM Name Value Range Interpretation Code Description Data Anna rce(s) Supporting Document(s) ID Date Data Source [id number] 11/13/2020 07:18:02 AM EDT [facility] Name Value Range Interpretation Code Description Data Anna rce(s) Supporting Document(s) Nursing Note [facility] RARYVh5mXqUTHjMo10/JEBddPPToa6LwRZvqLDm1IVtwMKFbS8MkNSK4mY9nAZO9PMiVWaKrCkNdXFIl lbm [file] YWQ+QO4zEUz+Ou2Tg8WgssV1akAlPIgmACO9Uu8GWTFME8CNXz== ID Date Data Source [id number] 11/13/2020 05:39:20 AM EDT [facility] Name Value Range Interpretation Code Description Data Anna rce(s) Supporting Document(s) Progress Notes [facility] HQBWGs0hAvJXCtEi32/XYQbaTFDio7IxATxvTKk7DNwuBLFcW9GlHDQ7lO3mJZT5MTkDRvXiWmWrWKXt lbm [file] == ID Date Data Source [id number] 11/13/2020 05:39:00 AM EDT [facility] Name Value Range Interpretation Code Description Data Anna rce(s) Supporting Document(s) Progress Notes [facility] ZPGVWq4xIhCNVlIe00/RYNzyAGOtw6SfEEhlKRf1GPztRGNpT5IfYPW9lT4oFRA4IFcHOcIrWiIiEUIv lbm [file] LdXyKDrkJDJ8JR4uHQMXSf6+LSscqHCfhKhdMMIKQky1KwaTPmOzKS6NVDi= ID Date Data Source [id number] 11/13/2020 04:02:00 AM EDT [facility] Name Value Range Interpretation Code Description Data Anna rce(s) Supporting Document(s) Glucose, Fingerstick 221 mg/dl 70-110 Above high normal [facility] The above 1 analytes were performed by [facility] [id number], ,[place] [address] ID Date Data Source [id number] 11/13/2020 01:31:51 AM EDT [facility] Name Value Range Interpretation Code Description Data Anna rce(s) Supporting Document(s) Nursing Note [facility] XBOHUd5eQpUJGlMw92/IFNvgILVbs4UyYYqtLCv6CRweBZNeM4LtVGJ8zB7oTLI6FIqZHzBgThHtKRQf lbm AzSbxNPzHoJTRbNmlRNyXcDQwzAgrkmVObDW3CnGU2FPMdQ27rGWZhSLQhY2RfOXLcCkJ+Fp9KOITyuF ErZK4UIlwN3Japs7t9QJ6uwN/Zi9Bu1lMnGIURWFjdfdcC7GOZBmhc5IRhD76Oa43rR39+/JNOeu6MgQ +DCKof9pGnsRwU75ppLYw/85ac0vkZHgi/1ChyyoL8 Ed9+MkhdNg7ykpgBCuNKEhbq/ASlr8KqOgsCM1zp8oQDG4xRzZI1AHzmYhJRhz6hJHeywCo+Abgbd5yw dOKGdxs2D6BzNtP/Ot4ulbxJGp5WfWhQ/loO9ell/59BlXryAgg0W4rffsGQbX9Qg52QRZ8VVqBzZYXp D0bZDLDsDndgc1me7upEXVDcYMDFRx45EphqaIh+MU hkNrLQrmQNFZhdsgg2KipSVhYDGiOmJ3Aj26EqMehUUA4eHpO1f8kxRSjlJiNptMcavdExX8AYG2tQyS PfQmRAKalrRIWfyO9B73lLDp+wdZk4gniz7itIRfwuo75lGUW8oY+ynbQlg5WiQPNU5zSeKhTY8D7/zh fHHcmsjFHOqA3/i+FaNWpK7hO2om6P6awK60ql/HS/ ZvrYrC6OQDErTKy+MYwdowyxMuZcZEifhBNVqBtj8fLhaklscuxnG3U52J/9Lfq9/luBlZZ7LiE/4bbo BeW9mckDfMzxjraim8IwQyk7o3ehj1JDmrmj673ghxkWDLEm0oLQl/MKpfcLzD4L6083cnzOkR4B/4XW rGghrzELO/OhMb8UrnaRGzdknnvWuTe9mjfwcvvIhg [file] ICAgICAgICAgICAgICAgICAgICAgICAgICAgICAgICAgICAgICAgICAgICAgICAgICAgICAgICANCiAg ICAgICAgICAgICAgICAgICAgICAgICAgICAgICAgIC AgICAgICAgICAgICAgICAgICAgICAgICAgICAgICAgICAgICAgICAgICAgICAgICAgICAgICAgICAgIC AgICAgICANCiAgICAgICAgICAgICAgICAgICAgICAgICAgICAgICAgICAgICAgICAgICAgICAgICAgIC AgICAgICAgICAgICAgICAgICAgICAgICAgICAgICAg ICAgICAgICAgICAgICAgICANCiAgICAgICAgICAgICAgICAgICAgICAgICAgICAgICAgICAgICAgICAg ICAgICAgICAgICAgICAgICAgICAgICAgICAgICAgICAgICAgICAgICAgICAgICAgICAgICAgICAgICAN CiAgICAgICAgICAgICAgICAgICAgICAgICAgICAgIC AgICAgICAgICAgICAgICAgICAgICAgICAgICAgICAgICAgICAgICAgICAgICAgICAgICAgICAgICAgIC AgICAgICAgICANCiAgICAgICAgICAgICAgICAgICAgICAgICAgICAgICAgICAgICAgICAgICAgICAgIC AgICAgICAgICAgICAgICAgICAgICAgICAgICAgICAg ICAgICAgICAgICAgICAgICAgICANCiAgICAgICAgICAgICAgICAgICAgICAgICAgICAgICAgICAgICAg ICAgICAgICAgICAgICAgICAgICAgICAgICAgICAgICAgICAgICAgICAgICAgICAgICAgICAgICAgICAg ICANCiAgICAgICAgICAgICAgICAgICAgICAgICAgIC AgICAgICAgICAgICAgICAgICAgICAgICAgICAgICAgICAgICAgICAgICAgICAgICAgICAgICAgICAgIC AgICAgICAgICAgICANCiAgICAgICAgICAgICAgICAgICAgICAgICAgICAgICAgICAgICAgICAgICAgIC AgICAgICAgICAgICAgICAgICAgICAgICAgICAgICAg ICAgICAgICAgICAgICAgICAgICAgICANCiAgICAgICAgICAgICAgICAgICAgICAgICAgICAgICAgICAg ICAgICAgICAgICAgICAgICAgICAgICAgICAgICAgICAgICAgICAgICAgICAgICAgICAgICAgICAgICAg ICAgICANCjw/hSWxN1zseJUtnsI6H0wpYs1BXd7DFL 2xo7ErYISkXDamlhFwOrmXJdKuYTOjQthYGou6LHxtZT1RiJAtW4SzA1JfLVguBM6EQQNjHNDwiJSdPG EbTLTeXpV2VEAxLJqsUO7XeAQzSWafWRDvWAZwFT3SWRJmD586mfHyXW6SAo3ZLuPoQJ0zgl0GFlYgIQ NkSgzRVyj6UQwvGI5CyMWvdVBtZcVfGQDIVxXgD1gb e9UwNhFaYVFBBFjsND3Ja3VbhCZlWHf+Qv4QAQ2az8OgZMgsGeEbDX6ekz4FCUfREaVeW6GsfRcfBM53 whMjylzuJe96NTQtqQBXxNMiIPvnTmTkFWfpKEAkJ6coFWGOUFG4AFvrFq3jYAFwYQUrVrTvQMRWVW2O GLRyXNDvjIKrHOLaCQJCPQ6GAHwpGJH4WecbevMmtL DeEJcsHI4WWLCepoXcVjJlDZDEVKy+Wm3CEU6jh0RgXYccNYQhWW8lrf2MDRiDJeSaL4W5cPMmQ6L0KH heDu3DXHQpGHGuWpCfHSSWTYecTL0XQV3mbmL3UR2KvGNoQVPoDOArwKTlTUx2Q96cmLGqFFnjEV9XRG A+Manuela+Lc9SNQGhZKQaYVHxEiWeGKXCBcLzK1YqK5YS e6IbO5ArOT11pVzaipZlRLjzIR9PSP8xULTlOMMWBS9OyVPgxA4zidZvUpLaLMZCMvJlD21zrENaCAFe MCDnIRRgHq4CTKJbD8YsvlCdbOtcsrWqYVSsXKYOXO1OIVmoueReoMJpqYwjFC46kTiiJO5DVb4UHmCg BB5mmv8IuAGiKp3OYXPcZM6WUQCcJJYbMLGjTAV9BL ZiTbCdHYgbRMNmCUFhISY3YPZmLFQmJO9CCyEjMGXuRKxxQiwkKOOfRXElgg6WVNPcKISzQMr4CxEqVY PsHEJfWVulZXNcPUZdOUK8OTCyJDCyEA6YYxIqCBFbOEU7AmXdBAOcOJHzdx5CEOCsOHKpMSa0KEQbTN ZeUWQmYHaoMZOsBXHhGcSxSCEwIZHpSX7CEtWlSHVg UNM0EcZsOMXbPJQpnx6JVHPhADYlLlYoYNCzQDDyKCDjJRkiTIXvNFV4YKx3PTMgAXUnBZ6LXyQuSMVu IBEgMyPnMASmNPAcsh3XOMQgAUMxZSY6QhLzHUVqWYGiRThaZVIyHMP6QXT8XNFqMOUoIN4HOvLeZKHa OVkjEhDhUMMgWQOanl3BPMEcDYCmBxGgZIRbJCSyAS HfLRykCKVsVCA3DTxuWJLbDHDlFD1AYgQbWVCqFVb5YUigWLWzHYLlkn1XDOIjNENqTQM6WCIsXQVfHT EuKJvyKBDxVLA4PRJ6PUOjXLFqTP7YDrDmYIMfTWknWFcePPZwTANtub7PRQVhWNZyVUNxOzJhHGRhBO LrYLspKIDaAJNwXLypUDFnHNZyWR3JUdGtOGVoIdM5 AKNuZLUnVYHqpn6JMXHdYOBsAXA1IqDbTZQeDAFnDOr4ajXtaOVwHVy2OQ8CU6QbtyIaPzEINv0Dr739 KSJ4CTBwNp8LK1nxXy8dKEBwWGOAUv6XAVy5TrH1DIJ7MEAhPJR6FTSkBnJbEsG5OmKhCzPhS5YaJcS+ NWplEsK0CbJlJXN8OTQcW4ImHNRaSjseVaKoKqMiIH JfYu4qIQBXQo7+WQznnBDvgVfnBROELyOoOzD9VGhwMMPSOl8W ID Date Data Source [id number] 11/13/2020 12:43:40 AM EDT [facility] Name Value Range Interpretation Code Description Data Anna rce(s) Supporting Document(s) Care Plan [facility] WEFGMb0sGiJMZeMu15/ARIwjEPUal2ZkQSzhRVu2LWpkCPRhP5LgOVR9pT6nICE6CHvXDsFmBnDuUURe lbm [file] EDU0QcEqPAS5KfYgDR3AQj0PVgI8UIZ4bPKfBk9SYoX9SYwAFwBzKT7BXMc= ID Date Data Source [id number] 11/13/2020 12:07:00 AM EDT [facility] Name Value Range Interpretation Code Description Data Anna rce(s) Supporting Document(s) Glucose, Fingerstick 201 mg/dl 70-110 Above high normal [facility] The above 1 analytes were performed by [facility] [id number], ,[place] [address] ID Date Data Source [id number] 11/12/2020 08:12:00 PM EDT [facility] Name Value Range Interpretation Code Description Data Anna rce(s) Supporting Document(s) Glucose, Fingerstick 184 mg/dl 70-110 Above high normal [facility] The above 1 analytes were performed by [facility] [id number], ,[place] [address] ID Date Data Source [id number] 11/12/2020 05:59:00 PM EDT [facility] Name Value Range Interpretation Code Description Data Anna rce(s) Supporting Document(s) Glucose, Fingerstick 229 mg/dl 70-110 Above high normal [facility] The above 1 analytes were performed by [facility] [address], ,[place] [address] ID Date Data Source [id number] 11/12/2020 05:54:18 PM EDT [facility] Name Value Range Interpretation Code Description Data Anna rce(s) Supporting Document(s) Nursing Note [facility] CKHITd1eDiWAEfSn51/INRpwMLAim0MiNKhtPTk3NYchECLjP5ElOIP8eO0pLDY3DKaBUdZzYlDaVQYx [facility] [file] ICAgICAgICAgICAgICAgICAgICAgICAgICAgICAgIC AgICAgICAgICAgICAgICAgICAgICAgICAgICAgICAgICAgDQogICAgICAgICAgICAgICAgICAgICAgIC AgICAgICAgICAgICAgICAgICAgICAgICAgICAgICAgICAgICAgICAgICAgICAgICAgICAgICAgICAgIC AgICAgICAgICAgICAgICAgDQogICAgICAgICAgICAg ICAgICAgICAgICAgICAgICAgICAgICAgICAgICAgICAgICAgICAgICAgICAgICAgICAgICAgICAgICAg ICAgICAgICAgICAgICAgICAgICAgICAgICAgDQogICAgICAgICAgICAgICAgICAgICAgICAgICAgICAg ICAgICAgICAgICAgICAgICAgICAgICAgICAgICAgIC AgICAgICAgICAgICAgICAgICAgICAgICAgICAgICAgICAgICAgDQogICAgICAgICAgICAgICAgICAgIC AgICAgICAgICAgICAgICAgICAgICAgICAgICAgICAgICAgICAgICAgICAgICAgICAgICAgICAgICAgIC AgICAgICAgICAgICAgICAgICAgDQogICAgICAgICAg ICAgICAgICAgICAgICAgICAgICAgICAgICAgICAgICAgICAgICAgICAgICAgICAgICAgICAgICAgICAg ICAgICAgICAgICAgICAgICAgICAgICAgICAgICAgDQogICAgICAgICAgICAgICAgICAgICAgICAgICAg ICAgICAgICAgICAgICAgICAgICAgICAgICAgICAgIC AgICAgICAgICAgICAgICAgICAgICAgICAgICAgICAgICAgICAgICAgDQogICAgICAgICAgICAgICAgIC AgICAgICAgICAgICAgICAgICAgICAgICAgICAgICAgICAgICAgICAgICAgICAgICAgICAgICAgICAgIC AgICAgICAgICAgICAgICAgICAgICAgDQogICAgICAg ICAgICAgICAgICAgICAgICAgICAgICAgICAgICAgICAgICAgICAgICAgICAgICAgICAgICAgICAgICAg ICAgICAgICAgICAgICAgICAgICAgICAgICAgICAgICAgDQogICAgICAgICAgICAgICAgICAgICAgICAg ICAgICAgICAgICAgICAgICAgICAgICAgICAgICAgIC ZzILDpWPIdYZIbUZAbFMGxTMGnBFUjSUMlWLSnJFHhNCUmVSIpOJHoWIJdTRx5O1moUVEvOCDwLL0cPX d3Jz8+MPjRKiWiDZU5lbMnbE8LGB8gw1BzPCcvROKqs8FyABz7LQ1WAJBkZCnqUJ8QZRsgiq6WVZObML VurAXMa5yqMsWaGSE5QIIlHqudXK1FXXOmM5kphrVs HTHbIKQMYP8IQxXwC8IuqQ29QBIDRf4+SLnvpgYvVtdWMrFqFMFfi6QkFNy7RU2NBPGcHrath9RySoFe NRNYLVunRO9IXKQ7UXZgRRBpOm5MAEOiI852pvJqBG8IBk3ZJwSaYP3yvl6ONoHgTMKsOccACom6RVlp JY1LsKLlMMyVlHNwxL6sYZ2ytTFyPqthE0S1lZXqrQ QZpUlePBwdBFALYCP2VBphTJ5rKKNyLXM9CjS6XHMXDD1REQKhUWZzkRMkQQQzFJXINU8GLSeeXHG5Ma sykpTbmKGvWVscKU9PMLTzxfTwKsZtDZNAFBw+Bt9OSL5ww5KyVMznVBWtGB7lhd6PWAeQKbUaV0I1hY LpQ3V3XTkpZk9UWJEuMSIqHkSfTYVVVOznOY6VGF7p tfI9PL4WdWClEUHfLZOehEYeWJg1H20pvJXxBGxrFP4FKHS+Manuela+Fx8IZRHhSNWhXVOuSvEcDVNDUyRu J3EmJ8TFw0CxP9OaYA39cEtihmIwVDfyWS5YNZ4vQZUkFDQTPZ9HhWExeL3ivsRaPlExUEJNBbNsX65i yVAkDFEqNBZuNIEsFu3UKTAdU9ZphgLdgVnzbvKmWL PkSGOFFX0KVPuxwbPuvFFfkWrhRL66iCzpGX7CJr1AGeWcMV5qls4KmHZhWg5DHSOxMM2EYLGuUWRpVH FbZZA4JZHoVvVdGCxdMXAyECWiTQO6LPUjLBFhCW9LJxFnWPUeIDunLMieYSZyIYQwcj7DFTKyJSQsNL s0MxJhURDbRBVuQWlbGBZxVDJrANH5VZHhYXFfVS7E ImVbULGzUWM5HSDlZHWhGVQkqn9VENKkAXIbTFx8AFJyYSGrQRZbYFcrFONtHQVqGAFkPTOtKRZjPU7H XbDsWQIbSWIxJMGfUGBjREJkbx4ZUCUeAQQgMzA6ESIhYDExHONwUXjtDZEsBTG0BYP4LBHcOZQaYH8D VeAtBEBhYIAwNQEsRUDhYEOfpv3YQEDgPFCaXETuWr VwLXAxBCTrVJviJTCwYXT3GTw3LFMmGONqAX8SKxSnSJWrMDzsCDEoAMDoKDJurj6UOUEzXGBvEfWdDS SpOGTxGNSwQAjhZWUdQIG7WrAiTIHcXCSpLK1VCsTlWUApJEw7NEhmJEGmAQHgbl2FTUTqVMInIWagVQ BsWCZtQKMfBNmgLSJpPHR7SKE4WHMtPKJsZS9ZCzBa FWPdYHooLYlyVWMkSTFflm1TMXVfQOGtFEOaQtDqTAKrMCUoXFarESTpPRDtCDJbNNHfTLNiIV3IGzIx CZIzGdHzAKOoFIMgHSDyub0XYVEqDKEhZHE9PGWiEALuSCIwQTh7gaQwcMXfTDw9KW4OQ5EsbdCwAqZE Kq8Aq138RTR4FJAqTr6MY2ekXg9vAKMsEEUXQi7IIS j4PPSlNPa4TSlnDcQ0IdDbQDAvT8BcYgBqL2HtZSQbHub+OSz9NQB2Zlf8CQAeYxXhKCN4UXAzShZ3TE Z9PVZ9KHE6CN0gDBXVAg1+RCjunRWxzYyaEICHAyBhGFNkPSloODRFGo4R ID Date Data Source [id number] 11/12/2020 05:44:01 PM EDT [facility] Name Value Range Interpretation Code Description Data Anna rce(s) Supporting Document(s) Care Plan [facility] RCZUSh8hIfPPCjTi38/TCPvaCGPqx9NmYOygOJd5ADddYWCyW6SkYCB4bD7wIBC8OVnGDbJpIjDcCTLz lbm [file] AgICAgICAgICAgICAgICAgICAgICAgICAgICAgICAgICAgICAgICAgICAgICAgICAgICAgICAgICAgIC AgICAgICAgICAgICAgICAgICAgICAgICAgICAgICAgICAgICAgDQogICAgICAgICAgICAgICAgICAgIC AgICAgICAgICAgICAgICAgICAgICAgICAgICAgICAg ICAgICAgICAgICAgICAgICAgICAgICAgICAgICAgICAgICAgICAgICAgICAgICAgDQogICAgICAgICAg ICAgICAgICAgICAgICAgICAgICAgICAgICAgICAgICAgICAgICAgICAgICAgICAgICAgICAgICAgICAg ICAgICAgICAgICAgICAgICAgICAgICAgICAgICAgDQ ogICAgICAgICAgICAgICAgICAgICAgICAgICAgICAgICAgICAgICAgICAgICAgICAgICAgICAgICAgIC AgICAgICAgICAgICAgICAgICAgICAgICAgICAgICAgICAgICAgICAgDQogICAgICAgICAgICAgICAgIC AgICAgICAgICAgICAgICAgICAgICAgICAgICAgICAg ICAgICAgICAgICAgICAgICAgICAgICAgICAgICAgICAgICAgICAgICAgICAgICAgICAgDQogICAgICAg ICAgICAgICAgICAgICAgICAgICAgICAgICAgICAgICAgICAgICAgICAgICAgICAgICAgICAgICAgICAg ICAgICAgICAgICAgICAgICAgICAgICAgICAgICAgIC AgDQogICAgICAgICAgICAgICAgICAgICAgICAgICAgICAgICAgICAgICAgICAgICAgICAgICAgICAgIC AgICAgICAgICAgICAgICAgICAgICAgICAgICAgICAgICAgICAgICAgICAgDQogICAgICAgICAgICAgIC AgICAgICAgICAgICAgICAgICAgICAgICAgICAgICAg ICAgICAgICAgICAgICAgICAgICAgICAgICAgICAgICAgICAgICAgICAgICAgICAgICAgICAgDQogICAg ICAgICAgICAgICAgICAgICAgICAgICAgICAgICAgICAgICAgICAgICAgICAgICAgICAgICAgICAgICAg ICAgICAgICAgICAgICAgICAgICAgICAgICAgICAgIC AgICAgDQogICAgICAgICAgICAgICAgICAgICAgICAgICAgICAgICAgICAgICAgICAgICAgICAgICAgIC FmZSKbIYOtBCNsXNKbOAYuLOPqSBRyKXYrEEGfFADcLRLtBVEeGZQcRJBwQHYuCRx8P9fwLSPwCPYwMQ 7dENc7Ux8+JXgWIeHgORC2siMucB3CWM7po6LmXWhx VKKvq5AgPNc8DX1VFRHaJJhsWT6JGQzqkb1LRGDzSSNiwUBTz4scXlBiQYF6OEMfIkfaYI2OFPYzD8sp wiGmNXFzHAHAGD8GPdYtE1UisY50SJIQTm4+YBsvnyYmXkhVPmR2LMEnm6JfCJp0ER8CGAWqYwumh3Nx RpIxFYREDPzzLS6FTMB0COD3THIhLz4VYAWgB641kz WyAO3PXf8BSeIoFP9khv8SLkVsFNCmZolLNbo1EKzoUI0AnOBcECeCJILvETSbIT0vZitfW0H5qZNzaH SMqPpbASorJWNGQOE5MOjkYO2mUKBtEPP0NzIqKOCUBF7NFOHcWFXiyUFgPLAyHTYURS0QIGooFLJ2Ib nqkzKgtDWeTFfgER1LBRSgqmOyIsFqRCAWJYb+Pg0K JC9xl4PaLUenUgCjUY8tgj8SZEpVVsCwK8R7hBZmN7N7GYcwVm4LAZUoROMwLdMnBBAUXMrwSV5OUA9h vwU7KC0HdNEwSUYyQAIkdOEzEUj4C94nvQEsPXcsCR1ZIME+Manuela+Xk3RTZIsSMAoALXvNrTgGSUPBpNk N6AlR1HCr3WxK6PyPR44aQjtnmVpUTeyMQ4KLB3eES SnXZTRAK1ZuCIxiK5fqzWlNHJaEMCEKmTfR20fjEUdCEFlNYV7JJGbOs9VRCHwZ4QorqAkbSbvlaFxVL BdXHUJRG0CIJeuykVgcGIzbXqaPO13sRwwGD0MVc4MBiFoRT4fgn6DmMShUo6WLIUaCW0UOIBcWTMsLI EiWXC6MGGrNqPvZKsbYOArILRaHRP1KEGwGORwVY8X KdYnFWXaWjK9VmSlLXXnUGRorj8TEVUzCVCnTyehSFUzPNKiPJKhOLqvBIRsMPNoJBE1AFEuXDVmDZ2N LmThNULeFYUdIVGmURKhGKPsfq1EKGOiMWWpPeX4BFHcUBAxTFIiAVzhSBCcIBRhAoPtRBZcBAPlTZ0Q WjFhRNOxKWA6UTCzBIHyMIWzjc0STZXtALOyKwnlKC DsKVWvJZKdOGbgKMVcPEF8Tgg6SIYkEUQbYB4XWoLnBZGiMSH9JVFpROSbDNDpqi0RYBKyGMJdNPZ7Bd PnYSVwUFZgJNobSMYhBWO9NJG0ITQwWPFeIG4TDdVyXLNtNYu3JiEhESIoSNIhbw8QGZBpFMUxAlx2MP GoOCKyCSZfUYcgYAWgLIG8NUxaZAInTPGyKC0CYrId IPEtVHfeXtWqQQLbVCJfaa6VSELvSMEzLGO3WRFnZQXfIOXlXFndHSTiGYE5TDB9TMOqEZYkJW8FTnJs TJAjMDk0QTVeQRAwLHVjxr8HJXOvEPUsPLZ9IFYqKVTtWGFsHDvrTPWkFYDuKan4TPUdQOSnAL4JPiOy XEWvMgJ4JEBrDVYuISVtvb6SRVDjJALrBTA5XXHrBO BjKINvLFjoZQKfUTQdMLHgGMBeDQDdJW6RXhHsBBRnOnC4NLKhCVUuXDCxce4COWPyYJIxIiOrRiVfZI JwYBIfUDc4eiTgzYFiFXu6RC3BM0DygzPpSbyLNv9Rp345OLS0MLEoHz7BW7djXp5vTJMiUEMZZo5NQG k1PnT1NHElTGZfIzQ2YBZwWeT0SXH4TgBeKfQ1Epd5 MjM+YVdmSRUhD3YoMXEyFlpaLkCeKXxuUAscXZDdPRCnZQbuXa9nHBQBGz8+DQpzdGFydHhyZWYNCjIz QgdkFCzaHDLOCf0V ID Date Data Source [id number] 11/12/2020 03:31:21 PM EDT [facility] Name Value Range Interpretation Code Description Data Anna rce(s) Supporting Document(s) Progress Notes [facility] AKULIm8wZiZHLdQn52/KRYwaHBYgw7WfHAgjEIk4QHboXAZnG4GxPEI5sF5lJNW5NJpDZcVeAiRfJGMh lbm [file] AgICAgICAgICAgICAgICAgICAgICAgICAgICAgICAg ICAgICAgICAgICAgICAgICAgICAgICAgICAgICAgICAgICAgICANCiAgICAgICAgICAgICAgICAgICAg ICAgICAgICAgICAgICAgICAgICAgICAgICAgICAgICAgICAgICAgICAgICAgICAgICAgICAgICAgICAg ICAgICAgICAgICAgICAgICAgICANCiAgICAgICAgIC AgICAgICAgICAgICAgICAgICAgICAgICAgICAgICAgICAgICAgICAgICAgICAgICAgICAgICAgICAgIC AgICAgICAgICAgICAgICAgICAgICAgICAgICAgICANCiAgICAgICAgICAgICAgICAgICAgICAgICAgIC AgICAgICAgICAgICAgICAgICAgICAgICAgICAgICAg ICAgICAgICAgICAgICAgICAgICAgICAgICAgICAgICAgICAgICAgICANCiAgICAgICAgICAgICAgICAg ICAgICAgICAgICAgICAgICAgICAgICAgICAgICAgICAgICAgICAgICAgICAgICAgICAgICAgICAgICAg ICAgICAgICAgICAgICAgICAgICAgICANCiAgICAgIC AgICAgICAgICAgICAgICAgICAgICAgICAgICAgICAgICAgICAgICAgICAgICAgICAgICAgICAgICAgIC AgICAgICAgICAgICAgICAgICAgICAgICAgICAgICAgICANCiAgICAgICAgICAgICAgICAgICAgICAgIC AgICAgICAgICAgICAgICAgICAgICAgICAgICAgICAg ICAgICAgICAgICAgICAgICAgICAgICAgICAgICAgICAgICAgICAgICAgICANCiAgICAgICAgICAgICAg ICAgICAgICAgICAgICAgICAgICAgICAgICAgICAgICAgICAgICAgICAgICAgICAgICAgICAgICAgICAg ICAgICAgICAgICAgICAgICAgICAgICAgICANCiAgIC AgICAgICAgICAgICAgICAgICAgICAgICAgICAgICAgICAgICAgICAgICAgICAgICAgICAgICAgICAgIC AgICAgICAgICAgICAgICAgICAgICAgICAgICAgICAgICAgICANCiAgICAgICAgICAgICAgICAgICAgIC AgICAgICAgICAgICAgICAgICAgICAgICAgICAgICAg ICAgICAgICAgICAgICAgICAgICAgICAgICAgICAgICAgICAgICAgICAgICAgICANCjw/xNCoK8tdeZLj dlL6F6ldHz4JJq3JDK8fd2MsKCHeLDxhpjIyTsmFJhItDPAdRwoJGnw6KOdnSH1LfILfW2GrA1GiSHzs QM9HIBLaCHAzkVGfMTMlYPQmBbQ2ZHRdTDeiTT3XvO OcXOptMITdLZItZP9HTKSlL846uvPnMQ1KTo6EMcDsAY0azh4NDcHvDVAqEkhKWxo4YBtcET0EqGUzjP DpEsQeNVBDYrZjV7nbb4XyWyIrLZVCGSloTJ7Cx1KblMEzUYn+Yk2VXF2ck6GtNDbyNnKiLM6uor1BHS bLRuEwG4QzdVuqADBys7srEBDbBQ4lqMZvCIB0WK9n xbfmWtSbo4VtSDBoHH3mHhYaBjVsVMG9EuBdAC4lQWsoYU2AFBZ3XOgfIMKtTXPmZ0xMFxBaKFfjWNUl oJwbQK6LQkFvK1HdjwJnnAEkWKSdZZUJAy7+UKvkqnSeBnnBWkH7ZVZxr7DjHRk9FX9PPYNtNNthPR8Y SERdcY9fKQdcOL7BHdLfWoAhHKYYMfZnM48fnDMyGR x8C1QtDhLqNNFuLanyHHQgYMpaFxZfWVTaUfPvRGilUM3+ID4+ETweKY8GIMcawcLeLZWcNa4FNGZlJB BgLZ2pWAWdJXRjL3W5iPynWJFSXnPtK0ofntowJG7sLRIiW141eRsgnjSuWAW1VCDoDt6XZCMkHID8VJ BmbQRrKhYsMBGIMUxwXG0DmIPaOZY8pI0cGRjcAMRu SLVoB6cBAxOpaTdbYS30oFrgocRfkSNpMCr+Sc5CHI5lc3LrNGk3rqDmWLwbLFC4LUgcSSEnURFsIXZj HXW3TKX8RDMZIbVrDZVpQFIrRAjrISPaZKWrwl5OFXImSYIkBQQ2RiWsZPKnFZXpPPwrMNOfLKIgTRE6 FDErUKBlII2QEdMvCUBcWIKwFHjnYQRwPDVxvn4JTB GaDESkHCS9TrNxSCZsOFBfZGnyWITkDCOpROypTJTdUYBxVZ9ZAwXqTOEfUUP3QuzxXSKzSWSuoq5GAV QxDEQdHwy9IFStUKEeFWKwINnxREKnPMHhHWX7JCYgYZYsIK2WFdAtQJEiHIX5MMDtXWYlBEJpfv6SCK CxOEAdRWK1UOPwTVInUXZnXDviETOaWXQ5KuRmZUZt SJZvBH6CVrVwBFHcKFY5SZBmJPWiVHNqfb7QTRWcVVGyAlwmOVHuNAMnQTMpTVcsJZCpBNB8TXR9QNEo CYUiKA8DHbWbIDJgJFuoWwteSGFtKSBcsg5SAYHmYFJtFgQbRfRyISTdINUwANurIUIxGZS8PVO4GNMl ZHUuIT1UAlDtDEFfLWp4AGkrFUQmHTDcbl9GVINaYQ AqCTmyDKIgACJiQUJnKKrcTFDcNTV1Uvg8BDZoIIYrTI6TFdJaIRMdETk1ObVyIHJhCDLeyx6UIOBjRV CdETVyGSKdXVZtGNUeNVpcQJBvKJXiTRR2UKXuVRRqCB3TInGpMEYqMuQhZMEwVZQrVJOpkx1LABZuVF ZpCpZ2MeFxVDFdQSFvHOgrDYOiODVcRzH7WHSbYUPh LH9LMzCwMWhrXYLWUjs4DJzrE7o5MKBjHW0WZ6Utc7KwBycxMYRFCDoxLV8ndsVzPGPaSl7NL2hMYqjl VFHgGfRuCFT9VuXhCswuHQY1GRm1JaKhSDydIAQwDR9cLCMzMJSmUaOdIowfPSFzD2EyIvToIccmKgRg CBA0EPTbFxFnIK7BDt3KWaX9JXP4rGMjDh7OTbC2KnLNMuWoUR1BLNz= ID Date Data Source [id number] 11/12/2020 01:32:00 PM EDT [facility] Name Value Range Interpretation Code Description Data Anna rce(s) Supporting Document(s) Glucose, Fingerstick 214 mg/dl 70-110 Above high normal [facility] The above 1 analytes were performed by [facility] [id number], ,[place] [address] ID Date Data Source [id number] 11/12/2020 12:33:31 PM EDT [facility] Name Value Range Interpretation Code Description Data Anna rce(s) Supporting Document(s) Progress Notes [facility] CWGBFs7yErZYGoQn22/ADEvfNGCxv7RnITabWRn7MLcnSDLxP5VfNWG2xJ6yFVS9YGbYXyQbZpTyTEDq lbm [file] 2+GUYToA1CMnMRlRX7QPBnatPdtwnhXo3pgR2+7c/i0mmI70yFlTi8+GS/Qrt7cc/space controller/5HvExa8HvnB [file] ZHEeHqjgLXi6LwiwJaVgJyImWF2VDg7CMlK2ZEI3pFRdSp6XDei2DSHEGhOzKA1GUXc= ID Date Data Source [id number] 11/12/2020 09:27:00 AM EDT [facility] Name Value Range Interpretation Code Description Data Anna rce(s) Supporting Document(s) Glucose, Fingerstick 227 mg/dl 70-110 Above high normal [facility] The above 1 analytes were performed by [facility] [id number], ,[place] [address] ID Date Data Source [id number] 11/12/2020 09:04:08 AM EDT [facility] Name Value Range Interpretation Code Description Data Anna rce(s) Supporting Document(s) Consults [facility] TIOKIn8lJcOUMkCs04/DRZweYHFmg3UpTKksYPa5UZbgXKNgB5QmICN9iW0iCFN6XKcQCuVbVyDvNLKz lbm [file] chef under/3Yw71vXkeZOyJ281krYH57ejFpvyTRVhX45HCxs8G3mEd5FvsNb0TGUGf925woabY5o/nhj0RmV+E [file] ICAgICAgICAgICAgICAgICAgICAgICAgICAgICAgIC AgICAgICAgICAgICAgICAgICAgICAgICAgICAgICAgICANCiAgICAgICAgICAgICAgICAgICAgICAgIC AgICAgICAgICAgICAgICAgICAgICAgICAgICAgICAgICAgICAgICAgICAgICAgICAgICAgICAgICAgIC AgICAgICAgICAgICAgICANCiAgICAgICAgICAgICAg ICAgICAgICAgICAgICAgICAgICAgICAgICAgICAgICAgICAgICAgICAgICAgICAgICAgICAgICAgICAg ICAgICAgICAgICAgICAgICAgICAgICAgICANCiAgICAgICAgICAgICAgICAgICAgICAgICAgICAgICAg ICAgICAgICAgICAgICAgICAgICAgICAgICAgICAgIC AgICAgICAgICAgICAgICAgICAgICAgICAgICAgICAgICAgICANCiAgICAgICAgICAgICAgICAgICAgIC AgICAgICAgICAgICAgICAgICAgICAgICAgICAgICAgICAgICAgICAgICAgICAgICAgICAgICAgICAgIC AgICAgICAgICAgICAgICAgICANCiAgICAgICAgICAg ICAgICAgICAgICAgICAgICAgICAgICAgICAgICAgICAgICAgICAgICAgICAgICAgICAgICAgICAgICAg ICAgICAgICAgICAgICAgICAgICAgICAgICAgICANCiAgICAgICAgICAgICAgICAgICAgICAgICAgICAg ICAgICAgICAgICAgICAgICAgICAgICAgICAgICAgIC AgICAgICAgICAgICAgICAgICAgICAgICAgICAgICAgICAgICAgICANCiAgICAgICAgICAgICAgICAgIC AgICAgICAgICAgICAgICAgICAgICAgICAgICAgICAgICAgICAgICAgICAgICAgICAgICAgICAgICAgIC AgICAgICAgICAgICAgICAgICAgICANCiAgICAgICAg ICAgICAgICAgICAgICAgICAgICAgICAgICAgICAgICAgICAgICAgICAgICAgICAgICAgICAgICAgICAg ICAgICAgICAgICAgICAgICAgICAgICAgICAgICAgICANCiAgICAgICAgICAgICAgICAgICAgICAgICAg ICAgICAgICAgICAgICAgICAgICAgICAgICAgICAgIC AgICAgICAgICAgICAgICAgICAgICAgICAgICAgICAgICAgICAgICAgICANCjw/dSLoL7lpbMCwuqT7G0 eiMr6XYn6ZDK7ug1IzVTDhMLiaioXnXtnQWsXuMAVkUnkNWyv4LCgyUU7TsJJaA0GxA9CvKOlxJA1VSY SpSSFfwGGsQYBiEOXeAhM5DKQkIYexTM3EbAMpBOfq ODVfIONlHjQcHVVrWRKvTQOwGW9QSNIrK645rjRyNs7OUj8OPbDkYX8tny0EVefsZZRlXmdZRij4YGdq MQ4OhEQfwARxOTSsHAEUQnJgP3myz4LbRzmbYHPROXrkCC6Hs3CbqPBbXEm+Mb1HTK9fj2BtADbzDVDg QU2evp4BOWoJTlWwN3DgiPayQOUajbB1oOWfJSY8BE FukP3dJYMMTZD7pAjeAUDFMZUAKmOtbYJ2KyOtWrDrOLUsZNpbYhGMBMaMBoKoG0Dmc0NwIzN2JNHvVi FcONfeDRXoQjL4GH65mCzhQY0HHRMxJLThDY10JRW8IBThDd3PIy5UKkRzBL5qxs9JBubtHQUaXceVOg m3SSwoXU8WuMThP6NvmJXbj2vPUiLdY1KEAZE7YVYk Xo7RBIIoThQoGEExOMffTJ7cBLIzIDZYvAwcmrT9CV6AIK5xlbXgVC8BFvMkHd0wUx4WItBmB1TpU6Xk XDLiDPCLETqgUM0LVDuwHN1gUX4Xf5ZWkSTgiS9uwa0TPTFtMWGvVftdxr9GZikjJ4F6zLsfWRUjKotm ZVGVGIhdXC6FMKMuIKJ8JGQcSnFeWWDZViGmY46lMH 6JQ7Jli36hKyQ6FOLbLzEtDAwiAZ40tKwwxbNvvQQotVofWE0CKk4+DQplbmRvYmoNCnhyZWYNCjAgND JAFvNaUOQyLDFnGNAwMuU7QaNdEg8RXKCeQXAtBCUqPjWpIRFhDXGuYFtbYBLaOQDmHEc0TAOuYGRuGE 8HDhVvLRGkWBG2OYjjGVKzGDEsvb6KSXEyTFUySOZ7 PxCwJTRfPGQvBNyyZKJnZBTtJyg6RRPtZLAaDQ1FEoHeZSGlCANjBDPlILXsVRGako8TMPPnXPLmNATr DZBfELXaWJAiKBdeWSQcZLH4QJR1PFJcURUaSR6VOsQgZNMkQLA6IjHaKANhKDGjut0XTSMeWOLiMlsk FOYtKGHgREMzVEbsBKIjXUN3Pxm9INZrBROvUR1QYv BvPLFpOKx9LPHhCFYlPDUihu0OOUInDBYpTAA4LYHdUBDgPKTsGYbeEMRhLAP6TNP2MQRiQOWtTN0XAq DbIUOwRBieXIRbTUIoDVJmlq9GQEXwNCPtXIMdQBZbVGQkSKFtADusMBHdNDAuShonCMBsWSOgNY6TUo BjTZAbUeMsBOylEYWqYTOolo2AIMJuSUCzUnI0FKCn DGMjFRAeKLycYDAlPCAuWRI1ZISeJZKzNF2KVfEbUFAhVhC9YHPwAEJzHQOixy2EWKFrRRTaKpMiZqPr FNMeATGoETpaJOEfWFWbWBL7JXElXLClJD0JKuCyWJJwYjG7VCUjRPCpWIDxcr8ANGDiKAThUAjbPDSm DUFqWIEsPRvvSCFtZDK6ZZGoREOpSYCkUZ4ZObUoPV JgZgObQPPxYNEcPIPyai1GGSYhQZDzOfUzQRCoKHZnZRMxRFupPFEnBEF6NEBwYJDbKHPmJO3GMvYxKZ CsJcA7XIRsNIMsEIDwgr9HIWRgWLHtRMyqVQOxFNYeLAJjTAtfDYOvCMLcEiPsCBJhTOGoKM6YTjJaSC OvESJ8NmPbOHImZYRxsi3XETYsMJL5MOhpSATtFIMc MGGwLOcaKJOdNXWiASUzXOApYFPaTJ8VUlGzTMQdOXPkNHhkKRKzPZFjpl7GGNOvMTB5Hgy5HHXoEQDl PCJbQCcpXZUuHMBgNHM6AYUoXLHfQB5QIyUpTTXjTLU6ROUhBRZlWJHknd3VkNJvgUdjke2YCNaFTv3S rBxiFPJfVZytXa5rxHIhAIPeFBGFYp9TyyHyRZXsXI OEYNssAINfGRk6Oko4FGd3IyUcLQBnREDzBPunQ9IvJYa5DZtxOHZsMtS0QFzfRoC1WUd0SQY7JrWmRM YaDAZ3BMZ4HbU3REQ0OFF+RO4pCAq+Br4Hl6QeslQ5pjGlNCh7ReGvBU6CCZCHN5AEJi== ID Date Data Source [id number] 11/12/2020 03:41:00 AM EDT [facility] Name Value Range Interpretation Code Description Data Anna rce(s) Supporting Document(s) Glucose, Fingerstick 258 mg/dl 70-110 Above high normal [facility] The above 1 analytes were [facility] [id number] [facility] [id number],[place] [address] ID Date Data Source [id number] 11/12/2020 01:21:58 AM EDT [facility] Center Name Value Range Interpretation Code Description Data Anna rce(s) Supporting Document(s) Nursing Note [facility] MBUFEi0zFvBVOkYd16/HHShaBUIqm0QkUJypJSb5LRoiCDWkY8WuDZT0jP4dTIX8UCjYDoZzUhUaMPZm m [file] CuNJw2LJX6JWtgPQHEFv2C ID Date Data Source [id number] 11/12/2020 01:19:17 AM EDT [facility] Name Value Range Interpretation Code Description Data Anna rce(s) Supporting Document(s) Care Plan [facility] PQTAUw8uOdMCRjXq41/YPKsxJXDoz7OwLCdoFAo7WVvkZDUwR4HdHKA9aT8cLBP0PAgGUaIlDjXkSGQf lbm [file] Ni0MBKBWQ9DBPn== ID Date Data Source [id number] 11/11/2020 11:43:00 PM EDT [facility] Name Value Range Interpretation Code Description Data Anna rce(s) Supporting Document(s) Glucose, Fingerstick 286 mg/dl 70-110 Above high normal [facility] The above 1 analytes were performed by [facility] [address], ,[place] [address] ID Date Data Source [id number] 11/11/2020 08:08:00 PM EDT [facility] Name Value Range Interpretation Code Description Data Anna rce(s) Supporting Document(s) Glucose, Fingerstick 228 mg/dl 70-110 Above high normal [facility] The above 1 analytes were performed by [facility] [address], ,[place] [address] ID Date Data Source [id number] 11/11/2020 06:14:11 PM EDT [facility] Name Value Range Interpretation Code Description Data Anna rce(s) Supporting Document(s) Nursing Note [facility] MWPAUl7vMgFSLmJg15/PBGslMNZyg0GaMJwrLAq4XZnnJIJbH6NoAZB9oX1nKYB9XShDPnIaJyFtKNCp lbm [file] H8PCItDkCyZIOlYcqiLNt+MP7vUIl+Iz0Rv2PhcgY8ieKiUKcfVYC6Pm2JSITCD2OAOf== ID Date Data Source [id number] 11/11/2020 04:58:00 PM EDT [facility] Name Value Range Interpretation Code Description Data Anna rce(s) Supporting Document(s) Glucose, Fingerstick 239 mg/dl 70-110 Above high normal [facility] The above 1 analytes [facility] [address], ,[place] [address] ID Date Data Source [id number] 11/11/2020 04:53:04 PM EDT [facility] Name Value Range Interpretation Code Description Data Anna rce(s) Supporting Document(s) Care Plan [facility] KBSKBg3eRlJMTvOz33/HPCnmMZYas4XjSEjlOOh7GTwxAAMzF8OdDAO4qD9kRHL4SRbUXlSoNaVvWWOm lbm [file] González/huN/Rd8SoyiBftc2BC/deeNKLDxPlQnYYPUKvIueqigb3VLyfgJUsPqqifmrSfylx3AiUcZ2sK/G [file] ArYhDzgjXfN1WpRyPDHtBCm+UX3nRDy+Ch6Fx1ItayL8zcTvTGnfBdT7IN8HGTWWM7VDBu== ID Date Data Source [id number] 11/11/2020 01:03:56 PM EDT [facility] Name Value Range Interpretation Code Description Data Anna rce(s) Supporting Document(s) Perioperative Nursing Note [facility] EUUERi4zRkPQZqOw38/UJZkdUAKjj7MnYDxpDHi1UMkgCVCkO0EzGAH6uG3aFEI1NSpMSdFsYkMhWJVe lbm [file] WV8uAWm+Vl0Hy7CgznS3woPaGRlqAVejEM0JRSCVQ9QEOh== ID Date Data Source [id number] 11/11/2020 12:49:42 PM EDT [facility] Name Value Range Interpretation Code Description Data Anna rce(s) Supporting Document(s) Progress Note [facility] BNOQBv1nLoCLJnPa77/WHUnfEKMsb1IgCBciLKa4NGyvWDLeG2ZsJRQ2gN6qZTT2UZyLLbIhQpXaHWBo lbm [file] e1VCJqQST7BpG6Fxo8OtVjGS5SAc3MEeZ8NRO6lBKbUu5QZcM0XEMKLnWvRW2ZYQm= ID Date Data Source [id number] 11/11/2020 12:48:32 PM EDT [facility] Name Value Range Interpretation Code Description Data Anna rce(s) Supporting Document(s) Progress Note [facility] GYOGMx2cZgJXCcGi26/LYRtiIXEid0OpOKmlZJr1EBerWZSqY2VnYIS4wY1tAAR8MJhOPwBfIgAiZPBn lbm [file] NjGPv3ZzL+JH5kVGb+Nw1Wx3QnwdZ0wnCoEKxqLKk3FM0ZSJGJT9UQAl== ID Date Data Source [id number] 11/11/2020 12:42:00 PM EDT [facility] Name Value Range Interpretation Code Description Data Anna rce(s) Supporting Document(s) Glucose, Fingerstick 309 mg/dl 70-110 Above high normal [facility] The above 1 analytes were performed by [facility] [address],[facility] [id number],[place] [address] ID Date Data Source [id number] 11/11/2020 11:43:10 AM EDT [facility] Name Value Range Interpretation Code Description Data Anna rce(s) Supporting Document(s) Anesthesia Postprocedure Evaluation [facility] WEFTTb7pTrNJGoPh39/PVBjhTIDud8JjEGuvJHx2BHmfADChD6QzIXZ8xJ8fBNR4YEbCOsAgMgBiTEEj lbm [file] 9HRiY0MgETCtUySI4BVUw= ID Date Data Source [id number] 11/11/2020 11:42:55 AM EDT [facility] Name Value Range Interpretation Code Description Data Anna rce(s) Supporting Document(s) Anesthesia Postprocedure Evaluation [facility] OHAFCb3aFeLGJnOi72/OGWfpDOLej8PmHWdaKEo6YHclXULwO7BuXYC4oJ7wQHU7ZRwGHyQgSkZwYXPr lbm WbKdcABtZkXBRfOlnPDbImBAauZrgibWOlKR6XeDX1VMMlQ19eNDDeUQAaR0FkYUK4Tnf+Bz0CLXUxtX RnIC8ZRiqV5Wbizrk5MX5xqPkjElfyLJXSCJAUiXFTcZo5KBi5wiukYGbgnCkrcwPP5A8Jt5thrxNpx4 OpXBLTHjKkQSEdkzrf+lvjSOKIq2fF3A3RHMS/1S0P KbqZo++/Q/E8n2vA8lvjAdaVXvP0ezXvxiLjQ6FNc9GciEGULZMB7ymLsRgZAT4OprQArHOsXYOVeBh6 ysTIMfuhcYSIdWH45RkKiTiUYOBaTSzgSNXv8M06SWp7nBygyoyzN0vdSJZYOboC0EYZj7SYyDSpK/Po iPI9WFKjHCJyeZBYSB+ICRCndgLT95KDqQAuaphBiA B/ACjqtMdOjlC8mZ2jIVdipBd3aiKCYc9tpE1XTOcEUl/n8LjD6eOg4wsUrqDo91LLCqrIwAv7DDDVLd QdMeT5gI0bgWz4PKRxeca1lGL+OCweQe0Sugr88CEAslWB7LDJQWxdJo7zgIqAElzXHEShFQWmDHtLKC ugv5OTGxWDyUB1Y1ryPtep9OmPg63yYHviONG6y9Kf VYQns81X9ADPTa1DBFEz+ev0K9a+d2PkNDjWC6iQlhjHq/IYQPPZ93RALB9VUqxzzVVVNj+t+ZgFQtQ+ vMS3M0iBhAMq5hd6s3A34OY+XcOulBevYENI3ig+D5kL5Nr/0Oh8e/OQbDHkjhXJ42dMIeINoTBLqDVS iu7T2DSrlCQbdmGTFtPDYnuPvRnQycCAyjmXYaf00G UhQtWvChYw59c4/ch5m9H8qs5W8SzBRPnWC8nu/RlmHPBfkBeq/8x/Cmz1eyKEW+archana+gUIvQb/KeTRT [file] 9GDQo= ID Date Data Source [id number] 11/11/2020 11:44:00 AM EDT [facility] Name Value Range Interpretation Code Description Data Anna rce(s) Supporting Document(s) Glucose, Fingerstick 324 mg/dl 70-110 Above high normal [facility] The above 1 analytes were performed by [facility] [address], ,[place] [address] ID Date Data Source [id number] 11/11/2020 11:30:00 AM EDT [facility] Name Value Range Interpretation Code Description Data Anna rce(s) Supporting Document(s) Op Note [facility] DKKRPx1vJwWMGfRd71/LZGvoUSFez2NlWXkqVAm2GGswBQEiL5PhILM3nM9yGVA0VWwQSzSlOhMsPBDc lbm [file] product development director/VbYra/39FqUZ5fzge3kiEIHpGNC2OVwSjv1j5n [file] ICAgICAgICAgICAgICAgICAgICAgICAgICAgICAgIC AgICAgICAgICAgICAgICAgICAgICAgICAgICANCiAgICAgICAgICAgICAgICAgICAgICAgICAgICAgIC AgICAgICAgICAgICAgICAgICAgICAgICAgICAgICAgICAgICAgICAgICAgICAgICAgICAgICAgICAgIC AgICAgICAgICANCiAgICAgICAgICAgICAgICAgICAg ICAgICAgICAgICAgICAgICAgICAgICAgICAgICAgICAgICAgICAgICAgICAgICAgICAgICAgICAgICAg ICAgICAgICAgICAgICAgICAgICANCiAgICAgICAgICAgICAgICAgICAgICAgICAgICAgICAgICAgICAg ICAgICAgICAgICAgICAgICAgICAgICAgICAgICAgIC AgICAgICAgICAgICAgICAgICAgICAgICAgICAgICANCiAgICAgICAgICAgICAgICAgICAgICAgICAgIC AgICAgICAgICAgICAgICAgICAgICAgICAgICAgICAgICAgICAgICAgICAgICAgICAgICAgICAgICAgIC AgICAgICAgICAgICANCiAgICAgICAgICAgICAgICAg ICAgICAgICAgICAgICAgICAgICAgICAgICAgICAgICAgICAgICAgICAgICAgICAgICAgICAgICAgICAg ICAgICAgICAgICAgICAgICAgICAgICANCiAgICAgICAgICAgICAgICAgICAgICAgICAgICAgICAgICAg ICAgICAgICAgICAgICAgICAgICAgICAgICAgICAgIC AgICAgICAgICAgICAgICAgICAgICAgICAgICAgICAgICANCiAgICAgICAgICAgICAgICAgICAgICAgIC AgICAgICAgICAgICAgICAgICAgICAgICAgICAgICAgICAgICAgICAgICAgICAgICAgICAgICAgICAgIC AgICAgICAgICAgICAgICANCiAgICAgICAgICAgICAg ICAgICAgICAgICAgICAgICAgICAgICAgICAgICAgICAgICAgICAgICAgICAgICAgICAgICAgICAgICAg ICAgICAgICAgICAgICAgICAgICAgICAgICANCiAgICAgICAgICAgICAgICAgICAgICAgICAgICAgICAg ICAgICAgICAgICAgICAgICAgICAgICAgICAgICAgIC AgICAgICAgICAgICAgICAgICAgICAgICAgICAgICAgICAgICANCjw/aIOnX8iyiHJrpjD9O6taCg4CSc 1XJX3lu9EuHEHmXXbretAwSttXHmCgXNRqBryMTbs2MRwkBM1VhUDhL0EyR0ArGAgzBH7TNGKoGFNufR BzHYAxVNQbYmI1HBXrGLbhNG5HkOIuAVuuNCJzOOHr TnAqHUJrDX7SXYUmL873xePuZs3JRr4CHaPhES0vne3BHlFlCIEfRsySXob7ZTjkYI1FnKOpcQBvXNYd DCTUApSfU2dfi5LiGoAeLAJSWTlvZB8Dm1PuaTBfUMl+Ed2SNP4us5DyLLsbDSGhFV5fbo6QUKyJDzFy W1IsqPzwFQ7gNT0bhJApXgnfZ8icuHmlmUSIYPtnLK GkfcdtENYhIBBnHV0rAN7mJQLgVNBlMwHhDBSZEO7ZSBXhQLBeeMHvIYEzTQQAIF0YRSxxZVR7Fbfstl XxdIYnHCtzKI4KQTBxyfWmJzSoESEXQQf+Oc8NOK9nu4LlFCrvNoGhZH3tuy3AMUtJFdIaQ6Y4qMOhO3 O1CSgqCt2GCOXaARMkPqyhEFNOAWdhWN3DCD7bwyM6 LC8AqDUnRHEjEBUbbDFtLYl7R31mbXNyOSizDJ4JBSW+Manuela+Mt2DOSCuMDZzBZHyYsLzRYSJTcVeZ5Nm Y8UHs4XnV3RwEP42sGbkoxHiZFffEQ5JZL0oTXZvDWIEZJ2KrCGlcT9wvpVlAFKaYILABjWqI44erEGu ISZuJPM5FULuMq2BOKZvU6VesrAbxVcskuTnUJZnCD GMYA3JQFvcxkUciZQqaGgqWC12bKpaRO9MLu2UHiTnSY8eon4ErNRzZi6UJMIpDc3LXDXhMILkAXNvPP Y7EUMdNnGnIXepQMBcLXPpWBG2ZHLpQLDyRS3QXfPuOIUnUiL6YVHwPGZzAXPvpa1DHZQxQEPuKUShPK NeNISiLEMbLXxxBAInCOEdBAY2KPLvGLFkCB6RSlHq WIVyUFN9OycaJBSuFWJwia7KFSYwWRYpEaA7JbBnFOCqKENvEAxlDMLhSQL4BIDcGUCxIJErGU8JDjHv DPTpSBM0YyMwUYZiNHEilj4WLBJqYOZxSomfFkIsHYPtNLZsCWfyVTQkCSL3RAD2SNTnFSBlIY6NXlAq EXVsIKvnDXNcMUJaKQGkhr4HDXNdQATzLGU6FSNnYU UwAHEdZGkxKRXjEQR7NwM3KUGeLASwMV0NKtXvHKTuWOu9IPCwYYDvIKPazv3TYGZsYYEqIJh0ALTfOC CuVSBeEShvSJNmMKDqCMO3ZQMbJSNzSI0VCiBfCSOnWkLuBiNrTJGvYETxjo8XDAXkHGEdPfH7DTMlLV PcQJErPOksSLQvTIAyRhMgIBDxMGVuXA2USnGnGOFd AmW3MCRePZNrQXRxwt3DQFZnLLAaShn8ODQeNXOdGUKwVWibWKHaAYU7WOOwECUwNLLfIP0HMdThXHFb JcO1ZuKgTGCdCWYzno6DPEXsCXOnIKE6SHFgDTZhXVRcEYdzDVFfXXQ1LfBxEJKnJRSyDR4TOtBzXQKo UiDeWeCdHIMjCYUibe7OQUMbKAFyXlI1GYKlYRUlCJ QgWDbrJWIaERM2FePlUPYqPECiZD7JEeYvRWYbGvswWjAyDRUzKBElzj3WHAGyEIGcVGTjADVsLKNvHV CkWFswWLLmTRZ8OWr1DMDpWNPhYO7UMhRzVQVwWty4TqGdBHPiNAGwhm8EvPPitTqofl7LLDfSYk3MjY tfXDCmWVfxKy4eqLUuLtEnEWTCBr0KzoIyXNLmILQK VIrzUYZoWBNkXSPlEbX0ZAMhYjJbJXVxMLDtFTU5TYFhPxAdTNO0EsZ3L0JeBeWlQqFiSiD4EkV1MiGf OLQ8RXjnKEDvOET6Emc+TZ2yBZv+No6Kf5MvflU1dyDwSJnbARw5ZW4AZGFRJ3BBKe== ID Date Data Source [id number] 11/13/2020 07:42:00 AM EDT [facility] [address] [place] [address] [employer] PATH[facility] CLIA# [id number] Surgical Pathology ReportPATIENT: CHRISTY CURTIS CASE NUMBER:[id number] #: [id number] Date Collected:11/11/2020ccount #: [id number] Date Received:11/11/2020OB: 1970 Age: 50 y.o. Date Reported:11/13/2020ex: FLocation: [id number] Attending Physician:BRENNAN Rosenbauminical Information: MORBID OBESITYSpecimen: LIVER WEDGE BIOPSY FINAL DIAGNOSISLIVER WEDGE BIOPSY:STEATOSIS, MINIMAL. NO SIGNIFICANT FIBROSIS, HEPATOCELLULAR DEGENERATIVE CHANGE OR INFLAMMATORY COMPONENT IDENTIFIED.NEGATIVE FOR KUPFFER CELL OR HEPATOCELLULAR IRON DEPOSITION. LDM/KB CommentThe subcapsular wedge of liver biopsy has minimal macrovesicular steatosis estimated at <2%. Portal areas are readily identified without increased number of chronic inflammatory cells or fibrosis. Some hepatocyte optically clear nuclei are present. No significanthepatocellular degenerative change is found. Trichrome and reticulin stains areevaluated. An iron stain is negative for hepatocellular or Kupffer cell irondeposition. Correlation with clinical, imaging and additional laboratory data is recommended. LDM/kb GrossThe specimen is received in formalin, labeled liver wedge biopsy and consists of two brown irregular portions of hepatic tissue measuring 1.3x 1.0 x 0.7 cm and 1.5 x 1.2 x 1.0 cm. Both portions of tissue displayareas of smooth glistening capsule. Sectioning of the tissue reveals light brown homogenous smooth cut surfaces without gross lesions. A ambulatory services representative section of each portion of tissue is submitted in the same cassette.TJ/lori Electronically SignedBy: Richard Ronquillo, MDCPT: [id number], [id number] PathologistI ATTEST THAT THE ABOVE DIAGNOSIS IS BASED UPON MY PERSONAL MICROSCOPIC EXAMINATION OF THE SLIDES (AND/OR OTHER MATERIAL), AND THAT I HAVE REVIEWED AND APPROVED THIS REPORT.PERFORMED AT: [place], [place] [address]THE TECHNICAL COMPONENT WAS PERFORMED AT [facility], [address] [place] [address].NETWORK COORDINATOR: RICHARD RONQUILLO M.D. [facility]# [id number].CHRISTY CURTIS Page 1 of 1 Name Value Range Interpretation Code Description Data Anna rce(s) Supporting Document(s) ID Date Data Source [id number] 11/11/2020 10:24:52 AM EDT [facility] Name Value Range Interpretation Code Description Data Anna rce(s) Supporting Document(s) Anesthesia Procedure Notes [facility] GVSILc9oIqFLOoYn59/YCXzkNUBqt3JkHBbjWAw7UJvqQHVrH7DmJTZ7dF9mXZG5OCdJInUfKtLsYDCm lbm [file] RwWiB5SJN5WZGpGKWoKdCxViH0DRZfMf4jQSBEEx4+WRfbpWMovTwgEULWYiM4Pgj0NYxlSUTATt6U ID Date Data Source [id number] 11/11/2020 09:26:42 AM EDT [facility] Name Value Range Interpretation Code Description Data Anna rce(s) Supporting Document(s) H&P [facility] ORJZJb5nKfKSCtKm64/ABEyaTNUcd1WeVOhlNQs2OXcxMRSbC0AaQGQ1yX2sKYU4PGkOFmMuMzJpMZUv lbm [file] WepsC8voAfYOrvXIp1Tz9AJZXFI2KBEo== ID Date Data Source [id number] 11/11/2020 07:44:08 AM EDT [facility] Name Value Range Interpretation Code Description Data Anna rce(s) Supporting Document(s) Anesthesia Preprocedure Evaluation [facility] MPAZWj7oEnWCWdAs50/YWBamAZNbb4BsKYitKBz9XQibWJQwU5ZcLPB4yN4zPXQ7GCkATwQhZnCgZDDd lbm GfVixEOgDaDEQqAruXGyXzWNlzBvbydABfLW8SwGC3XIFhE41gJAYtGLJwF3UbTIT8FzC+Hn5TNONfhN PrTI4NJcuE5Sgmt1x6MI1dcY+Lnl2jJOpD+MIWZ6ZiHIluiol0tg1JBqnDCtdBWLtktT1ho7gR2hRACa tTkGGMEgmHTj47C0rJdqRY1h9n2pelrgc5/92jUBRN 5+fgw7Umnqai2r18WjIQvZOXz2Y/HgWlth7ptzzwE45GDI/TlgDZRs5Baq7qCC3qW/Fqis6HrTavYsyk vYMAMAjdvXRQBvj9VteV2K77sIMtDG0zE73tqrvpnEWQ9vQUmfEYBmV3AUCSIKAlRWzaDLU0ivZZgZb0 IAnNBCUTYUFgV5jAQHAE6FakOIGGqQuPXw8YUks0Ok [file] FEblKyQyPjEyPyGbIBW7WlQ4PgVkZU6RDy0IWuZ7JRL8lCLaPl8PBtAbYrzWBqVfTD8IIAb= ID Date Data Source [id number] 11/11/2020 06:17:00 AM EDT [facility] Name Value Range Interpretation Code Description Data Anna rce(s) Supporting Document(s) Glucose, Fingerstick 291 mg/dl 70-110 Above high normal [facility] The above 1 analytes were performed by [facility] [address], ,[place] [address] ID Date Data Source [id number] 11/11/2020 06:02:00 AM EDT [facility] Name Value Range Interpretation Code Description Data Anna rce(s) Supporting Document(s) Urine Negative Negative Normal (applies to non-numeric results) [facility] The above 1 analytes were performed by [facility] [address], ,[place] [address] ID Date Data Source [id number] 11/10/2020 07:38:59 AM EDT [facility] Name Value Range Interpretation Code Description Data Anna rce(s) Supporting Document(s) Anesthesia Preprocedure Evaluation [facility] YEMDKh0lYwTVKpDh20/RKPjaIKIat3AiHCyzEUk4MDqzTLFjO4OlSMR6eM8iZQZ1QWoZFeTqMxSmVYKg lbm [file] KPG1wEPjJv5BMvU8RVYKIxHgFQ0JWOf= ID Date Data Source [id number] 11/06/2020 02:54:00 PM EDT [facility] Name Value Range Interpretation Code Description Data Anna rce(s) Supporting Document(s) :PrThr:Pt:Respiratory:Ord:Probe.amp.tar Negative [facility] This lab was ordered by [facility] and reported by [facility]. ID Date Data Source [id number] 11/07/2020 01:08:00 PM EDT [facility] Name Value Range Interpretation Code Description Data Anna rce(s) Supporting Document(s) SARS CoV-2, PCR Negative Negative Normal (applies to non-numeric results) [facility] First Test [facility] Employed in healthcare No [facility] Symptomatic as defined by CDC [facility] Hospitalized No [facility] Resident in a congregate care setting [facility] No [facility] The above 7 analytes were performed by [facility] [address], ,[place] [address] ID Date Data Source [id number] 10/21/2020 10:22:34 AM EDT [facility] Name Value Range Interpretation Code Description Data Anna rce(s) Supporting Document(s) Preprocedure Instructions [facility] ARBOUy8kZxJPUrZs96/GXQnbWYGom7QcUGpmNEe2DJirEIJfI8WhKAO2kZ0xGZW0FJnYYhUoTjUdYPYt lbm [file] ICAgICAgICAgICAgICAgICAgICAgICAgICAgICAgICAgICAgICAgICAgICAgICAgICAgICAgICAgICAg NBYtOR8GEZSwZAZwKNDyTQAnQDZvRBDsMEIhBXRxUB AgICAgICAgICAgICAgICAgICAgICAgICAgICAgICAgICAgICAgICAgICAgICAgICAgICAgICAgICAgIC GcAPKmWNVbNLMfESHlXJ1GUAZhXYTvLWAwEBBzVIKvQEViDCMeTBWuMVHoZOYeFKAkEYAjEHLyKUUyLJ AgICAgICAgICAgICAgICAgICAgICAgICAgICAgICAg RNPtUKUsWBOsVNNhKMRnJOWsHJJtBBDlQD1ILSEyLNUyNACpHVXeKVSpACSbJTNzPWKgKOXpITChDGKr ICAgICAgICAgICAgICAgICAgICAgICAgICAgICAgICAgICAgICAgICAgICAgICAgICAgICAgICAgICAg PLWnJCEoPO2ZRFQcMGTcGGYqDVPcNLFkKOVtSPXhWM AgICAgICAgICAgICAgICAgICAgICAgICAgICAgICAgICAgICAgICAgICAgICAgICAgICAgICAgICAgIC DvKNGxDWXmUANvNHRiFKTiDM1KLZDhVWAgREKdRYLjBPXtCKVcPAQxDSOwJRQxJKDzPHZqYKWdRADgTR AgICAgICAgICAgICAgICAgICAgICAgICAgICAgICAg NYRgIBLiLBDjHUYeWIRrZARcXRFdYKLbIJAbZR7YTWXvQTTxDYNoZWBnSAVbOPLkSDRuHPTtVQVmZMEs ICAgICAgICAgICAgICAgICAgICAgICAgICAgICAgICAgICAgICAgICAgICAgICAgICAgICAgICAgICAg PPArQNErIUHjCD3BIDAmZFCiNEJfSUDyPOXlMLMfTE AgICAgICAgICAgICAgICAgICAgICAgICAgICAgICAgICAgICAgICAgICAgICAgICAgICAgICAgICAgIC HfGOQqAWDhZOVoZRMxXKCfTCMaYY3UZHVnZBUnBDPhABSgFASwYMYuMWUkFPNtKOVeAMXpSXKaKRIrLU AgICAgICAgICAgICAgICAgICAgICAgICAgICAgICAg WGQzGALrSRTcEFMyMLMuACOuPQNaXTPjJLRzBVPhSP8KFCPjYAUxYDEuRADsKNTwQQYoSAXeWLRkAHCr ICAgICAgICAgICAgICAgICAgICAgICAgICAgICAgICAgICAgICAgICAgICAgICAgICAgICAgICAgICAg SFYxCJOeQBMfYZVhUF4TKI70aVMfu7K8SPDoPQ8lhm c/Ld3GDEexzhJzpDBuWQ5RGkTeUI5exc3UFvIxEJ0uac9CKHtSLgHdI5J8vIYqLBGkUTIKCuCsX83eXG nvXq28TJctAOBpCvZkKHx8Vv3TGnTeP8kjKPGaQwY3XZCaWaY8RUZiUnFkZLfjET3Qt4PwfRUgXXb+Pg 9XYN8yd1TnQBmnYiIsRJ8hgw4TMXaWWlVmW6McvdP2 KEDjVRIiQs7IMDGrYRGohSBlGaWjEEJHJoObF6PzuP20BGSYPk8+RQbusyFxEstSKlHmKSGir7WcIHk3 FF1FCJBaLGr8ePFaBFUmjRBmQ3ZbjHQhENdth1BzmCD1lV9eepMneRGBywDnnDPjB94xgnmyHf3aERLi IO1lFV2sELQoMYF3QnNjCXPXNJ7ZFMPvZHYjyEKmGH LaMPUWDU8PSBmyKQW5SlwftoQguLQpFYhlKQ9OGRPfsbYoBoGmVFVDVTs+Uv7ZVB7hu3JdSWxqJLToFV 6lsg7PVRfOTvUeH5J1gQYpZ3K3FXqzDd5CDAMuNJOeLfDoQUFABIsaPQ9AJT9wxcG0PN7RbLOlPBChZK QofNSxXYf6J82cwPCgBHmvPH4OOAV+Manuela+Tn9HKQNl MATeIFTxHrRwAKELOnZkD0GjW1AJh3OnL5JpXH05hAiiycFzOWrxAO2PRE2tVGWtVQOPVG1KzABhyW1z mwYmPiJuOEYPMjSbW41cxNPpIYSgCFTzZHJmUf9RSRKzG7ZbqqZwtOtvemGsSPWmAVGYUP9CXItpfnCp oQQlxFybNN85pKpmMQ0QDr0HCiYzHL7ler9EdRZiDb 1KWCEvUF2GBDWgHCHkOBFcGZC1CNVwUtJnEVytLYFaKSAxFTI1SVTtCKXtMY0NFzHcRZJeSqc7NIKhHU RkFVSzsv3KMEEiUFIkOPQ0UmYoTEXbXDAzHKdkJAMqHBBsRAH2KSOhWMBwRJ6HTaToVHBfVFQ9DUUgNP OaPTHqof1OSTKjSSHoJfNePNWpGIClXUSzPPtsHCAb XXU9Jev9ZGUsRNDyZL1VKlWiZNHnLNW7QotiWWFlUUUkjm7NFLPnPPOiXRjsWqEcHADkPQYaGHoeVMEy QCH6WJQ6DBDlWYYtIY1NBtArAALkEEQsWsWlSVVuYKUrzc0VDJVeNTTfRnZ5VlSmSYWoLXYxKRorKTKk UNU5HDohRFYhNZMcRS8AFjMpLIAlLFc5LsIeUNZeCB Jyeu0CXHYyQOHjORXfQwBkNVQpKEOfXAqzZKEsPARiWzK5BNPoMJXbDQ7VKkQaDVIzJnB8KiywZIFxLM Fkyx5GGWTpTAUnOAz6TjJmJMIeTAJaCQcpOZThPKKwYSUjGRAaXIZhRL1TPhSkBMJuUwS9OuYwMBGdPT Ssdh3BVMHtMVQjMrM9IvSmZUJmFLLoEHbdQTJyCHNk JxZ3FSZbUWDySJ5LMqOnFZKzLhOdUcqcQJWfSNKntd0JZRDpNNJdIsM7XkNkCQDiKRPrHVxzJQSjAYKl TCU4WEJxNSVcLT3PUmRlXYXkRgB1FDLzGPQzVYTnqw4UEJVfUHRxRxI8WKOeGTBtZUJmODpmXUZnPOA3 Agg5XWLaBIWyHT6SFgPbCFUhXzf7IyCwVESbSORhqu 5JVUCbWGKuNhf2KMQqGWMuCJEoTZcaJAOaERD4LaD4IPDhMCYuIA0XLfOvIHFhFqs6WkGpEIRqRZDymt 9XXMXzODUuZEp6DqNgFGLwCXBiOPawDDGfHUV2LZf5LFKxPUMwEF6KDnUiKYgtLTASJma9QAxhA5y9UG XcZT1NB3Akv6WnQgNnGHAJNOyzEU7lrwOwDVCnGk3X L3oJPyjoVLE9QYbgXnI5SDA2IjYeRSbaITLfB4JuD6AwLgU3Bv3nEZWrGmYwTUF5PEWwHQmtDzR5L8B8 UKSlTkMkFcT7Crk9MeTzJB8AJw0MVvG3WVL8nZKlKg5MSIHmUMIDCyAmMT3WOYj= ID Date Data Source [id number] 10/21/2020 05:46:00 PM EDT [facility] Name Value Range Interpretation Code Description Data Anna rce(s) Supporting Document(s) TSH 2.41 uIU/ml 0.36-3.74 Normal (applies to non-numeric resu lts) [facility] Concentrations of Biotin above 100 ng/mL can potentially result ininterference.The above [address] performed [address] [facility] [id number],[facility]#: [id number],[place] [address] ID Date Data Source [id number] 10/21/2020 05:46:00 PM EDT [facility] Name Value Range Interpretation Code Description Data Anna rce(s) Supporting Document(s) AST 21 IU/L 15-37 Normal (applies to non-numeric resul ts) [facility] Sulfasalazine and sulfapyridine have the potential to falsely depressAspartate Aminotransferase results. Baseline values before medication administration are recommended. ALT 41 IU/L 13-56 Normal (applies to non-numeric resul ts) [facility] Sulfasalazine and sulfapyridine have the potential to falsely depressAlanine Aminotransferase results. Baseline values before medication administration are recommended. Alkaline Phosphatase 94 mIU/ml 50-136 Normal (applies to non-num macy results) [facility] Total Bilirubin 0.40 mg/dl 0.20-1.00 Normal (applies to non-numeric results) [facility] Blood Urea Nitrogen 14 mg/dl 7-18 Normal (applies to non-nume nimisha results) [facility] Creatinine 0.66 mg/dl 0.51-0.95 Normal (applies to non-numeric resul ts) [facility] N-Acetylcysteine (NAC) and Metamizole selby ve the potential to falselydepress Creatinine results. Baseline values before medication adminstration are recommended. Patients undergoing treatment with phenindione will have falselydepressed results. Patients on phenindione therapy should be tested with an alternativeCREA method.Toxic levels of acetaminophen may lead to falsely depressed results forpatient samples. Glomerular Filtration Rate >90.00 mL/min/1.73m2 [facility] GFR Reference Ranges:Normal Function or Mild Renal Disease,if clinically at risk:>or= 60Moderately decreased:30 - 59Severely decreased:15 - 29Renal Failure:<15 Please note that the MDRD equation requires an additional adjustment forAfrican-Americans (multiply the GFR result by 1.210).Glomarular Filtration Rate (GFR) is estimated based on the MDRDequation, which assumes a steady state for creatinine ([employer] Int Med 139/2 137-149, 2003), as recommended by the NationalKidney Disease Education Program in conjunction with the National Institutes of Health and the National KidneyFoundation. The [place] method used in calculating this result is traceable to IDPA standards. Glucose 215 mg/dl 70-110 Above high normal [facility] Sulfasalazine has the potential to false ly depress Glucose results. Sulfapyridine has the potential to falsely elevate Glucose results. Baseline values before medication administration are recommended. Calcium 8.4 mg/dl 8.5-10.1 Below low normal [facility] Total Protein 6.6 g/dl 6.4-8.2 Normal (applies to non-numeric re sults) [facility] Albumin 3.2 g/dl 3.4-5.0 Below low normal [facility] Sodium 138 mEq/L 136-145 Normal (applies to non-numeric resul ts) [facility] Potassium 4.2 mEq/L 3.5-5.1 Normal (applies to non-numeric resul ts) [facility] Chloride 106.0 mEq/L 98.0-107.0 Normal (applies to non-numeric resu lts) [facility] Carbon Dioxide 25.9 mMol/L 21.0-32.0 Normal (applies to non-numeric results) [facility] Anion Gap 10.3 7.0-15.0 Normal (applies to non-numeric resul ts) [facility] The above 16 analytes were performed by [facility] [id number] [place] [address],[facility]#: [id number],[place] [address] ID Date Data Source [id number] 10/21/2020 05:17:00 PM EDT [facility] Name Value Range Interpretation Code Description Data Anna rce(s) Supporting Document(s) Hemoglobin A1C 11.9 % 0.0-5.6 Above high normal [facility] Normal: Less than 5.7% Pre-Diabetes: 5.7 - 6.4% Diabetes: Greater than 6.5%The above 1 analytes were performed by [facility] [id number],[facility]#: [id number],[place] [address] ID Date Data Source [id number] 10/21/2020 05:07:00 PM EDT [facility] Name Value Range Interpretation Code Description Data Anna rce(s) Supporting Document(s) WBC 6.71 x1000/ul 4.80-10.00 Normal (applies to non-numeric re sults) [facility] RBC 4.73 x1Mil/ul 4.20-5.40 Normal (applies to non-numeric re sults) [facility] Hemoglobin 14.7 g/dl 12.0-16.0 Normal (applies to non-numeric resul ts) [facility] Hematocrit 45.1 % 37.0-47.0 Normal (applies to non-numeric resul ts) [facility] MCV 95.3 fL 81.0-99.0 Normal (applies to non-numeric resul ts) [facility] MCH 31.1 pg 27.0-31.0 Above high normal [facility] MCHC 32.6 g/dl 32.2-37.0 Normal (applies to non-numeric resul ts) [facility] RDW 12.3 % 11.5-14.5 Normal (applies to non-numeric resul ts) [facility] Platelet Count 231 x1000/ul 130-400 Normal (applies to non-numeric results) [facility] MPV 11.2 fL 9.4-12.4 Normal (applies to non-numeric resul ts) [facility] Neutrophils 54.9 % 40.0-74.0 Normal (applies to non-numeric resu lts) [facility] Lymphocytes 32.2 % 19.0-48.0 Normal (applies to non-numeric resu lts) [facility] Monocytes 8.3 % 3.4-9.0 Normal (applies to non-numeric resul ts) [facility] Eosinophils 2.8 % 0.0-7.0 Normal (applies to non-numeric resu lts) [facility] Basophils 0.9 % 0.0-2.0 Normal (applies to non-numeric resul ts) [facility] Immature Granulocytes 0.9 % 0.0-0.5 Above high normal [facility] Nucleated RBCs 0.00 % 0.00-0.20 Normal (applies to non-numeric r esults) [facility] Abs. Neutrophils 3.68 x1000/ul 1.92-8.31 Normal (applies to non-numeric results) [facility] Abs. Lymphocyte 2.16 x1000/ul 1.20-3.70 Normal (applies to non-n umeric results) [facility] Abs. Monocytes 0.56 x1000/ul 0.14-0.97 Normal (applies to non-nu meric results) [facility] Abs. Eosinophils 0.19 x1000/ul 0.00-0.76 Normal (applie s to non-numeric results) [facility] Abs. Basophils 0.06 x1000/ul 0.00-0.22 Normal (applies to non-n umeric results) [facility] Abs. Immature Gran. 0.06 x1000/ul 0.00-0.02 Above high normal [facility] Abs. Nucleated RBCs 0.00 x1000/ul 0.00-0.02 Normal (appl ies to non-numeric results) [facility] The above 24 analytes were performed by [facility] [id number] [place] [address],[facility]#: [id number],[place] [address] ID Date Data Source [id number] 05/02/2020 09:35:00 AM WHITNEY MAGUIRE ([facility]) Name Value Range Interpretation Code Description Data Anna rce(s) Supporting Document(s) sars-cov-2 negative negative Sars-cov-2 ANDREZ ([facility]) ID Date Data Source [id number] 05/02/2020 09:33:00 AM EST [facility] Name Value Range Interpretation Code Description Data Anna rce(s) Supporting Document(s) SARS coronavirus 2 RdRp gene [Presence] in Respiratory specimen by AMI with probe detection Not detected [facility] This lab was ordered by [facility] and reported by [facility]. ID Date Data Source [id number] 04/28/2020 02:00:00 PM EST [facility] Name Value Range Interpretation Code Description Data Anna rce(s) Supporting Document(s) SARS coronavirus 2 RNA Not [facility]ed [facility] This lab was ordered by [facility] and reported by [facility]. ID Date Data Source [id number] 03/24/2020 09:14:00 AM EST MEDENT ([facility]) Name Value Range Interpretation Code Description Data Anna rce(s) Supporting Document(s) Surgical pathology study Laboratory test result [facility] ([facility]) <content>FINAL DIAGNOSIS</content>
< content></content>
<content>A - Small bowel biopsy:</content>
<content>Duodenal mucosa with intact villous architecture.</content>
<content>No evidence for celiac disease.</content>
<content></content>
<content>B - Stomach, antrum, biopsy:</content>
<content>Gastric mucosa with mild reactive gastropathy.</content>
<content>No evidence for H. pylori like organisms on H & E stain.</content>
<content></content>
<content>C - Biopsy below Z line:</content>
<content>Cardia type mucosa with no significant pathologic findings.</content>
<content>No evidence for intestinal metaplasia.</content>
<content>No evidence for H. pylori like organisms on H & E stain.</content>
<content></content>
<content>D - Colon, random biopsies:</content>
<content>Colonic mucosa with nonspecific inflammation and rare crypts with</content>
<content>acute inflammation.</content>
<content>No evidence for microscopic colitis.</content>
<content></content>
<content></content>
<content> E - Colon, ascending polyp, snare polypectomy:</content>
<content>Colonic mucosa with inflammation and nonspecific inflammation and</content>
<content>reactive hyperplastic epithelial changes.</content>
<content>03/25/2020 - 0958</content>
<content></con tent>
<content>CLINICAL DIAGNOSIS</content>
<content></content>
<content>Diarrhea, celiac, diabetes</content>
<content>03/24/2020 - 150</content>
<content></content>
<content>GROSS DIAGNOSIS</content>
<content></content>
<content>A - Received in formalin labeled "small bowel biopsy, R/O celiac"</content>
<content> consists of four fragments of hernandez tissue, 0.5 x 0.3 x 0.2 cm in</content>
<content>aggregate. All in one.</content>
<content></content>
<content>B - Received in formalin labeled "biopsy antrum, R/O H. pylori" consists</content>
<content>of one fragment of hernandez tissue, 0.3 x 0.3 x 0.2 cm. All in one.</content>
<content></content>
<content>C - Received in formalin labeled "biopsy below Z-line, R/O [place]"</content>
<content>consists of two fragments of hernandez tissue, 0.3 x 0.3 x 0.2 cm in</content>
<content>aggregate. All in one.</content>
<content></content>
<content>D - Received in formalin labeled "random colon biopsies, R/O microscopic</content>
<content>colitis" consists of four fragments of hernandez tissue, 0.5 x 0.4 x 0.3 cm in</content>
<content>aggregate. All in one.</content>
<content></content>
<content>E - Received in formalin labeled "snare polyp at ascending colon"</content>
<content>consists of two fragments of hernandez tissue, 0.5 x 0.3 x 0.2 cm in</content>
<content>aggregate. All in one.</content>
<content>-SV</content>
<content>03/24/2020 - 1502</content>
<content></content>
<content>Signed JOANN ESCAMILLA MD 03/25/2020 1351</content>
<content></content> ID Date Data Source [id number] 03/19/2020 12:00:00 PM EST [facility] Name Value Range Interpretation Code Description Data Anna rce(s) Supporting Document(s) SARS coronavirus 2 RNA Not Detected [facility] This lab was ordered by [facility] and reported by [facility]. ID Date Data Source [id number] 11/09/2019 12:00:00 AM EDT [facility] Name Value Range Interpretation Code Description Data Anna rce(s) Supporting Document(s) SARS coronavirus 2 RNA [facility] This lab was ordered by [facility] and rep orted by [facility]. Procedure Social History Code Duration Value Status Description Data Source(s ) Smoking 01/02/2021 12:00:00 AM EDT Never Smoker completed Never S moker eCW1 ([facility]) Alcohol intake 11/11/2020 12:00:00 AM EDT Current drinker of al cohol (finding) completed Current drinker of alcohol (finding) [facility] Tobacco use and exposure 11/11/2020 12:00:00 AM EDT Never used co mpleted Never used [facility] Cigarette pack-years 11/11/2020 12:00:00 AM EDT UNK completed [facility] Cigarettes smoked current (pack per day) - Reported 11/12/19 12:00:00 AM EDT UNK completed [facility] Smoking 11/11/2020 12:00:00 AM EDT Former smoker completed Former smoker [facility] Smoking 10/28/2020 12:00:00 AM EDT Never Smoker completed Never S moker eCW1 ([facility]) Smoking 10/28/2020 12:00:00 AM EDT Never Smoker completed Never S moker eCW1 ([facility]) Smoking 10/28/2020 12:00:00 AM EDT Never Smoker completed Never S moker eCW1 ([facility]) Smoking 09/11/2020 12:00:00 AM EDT Never Smoker completed Never S moker eCW1 ([facility]) Smoking 09/11/2020 12:00:00 AM EDT Never Smoker completed Never S moker eCW1 ([facility]) Smoking 09/11/2020 12:00:00 AM EDT Never Smoker completed Never S moker eCW1 ([facility]) Smoking 09/11/2020 12:00:00 AM EDT Never Smoker completed Never S moker eCW1 ([facility]) Smoking 07/10/2020 12:00:00 AM EDT Never Smoker completed Never S moker eCW1 ([facility]) Smoking 06/04/2020 12:00:00 AM EDT Never Smoker completed Never S moker eCW1 ([facility]) Smoking 06/04/2020 12:00:00 AM EDT Never Smoker completed Never S moker eCW1 ([facility]) Smoking 05/20/2020 12:00:00 AM EST Never Smoker completed Never S moker eCW1 ([facility]) Smoking 05/20/2020 12:00:00 AM EST Never Smoker completed Never S moker eCW1 ([facility]) Smoking 05/20/2020 12:00:00 AM EST Never Smoker completed Never S moker eCW1 ([facility]) Smoking 04/14/2020 12:00:00 AM EST Never Smoker completed Never S moker eCW1 ([facility]) Smoking 04/14/2020 12:00:00 AM EST Never Smoker completed Never S moker eCW1 ([facility]) Smoking 04/14/2020 12:00:00 AM EST Never Smoker completed Never S moker eCW1 ([facility]) Smoking 04/14/2020 12:00:00 AM EST Never Smoker completed Never S moker eCW1 ([facility]) Smoking 04/14/2020 12:00:00 AM EST Never Smoker completed Never S moker eCW1 ([facility]) Smoking 04/14/2020 12:00:00 AM EST Never Smoker completed Never S moker eCW1 ([facility]) Smoking 04/14/2020 12:00:00 AM EST Never Smoker completed Never S moker eCW1 ([facility]) Smoking 02/18/2020 12:00:00 AM EST Never Smoker completed Never S moker eCW1 ([facility]) Smoking 02/18/2020 12:00:00 AM EST Never Smoker completed Never S moker eCW1 ([facility]) Smoking 01/18/2020 12:00:00 AM EST Current Smoker completed Curre nt Smoker eCW1 ([facility]) Smoking 12/13/2019 12:00:00 AM EDT Former Smoker completed Former Smoker eCW1 ([facility]) Smoking 12/13/2019 12:00:00 AM EDT Former Smoker completed Former Smoker eCW1 ([facility]) Smoking 12/13/2019 12:00:00 AM EDT Former Smoker completed Former Smoker eCW1 ([facility]) Smoking 12/13/2019 12:00:00 AM EDT Former Smoker completed Former Smoker eCW1 ([facility]) Smoking 12/13/2019 12:00:00 AM EDT Former Smoker completed Former Smoker eCW1 ([facility]) Smoking 12/13/2019 12:00:00 AM EDT Former Smoker completed Former Smoker eCW1 ([facility]) Vital Signs ID Date Data Source UNK Name Value Range Interpretation Code Description Data Source(s) Systolic blood pressure 118 mm[Hg] 118 mm[Hg] [facility] Diastolic blood pressure 90 mm[Hg] 90 mm[Hg] [facility] Heart rate 68 /min 68 /min [facility] Body temperature 36.56 Reema 36.56 Reema [facility] Respiratory rate 14 /min 14 /min [facility] Oxygen saturation in Arterial blood by Pulse oximetry 97 % 97 % [facility] Body height 170.2 cm 170.2 cm [facility] Body weight 96.525 kg 96.525 kg [facility] Body mass index (BMI) [Ratio] 33.33 kg/m2 33.33 kg/m2 [facility] Body weight 215.4 [lb_av] 215.4 [lb_av] [facility]CW[facility] Body mass index (BMI) [Ratio] 32.75 kg/m2 32.75 kg/m2 eCW1 ([facility]) Heart rate /min eCW1 ([facility]) Body weight 97.7 kg 97.7 kg eCW1 ([facility]) Respiratory rate 18 /min 18 /min eCW1 ([facility]) Body temperature 98.0 [degF] 98.0 [degF] eCW1 ( [facility]) Systolic blood pressure 122 mm[Hg] 122 mm[Hg] e CW1 ([facility]) Diastolic blood pressure 80 mm[Hg] 80 mm[Hg] eCW1 ([facility]) Body height 68 [in_i] 68 [in_i] eCW1 ([facility]) Body weight 224.4 [lb_av] 224.4 [lb_av] eCW1 [facility] Body height 68 [in_i] 68 [in_i] eCW1 ([facility]) Body mass index (BMI) [Ratio] 34.12 kg/m2 34.12 kg/m2 eCW1 ([facility]) Heart rate 87 /min 87 /min eCW1 ([facility]) Respiratory rate 18 /min 18 /min eCW1 ([facility]) Body temperature 96.3 [degF] 96.3 [degF] eCW1 ( [facility]) Systolic blood pressure 118 mm[Hg] 118 mm[Hg] e CW1 ([facility]) Diastolic blood pressure 64 mm[Hg] 64 mm[Hg] eCW1 ([facility]) Systolic blood pressure 110 mm[Hg] 110 mm[Hg] e CW1 ([facility]) Diastolic blood pressure 62 mm[Hg] 62 mm[Hg] eCW1 ([facility]) Body weight 222 [lb_av] 222 [lb_av] eCW1 ([facility]) Body height 68 [in_i] 68 [in_i] eCW1 ([facility]) Body mass index (BMI) [Ratio] 33.75 kg/m2 33.75 kg/m2 eCW1 ([facility]) Heart rate 88 /min 88 /min eCW1 ([facility]) Respiratory rate 18 /min 18 /min eCW1 ([facility]) Body temperature 97.8 [degF] 97.8 [degF] eCW1 ( [facility]) Respiratory rate 20 /min 20 /min eCW1 ([facility]) Body weight 218.8 [lb_av] 218.8 [lb_av] eCW1 ([facility] Body height 68 [in_i] 68 [in_i] eCW1 ([facility]) Body mass index (BMI) [Ratio] 33.26 kg/m2 33.26 kg/m2 eCW1 ([facility]) Heart rate 96 /min 96 /min eCW1 ([facility]) Body temperature 98.3 [degF] 98.3 [degF] eCW1 ( [facility]) Systolic blood pressure 122 mm[Hg] 122 mm[Hg] e CW1 ([facility]) Diastolic blood pressure 82 mm[Hg] 82 mm[Hg] eCW1 ([facility]) Body height 68 [in_i] 68 [in_i] [facility]ENT ([facility] 5'8" Body weight 210.00 [lb_av] 210.00 [lb_av] MEDEN T ([facility]) Systolic blood pressure 131 mm[Hg] 131 mm[Hg] M EDENT ([facility]) Diastolic blood pressure 86 mm[Hg] 86 mm[Hg] MEDENT ([facility]) Heart rate 74 /min 74 /min [facility] ([facility]) Body mass index (BMI) [Ratio] 31.9 kg/m2 31.9 k g/m2 MED[facility] ([facility]) Body weight 95.256 kg 95.256 kg [facility] ([facility]) Body temperature 97.3 [degF] 97.3 [degF] MEDENT ([facility]) Body weight 211 [lb_av] 211 [lb_av] eCW1 ([facility]) Body height 68 [in_i] 68 [in_i] eCW1 ([facility]) Body mass index (BMI) [Ratio] 32.08 kg/m2 32.08 kg/m2 eCW1 ([facility]) Heart rate 87 /min 87 /min eCW1 ([facility]) Respiratory rate 17 /min 17 /min eCW1 ([facility]) Body temperature 98.1 [degF] 98.1 [degF] eCW1 ( [facility]) Systolic blood pressure 124 mm[Hg] 124 mm[Hg] e CW1 ([facility]) Diastolic blood pressure 86 mm[Hg] 86 mm[Hg] eCW1 ([facility]) Body weight 209 [lb_av] 209 [lb_av] eCW1 ([facility]) Body weight 94.8 kg 94.8 kg eCW1 ([facility]) Body height 68 [in_i] 68 [in_i] eCW1 ([facility]) Body mass index (BMI) [Ratio] 31.77 kg/m2 31.77 kg/m2 eCW1 ([facility]) Systolic blood pressure 128 mm[Hg] 128 mm[Hg] e CW1 ([facility]) Diastolic blood pressure 82 mm[Hg] 82 mm[Hg] eCW1 ([facility]) Body weight 207 [lb_av] 207 [lb_av] eCW1 ([facility]) Body height 68 [in_i] 68 [in_i] eCW1 ([facility]) Body mass index (BMI) [Ratio] 31.47 kg/m2 31.47 kg/m2 eCW1 ([facility]) Heart rate 97 /min 97 /min eCW1 ([facility]) Respiratory rate 18 /min 18 /min eCW1 ([facility]) Body temperature 96.4 [degF] 96.4 [degF] eCW1 ( [facility]) Systolic blood pressure 118 mm[Hg] 118 mm[Hg] e CW1 ([facility]) Diastolic blood pressure 88 mm[Hg] 88 mm[Hg] eCW1 ([facility]) Patient Treatment Plan of Care Planned Activity Planned Date Details Description Data Source (s) Basaglar KwikPen U-100 Insulin 100 unit/mL (3 mL) inje ction [facility] 100 MG/ML [facility]ide 80 MG/ML Oral Suspension 11[facility]11[facility]2020 [facility] Sim[facility] MG Chewable Tablet 11/11/2020 12:00:00 AM EDT [facility] flintstones complete (FLINTSTONES) chewable tablet 11/11/2020 [facility] B 12 1 MG Oral Tablet 11[facility]11[facility]2020 [facility] MG Oral Tablet 11[facility]11[facility] Basaglar K[facility]Pen U-100 Insulin 100 unit/mL (3 mL) inje ction 10/01/2020 12:00:00 AM EDT [facility] aripiprazole 5 MG Oral Tablet 09/17/2020 12:00:00 AM EDT [facility] Prednisone 10 MG Oral Tablet 09/11/2020 12:00:00 AM EDT eCW1 ([facility]) 24 HR Oxybutynin chloride 5 MG Extended Release Oral T ablet [Ditropan] 09/11/2020 12:00:00 AM EDT eCW1 ([facility]) benzonatate 200 MG Oral Capsule 09/11/2020 12:00:00 AM EDT eCW1 ([facility]) cefdinir 300 MG Oral Capsule 09/11/2020 12:00:00 AM EDT eCW1 ([facility]) Prednisone 10 MG Oral Tablet 09/11/2020 12:00:00 AM EDT eCW1 ([facility]) 24 HR Oxybutynin chloride 5 MG Extended Release Oral T ablet [Ditropan] 09/11/2020 12:00:00 AM EDT eCW1 ([facility]) cefdinir 300 MG Oral Capsule 09/11/2020 12:00:00 AM EDT eCW1 ([facility]) benzonatate 200 MG Oral Capsule 09/11/2020 12:00:00 AM EDT eCW1 ([facility]) Prednisone 10 MG Oral Tablet 09/11/2020 12:00:00 AM EDT eCW1 ([facility]) 24 HR Oxybutynin chloride 5 MG Extended Release Oral T ablet [Ditropan] 09/11/2020 12:00:00 AM EDT eCW1 ([facility]) cefdinir 300 MG Oral Capsule 09/11/2020 12:00:00 AM EDT eCW1 ([facility]) benzonatate 200 MG Oral Capsule 09/11/2020 12:00:00 AM EDT eCW1 ([facility]) Prednisone 10 MG Oral Tablet 09/11/2020 12:00:00 AM EDT eCW1 ([facility]) 24 HR Oxybutynin chloride 5 MG Extended Release Oral T ablet [Ditropan] 09/11/2020 12:00:00 AM EDT eCW1 ([facility]) cefdinir 300 MG Oral Capsule 09/11/2020 12:00:00 AM EDT eCW1 ([facility]) benzonatate 200 MG Oral Capsule 09/11/2020 12:00:00 AM EDT eCW1 ([facility]) Fluconazole 150 MG Oral Tablet 06/18/2020 12:00:00 AM EDT [facility] Propranolol Hydrochloride 40 MG Oral Tablet 06/14/2020 12:00:00 AM EDT [facility] Cyclobenzaprine hydrochloride 10 MG Oral Tablet 06/04/2020 12:00:00 AM EDT eCW1 ([facility]) Diclofenac Sodium 75 MG Delayed Release Oral Tablet 06/05/19 12:00:00 AM EDT eCW1 ([facility]) Cyclobenzaprine hydrochloride 10 MG Oral Tablet 06/04/2020 12:00:00 AM EDT eCW1 ([facility]) Diclofenac Sodium 75 MG Delayed Release Oral Tablet 06/05/19 12:00:00 AM EDT eCW1 ([facility]) cetirizine hydrochloride 10 MG Oral Tablet [Zyrtec] 05/21/19 12:00:00 AM EST eCW1 ([facility]) benzonatate 200 MG Oral Capsule 05/20/2020 12:00:00 AM EST eCW1 ([facility]) 200 ACTUAT Albuterol 0.09 MG/ACTUAT Metered Dose Inhal er [ProAir] 05/20/2020 12:00:00 AM EST eCW1 ([facility]) doxycycline hyclate 100 MG Oral Capsule 05/20/2020 12:00:00 AM EST eCW1 ([facility]) cetirizine hydrochloride 10 MG Oral Tablet [Zyrtec] 05/21/19 12:00:00 AM EST eCW1 ([facility]) benzonatate 200 MG Oral Capsule 05/20/2020 12:00:00 AM EST eCW1 ([facility]) 200 ACTUAT Albuterol 0.09 MG/ACTUAT Metered Dose Inhal er [ProAir] 05/20/2020 12:00:00 AM EST eCW1 ([facility]) doxycycline hyclate 100 MG Oral Capsule 05/20/2020 12:00:00 AM EST eCW1 ([facility]) cetirizine hydrochloride 10 MG Oral Tablet [Zyrtec] 05/21/19 12:00:00 AM EST eCW1 ([facility]) benzonatate 200 MG Oral Capsule 05/20/2020 12:00:00 AM EST eCW1 ([facility]) 200 ACTUAT Albuterol 0.09 MG/ACTUAT Metered Dose Inhal er [ProAir] 05/20/2020 12:00:00 AM EST eCW1 ([facility]) doxycycline hyclate 100 MG Oral Capsule 05/20/2020 12:00:00 AM EST eCW1 ([facility]) Nystatin [id number] UNT/ML Topical Cream 04/29/2020 12:00:00 AM EST eCW1 ([facility]) Nystatin [id number] UNT/ML Topical Cream 04/29/2020 12:00:00 AM EST eCW1 ([facility]) Nystatin [id number] UNT/ML Topical Cream 04/29/2020 12:00:00 AM EST eCW1 ([facility]) Nystatin [id number] UNT/ML Topical Cream 04/29/2020 12:00:00 AM EST eCW1 ([facility]) Metformin hydrochloride 500 MG Oral Tablet 02/18/2020 12:00:[address] eCW1 ([facility]) Metformin hydrochloride 500 MG Oral Tablet 02/18/2020 12:00:[address] eCW1 ([facility]) Fluconazole 150 MG Oral Tablet 01/18/2020 12:00:00 AM EST eCW1 ([facility]) Fluconazole 150 MG Oral Tablet 01/18/2020 12:00:00 AM EST eCW1 ([facility]) Fluconazole 150 MG Oral Tablet 01/18/2020 12:00:00 AM EST eCW1 ([facility]) Fluconazole 150 MG Oral Tablet 01/18/2020 12:00:00 AM EST eCW1 ([facility]) Fluconazole 150 MG Oral Tablet 01/18/2020 12:00:00 AM EST eCW1 ([facility]) Fluconazole 150 MG Oral Tablet 01/18/2020 12:00:00 AM EST eCW1 ([facility]) Simvastatin 40 MG Oral Tablet 01/01/2020 12:00:00 AM EDT eCW1 ([facility]) FreeStyle [place] 14 Day Sensor - 01/01/2020 12:00:00 AM EDT eCW1 ([facility]) OneTouch Verio IQ System w/Device 01/01/2020 12:00:00 AM EDT eCW1 ([facility]) Glucose strip (Verio IQ) 01/01/2020 12:00:00 AM EDT eCW1 ([facility]) FreeStyle [place] 14 Day [place] - 01/01/2020 12:00:00 AM EDT eCW1 ([facility]) Simvastatin 40 MG Oral Tablet 01/01/2020 12:00:00 AM EDT eCW1 ([facility]) FreeStyle [place] 14 Day Sensor - 01/01/2020 12:00:00 AM EDT eCW1 ([facility]) OneTouch Verio IQ System w/Device 01/01/2020 12:00:00 AM EDT eCW1 ([facility]) Glucose strip (Verio IQ) 01/01/2020 12:00:00 AM EDT eCW1 ([facility]) FreeStyle [place] 14 Day [place] - 01/01/2020 12:00:00 AM EDT eCW1 ([facility]) Simvastatin 40 MG Oral Tablet 01/01/2020 12:00:00 AM EDT eCW1 ([facility]) FreeStyle [place] 14 Day Sensor - 01/01/2020 12:00:00 AM EDT eCW1 ([facility]) OneTouch Verio IQ System w/Device 01/01/2020 12:00:00 AM EDT eCW1 ([facility]) Glucose strip (Verio IQ) 01/01/2020 12:00:00 AM EDT eCW1 ([facility]) Glucose strip (Verio IQ) 01/01/2020 12:00:00 AM EDT eCW1 ([facility]) Simvastatin 40 MG Oral Tablet 01/01/2020 12:00:00 AM EDT eCW1 ([facility]) FreeStyle [place] 14 Day [place] - 01/01/2020 12:00:00 AM EDT eCW1 ([facility]) OneTouch Verio IQ System w/Device 01/01/2020 12:00:00 AM EDT eCW1 ([facility]) FreeStyle [place] 14 Day Sensor - 01/01/2020 12:00:00 AM EDT eCW1 ([facility]) FreeStyle [place] 14 Day [place] - 01/01/2020 12:00:00 AM EDT eCW1 ([facility]) Propranolol Hydrochloride 40 MG Oral Tablet 12/20/2019 12:00:00 AM EDT eCW1 ([facility]) Propranolol Hydrochloride 40 MG Oral Tablet 12/20/2019 12:00:00 AM EDT eCW1 ([facility]) Propranolol Hydrochloride 40 MG Oral Tablet 12/20/2019 12:00:00 AM EDT eCW1 ([facility]) Test Strips - 12/20/2019 12:00:00 AM EDT eCW1 ([facility]) Glucometer 12/20/2019 12:00:00 AM EDT e CW1 ([facility]) Propranolol Hydrochloride 40 MG Oral Tablet 12/20/2019 12:00:00 AM EDT eCW1 ([facility]) Propranolol Hydrochloride 40 MG Oral Tablet 12/20/2019 12:00:00 AM EDT eCW1 ([facility]) Glucometer 12/20/2019 12:00:00 AM EDT e CW1 ([facility]) Test Strips - 12/20/2019 12:00:00 AM EDT eCW1 ([facility]) Propranolol Hydrochloride 40 MG Oral Tablet 12/20/2019 12:00:00 AM EDT eCW1 ([facility]) Glucometer 12/20/2019 12:00:00 AM EDT e CW1 ([facility]) Test Strips - 12/20/2019 12:00:00 AM EDT eCW1 ([facility]) Propranolol Hydrochloride 40 MG Oral Tablet 12/20/2019 12:00:00 AM EDT eCW1 ([facility]) Glucometer 12/20/2019 12:00:00 AM EDT e CW1 ([facility]) Test Strips - 12/20/2019 12:00:00 AM EDT eCW1 ([facility]) Glucometer 12/20/2019 12:00:00 AM EDT e CW1 ([facility]) Test Strips - 12/20/2019 12:00:00 AM EDT eCW1 ([facility]) Propranolol Hydrochloride 40 MG Oral Tablet 12/20/2019 12:00:00 AM EDT eCW1 ([facility]) Glucometer 12/20/2019 12:00:00 AM EDT e CW1 ([facility]) Test Strips - 12/20/2019 12:00:00 AM EDT eCW1 ([facility]) 0.4 ML Enoxaparin sodium 100 MG/ML Prefilled Syringe [facility]
[2021-01-06] MEDS ORDERED: NS 1,000 ML IV SCH (10:50)
[2021-01-06] MEDS ORDERED: CALCIUM GLUCONATE 1,000 MG in D5W MINI-BAG PLUS 100 ML IV ONE ×2 (11:00→16:00)
[2021-01-06] MEDS ORDERED: VANCOMYCIN HCL 1,000 MG, VIAL MATE ADAPTER 1 EACH in NS 250 ML IV ONE ×2 (12:00→15:00)
[2021-01-06 12:34] LABS: ABG BASE EXCESS -27.5 (-2.0-2.0); ABG HCO3 2.6 MEQ/L (22.0-26.0); ABG O2 SATURATION 98.8 % (95.0-99.0); ABG PARTIAL PRESSURE O2 142.2 mmHg (75.0-100.0); ABG STANDARD HCO3 6.8 MEQ/L (22.0-26.0)
[2021-01-06 12:36] LABS: ABG PARTIAL PRESSURE CO2 11.6 mmHg (35.0-45.0); ABG pH (ARTERIAL) 6.969 UNITS (7.350-7.450)
[2021-01-06 12:50] LABS: CALCIUM LEVEL 9.2 MG/DL (8.5-10.1); CREATININE FOR GFR 1.64 MG/DL (0.55-1.30); GLOMERULAR FILTRATION RATE 35.6 (>58); MAGNESIUM LEVEL 2.3 MG/DL (1.8-2.4); POTASSIUM SERUM 5.8 MEQ/L (3.5-5.1)
[2021-01-06] MEDS ORDERED: SOD POLYSTYRENE SULFONATE SUSP 15 GM/60 ML UD PO ONE ×2 (13:00→15:00)
[2021-01-06] MEDS ORDERED: ALBUTEROL 90 MCG/ACT 8GM HFA INHALER INH PRN (14:20)
[2021-01-06] MEDS: DULoxetine 30MG CAPSULE (CYMBALTA) PO SCH (15:40)
--- NOTE | 2021-01-06 15:58 | ECGEPIP ---
[facility] - ED Test Date: 2021-01-06 Pat Name: CHRISTY CURTIS Department: Room: - Gender: Female Manager Transportation: SHILA : 1970 Requested By: Mckenzie Garcia Order Number: [id number] Reading MD: Mckenzie Garcia Measurements Intervals [place] Rate: 111 P: 56 IN: 152 QRS: 51 QRSD: 92 T: 40 QT: 356 QTc: 484 Interpretive Statements Sinus tachycardia Nonspecific ST T wave changes Baseline wandering may affect reading Baseline artifact may affect reading Borderline prolonged QTc cw 05/21/[address] T wave changes Electronically Signed on 01-06-2021 15:58:14 EDT by Mckenzie Garcia
[2021-01-06 16:12] LABS: CALCIUM LEVEL 9.3 MG/DL (8.5-10.1); CREATININE FOR GFR 1.56 MG/DL (0.55-1.30); GLOMERULAR FILTRATION RATE 37.7 (>58); MAGNESIUM LEVEL 2.1 MG/DL (1.8-2.4); PHOSPHORUS LEVEL 0.9 MG/DL (2.5-4.9); POTASSIUM SERUM 4.5 MEQ/L (3.5-5.1)
--- NOTE | 2021-01-06 16:13 | HPE ---
HISTORY AND PHYSICAL DATE OF ADMISSION: 01/06/2021 CHIEF COMPLAINT: Abdominal pain, nausea, vomiting. HISTORY OF PRESENT ILLNESS: This is a 50-year-old diabetic has not used her insulin. Presents to the emergency room with complaints of nausea, vomiting, and abdominal pain since last night. Patient denies any fever or chills. She has a cough productive of white sputum. She otherwise denies any headache, changes in vision, nausea, dysuria, urgency, frequency. She complains of epigastric abdominal pain without radiation, decrease in appetite. Has not had any solid meals for the past 2 days. Patient took her Basaglar insulin but had persistent symptoms for the past 2 days. MEDICAL HISTORY: 1. Type 1 diabetes. 2. Hypertension. 3. Depression. 4. Polycystic ovarian syndrome (PCOS). 5. History of polysubstance abuse. 6. Hyperlipidemia. 7. Allergic rhinitis. 8. Edema. 9. Herpes simplex. 10. Celiac disease. ALLERGIES: Gluten. PAST SURGICAL HISTORY: 1. section. 2 Colposcopy. FAMILY HISTORY: Father with diabetes, hypertension. Mother , lung cancer. SOCIAL HISTORY: Former smoker. No alcohol use. Caffeine once or twice a day. No recreational drug use. 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 HOME MEDICATIONS: - Basaglar insulin 40 units subcutaneous every night - Prilosec 40 daily - albuterol two puffs every 6 as needed - aripiprazole 5 mg daily - Cymbalta 60 daily - lisinopril 10 daily - simvastatin 40 mg every night PHYSICAL EXAMINATION: Temperature 97.2, pulse 116, respiratory rate 30, blood pressure 150/77, 100% on room air. GENERAL: Patient is awake, alert, oriented to person, place, and time, answering questions appropriately. She is tachypneic but no use of respiratory accessory muscles. Able to complete her sentences. No jugular venous distention (JVD). No thyromegaly. Dry mucous membranes. LUNGS: Diminished but no wheezing or rales. HEART: S1, S2, sinus tachycardia. ABDOMEN: Obese, soft, nontender, nondistended. Positive bowel sounds. EXTREMITIES: No cyanosis or clubbing. LABORATORY DATA: White count 28.4, hemoglobin 16, hematocrit 55, platelet count 322, 81% neutrophils. No bandemia. Sodium 128, potassium 6.8, chloride 99, bicarbonate 4, BUN 21, creatinine 1.85, glucose 716, A1c 9.1, lactic acid 4, phosphorus 7.7, magnesium 2.7. Total bilirubin 0.7, direct bilirubin 0.2, AST 27, ALT 25, alkaline phosphatase 119, total protein 8, albumin 3.8. Lipase 21. Procalcitonin 0.62. Urinalysis: Protein 3+, 3+ glucose, 2+ ketones, 1+ blood, Negative nitrate, leukocyte esterase, 1 WBC. Negative bacteremia. Two sets of blood cultures pending. Chest x-ray: No acute cardiopulmonary disease. Toxicology: Beta hydroxybutyrate pending. Fingersticks: 453, 404. Respiratory panel: Negative for coronavirus. ASSESSMENT AND PLAN: This is a 50-year-old type 1 diabetic who presented to the emergency room with diabetic ketoacidosis (DKA) with nausea, vomiting, and abdominal pain. IMPRESSION: 1. Diabetic ketoacidosis. Patient will be admitted to the intensive care unit with fingersticks every 1 hour, insulin drip at 9 units per hour until patient's acidosis resolves. Due to arterial pH of 6.8, patient was given bicarbonate. Continue with normal saline until glucose is 250, then change to D5 half-normal saline. Nothing by mouth status until patient's anion gap is closed. Continue with IV fluids for support. Strict intake and output (I and O) and daily weights. 2. Hyperkalemia. Acute renal failure secondary to diabetic ketoacidosis and hyponatremia. Continue to check every 4 hours basic metabolic profile. IV fluids for now. Due to severe hyperkalemia and renal failure, patient has been placed on bicarbonate drip. Repeat basic metabolic profile (BMP) every 4 hours and monitor on telemetry for electrolytes abnormalities. 3. Depression. Continue on home medications. 4. Hypertension, controlled. Resumed on home medications. 5. History of polycystic ovarian syndrome (PCOS), chronic. 6. Hyperlipidemia. Continue on home medications. 7. Allergic rhinitis, chronic. 8. History of celiac disease. May resume a gluten-free diet after anion gap is closed. MTDD
[2021-01-06] MEDS ORDERED: LEVEMIR (INSULIN DETEMIR) 1 UNITS/0.01ML SC ONE (16:45)
[2021-01-06 16:47] LABS: ACETONE/KETONE > 46.00 MG/DL (<2.81)
[2021-01-06] MEDS ORDERED: SODIUM BICARBONATE 150 MEQ in STERILE WATER LITER BAG 1,000 ML IV SCH ×2 (17:00→18:00)
[2021-01-06] MEDS: PIPERACILLIN/TAZOBACTAM SOD 3.375 GM in D5W MINI-BAG PLUS 50 ML IV SCH ×2 (17:06→21:11)
[2021-01-06] MEDS ORDERED: SODIUM BICARBONATE 150 MEQ in D5W 1,000 ML IV SCH (17:20)
[2021-01-06] MEDS ORDERED: GLUCOSE 4GM CHEW TABLET PO PRN (17:30)
[2021-01-06] MEDS ORDERED: GLUCAGON INJ 1MG VIAL SC PRN (17:30)
[2021-01-06] MEDS ORDERED: DEXTROSE 50% 50 ML SYRINGE IV PRN (17:30)
[2021-01-06 18:07] LABS: CALCIUM LEVEL 9.6 MG/DL (8.5-10.1); CREATININE FOR GFR 1.56 MG/DL (0.55-1.30); GLOMERULAR FILTRATION RATE 37.7 (>58); MAGNESIUM LEVEL 2.1 MG/DL (1.8-2.4); PHOSPHORUS LEVEL 0.7 MG/DL (2.5-4.9)
[2021-01-06] MEDS: SODIUM BICARBONATE 150 MEQ in STERILE WATER LITER BAG 1,000 ML IV SCH (19:00)
[2021-01-06 20:05] LABS: HEMATOCRIT 49.1 % (36.0-47.0); HEMOGLOBIN 15.9 g/dl (12.0-15.5); MEAN CORPUSCULAR HEMOGLOBIN 30.7 pg (27.0-33.0); MEAN CORPUSCULAR HGB CONC 32.4 g/dl (32.0-36.5); MEAN CORPUSCULAR VOLUME 94.8 fl (80.0-96.0); PLATELET COUNT, AUTOMATED 230 10^3/uL (150-450); RED BLOOD COUNT 5.18 10^6/uL (4.00-5.40); WHITE BLOOD COUNT 25.2 10^3/uL (4.0-10.0)
[2021-01-06 20:17] VITALS: BP 126/85
[2021-01-06 20:31] LABS: LYMPHOCYTES 6 % (16-44); MONOCYTES 6 % (0-5); NEUTROPHILS 85 % (28-66); TOXIC VACUOLATION 1+
[2021-01-06 20:32] LABS: PLATELET ESTIMATE NORMAL (NORMAL)
[2021-01-06 20:45] LABS: CALCIUM LEVEL 9.4 MG/DL (8.5-10.1); CREATININE FOR GFR 1.43 MG/DL (0.55-1.30); GLOMERULAR FILTRATION RATE 41.7 (>58); MAGNESIUM LEVEL 2.1 MG/DL (1.8-2.4); PHOSPHORUS LEVEL 1.2 MG/DL (2.5-4.9); POTASSIUM SERUM 4.6 MEQ/L (3.5-5.1)
[2021-01-06] MEDS ORDERED: HumaLOG INSULIN (NovoLOG) PER UNIT SC SCH (21:00)
[2021-01-06] MEDS: SIMVASTATIN 40 MG TAB PO SCH (21:09)
[2021-01-06] MEDS: NEUTRA-PHOS 1.5 GM PACKET PO SCH (22:09)
[2021-01-06 22:46] VITALS: BP 126/79
[2021-01-06] MEDS ORDERED: D5W/0.45% SODIUM CHLORIDE 1,000 ML IV SCH (23:00)
[2021-01-07] VITALS (23 sets, daily range): BP systolic 105–179; BP diastolic 57–94
[2021-01-07 00:01] LABS: ABG BASE EXCESS -19.7 (-2.0-2.0); ABG HCO3 4.8 MEQ/L (22.0-26.0); ABG O2 SATURATION 98.8 % (95.0-99.0); ABG PARTIAL PRESSURE O2 125.9 mmHg (75.0-100.0); ABG STANDARD HCO3 10.6 MEQ/L (22.0-26.0); ABG TOTAL CO2 5.2 MEQ/L (22.0-29.0)
[2021-01-07 00:05] LABS: ABG pH (ARTERIAL) 7.224 UNITS (7.350-7.450)
[2021-01-07] MEDS ORDERED: SODIUM BICARBONATE 8.4% INJ 50 ML SYRINGE IV ONE (00:15)
[2021-01-07] MEDS: SODIUM BICARBONATE 150 MEQ in STERILE WATER LITER BAG 1,000 ML IV SCH (01:22)
[2021-01-07] MEDS ORDERED: NS 1,000 ML IV SCH (01:35)
[2021-01-07 02:23] LABS: CALCIUM LEVEL 9.3 MG/DL (8.5-10.1); CREATININE FOR GFR 1.31 MG/DL (0.55-1.30); GLOMERULAR FILTRATION RATE 46.1 (>58); MAGNESIUM LEVEL 1.9 MG/DL (1.8-2.4)
[2021-01-07] MEDS ORDERED: KCL 20MEQ in NS 1000ML 1,000 ML IV SCH ×2 (02:40→06:35)
[2021-01-07] MEDS ORDERED: POTASSIUM CHLORIDE 10MEQ SR TABLET PO ONE ×2 (02:40→12:15)
[2021-01-07] MEDS: INSULIN REGULAR IN 0.9 % NACL 100 UNIT in IV 1 EA IV SCH ×12 (03:12→14:29)
[2021-01-07] MEDS: PIPERACILLIN/TAZOBACTAM SOD 3.375 GM in D5W MINI-BAG PLUS 50 ML IV SCH ×4 (03:20→22:14)
[2021-01-07 03:23] LABS: ABG BASE EXCESS -15.4 (-2.0-2.0); ABG HCO3 7.5 MEQ/L (22.0-26.0); ABG O2 SATURATION 98.8 % (95.0-99.0); ABG PARTIAL PRESSURE O2 104.7 mmHg (75.0-100.0); ABG STANDARD HCO3 13.1 MEQ/L (22.0-26.0); ABG TOTAL CO2 7.9 MEQ/L (22.0-29.0); ABG pH (ARTERIAL) 7.328 UNITS (7.350-7.450)
[2021-01-07 03:27] LABS: ABG PARTIAL PRESSURE CO2 14.6 mmHg (35.0-45.0)
[2021-01-07 04:19] LABS: CALCIUM LEVEL 8.7 MG/DL (8.5-10.1); CREATININE FOR GFR 1.27 MG/DL (0.55-1.30); GLOMERULAR FILTRATION RATE 47.8 (>58); POTASSIUM SERUM 3.1 MEQ/L (3.5-5.1)
[2021-01-07] MEDS ORDERED: D5W/0.45% SODIUM CHLORIDE 1,000 ML IV SCH ×4 (05:10→18:30)
[2021-01-07] MEDS ORDERED: KCL 20MEQ IN D5/0.45NS 1000ML 1,000 ML IV SCH (05:30)
[2021-01-07 06:22] LABS: CALCIUM LEVEL 8.6 MG/DL (8.5-10.1); CREATININE FOR GFR 1.2 MG/DL (0.55-1.30); MAGNESIUM LEVEL 1.7 MG/DL (1.8-2.4); PHOSPHORUS LEVEL 1.3 MG/DL (2.5-4.9); POTASSIUM SERUM 3.1 MEQ/L (3.5-5.1)
[2021-01-07] MEDS ORDERED: MAG SULF 1GM/100ML (MAG RUN) 1 GM in IV 1 EA IV ONE (07:10)
[2021-01-07] MEDS ORDERED: LEVEMIR (INSULIN DETEMIR) 1 UNITS/0.01ML SC ONE (07:15)
[2021-01-07] MEDS ORDERED: POTASSIUM PHOSPHATE INJ 30 MMOL in D5W 500 ML IV ONE ×3 (07:15→21:00)
[2021-01-07] MEDS ORDERED: HumaLOG INSULIN (NovoLOG) PER UNIT SC SCH (07:30)
[2021-01-07 07:51] LABS: BASO % 0.1 % (0.0-1.0); HEMATOCRIT 41.8 % (36.0-47.0); HEMOGLOBIN 14.7 g/dl (12.0-15.5); LYMPH # 1.2 10^3/uL (1.5-5.0); LYMPH % 4.6 % (24.0-44.0); MEAN CORPUSCULAR HEMOGLOBIN 31.4 pg (27.0-33.0); MEAN CORPUSCULAR HGB CONC 35.2 g/dl (32.0-36.5); MEAN CORPUSCULAR VOLUME 89.3 fl (80.0-96.0); MONO # 1.7 10^3/uL (0.0-0.8); MONO % 6.8 % (2.0-8.0); NEUTROPHILS # 21.7 10^3/uL (1.5-8.5); NEUTROPHILS % 86.8 % (36.0-66.0); PLATELET COUNT, AUTOMATED 201 10^3/uL (150-450); RED BLOOD COUNT 4.68 10^6/uL (4.00-5.40); WHITE BLOOD COUNT 25.1 10^3/uL (4.0-10.0)
[2021-01-07] MEDS ORDERED: VANCOMYCIN HCL 1,000 MG, VIAL MATE ADAPTER 1 EACH in NS 250 ML IV SCH (08:00)
[2021-01-07 08:12] LABS: CALCIUM LEVEL 9.1 MG/DL (8.5-10.1); CREATININE FOR GFR 1.18 MG/DL (0.55-1.30); POTASSIUM SERUM 3.3 MEQ/L (3.5-5.1); VANCOMYCIN LEVEL TROUGH 5.5 UG/ML (10.0-20.0)
[2021-01-07] MEDS: DULoxetine 30MG CAPSULE (CYMBALTA) PO SCH (08:20)
[2021-01-07] MEDS: NEUTRA-PHOS 1.5 GM PACKET PO SCH ×3 (08:38→18:09)
[2021-01-07] MEDS ORDERED: POTASSIUM PHOSPHATE INJ 20 MMOL in D5W 250 ML IV ONE (09:00)
[2021-01-07] MEDS ORDERED: SODIUM BICARBONATE 325 MG TAB PO ONE (09:00)
[2021-01-07] MEDS ORDERED: LEVEMIR (INSULIN DETEMIR) 1 UNITS/0.01ML SC SCH (09:00)
--- NOTE | 2021-01-07 09:55 | IPN ---
PROGRESS NOTE DATE: 01/07/2021 SUBJECTIVE: Patient says "I don't feel good." She otherwise denies nausea, vomiting, abdominal pain, cough, fever, chills or shortness of breath. Overnight patient's anion gap has closed. No headache, changes in vision this morning. OBJECTIVE: Vital signs: Temperature 98, pulse 106, respiratory rate 18, blood pressure 157/85, 100% on room air. General: Awake, alert, oriented person, place and time. She looks frail appearing. No cyanosis, pallor or distress. No use of respiratory accessory muscles. Able to speak in full sentences. Neck: No JVD, no thyromegaly. Lungs: Clear to auscultation, no wheezing, no rales, no rhonchi. Heart: S1 and S2 sinus tachycardia, no S3. Abdomen: Soft, nontender, nondistended, positive bowel sounds. Extremities: Trace edema bilaterally. LABORATORY DATA/IMAGING STUDIES/MICROBIOLOGY: Please see the chart. ASSESSMENT: This is a 50-year-old female with type-1 diabetes, hypertension, polycystic ovarian syndrome, polysubstance abuse, dyslipidemia, allergic rhinitis, herpes simplex and celiac disease admitted on 01/06/2021 due to complaints of nausea, vomiting, abdominal pain, found to be in diabetic ketoacidosis with leukocytosis. Coronavirus negative. UA negative. Chest x-ray no acute disease. IMPRESSIONS/PLAN: 1. Diabetic ketoacidosis: Patient was initially given insulin drip at 9 units per hour until patient's acidosis and anion gap has closed. Due to arterial pH of 6.8 she was given bicarbonate. She was kept n.p.o. until anion gap was closed and then slowly started from n.p.o. status to consistent carbohydrate diet. Repeat arterial blood gas shows metabolic acidosis with respiratory compensation. Patient is currently on the telemetry unit due to electrolyte imbalance; potassium, magnesium, phosphorus were low and have been supplemented with K-Phos and mag -run this morning. Patient's anion gap is increasing, returning back to ketoacidosis therefore she will be continued on Levemir insulin, D5 and continue with every 4 hours insulin drip until anion gap improves. 2. Hypertension: Controlled. 3. Depression: Stable. 4. Dyslipidemia: Chronic. 5. History of celiac disease. [facility]
[2021-01-07 12:49] LABS: CALCIUM LEVEL 9.1 MG/DL (8.5-10.1); CREATININE FOR GFR 1.22 MG/DL (0.55-1.30); GLOMERULAR FILTRATION RATE 50.1 (>58); MAGNESIUM LEVEL 2.4 MG/DL (1.8-2.4); PHOSPHORUS LEVEL 0.7 MG/DL (2.5-4.9); POTASSIUM SERUM 2.8 MEQ/L (3.5-5.1)
[2021-01-07] MEDS: VANCOMYCIN HCL 1,000 MG, VIAL MATE ADAPTER 1 EACH in NS 250 ML IV SCH ×2 (14:33→21:07)
[2021-01-07] MEDS: POTASSIUM CHLORIDE 10MEQ SR TABLET PO SCH ×2 (16:10→20:08)
[2021-01-07] MEDS: INSULIN IV RATE CHANGE DOCUMENTATION ML/HR XX SCH ×7 (16:58→22:00)
[2021-01-07] MEDS ORDERED: D5W/0.45% SODIUM CHLORIDE 1,000 ML IV ONE (17:00)
[2021-01-07 18:15] LABS: CALCIUM LEVEL 8.7 MG/DL (8.5-10.1); CREATININE FOR GFR 1.07 MG/DL (0.55-1.30); GLOMERULAR FILTRATION RATE 58.3 (>58); MAGNESIUM LEVEL 2.1 MG/DL (1.8-2.4); PHOSPHORUS LEVEL 1.8 MG/DL (2.5-4.9); POTASSIUM SERUM 3.4 MEQ/L (3.5-5.1)
[2021-01-07] MEDS: SIMVASTATIN 40 MG TAB PO SCH (20:08)
[2021-01-07] MEDS: KCL 20MEQ IN D5/NS 1000ML 1,000 ML IV SCH (20:09)
[2021-01-07 21:42] LABS: CALCIUM LEVEL 8.7 MG/DL (8.5-10.1); CREATININE FOR GFR 1.05 MG/DL (0.55-1.30); GLOMERULAR FILTRATION RATE 59.5 (>58); MAGNESIUM LEVEL 2.1 MG/DL (1.8-2.4); PHOSPHORUS LEVEL 1.9 MG/DL (2.5-4.9)
[2021-01-08] VITALS (11 sets, daily range): BP systolic 109–170; BP diastolic 61–103
[2021-01-08] MEDS: INSULIN IV RATE CHANGE DOCUMENTATION ML/HR XX SCH ×6 (00:03→08:04)
[2021-01-08 01:18] LABS: BLOOD UREA NITROGEN 7 MG/DL (7-18); CALCIUM LEVEL 8.5 MG/DL (8.5-10.1); CARBON DIOXIDE LEVEL 21 MEQ/L (21-32); CHLORIDE LEVEL 118 MEQ/L (98-107); CREATININE FOR GFR 0.92 MG/DL (0.55-1.30); GLOMERULAR FILTRATION RATE > 60.0 (>58); GLUCOSE, FASTING 182 MG/DL (70-100); MAGNESIUM LEVEL 1.9 MG/DL (1.8-2.4); POTASSIUM SERUM 3.2 MEQ/L (3.5-5.1); SODIUM LEVEL 142 MEQ/L (136-145)
[2021-01-08] MEDS: POTASSIUM CHLORIDE 10MEQ SR TABLET PO SCH ×3 (02:15→20:29)
[2021-01-08] MEDS: PIPERACILLIN/TAZOBACTAM SOD 3.375 GM in D5W MINI-BAG PLUS 50 ML IV SCH ×3 (03:12→16:00)
[2021-01-08] MEDS: KCL 20MEQ IN D5/NS 1000ML 1,000 ML IV SCH (03:12)
[2021-01-08] MEDS: VANCOMYCIN HCL 1,000 MG, VIAL MATE ADAPTER 1 EACH in NS 250 ML IV SCH ×3 (05:32→20:30)
[2021-01-08 05:47] LABS: BASO # 0.1 10^3/uL (0.0-0.2); BASO % 0.4 % (0.0-1.0); EOS % 0.2 % (0.0-3.0); HEMATOCRIT 38.4 % (36.0-47.0); HEMOGLOBIN 13.5 g/dl (12.0-15.5); LYMPH # 1.9 10^3/uL (1.5-5.0); MEAN CORPUSCULAR HEMOGLOBIN 31.1 pg (27.0-33.0); MEAN CORPUSCULAR HGB CONC 35.2 g/dl (32.0-36.5); MEAN CORPUSCULAR VOLUME 88.5 fl (80.0-96.0); MONO # 0.9 10^3/uL (0.0-0.8); MONO % 6.7 % (2.0-8.0); NEUTROPHILS # 10.3 10^3/uL (1.5-8.5); NEUTROPHILS % 78.3 % (36.0-66.0); PLATELET COUNT, AUTOMATED 154 10^3/uL (150-450); RED BLOOD COUNT 4.34 10^6/uL (4.00-5.40); WHITE BLOOD COUNT 13.2 10^3/uL (4.0-10.0)
[2021-01-08 06:18] LABS: BLOOD UREA NITROGEN 6 MG/DL (7-18); CALCIUM LEVEL 8.4 MG/DL (8.5-10.1); CARBON DIOXIDE LEVEL 18 MEQ/L (21-32); CHLORIDE LEVEL 118 MEQ/L (98-107); CREATININE FOR GFR 0.82 MG/DL (0.55-1.30); GLOMERULAR FILTRATION RATE > 60.0 (>58); GLUCOSE, FASTING 142 MG/DL (70-100); MAGNESIUM LEVEL 1.7 MG/DL (1.8-2.4); PHOSPHORUS LEVEL 2.5 MG/DL (2.5-4.9); POTASSIUM SERUM 3.4 MEQ/L (3.5-5.1); SODIUM LEVEL 145 MEQ/L (136-145)
[2021-01-08] MEDS ORDERED: KCL 40MEQ IN D5/NS 1000ML 1,000 ML IV SCH (06:31)
[2021-01-08] MEDS ORDERED: POTASSIUM PHOSPHATE INJ 15 MMOL in D5W 250 ML IV ONE (08:00)
[2021-01-08] MEDS ORDERED: LEVEMIR (INSULIN DETEMIR) 1 UNITS/0.01ML SC ONE (08:20)
[2021-01-08] MEDS: NEUTRA-PHOS 1.5 GM PACKET PO SCH ×3 (08:40→18:48)
[2021-01-08] MEDS: DULoxetine 30MG CAPSULE (CYMBALTA) PO SCH (08:40)
[2021-01-08] MEDS: KCL 40MEQ IN D5/0.45NS 1000ML 1,000 ML IV SCH ×3 (08:42→20:41)
[2021-01-08] MEDS ORDERED: MAG SULF 1GM/100ML (MAG RUN) 1 GM in IV 1 EA IV ONE (09:00)
[2021-01-08] MEDS ORDERED: hydrALAZINE 20MG/ML 1ML VIAL (J0360 PER 20MG) IV STA (09:45)
[2021-01-08] MEDS ORDERED: DEXTROSE 50% 50 ML SYRINGE IV PRN (10:25)
[2021-01-08] MEDS ORDERED: GLUCOSE 4GM CHEW TABLET PO PRN (10:25)
[2021-01-08] MEDS ORDERED: GLUCAGON INJ 1MG VIAL SC PRN (10:25)
[2021-01-08] MEDS: HumaLOG INSULIN (NovoLOG) PER UNIT SC SCH ×2 (11:59→18:48)
[2021-01-08] MEDS ORDERED: METOPROLOL TART 25 MG TABLET PO ONE (12:20)
[2021-01-08] MEDS ORDERED: VANCOMYCIN HCL 1,000 MG, VIAL MATE ADAPTER 1 EACH in NS 250 ML IV SCH (12:25)
[2021-01-08] MEDS ORDERED: HumaLOG INSULIN (NovoLOG) PER UNIT SC SCH ×3 (12:25→21:00)
--- NOTE | 2021-01-08 13:03 | REPVR ---
PROCEDURE INFORMATION: Exam: CT Chest Without Contrast; Diagnostic Exam date and time: 01/08/2021 11:56 AM Age: 50 years old Clinical indication: Other: Sepsis; Additional info: Abd pain sepsis TECHNIQUE: Imaging protocol: Diagnostic computed tomography of the chest without contrast. Axial, coronal and sagittal reformatted images were created and reviewed. Radiation optimization: All CT scans at this facility use at least one of these dose optimization techniques: automated exposure control; mA and/or kV adjustment per patient size (includes targeted exams where dose is matched to clinical indication); or iterative reconstruction. COMPARISON: CR PORTABLE CHEST X-RAY 01/06/2021 8:01 AM FINDINGS: Lungs: Mild linear stranding and groundglass, likely due to atelectasis and/or scarring. No focal consolidation. Pleural spaces: Trace pleural effusions. No pneumothorax. Heart: Unremarkable. No cardiomegaly. No pericardial effusion. Aorta: Unremarkable. No aneurysm. Lymph nodes: Calcified mediastinal and hilar lymph nodes, consistent with prior granulomatous disease. Bones/joints: No acute osseous abnormality. Degenerative changes. Soft tissues: Unremarkable. IMPRESSION: 1. Limited noncontrast examination. 2. Trace pleural effusions. 3. Additional findings, as above. Electronically signed by: John Chaves On 01/08/2021 13:01:11 PM
[2021-01-08 13:10] LABS: BLOOD UREA NITROGEN 5 MG/DL (7-18); C REACTIVE PROTEIN QUANTITATIV 0.86 MG/DL (0.00-0.30); CALCIUM LEVEL 8.7 MG/DL (8.5-10.1); CARBON DIOXIDE LEVEL 19 MEQ/L (21-32); CHLORIDE LEVEL 114 MEQ/L (98-107); CREATININE FOR GFR 0.82 MG/DL (0.55-1.30); GLOMERULAR FILTRATION RATE > 60.0 (>58); GLUCOSE, FASTING 309 MG/DL (70-100); PHOSPHORUS LEVEL 1.5 MG/DL (2.5-4.9); POTASSIUM SERUM 3.8 MEQ/L (3.5-5.1); SODIUM LEVEL 140 MEQ/L (136-145)
--- NOTE | 2021-01-08 13:11 | REPVR ---
PROCEDURE INFORMATION: Exam: CT Abdomen And Pelvis Without Contrast Exam date and time: 01/08/2021 11:56 AM Age: 50 years old Clinical indication: Other: Sepsis; Abdominal pain; Additional info: Abd pain sepsis TECHNIQUE: Imaging protocol: Computed tomography of the abdomen and pelvis without contrast. Axial, coronal and sagittal reformatted images were created and reviewed. Radiation optimization: All CT scans at this facility use at least one of these dose optimization techniques: automated exposure control; mA and/or kV adjustment per patient size (includes targeted exams where dose is matched to clinical indication); or iterative reconstruction. COMPARISON: CT ABD PELVIS W/O CONTRAST 05/21/2016 7:30 PM FINDINGS: Tubes, catheters and devices: Intrauterine device in the lower uterine segment. Liver: Coarse calcified hepatic granulomata. Gallbladder and bile ducts: No radiodense gallstones. No biliary ductal dilatation. Pancreas: Diffuse pancreatic atrophy. Spleen: Coarse calcified splenic granulomata. Adrenal glands: Normal. No mass. Kidneys and ureters: Mild nonspecific bilateral perinephric stranding. No radiodense calculi. No hydronephrosis. Stomach and bowel: Status post gastric bypass surgery. Scattered colonic diverticula without evidence of diverticulitis. No obstruction. No bowel wall thickening. No pneumatosis. Appendix: Normal. Intraperitoneal space: No free fluid. No organized fluid collection. No free air. Vasculature: Unremarkable. No aneurysm. Lymph nodes: No pathologically enlarged lymph nodes. Urinary bladder: Unremarkable as visualized. Reproductive: Unremarkable. Bones/joints: No acute osseous abnormality. Degenerative changes. Soft tissues: Unremarkable. IMPRESSION: 1. Limited noncontrast examination without CT evidence of acute intra-abdominal or pelvic pathology. 2. Additional findings, as above. Electronically signed by: John Chaves On 01/08/2021 13:10:42 PM
[2021-01-08] MEDS ORDERED: POTASSIUM PHOSPHATE INJ 30 MMOL in D5W 500 ML IV ONE (15:00)
[2021-01-08] MEDS ORDERED: **hydrALAZINE** 10 MG TAB PO ONE (16:30)
[2021-01-08] MEDS: NITROGLYCERIN 2% OINT 1 GM *U/D* PKT TOP SCH ×2 (18:00→23:38)
[2021-01-08] MEDS ORDERED: METOPROLOL TART 25 MG TABLET PO SCH (18:00)
[2021-01-08 19:38] LABS: BLOOD UREA NITROGEN 3 MG/DL (7-18); CALCIUM LEVEL 9.5 MG/DL (8.5-10.1); CARBON DIOXIDE LEVEL 24 MEQ/L (21-32); CHLORIDE LEVEL 112 MEQ/L (98-107); CREATININE FOR GFR 0.77 MG/DL (0.55-1.30); GLOMERULAR FILTRATION RATE > 60.0 (>58); GLUCOSE, FASTING 239 MG/DL (70-100); MAGNESIUM LEVEL 2.2 MG/DL (1.8-2.4); PHOSPHORUS LEVEL 2.8 MG/DL (2.5-4.9); POTASSIUM SERUM 4.1 MEQ/L (3.5-5.1); SODIUM LEVEL 141 MEQ/L (136-145)
[2021-01-08] MEDS: SIMVASTATIN 40 MG TAB PO SCH (20:29)
[2021-01-08] MEDS ORDERED: LEVEMIR (INSULIN DETEMIR) 1 UNITS/0.01ML SC SCH (21:00)
--- NOTE | 2021-01-08 22:18 | IPN ---
PROGRESS NOTE DATE: 01/08/2021 SUBJECTIVE: The patient has had stable closed anion gap. Metabolic acidosis has resolved. She still complains of decreased appetite, some nausea without vomiting this morning. No headaches. OBJECTIVE: Vital signs: Temperature 97.8, T-max 100, pulse 91, respiratory rate 19, blood pressure 176/96, 96% on room air. General: The patient is awake, alert, oriented to person, place and time, answering questions appropriately. Dry mucous membranes. No jugular venous distention (JVD), no thyromegaly. No cervical lymphadenopathy. Extremities: Positive edema/ LABORATORY DATA: Imaging studies have been reviewed. ASSESSMENT AND PLAN: 50-year-old with type 1 diabetes, admitted due to noncompliance, not taking her insulin. Found to be in diabetic ketoacidosis and sepsis with systemic inflammatory response, with white blood cell count on admission of 28.4, tachycardia with heart rate of 114. The patient was empirically given vancomycin and Zosyn along with IV insulin drip until anion gap was closed, then she was transition to Levemir insulin. The patient however worsened and developed worsening metabolic acidosis and high anion gap and was then changed back to insulin drip. The patient's anion gap has been stable for the past 24 hours. Bicarbonate has improved from admission of 4 to current bicarbonate of 19. Her appetite still remains poor. She has developed hypertensive urgency with pressure of 205/93 treated with metoprolol and lisinopril. IMPRESSION: 1. Diabetic ketoacidosis secondary to medical noncompliance, not taking her insulin resolved. The patient's anion gap has closed. She is currently on Levemir insulin, total of 40 units daily, given 30 units this morning and 10 units this evening. The patient has not been eating well and need to check fingersticks q 4 hour and until she resumes her celiac gluten free diet. The patient is still on D5 to prevent severe hyperglycemia. 2. systemic inflammatory response, empirically started on vancomycin and Zosyn, which can be discontinued if procalcitonin is negative. CT chest, abdomen and pelvis and urinalysis were all negative. Blood cultures have no growth. The patient's white count has improved from admission of 28.4, to current 13.2, awaiting procalcitonin level before discontinuation of vancomycin and Zosyn. 3. Metabolic acidosis secondary to diabetic ketoacidosis (DKA). The patient has been given IV antibiotics, IV fluids and insulin drip with resolution of the high anion gap metabolic acidosis. 4. Hypertension, uncontrolled on metoprolol 25 mg q 6 hours. 5. Depression, stable 6. Dyslipidemia, chronic. 7. History of celiac disease on gluten free diet. \DISPOSITION: The patient may be transferred to med-surg floor on insulin drip.
[2021-01-08] MEDS: **hydrALAZINE HCL** 25 MG TAB PO SCH (23:39)
[2021-01-09] MEDS: VANCOMYCIN HCL 1,000 MG, VIAL MATE ADAPTER 1 EACH in NS 250 ML IV SCH ×2 (05:33→12:41)
[2021-01-09] MEDS: NITROGLYCERIN 2% OINT 1 GM *U/D* PKT TOP SCH ×3 (05:33→17:47)
[2021-01-09] MEDS: **hydrALAZINE HCL** 25 MG TAB PO SCH (05:33)
[2021-01-09 06:30] VITALS: BP 149/76
[2021-01-09] MEDS ORDERED: AUGM875T28 PO (06:37)
[2021-01-09] MEDS ORDERED: LISI10TA22 PO (06:37)
[2021-01-09] MEDS ORDERED: BASA100I SC (06:37)
[2021-01-09 06:58] LABS: BASO # 0.1 10^3/uL (0.0-0.2); BASO % 0.9 % (0.0-1.0); EOS # 0.1 10^3/uL (0.0-0.5); EOS % 1.4 % (0.0-3.0); HEMATOCRIT 38.9 % (36.0-47.0); HEMOGLOBIN 13.7 g/dl (12.0-15.5); LYMPH # 1.6 10^3/uL (1.5-5.0); LYMPH % 24.1 % (24.0-44.0); MEAN CORPUSCULAR HEMOGLOBIN 31.4 pg (27.0-33.0); MEAN CORPUSCULAR HGB CONC 35.2 g/dl (32.0-36.5); MEAN CORPUSCULAR VOLUME 89.2 fl (80.0-96.0); MONO # 0.6 10^3/uL (0.0-0.8); NEUTROPHILS # 4.1 10^3/uL (1.5-8.5); NEUTROPHILS % 64.4 % (36.0-66.0); PLATELET COUNT, AUTOMATED 152 10^3/uL (150-450); RED BLOOD COUNT 4.36 10^6/uL (4.00-5.40); WHITE BLOOD COUNT 6.4 10^3/uL (4.0-10.0)
[2021-01-09 07:18] LABS: BLOOD UREA NITROGEN 6 MG/DL (7-18); CALCIUM LEVEL 8.8 MG/DL (8.5-10.1); CARBON DIOXIDE LEVEL 24 MEQ/L (21-32); CHLORIDE LEVEL 105 MEQ/L (98-107); CREATININE FOR GFR 0.61 MG/DL (0.55-1.30); GLOMERULAR FILTRATION RATE > 60.0 (>58); GLUCOSE, FASTING 353 MG/DL (70-100); POTASSIUM SERUM 4.5 MEQ/L (3.5-5.1); SODIUM LEVEL 137 MEQ/L (136-145)
[2021-01-09] MEDS: NEUTRA-PHOS 1.5 GM PACKET PO SCH ×3 (08:22→17:47)
[2021-01-09] MEDS: HumaLOG INSULIN (NovoLOG) PER UNIT SC SCH ×3 (08:23→17:46)
[2021-01-09] MEDS: DULoxetine 30MG CAPSULE (CYMBALTA) PO SCH (08:23)
[2021-01-09] MEDS: POTASSIUM CHLORIDE 10MEQ SR TABLET PO SCH ×2 (08:24→16:34)
[2021-01-09] MEDS ORDERED: LEVEMIR (INSULIN DETEMIR) 1 UNITS/0.01ML SC SCH (09:00)
--- NOTE | 2021-01-09 10:06 | IPNPDOC ---
Date Seen The patient was seen on 01/09/21. Progress Note ADDENDUM TO PROGRESS NOTE: Left posterior thigh abscess: 3 x 2.5 cm fluctuant mass -day #3 IV vanco w normal wbc, afebrile -MRSA screen pending -HD stable -us left thigh ordered -surgical consult for I&D. -dc home on augmentin if negative mrsa. VS, I&O, 24H, Fishbone Vital Signs/I&O Vital Signs Date Time Temp Pulse Resp B/P (MAP) Pulse Ox O2 Delivery O2 Flow Rate FiO2 01/09/21 06:46 149/76 01/09/21 06:30 98.8 85 16 95 01/08/21 00:00 Room Air I&O- Last 24 Hours up to 6 AM 01/09/21 06:00 Intake Total 1390 ml Balance 1390 ml Laboratory Data 24H LABS Laboratory Tests 2 01/08/21 11:43: Bedside Glucose (Misc Panel) 303H 01/08/21 12:10: Erythrocyte Sedimentation Rate 21H, Anion Gap 7L, Glomerular Filtration Rate > 60.0, Calcium Level 8.7, Phosphorus Level 1.5#L, Magnesium Level 2.0, C-Reactive Protein, Quantitative 0.86H, Procalcitonin 0.31, Vancomycin Level Trough 13.8 01/08/21 17:32: Bedside Glucose (Misc Panel) 153H 01/08/21 18:46: Anion Gap 5L, Glomerular Filtration Rate > 60.0, Calcium Level 9.5, Phosphorus Level 2.8#, Magnesium Level 2.2 01/08/21 19:53: Bedside Glucose (Misc Panel) 203H 01/09/21 06:38: Immature Granulocyte % (Auto) 0.2, Neutrophils (%) (Auto) 64.4, Lymphocytes (%) (Auto) 24.1, Monocytes (%) (Auto) 9.0H, Eosinophils (%) (Auto) 1.4, Basophils (%) (Auto) 0.9, Neutrophils # (Auto) 4.1, Lymphocytes # (Auto) 1.6, Monocytes # (Auto) 0.6, Eosinophils # (Auto) 0.1, Basophils # (Auto) 0.1, Nucleated Red Blood Cells % (auto) 0.0, Anion Gap 8, Glomerular Filtration Rate > 60.0, Calcium Level 8.8 CBC/BMP Laboratory Tests 01/08/21 12:10 01/08/21 18:46 01/09/21 06:38 Microbiology Microbiology 01/08/21 Blood Culture, Received Pending 01/08/21 Blood Culture, Received Pending 01/06/21 Blood Culture - Preliminary, Resulted 01/06/21 Respiratory Virus Panel (PCR) ([facility]) - Final, Complete 01/06/21 Blood Culture - Preliminary, Resulted No Growth after 72 hours. All specime... SANJUANA DEE MD Jan 09, 2021 10:02
[2021-01-09] MEDS ORDERED: BACT800T5 PO (10:08)
--- NOTE | 2021-01-09 10:33 | DS.PDOC ---
Discharge Summary General Date of Admission Jan 06, 2021 at 09:44 Date of Discharge 01/09/21 Discharge Summary PROCEDURES PERFORMED DURING STAY: 01/09/2021 left posterior thigh abscess incision and drainage ADMITTING DIAGNOSES: Diabetic ketoacidosis Severe sepsis DISCHARGE DIAGNOSES: Diabetic ketoacidosis Left posterior thigh abscess status post incision and drainage Metabolic acidosis secondary to DKA Gram-positive bacteremia in 1 of 2 sets of blood cultures-will need IV Dalvance. Hypokalemia Hypomagnesemia Hypophosphatemia Type 1 diabetes Hypertension Obesity Depression Dyslipidemia History of celiac sprue DISCHARGE MEDICATIONS: See below DISCHARGE INSTRUCTIONS: Primary care physician appointment within 5 days of hospital discharge to follow-up on blood cultures 1 of 2 sets being positive for gram-positive bacteria. If approved by medical insurance, Dalvance 1.5 g IV x1 dose to be arranged at the infusion unit after hospital discharge Wound care status post incision and drainage per surgery. DEBIT AGENT: General surgeon: Dr. Hamlet Pineda [facility] COURSE: 50-year-old with type 1 diabetes, admitted due to noncompliance, not taking her insulin. Found to be in diabetic ketoacidosis and sepsis with systemic inflammatory response, with white blood cell count on admission of 28.4, tachycardia with heart rate of 114. The patient was empirically given vancomycin and Zosyn along with IV insulin drip until anion gap was closed, then she was transition to Levemir insulin. The patient however worsened and developed worsening metabolic acidosis and high anion gap and was then changed back to insulin drip. The patient's anion gap has been stable for the past 24 hours. Bicarbonate has improved from admission of 4 to current bicarbonate of 19. Her appetite still remains poor. She has developed hypertensive urgency with pressure of 205/93 treated with metoprolol and lisinopril. Diabetic ketoacidosis secondary to left posterior thigh abscess And medical noncompliance with her insulin.The patient's anion gap has closed. Patient was initially started on insulin drip normal saline until glucose was 250 then changed to D5 with Levemir insulin .she has required bicarbonate due to severe metabolic acidosis with pH was 6.8 on admission. She was kept on every 4 hourly basic metabolic panel magnesium potassium and phosphorus checks. She had episodes of low potassium magnesium and phosphorus which were all repleted with K-Phos and mag IV. Patient was started on consistent carbohydrate diet after her anion gap is closed. CT chest abdomen and pelvis were negative for any other infectious process. Coronavirus was negative. Sepsis secondary to left posterior thigh abscess empirically started on vancomycin and Zosyn, on admission Zosyn was discontinued. Patient was continued on vancomycin due to left posterior thigh abscess with decreased white count from 28 to normal at 6.4 on discharge today. one of 2 sets of blood cx: gram positive cocci. Patient remains afebrile with normal white count. General surgery consulted for incision and drainage. Wound culture pending. Patient will be continued on Augmentin and for possible MRSA Bactrim for 10 days as outpatient. Gram-positive bacteremia 1 of 2 sets of blood cultures on admission had gram-positive bacteremia. Patient was given intravenous vancomycin and intravenous Zosyn for 3 days since admission With improvement in white blood cell count from 28-6.4. Repeat blood cultures are negative. This was most likely bacterial seeding from left posterior thigh skin abscess. Patient will be given intravenous Dalvance 1.5 g after hospital discharge at the infusion unit. For the skin abscess patient will be continued on Augmentin. While awaiting MRSA screen, she will also be given Bactrim for 10 days. Metabolic acidosis secondary to diabetic ketoacidosis (DKA). Patient required sodium bicarbonate due to presenting arterial blood gas of 6.8. Resolved with insulin drip and bicarbonate. Hypertension Was was uncontrolled, and patient was given metoprolol 25 mg q 6 hours Due to tachycardia, and was subsequently resumed on lisinopril. Depression, stable Dyslipidemia, chronic. History of celiac disease Resumed on consistent carbohydrate/ gluten free diet once anion gap is closed Obesity BMI of 32.2 Complicating care DISCHARGE PHYSICAL EXAM: Vital signs: See below general: No distress pallor icterus jaundice Speaks in full sentences. Normal affect. The patient is awake, alert, oriented to person, place and time, answering questions appropriately. HEENT: Dry mucous membranes. No jugular venous distention (JVD), no thyromegaly. No cervical lymphadenopathy. Lungs: Clear to auscultation bilaterally Heart: S1-S2 regular rate rhythm Abdomen: Positive bowel sounds soft nontender nondistended Extremities: No cyanosis or clubbing LABORATORY DATA: Imaging studies have been reviewed. TIME SPENT ON DISCHARGE: 30 MINUTES Vital Signs/I&Os Vital Signs Date Time Temp Pulse Resp B/P (MAP) Pulse Ox O2 Delivery O2 Flow Rate FiO2 10/29/21 06:46 149/76 01/09/21 06:30 98.8 85 16 95 01/08/21 00:00 Room Air I&O- Last 24 Hours up to 6 AM 01/09/21 06:00 Intake Total 1390 ml Balance 1390 ml Laboratory Data Labs 24H Laboratory Tests 2 01/08/21 11:43: Bedside Glucose (Misc Panel) 303H 01/08/21 12:10: Erythrocyte Sedimentation Rate 21H, Anion Gap 7L, Glomerular Filtration Rate > 60.0, Calcium Level 8.7, Phosphorus Level 1.5#L, Magnesium Level 2.0, C-Reactive Protein, Quantitative 0.86H, Procalcitonin 0.31, Vancomycin Level Trough 13.8 01/08/21 17:32: Bedside Glucose (Misc Panel) 153H 01/08/21 18:46: Anion Gap 5L, Glomerular Filtration Rate > 60.0, Calcium Level 9.5, Phosphorus Level 2.8#, Magnesium Level 2.2 01/08/21 19:53: Bedside Glucose (Misc Panel) 203H 01/09/21 06:38: Immature Granulocyte % (Auto) 0.2, Neutrophils (%) (Auto) 64.4, Lymphocytes (%) (Auto) 24.1, Monocytes (%) (Auto) 9.0H, Eosinophils (%) (Auto) 1.4, Basophils (%) (Auto) 0.9, Neutrophils # (Auto) 4.1, Lymphocytes # (Auto) 1.6, Monocytes # (Auto) 0.6, Eosinophils # (Auto) 0.1, Basophils # (Auto) 0.1, Nucleated Red Blood Cells % (auto) 0.0, Anion Gap 8, Glomerular Filtration Rate > 60.0, Calcium Level 8.8 CBC/BMP Laboratory Tests 01/08/21 12:10 01/08/21 18:46 01/09/21 06:38 FSBS Laboratory Tests Test 01/08/21 11:43 01/08/21 17:32 01/08/21 19:53 Range/Units Bedside Glucose (Misc Panel) 303 153 203 70-105 MG/DL Microbiology Microbiology 01/08/21 Blood Culture, Received Pending 01/08/21 Blood Culture, Received Pending 01/06/21 Blood Culture - Preliminary, Resulted 01/06/21 Respiratory Virus Panel (PCR) ([facility]) - Final, Complete 01/06/21 Blood Culture - Preliminary, Resulted No Growth after 72 hours. All specime... Discharge Medications Scheduled Amoxicillin/Potassium Clav (Augmentin 875-125 Tablet) 1 Each Tablet, 1 TAB PO BID Aripiprazole (Aripiprazole) 5 Mg Tablet, 5 MG PO DAILY, (Reported) Duloxetine Hcl (Cymbalta) 60 Mg Capsule.dr, 60 MG PO DAILY, (Reported) Insulin Glargine,Hum.rec.anlog (Basaglar Kwikpen U-100) 100 Unit/1 Ml Insuln.pen, 20 UNIT SC BID Lisinopril (Lisinopril) 10 Mg Tablet, 10 MG PO BID Omeprazole (Omeprazole) 40 Mg Capsule.dr, 40 MG PO DAILY, (Reported) Simvastatin (Simvastatin) 40 Mg Tablet, 40 MG PO QHS, (Reported) Sulfamethoxazole/Trimethoprim (Bactrim Ds Tablet) 1 Each Tablet, 1 TAB PO BID Scheduled PRN Albuterol Sulfate (Albuterol Sulfate Hfa) 8.5 Gm Hfa.aer.ad, 2 PUFFS INH Q6H PRN for SHORTNESS OF BREATH, (Reported) Allergies Coded Allergies: No Known Allergies (Unverified , 03/17/20) SANJUANA DEE MD Jan 09, 2021 10:24
[2021-01-09 12:45] VITALS: BP 150/79
[2021-01-09 14:00] VITALS: BP 136/92
--- NOTE | 2021-01-09 14:20 | REP ---
INDICATION: left posterior thigh abscess?. COMPARISON: None. TECHNIQUE: Real-time sonographic evaluation of left posterior thigh soft tissues performed. FINDINGS: There is a subcutaneous fluid collection at the site of the palpable lump. It measures 2.5 x 1.0 x 2.5 cm. IMPRESSION: At the site of the palpable lump there is a subcutaneous fluid collection with internal echoes. It measures 2.5 x 1.0 x 2.5 cm. <Electronically signed by Misael Palacios > 01/09/21 [id number]
--- NOTE | 2021-01-10 14:27 | CR ---
CONSULTATION DATE: 01/09/2021 REASON FOR CONSULTATION: Left posterior thigh abscess. HISTORY OF PRESENT ILLNESS: Patient is a 50-year-old woman who was admitted by the hospitalist service on January 06 with diagnosis of diabetic ketoacidosis. During her hospital stay she was noted to have a small abscess on the posterior aspect of the left distal thigh. The patient reports that this has been present, or at least that there has been a lump present, since sometime over the summer. She reports that it has sometimes been tender, but it has been much larger recently. It has gotten smaller during her hospital stay. She has not noticed any spontaneous drainage. She did get evaluated with an ultrasound of this area this morning, which showed a 2.5 cm subcutaneous fluid collection. MEDICAL HISTORY: 1. Type 1 diabetes. 2. Hypertension. 3. Depression. 4. Polycystic ovarian syndrome. 5. A past history of substance abuse. 6. Hyperlipidemia. 7. Celiac disease. SURGICAL HISTORY: Significant for colposcopy and section. Allergies and current medications are as listed in the hospital chart. PHYSICAL EXAMINATION: Shows a pleasant woman, lying quietly on the hospital bed. She appears fairly comfortable. Examination limited to the lower extremity shows a roughly 3 cm, raised, fluctuant area on the posterior aspect of the left distal thigh. There are a couple of areas of incipient skin breakdown near the edges of the raised area. It is tender to palpation. It is only mildly red at this time. IMPRESSION: Left distal thigh cutaneous abscess. PLAN: Patient was counseled for incision and drainage of the abscess. She does report that it has been present since at least this summer, and it may be that this represents an epidural inclusion cyst that has become secondarily infected. She does not recall having felt a lump there back beyond the summer. I have recommended that this be opened surgically to effect drainage. I described the procedure to her. I have recommended we perform this with some local anesthesia here at the bedside. We discussed local wound care after the abscess has been drained. Patient had an opportunity to ask questions, and these were answered. The patient was positioned on her stomach. The left posterior thigh and the area of the abscess were prepped with ChloraPrep. Local anesthesia was achieved with the infiltration of 1% Xylocaine. A longitudinal thin ellipse of skin was then incised from the overlying skin of the abscess. There was some brownish-pink fluid that was released consistent with p us. A Culturette was obtained for culture and sensitivity. The wound was evacuated of fluid. There was at least one small fragment of debris suggestive of a possible orgin for the abscess from an epidural inclusion cyst that was removed. The wound was loosely wicked with a small piece of gauze, and a bulky bandage was applied. She was instructed to begin warm, moist compresses three to four times per day for 10-15 minutes starting in the morning. She can cover the wound with a light dressing and does not need to pack the wound. She can followup in my office if necessary if the wound has not healed within the next week or so.
== END 2021-01-09 18:21 | disposition home or self-care (01) | DRG 420 ==
LOC: EDBD 07:47 → M ED 07:47 → M ED INP 09:44 → UNDOADMIN 09:55 → M ED INP 09:55 → M MSPAV 20:17 → M PCU 01-07 01:28 → M MSPAV 01-08 14:33
PROVIDERS: ADMIT General Practice; ATTEND General Practice
PROC: 0H9JXZZ Drainage of Left Upper Leg Skin, External Approach (ICD-10-PCS; principal; 2021-01-09)
DX: E10.10 Type 1 diabetes mellitus with ketoacidosis without coma (principal); R78.81 Bacteremia; E83.42 Hypomagnesemia; E83.39 Other disorders of phosphorus metabolism; I10 Essential (primary) hypertension; E87.5 Hyperkalemia; F32.A Depression, unspecified; E28.2 Polycystic ovarian syndrome; E78.5 Hyperlipidemia, unspecified; J30.9 Allergic rhinitis, unspecified; T38.3X6A Underdosing of insulin and oral hypoglycemic [antidiabetic] drugs, initial encounter; K90.0 Celiac disease; Z79.4 Long term (current) use of insulin; Z79.899 Other long term (current) drug therapy; Z87.891 Personal history of nicotine dependence; E66.9 Obesity, unspecified; Z91.14 Patient's other noncompliance with medication regimen

== ENCOUNTER → 2021-01-15 | Outpatient (CLI) | payer OTHER ==
[~2021-01-15] MED LIST changes: +ALBU8.5H INH; +ARIP1TAB6 PO; +AUGM875T28 PO; +BACT800T5 PO; +OMEP-221 PO
[2021-01-15 14:01] LABS: HEMOGLOBIN A1c 9.5 %
[2021-01-15 14:16] LABS: BLOOD UREA NITROGEN 9 MG/DL (7-18); CALCIUM LEVEL 9.5 MG/DL (8.5-10.1); CARBON DIOXIDE LEVEL 26 MEQ/L (21-32); CHLORIDE LEVEL 102 MEQ/L (98-107); CHOLESTEROL LEVEL 192 MG/DL (<200); CHOLESTEROL RISK RATIO 4.085 (<5); CREATININE FOR GFR 0.93 MG/DL (0.55-1.30); GLOMERULAR FILTRATION RATE > 60.0 (>58); GLUCOSE, FASTING 267 MG/DL (70-100); HDL CHOLESTEROL 47 MG/DL (>40); LDL CHOLESTEROL 104 MG/DL (<100); NON-HDL-C 145 MG/DL; POTASSIUM SERUM 4.6 MEQ/L (3.5-5.1); SODIUM LEVEL 135 MEQ/L (136-145); TRIGLYCERIDES LEVEL 204 MG/DL (<150)
[2021-01-15 14:25] LABS: MALB URINE SIEMENS 5.9 MG/L; MAU/CREAT RATIO 10.7 MCG/MG (0.0-30.0)
== END ==
LOC: M PLALAB 11:48
PROVIDERS: ATTEND Student in an Organized Health Care Education/Training Program
DX: E11.9 Type 2 diabetes mellitus without complications (principal)

== ENCOUNTER 2022-10-14 10:48 | Inpatient (IN) | payer OTHER, SELFPAY ==
[2022-10-14] VITALS (16 sets, daily range): BP systolic 117–239; BP diastolic 56–127; TEMP 97.7–99.6; O2SAT 98–100
[~2022-10-14] VITALS: Ht 172.7 cm; Wt 59.6 kg
[~2022-10-14 10:48] MED LIST changes: -OMEP-221 PO; +OMEP40CA5 PO
[2022-10-14] MEDS ORDERED: NS 1,000 ML IV ONE ×2 (11:15→11:55)
[2022-10-14 11:45] LABS: VENOUS BASE EXCESS -15.5 (-2.0-2.0); VENOUS HCO3 12.8 MMOL/L (23.0-27.0); VENOUS O2 SATURATION 57.5 % (60.0-80.0); VENOUS PARTIAL PRESSURE CO2 38.8 mmHg (38.0-50.0); VENOUS PARTIAL PRESSURE O2 31.9 mmHg (30.0-50.0); VENOUS PH 7.137 UNITS (7.330-7.430); VENOUS STANDARD HCO3 12.4 MMOL/L
[2022-10-14 11:48] LABS: BASO # 0.1 10^3/uL (0.0-0.2); BASO % 0.6 % (0.0-1.0); HEMOGLOBIN 16.9 g/dl (12.0-15.5); LYMPH # 1.2 10^3/uL (1.5-5.0); LYMPH % 8.8 % (24.0-44.0); MEAN CORPUSCULAR HEMOGLOBIN 32.6 pg (27.0-33.0); MEAN CORPUSCULAR HGB CONC 34.5 g/dl (32.0-36.5); MEAN CORPUSCULAR VOLUME 94.6 fl (80.0-96.0); MONO # 0.4 10^3/uL (0.0-0.8); NEUTROPHILS # 12.1 10^3/uL (1.5-8.5); NEUTROPHILS % 86.6 % (36.0-66.0); PLATELET COUNT, AUTOMATED 293 10^3/uL (150-450); RED BLOOD COUNT 5.18 10^6/uL (4.00-5.40)
[2022-10-14] MEDS ORDERED: ONDANSETRON 4MG 2ML VIAL IV ONE (11:55)
[2022-10-14] MEDS ORDERED: MORPHINE 4 MG/ML 1ML VIAL IV ONE (11:55)
[2022-10-14] MEDS ORDERED: MED REC IN PROGRESS XX SCH (12:00)
[2022-10-14 12:22] LABS: LIPASE 18 U/L (12-53)
[2022-10-14 12:24] LABS: ALBUMIN 4.5 G/DL (3.2-5.2); ALKALINE PHOSPHATASE 103 U/L (46-116); ALT/SGPT 27 U/L (7.0-40); AST/SGOT 10 U/L (<34); BILIRUBIN,DIRECT 0.2 MG/DL (<0.4); BILIRUBIN,TOTAL 0.6 MG/DL (0.3-1.2); BLOOD UREA NITROGEN 17 MG/DL (9-23); CALCIUM LEVEL 9.4 MG/DL (8.5-10.1); CARBON DIOXIDE LEVEL 12 MMOL/L (20-31); CHLORIDE LEVEL 101 MMOL/L (98-107); CREATININE FOR GFR 0.74 MG/DL (0.55-1.30); GLOMERULAR FILTRATION RATE > 60.0 (>51); GLUCOSE, FASTING 271 MG/DL (60-100); MAGNESIUM LEVEL 1.8 MG/DL (1.8-2.4); POTASSIUM SERUM 4.4 MMOL/L (3.5-5.1); SODIUM LEVEL 134 MMOL/L (136-145); TOTAL PROTEIN 8.1 G/DL (5.7-8.2)
[2022-10-14 12:31] LABS: ACETONE/KETONE > 4.50 MMOL/L (0.02-0.27)
[2022-10-14] MEDS ORDERED: BASA100I SC (12:31)
[2022-10-14] MEDS ORDERED: ADME100I SC (12:31)
[2022-10-14] MEDS ORDERED: HOME MED LIST COMPLETE! XX SCH (12:35)
[2022-10-14 12:39] LABS: OSMOLALITY SERUM 301 MOSM/KG (275-295)
[2022-10-14] MEDS ORDERED: INSULIN IV RATE CHANGE DOCUMENTATION ML/HR XX SCH (12:40)
[2022-10-14] MEDS ORDERED: HumuLIN R (REGULAR) INSULIN (NovoLIN R) **100U/ML** PER UNIT IV ONE (12:40)
[2022-10-14] MEDS ORDERED: INSULIN REGULAR IN 0.9 % NACL 100 UNIT in IV 1 EA IV SCH ×2 (12:40)
[2022-10-14 13:00] LABS: HEMOGLOBIN A1c 8.6 % (4.0-6.0)
[2022-10-14] MEDS ORDERED: ONDANSETRON 4MG 2ML VIAL IV PRN (13:20)
[2022-10-14] MEDS ORDERED: D5W/0.45% SODIUM CHLORIDE 1,000 ML IV SCH (13:20)
[2022-10-14] MEDS ORDERED: METOPROLOL 5 MG/5 ML VIAL IV STA (14:27)
[2022-10-14 14:41] LABS: CK-MB VALUE MASS < 1.0 NG/ML (<3.6); CPK CREATINE PHOSPHOKINASE 53 U/L (34-145); MB/CK RELATIVE INDEX 1.88 (< OR =4); PHOSPHORUS LEVEL 4.1 MG/DL (2.5-4.9)
[2022-10-14] MEDS: lisinopriL 5 MG TAB PO SCH (14:42)
[2022-10-14] MEDS: PANTOPRAZOLE 40MG VIAL IV SCH (14:44)
[2022-10-14] MEDS: amLODIPine 5 MG TAB PO SCH (15:04)
[2022-10-14 16:40] LABS: VENOUS PH 7.165 UNITS (7.330-7.430)
[2022-10-14 16:41] LABS: VENOUS BASE EXCESS -15.4 (-2.0-2.0); VENOUS HCO3 12.1 MMOL/L (23.0-27.0); VENOUS O2 SATURATION 96.7 % (60.0-80.0); VENOUS PARTIAL PRESSURE CO2 34.4 mmHg (38.0-50.0); VENOUS PARTIAL PRESSURE O2 104.6 mmHg (30.0-50.0); VENOUS STANDARD HCO3 13.1 MMOL/L; VENOUS TOTAL CO2 13.2 MMOL/L (24.0-28.0)
[2022-10-14 17:09] LABS: CK-MB VALUE MASS 1.1 NG/ML (<3.6)
[2022-10-14 17:15] LABS: ALBUMIN 3.7 G/DL (3.2-5.2); ALKALINE PHOSPHATASE 88 U/L (46-116); ALT/SGPT 27 U/L (7.0-40); AST/SGOT 19 U/L (<34); BILIRUBIN,TOTAL 0.4 MG/DL (0.3-1.2); BLOOD UREA NITROGEN 12 MG/DL (9-23); CALCIUM LEVEL 8.6 MG/DL (8.5-10.1); CARBON DIOXIDE LEVEL 12 MMOL/L (20-31); CHLORIDE LEVEL 107 MMOL/L (98-107); CPK CREATINE PHOSPHOKINASE 56 U/L (34-145); CREATININE FOR GFR 0.57 MG/DL (0.55-1.30); GLOMERULAR FILTRATION RATE > 60.0 (>51); GLUCOSE, FASTING 215 MG/DL (60-100); MB/CK RELATIVE INDEX 1.96 (< OR =4); POTASSIUM SERUM 4.8 MMOL/L (3.5-5.1); SODIUM LEVEL 136 MMOL/L (136-145); TOTAL PROTEIN 7.1 G/DL (5.7-8.2)
[2022-10-14 19:20] LABS: APPEARANCE, URINE CLEAR (CLEAR); BACTERIA, URINE AUTO NEGATIVE (NEGATIVE); BILIRUBIN, URINE AUTO NEGATIVE (NEGATIVE); BLOOD, URINE BLOOD NEGATIVE (NEGATIVE); COLOR, URINE YELLOW (YELLOW); GLUCOSE, URINE (UA) AUTO 3+ mg/dL (NEGATIVE); GRANULAR CAST, URINE AUTO 4 /LPF; KETONE, URINE AUTO 2+ mg/dL (NEGATIVE); LEUKOCYTE ESTERASE, URINE AUTO NEGATIVE (NEGATIVE); NITRITE, URINE AUTO NEGATIVE (NEGATIVE); PROTEIN, URINE AUTO 1+ mg/dL (NEGATIVE); RBC, URINE AUTO 0 /HPF (0-3); SPECIFIC GRAVITY URINE AUTO 1.021 (1.002-1.035); SQUAMOUS EPITHELIAL CELL UR AU 1 /HPF (0-6); UROBILINOGEN, URINE AUTO 0.2 mg/dL (0.0-2.0); WBC, URINE AUTO 1 /HPF (0-3)
[2022-10-14 22:17] LABS: ALBUMIN 3.3 G/DL (3.2-5.2); ALKALINE PHOSPHATASE 74 U/L (46-116); ALT/SGPT 23 U/L (7.0-40); AST/SGOT 15 U/L (<34); BILIRUBIN,TOTAL 0.7 MG/DL (0.3-1.2); BLOOD UREA NITROGEN 9 MG/DL (9-23); CALCIUM LEVEL 8.4 MG/DL (8.5-10.1); CARBON DIOXIDE LEVEL 15 MMOL/L (20-31); CHLORIDE LEVEL 109 MMOL/L (98-107); GLOMERULAR FILTRATION RATE > 60.0 (>51); GLUCOSE, FASTING 224 MG/DL (60-100); POTASSIUM SERUM 4.7 MMOL/L (3.5-5.1); SODIUM LEVEL 135 MMOL/L (136-145); TOTAL PROTEIN 6.2 G/DL (5.7-8.2)
[2022-10-14] MEDS: LEVEMIR (INSULIN DETEMIR) 1 UNITS/0.01ML SC SCH (23:57)
[2022-10-15] VITALS (7 sets, daily range): BP systolic 111–160; BP diastolic 51–82; TEMP 97.7–99.2; O2SAT 97–99
[2022-10-15] MEDS ORDERED: GLUCAGON INJ 1MG VIAL SC PRN (00:30)
[2022-10-15] MEDS ORDERED: GLUCOSE 4GM CHEW TABLET PO PRN (00:30)
[2022-10-15] MEDS ORDERED: DEXTROSE 50% 50ML SYRINGE IV PRN (00:30)
[2022-10-15 04:32] LABS: MEAN CORPUSCULAR HEMOGLOBIN 32.3 pg (27.0-33.0); MEAN CORPUSCULAR HGB CONC 34.6 g/dl (32.0-36.5); MEAN CORPUSCULAR VOLUME 93.4 fl (80.0-96.0); PLATELET COUNT, AUTOMATED 231 10^3/uL (150-450); RED BLOOD COUNT 4.39 10^6/uL (4.00-5.40); WHITE BLOOD COUNT 12.2 10^3/uL (4.0-10.0)
[2022-10-15 04:41] LABS: HEMOGLOBIN 14.2 g/dl (12.0-15.5)
[2022-10-15 05:20] LABS: ALBUMIN 3.2 G/DL (3.2-5.2); BLOOD UREA NITROGEN 11 MG/DL (9-23); CALCIUM LEVEL 8.7 MG/DL (8.5-10.1); CARBON DIOXIDE LEVEL 15 MMOL/L (20-31); CHLORIDE LEVEL 105 MMOL/L (98-107); CREATININE FOR GFR 0.72 MG/DL (0.55-1.30); GLOMERULAR FILTRATION RATE > 60.0 (>51); GLUCOSE, FASTING 359 MG/DL (60-100); PHOSPHORUS LEVEL 2.7 MG/DL (2.5-4.9); POTASSIUM SERUM 4.4 MMOL/L (3.5-5.1); SODIUM LEVEL 135 MMOL/L (136-145)
[2022-10-15] MEDS: INSULIN LISPRO (NovoLOG) PER UNIT SC SCH ×3 (07:33→18:39)
[2022-10-15] MEDS: amLODIPine 5 MG TAB PO SCH (09:00)
[2022-10-15] MEDS: lisinopriL 5 MG TAB PO SCH (09:00)
[2022-10-15 09:29] LABS: MAGNESIUM LEVEL 1.6 MG/DL (1.8-2.4)
[2022-10-15] MEDS: PANTOPRAZOLE 40MG VIAL IV SCH (10:15)
[2022-10-15] MEDS: LEVEMIR (INSULIN DETEMIR) 1 UNITS/0.01ML SC SCH ×2 (10:15→21:19)
[2022-10-15] MEDS: ENOXAPARIN 40MG/0.4ML SYRINGE (J1650 PER 10MG) SC SCH (10:15)
[2022-10-15 10:32] LABS: BLOOD UREA NITROGEN 11 MG/DL (9-23); CALCIUM LEVEL 8.9 MG/DL (8.5-10.1); CARBON DIOXIDE LEVEL 18 MMOL/L (20-31); CHLORIDE LEVEL 106 MMOL/L (98-107); CREATININE FOR GFR 0.63 MG/DL (0.55-1.30); GLOMERULAR FILTRATION RATE > 60.0 (>51); GLUCOSE, FASTING 260 MG/DL (60-100); POTASSIUM SERUM 3.7 MMOL/L (3.5-5.1); SODIUM LEVEL 135 MMOL/L (136-145)
[2022-10-15] MEDS ORDERED: MAGNESIUM OXIDE 400MG TAB (MAG-OX) PO ONE (11:30)
[2022-10-15] MEDS: DULoxetine 30MG CAPSULE (CYMBALTA) PO SCH (12:01)
[2022-10-15] MEDS ORDERED: INSULIN LISPRO (NovoLOG) PER UNIT SC SCH (21:00)
[2022-10-16 06:18] VITALS: BP 124/69; TEMP 98.2; O2SAT 97
[2022-10-16 06:24] LABS: HEMATOCRIT 40.8 % (36.0-47.0); HEMOGLOBIN 14.5 g/dl (12.0-15.5); MEAN CORPUSCULAR HGB CONC 35.5 g/dl (32.0-36.5); MEAN CORPUSCULAR VOLUME 90.1 fl (80.0-96.0); PLATELET COUNT, AUTOMATED 197 10^3/uL (150-450); RED BLOOD COUNT 4.53 10^6/uL (4.00-5.40); WHITE BLOOD COUNT 6.2 10^3/uL (4.0-10.0)
[2022-10-16 06:58] LABS: ALBUMIN 3.2 G/DL (3.2-5.2); BLOOD UREA NITROGEN 13 MG/DL (9-23); CALCIUM LEVEL 8.7 MG/DL (8.5-10.1); CARBON DIOXIDE LEVEL 24 MMOL/L (20-31); CHLORIDE LEVEL 107 MMOL/L (98-107); CREATININE FOR GFR 0.51 MG/DL (0.55-1.30); GLOMERULAR FILTRATION RATE > 60.0 (>51); GLUCOSE, FASTING 122 MG/DL (60-100); MAGNESIUM LEVEL 1.6 MG/DL (1.8-2.4); PHOSPHORUS LEVEL 2.5 MG/DL (2.5-4.9); POTASSIUM SERUM 3.4 MMOL/L (3.5-5.1); SODIUM LEVEL 140 MMOL/L (136-145)
[2022-10-16] MEDS: INSULIN LISPRO (NovoLOG) PER UNIT SC SCH (07:35)
[2022-10-16] MEDS: PANTOPRAZOLE 40MG VIAL IV SCH (08:31)
[2022-10-16] MEDS: LEVEMIR (INSULIN DETEMIR) 1 UNITS/0.01ML SC SCH (08:32)
[2022-10-16] MEDS: DULoxetine 30MG CAPSULE (CYMBALTA) PO SCH (08:32)
[2022-10-16] MEDS: ENOXAPARIN 40MG/0.4ML SYRINGE (J1650 PER 10MG) SC SCH (08:34)
[2022-10-16] MEDS ORDERED: ALCOPAD25 TOP (08:58)
[2022-10-16] MEDS ORDERED: PEN1MIS21 SC (08:58)
[2022-10-16] MEDS ORDERED: INSU1MIS20 SC (08:58)
[2022-10-16] MEDS ORDERED: LANC30MI XX (08:58)
[2022-10-16] MEDS ORDERED: BASA100I SC (08:58)
[2022-10-16] MEDS ORDERED: GLUC1TES2 XX (08:58)
[2022-10-16] MEDS ORDERED: ADME100I SC (08:58)
[2022-10-16] MEDS ORDERED: BLOOKIT21 XX (08:58)
[2022-10-16] MEDS ORDERED: POTASSIUM CHLORIDE 10MEQ SR TABLET PO ONE (09:00)
[2022-10-16] MEDS ORDERED: MAGNESIUM OXIDE 400MG TAB (MAG-OX) PO ONE (09:00)
[2022-10-16] MEDS ORDERED: ARIP1TAB6 PO (10:28)
== END 2022-10-16 11:52 | disposition home or self-care (01) | DRG 420 ==
LOC: M ED 10:48 → M ED INP 13:18 → M ICU 14:41 → M MSPAV 10-15 14:00
PROVIDERS: ADMIT Internal Medicine Pulmonary Disease; ATTEND Family Medicine
DX: E10.10 Type 1 diabetes mellitus with ketoacidosis without coma (principal); I10 Essential (primary) hypertension; E78.5 Hyperlipidemia, unspecified; F17.210 Nicotine dependence, cigarettes, uncomplicated; E87.1 Hypo-osmolality and hyponatremia; T38.3X6A Underdosing of insulin and oral hypoglycemic [antidiabetic] drugs, initial encounter; I16.0 Hypertensive urgency; R07.89 Other chest pain; Z91.148 Patient's other noncompliance with medication regimen for other reason; Z79.4 Long term (current) use of insulin; Z79.899 Other long term (current) drug therapy; Z98.84 Bariatric surgery status

== ENCOUNTER → 2022-11-29 | Outpatient (CLI) | payer SELFPAY, OTHER ==
[~2022-11-29] MED LIST changes: +ALCOPAD25 TOP; +BLOOKIT21 XX; +GLUC1TES2 XX; +INSU1MIS20 SC; +LANC30MI XX; +PEN1MIS21 SC
[2022-11-29 19:50] LABS: CREATININE, URINE 87.3 MG/DL
[2022-11-29 19:51] LABS: MAU/CREAT RATIO 6.8 MCG/MG (0.0-30.0)
[2022-11-29 19:52] LABS: ALBUMIN 3.4 G/DL (3.2-5.2); ALKALINE PHOSPHATASE 84 U/L (46-116); ALT/SGPT 28 U/L (7.0-40); AST/SGOT 13 U/L (<34); BILIRUBIN,TOTAL 0.6 MG/DL (0.3-1.2); BLOOD UREA NITROGEN 12 MG/DL (9-23); CALCIUM LEVEL 8.5 MG/DL (8.5-10.1); CARBON DIOXIDE LEVEL 29 MMOL/L (20-31); CHLORIDE LEVEL 103 MMOL/L (98-107); CREATININE FOR GFR 0.67 MG/DL (0.55-1.30); FERRITIN 17.7 NG/ML (7.3-270.7); GLOMERULAR FILTRATION RATE > 60.0 (>51); GLUCOSE, FASTING 191 MG/DL (60-100); IRON (FE) 118 UG/DL (50-170); PERCENT SATURATION 27.9 % (13.2-45.0); POTASSIUM SERUM 4.2 MMOL/L (3.5-5.1); SODIUM LEVEL 138 MMOL/L (136-145); TOTAL IRON BINDING CAPACITY 423 UG/DL (250-425); TOTAL PROTEIN 6.5 G/DL (5.7-8.2)
[2022-11-29 19:53] LABS: FOLATE > 24.00 NG/ML (>5.4); TOTAL 25(OH) VITAMIN D 25.5 NG/ML (20.0-100.0)
[2022-11-29 19:54] LABS: VITAMIN B12 LEVEL 365 PG/ML (211-911)
[2022-11-29 20:06] LABS: HEMOGLOBIN A1c 7.7 % (4.0-6.0)
== END ==
LOC: M WUC 11:35
PROVIDERS: ATTEND Student in an Organized Health Care Education/Training Program
DX: E10.10 Type 1 diabetes mellitus with ketoacidosis without coma (principal); Z98.84 Bariatric surgery status

== ENCOUNTER → 2023-04-01 | Outpatient (REF) | payer OTHER ==
[~2023-04-01] MED LIST changes: +PEN-308 SC; -PEN1MIS21 SC
== END ==
LOC: M LAB REF 21:26
PROVIDERS: ATTEND Physician Assistant
DX: R30.0 Dysuria (principal)

== ENCOUNTER → 2023-04-26 | Outpatient (REF) | payer OTHER | LOC: M SFHCPLAZ 14:23 | PROVIDERS: ATTEND Family Medicine | DX: N39.0 Urinary tract infection, site not specified (principal); Z98.84 Bariatric surgery status; E13.9 Other specified diabetes mellitus without complications; E78.2 Mixed hyperlipidemia; Z11.4 Encounter for screening for human immunodeficiency virus [HIV]; Z11.59 Encounter for screening for other viral diseases; Z53.9 Procedure and treatment not carried out, unspecified reason ==

== ENCOUNTER → 2023-06-24 | Outpatient (CLI) | payer OTHER ==
[2023-06-24 15:35] LABS: APPEARANCE, URINE CLEAR (CLEAR); BACTERIA, URINE AUTO NEGATIVE (NEGATIVE); BILIRUBIN, URINE AUTO NEGATIVE (NEGATIVE); BLOOD, URINE BLOOD NEGATIVE (NEGATIVE); COLOR, URINE YELLOW (YELLOW); GLUCOSE, URINE (UA) AUTO 3+ mg/dL (NEGATIVE); KETONE, URINE AUTO NEGATIVE (NEGATIVE); LEUKOCYTE ESTERASE, URINE AUTO TRACE (NEGATIVE); NITRITE, URINE AUTO NEGATIVE (NEGATIVE); PROTEIN, URINE AUTO NEGATIVE (NEGATIVE); RBC, URINE AUTO 0 /HPF (0-3); SPECIFIC GRAVITY URINE AUTO 1.025 (1.002-1.035); SQUAMOUS EPITHELIAL CELL UR AU 2 /HPF (0-6); UROBILINOGEN, URINE AUTO 0.2 mg/dL (0.0-2.0); WBC, URINE AUTO 1 /HPF (0-3)
[2023-06-24 15:41] LABS: HEMATOCRIT 44.1 % (36.0-47.0); HEMOGLOBIN 14.7 g/dl (12.0-15.5); MEAN CORPUSCULAR HEMOGLOBIN 30.4 pg (27.0-33.0); MEAN CORPUSCULAR HGB CONC 33.3 g/dl (32.0-36.5); MEAN CORPUSCULAR VOLUME 91.1 fl (80.0-96.0); PLATELET COUNT, AUTOMATED 231 10^3/uL (150-450); RED BLOOD COUNT 4.84 10^6/uL (4.00-5.40); WHITE BLOOD COUNT 6.2 10^3/uL (4.0-10.0)
[2023-06-24 15:55] LABS: CHOLESTEROL LEVEL 129 MG/DL (<200); CHOLESTEROL RISK RATIO 2.07 (<5); HDL CHOLESTEROL 62.2 MG/DL (>40); LDL CHOLESTEROL 51.6 MG/DL (<100); NON-HDL-C 66.8 MG/DL; TRIGLYCERIDES LEVEL 76 MG/DL (<150)
[2023-06-24 16:06] LABS: CREATININE, URINE 57.1 MG/DL; MALB URINE SIEMENS < 3.0 MG/L; MAU/CREAT RATIO 5.2 MCG/MG (0.0-30.0)
[2023-06-24 16:17] LABS: HEMOGLOBIN A1c 8.7 % (4.0-6.0)
[2023-06-24 16:23] LABS: HIV 1&2 SCREEN NEGATIVE (NEGATIVE)
[2023-06-24 16:31] LABS: HEPATITIS C VIRUS ABY INDEX 0.02 INDEX (<0.8)
== END ==
LOC: M PLALAB 14:05
PROVIDERS: ATTEND Student in an Organized Health Care Education/Training Program
DX: Z00.00 Encounter for general adult medical examination without abnormal findings (principal); Z98.84 Bariatric surgery status; E13.9 Other specified diabetes mellitus without complications; E78.2 Mixed hyperlipidemia; Z11.4 Encounter for screening for human immunodeficiency virus [HIV]; Z11.59 Encounter for screening for other viral diseases

== ENCOUNTER → 2023-06-24 | Outpatient (REF) | payer OTHER | LOC: M SFHCPLAZ 14:19 | PROVIDERS: ATTEND Family Medicine | DX: E13.9 Other specified diabetes mellitus without complications (principal); Z53.9 Procedure and treatment not carried out, unspecified reason ==

== ENCOUNTER → 2023-08-17 | Outpatient (CLI) | payer OTHER | LOC: M WUC 13:33 | PROVIDERS: ATTEND Nurse Practitioner Family | DX: M25.572 Pain in left ankle and joints of left foot (principal) ==

== ENCOUNTER 2024-01-12 18:11 | Inpatient (IN) | payer OTHER ==
[2024-01-12] MEDS: NS 1,000 ML IV ONE ×2 (18:39→20:04)
[2024-01-12] MEDS: ONDANSETRON 4MG 2ML VIAL IV STA (18:39)
[2024-01-12 18:42] LABS: VENOUS BASE EXCESS -16.7 (-2.0-2.0); VENOUS O2 SATURATION 96.4 % (60.0-80.0); VENOUS PARTIAL PRESSURE CO2 18.7 mmHg (38.0-50.0); VENOUS PARTIAL PRESSURE O2 103.5 mmHg (30.0-50.0); VENOUS PH 7.249 UNITS (7.330-7.430); VENOUS STANDARD HCO3 12.2 MMOL/L; VENOUS TOTAL CO2 8.6 MMOL/L (24.0-28.0)
[2024-01-12 18:47] LABS: BASO # 0.1 10^3/uL (0.0-0.2); BASO % 0.8 % (0.0-1.0); HEMATOCRIT 44.5 % (36.0-47.0); HEMOGLOBIN 14.5 g/dl (12.0-15.5); LYMPH % 12.2 % (24.0-44.0); MEAN CORPUSCULAR HGB CONC 32.6 g/dl (32.0-36.5); MONO # 0.9 10^3/uL (0.0-0.8); MONO % 5.5 % (2.0-8.0); NEUTROPHILS # 13.3 10^3/uL (1.5-8.5); NEUTROPHILS % 80.8 % (36.0-66.0); PLATELET COUNT, AUTOMATED 297 10^3/uL (150-450); WHITE BLOOD COUNT 16.4 10^3/uL (4.0-10.0)
[2024-01-12 19:16] LABS: HEMOGLOBIN A1c 10.2 % (4.0-6.0)
[2024-01-12 19:16] LABS: LIPASE 17 U/L (12-53)
[2024-01-12 19:17] LABS: OSMOLALITY SERUM 309 MOSM/KG (275-295)
[2024-01-12 19:19] LABS: ACETONE/KETONE > 4.50 MMOL/L (0.02-0.27)
[2024-01-12] MEDS ORDERED: ISOVUE-370 76% 100ML VIAL As Ordered ONE (19:55)
[2024-01-12 20:02] LABS: ALKALINE PHOSPHATASE 103 U/L (35-104); ALT/SGPT 22 U/L (7.0-40); AST/SGOT 18 U/L (<34); BILIRUBIN,DIRECT 0.3 MG/DL (<0.4); BILIRUBIN,TOTAL 0.9 MG/DL (0.3-1.2); BLOOD UREA NITROGEN 16 MG/DL (9-23); CALCIUM LEVEL 10.5 MG/DL (8.5-10.1); CARBON DIOXIDE LEVEL < 10.0 MMOL/L (20-31); CHLORIDE LEVEL 98 MMOL/L (98-107); CREATININE FOR GFR 0.72 MG/DL (0.55-1.30); GLOMERULAR FILTRATION RATE > 60.0 (>51); GLUCOSE, FASTING 404 MG/DL (60-100); MAGNESIUM LEVEL 2.1 MG/DL (1.8-2.4); PHOSPHORUS LEVEL 4.6 MG/DL (2.5-4.9); POTASSIUM SERUM 4.9 MMOL/L (3.5-5.1); SODIUM LEVEL 130 MMOL/L (136-145)
[2024-01-12] MEDS ORDERED: INSULIN IV RATE CHANGE DOCUMENTATION ML/HR XX SCH ×3 (20:15→23:25)
[2024-01-12] MEDS ORDERED: FARX1TAB3 PO (20:24)
[2024-01-12] MEDS ORDERED: SIMV20TA22 PO (20:24)
[2024-01-12] MEDS ORDERED: ADME100I2 SC (20:24)
[2024-01-12] MEDS ORDERED: HOME MED LIST COMPLETE! XX SCH (20:25)
[2024-01-12] MEDS ORDERED: LEVEMIR (INSULIN DETEMIR) 1 UNITS/0.01ML SC SCH (21:00)
[2024-01-12] MEDS ORDERED: MOM 30ML SUSPENSION UDC PO PRN (21:20)
[2024-01-12] MEDS: HumuLIN R (REGULAR) INSULIN (NovoLIN R) **100U/ML** PER UNIT IV ONE (21:20)
[2024-01-12] MEDS ORDERED: INSULIN REGULAR IN 0.9 % NACL 100 UNIT in IV 1 EA IV SCH (21:20)
[2024-01-12] MEDS ORDERED: ACETAMINOPHEN 325 MG TAB PO PRN (21:20)
[2024-01-12] MEDS: INSULIN REGULAR IN 0.9 % NACL 100 UNIT in IV 1 EA IV SCH ×2 (21:24→23:46)
[2024-01-12] MEDS ORDERED: MORPHINE 4 MG/ML 1ML VIAL IV PRN (21:35)
[2024-01-12] MEDS ORDERED: MORPHINE 2 MG/ML 1ML VIAL IV PRN (21:35)
[2024-01-12] MEDS ORDERED: KETOROLAC 30 MG/ML 1ML VIAL IV PRN (22:00)
[2024-01-12] MEDS: POTASSIUM CHLORIDE INJ 40 MEQ in LR 1,000 ML IV SCH (23:12)
[2024-01-12] MEDS: METOCLOPRAMIDE INJ 10MG/2ML VIAL IV SCH (23:37)
[2024-01-12] MEDS: SCOPOLAMINE 1MG TRANSDERMAL PATCH TOP SCH (23:37)
[2024-01-12] MEDS: KETOROLAC 30 MG/ML 1ML VIAL IV SCH (23:41)
[2024-01-13] VITALS (7 sets, daily range): BP systolic 117–177; BP diastolic 56–86; TEMP 96.5–99.1; O2SAT 97–100
[2024-01-13 00:11] LABS: VENOUS BASE EXCESS -18.2 (-2.0-2.0); VENOUS HCO3 8.9 MMOL/L (23.0-27.0); VENOUS O2 SATURATION 91.2 % (60.0-80.0); VENOUS PARTIAL PRESSURE CO2 26.1 mmHg (38.0-50.0); VENOUS PH 7.153 UNITS (7.330-7.430); VENOUS STANDARD HCO3 11.1 MMOL/L; VENOUS TOTAL CO2 9.8 MMOL/L (24.0-28.0)
[2024-01-13 00:45] LABS: BLOOD UREA NITROGEN 15 MG/DL (9-23); CALCIUM LEVEL 9.1 MG/DL (8.5-10.1); CARBON DIOXIDE LEVEL < 10.0 MMOL/L (20-31); CHLORIDE LEVEL 107 MMOL/L (98-107); CREATININE FOR GFR 0.76 MG/DL (0.55-1.30); GLOMERULAR FILTRATION RATE > 60.0 (>51); GLUCOSE, FASTING 256 MG/DL (60-100); PHOSPHORUS LEVEL 3.1 MG/DL (2.5-4.9); POTASSIUM SERUM 4.1 MMOL/L (3.5-5.1); SODIUM LEVEL 134 MMOL/L (136-145)
[2024-01-13] MEDS ORDERED: POTASSIUM CHLORIDE INJ 40 MEQ in D5W/LR 1,000 ML IV SCH (01:10)
[2024-01-13] MEDS: SODIUM BICARBONATE 8.4% INJ 50ML SYRINGE IV STA (01:19)
[2024-01-13] MEDS: LEVEMIR (INSULIN DETEMIR) 1 UNITS/0.01ML SC SCH ×3 (01:19→21:18)
[2024-01-13 01:26] LABS: METHADONE URINE NEGATIVE (NEGATIVE); OPIATES URINE NEGATIVE (NEGATIVE)
[2024-01-13 01:27] LABS: AMPHETAMINES LEVEL URINE NEGATIVE (NEGATIVE); BARBITURATES URINE NEGATIVE (NEGATIVE); BENZODIAZEPINES URINE NEGATIVE (NEGATIVE); PHENCYCLIDINE URINE NEGATIVE (NEGATIVE)
[2024-01-13 01:28] LABS: CANNABINOIDS URINE POSITIVE (NEGATIVE); COCAINE METABOLITE URINE POSITIVE (NEGATIVE)
[2024-01-13] MEDS: KCL 40MEQ IN D5/0.45NS 1000ML 1,000 ML IV SCH (01:41)
[2024-01-13 02:11] LABS: VENOUS BASE EXCESS -13.4 (-2.0-2.0); VENOUS HCO3 12.9 MMOL/L (23.0-27.0); VENOUS O2 SATURATION 59.4 % (60.0-80.0); VENOUS PARTIAL PRESSURE CO2 31.8 mmHg (38.0-50.0); VENOUS PH 7.226 UNITS (7.330-7.430); VENOUS STANDARD HCO3 13.5 MMOL/L; VENOUS TOTAL CO2 13.9 MMOL/L (24.0-28.0)
[2024-01-13 02:45] LABS: BLOOD UREA NITROGEN 16 MG/DL (9-23); CALCIUM LEVEL 9.5 MG/DL (8.5-10.1); CARBON DIOXIDE LEVEL 15 MMOL/L (20-31); CHLORIDE LEVEL 105 MMOL/L (98-107); CREATININE FOR GFR 0.76 MG/DL (0.55-1.30); GLOMERULAR FILTRATION RATE > 60.0 (>51); GLUCOSE, FASTING 207 MG/DL (60-100); PHOSPHORUS LEVEL 2.9 MG/DL (2.5-4.9); POTASSIUM SERUM 4.7 MMOL/L (3.5-5.1); SODIUM LEVEL 134 MMOL/L (136-145)
[2024-01-13] MEDS: ONDANSETRON 4MG 2ML VIAL IV PRN (03:53)
[2024-01-13] MEDS: HEPARIN SOD (PORCINE) 5000UNITS/ML 1ML VIAL/SYRINGE SC SCH (04:49)
[2024-01-13 04:54] LABS: VENOUS BASE EXCESS -9.9 (-2.0-2.0); VENOUS HCO3 14.4 MMOL/L (23.0-27.0); VENOUS PARTIAL PRESSURE O2 83.9 mmHg (30.0-50.0); VENOUS PH 7.328 UNITS (7.330-7.430); VENOUS STANDARD HCO3 16.6 MMOL/L; VENOUS TOTAL CO2 15.2 MMOL/L (24.0-28.0)
[2024-01-13 05:13] LABS: INR 0.97; PARTIAL THROMBOPLASTIN TIME 22.6 SECONDS (24.8-34.2); PROTHROMBIN TIME 13.2 SECONDS (12.5-14.5)
[2024-01-13 05:54] LABS: BLOOD UREA NITROGEN 16 MG/DL (9-23); CALCIUM LEVEL 9.6 MG/DL (8.5-10.1); CARBON DIOXIDE LEVEL 16 MMOL/L (20-31); CHLORIDE LEVEL 106 MMOL/L (98-107); CREATININE FOR GFR 0.69 MG/DL (0.55-1.30); GLOMERULAR FILTRATION RATE > 60.0 (>51); GLUCOSE, FASTING 230 MG/DL (60-100); PHOSPHORUS LEVEL 1.3 MG/DL (2.5-4.9); POTASSIUM SERUM 4.5 MMOL/L (3.5-5.1); SODIUM LEVEL 133 MMOL/L (136-145)
[2024-01-13 07:26] LABS: VENOUS BASE EXCESS -8.2 (-2.0-2.0); VENOUS HCO3 16.1 MMOL/L (23.0-27.0); VENOUS O2 SATURATION 98.1 % (60.0-80.0); VENOUS PARTIAL PRESSURE CO2 30.2 mmHg (38.0-50.0); VENOUS PARTIAL PRESSURE O2 178.5 mmHg (30.0-50.0); VENOUS PH 7.344 UNITS (7.330-7.430); VENOUS STANDARD HCO3 17.9 MMOL/L
[2024-01-13 07:55] LABS: BLOOD UREA NITROGEN 15 MG/DL (9-23); CALCIUM LEVEL 9.7 MG/DL (8.5-10.1); CARBON DIOXIDE LEVEL 18 MMOL/L (20-31); CHLORIDE LEVEL 107 MMOL/L (98-107); CREATININE FOR GFR 0.66 MG/DL (0.55-1.30); GLOMERULAR FILTRATION RATE > 60.0 (>51); GLUCOSE, FASTING 222 MG/DL (60-100); PHOSPHORUS LEVEL 1.5 MG/DL (2.5-4.9); POTASSIUM SERUM 4.5 MMOL/L (3.5-5.1); SODIUM LEVEL 133 MMOL/L (136-145)
[2024-01-13] MEDS: PANTOPRAZOLE 40MG VIAL IV SCH (09:14)
[2024-01-13] MEDS: SODIUM PHOSPHATE INJ 30 MMOL in D5W 500 ML IV ONE (09:14)
[2024-01-13 09:43] LABS: VENOUS HCO3 18.6 MMOL/L (23.0-27.0); VENOUS O2 SATURATION 69.9 % (60.0-80.0); VENOUS PARTIAL PRESSURE CO2 46.6 mmHg (38.0-50.0); VENOUS PARTIAL PRESSURE O2 36.3 mmHg (30.0-50.0); VENOUS PH 7.219 UNITS (7.330-7.430); VENOUS STANDARD HCO3 16.8 MMOL/L
[2024-01-13 10:22] LABS: BLOOD UREA NITROGEN 15 MG/DL (9-23); CALCIUM LEVEL 9.6 MG/DL (8.5-10.1); CARBON DIOXIDE LEVEL 21 MMOL/L (20-31); CHLORIDE LEVEL 106 MMOL/L (98-107); CREATININE FOR GFR 0.73 MG/DL (0.55-1.30); GLOMERULAR FILTRATION RATE > 60.0 (>51); GLUCOSE, FASTING 244 MG/DL (60-100); POTASSIUM SERUM 4.4 MMOL/L (3.5-5.1); SODIUM LEVEL 134 MMOL/L (136-145)
[2024-01-13] MEDS ORDERED: DEXTROSE 50% 50ML SYRINGE IV PRN (12:15)
[2024-01-13] MEDS ORDERED: GLUCAGON INJ 1MG VIAL SC PRN (12:15)
[2024-01-13] MEDS ORDERED: GLUCOSE 4 GM CHEW PO PRN (12:15)
[2024-01-13] MEDS: INSULIN LISPRO (NovoLOG) PER UNIT SC SCH (12:29)
[2024-01-13] MEDS: LR 1,000 ML IV SCH (12:29)
[2024-01-13 14:43] LABS: VENOUS BASE EXCESS -8.2 (-2.0-2.0); VENOUS HCO3 15.8 MMOL/L (23.0-27.0); VENOUS O2 SATURATION 85.4 % (60.0-80.0); VENOUS PARTIAL PRESSURE CO2 28.6 mmHg (38.0-50.0); VENOUS PARTIAL PRESSURE O2 47.2 mmHg (30.0-50.0); VENOUS PH 7.359 UNITS (7.330-7.430); VENOUS STANDARD HCO3 17.6 MMOL/L; VENOUS TOTAL CO2 16.6 MMOL/L (24.0-28.0)
[2024-01-13 15:17] LABS: BLOOD UREA NITROGEN 13 MG/DL (9-23); CALCIUM LEVEL 9.2 MG/DL (8.5-10.1); CARBON DIOXIDE LEVEL 19 MMOL/L (20-31); CHLORIDE LEVEL 104 MMOL/L (98-107); CREATININE FOR GFR 0.77 MG/DL (0.55-1.30); GLOMERULAR FILTRATION RATE > 60.0 (>51); GLUCOSE, FASTING 330 MG/DL (60-100); MAGNESIUM LEVEL 1.8 MG/DL (1.8-2.4); POTASSIUM SERUM 4.1 MMOL/L (3.5-5.1); SODIUM LEVEL 132 MMOL/L (136-145)
[2024-01-13] MEDS: INSULIN LISPRO (NovoLOG) PER UNIT SC STA (16:07)
[2024-01-13] MEDS ORDERED: INSULIN LISPRO (NovoLOG) PER UNIT SC SCH ×2 (17:30→21:00)
[2024-01-14 04:16] VITALS: BP 122/63; TEMP 98; O2SAT 98
[2024-01-14 04:49] LABS: BLOOD UREA NITROGEN 11 MG/DL (9-23); CALCIUM LEVEL 9.4 MG/DL (8.5-10.1); CARBON DIOXIDE LEVEL 26 MMOL/L (20-31); CHLORIDE LEVEL 111 MMOL/L (98-107); CREATININE FOR GFR 0.78 MG/DL (0.55-1.30); GLOMERULAR FILTRATION RATE > 60.0 (>51); GLUCOSE, FASTING 100 MG/DL (60-100); MAGNESIUM LEVEL 1.9 MG/DL (1.8-2.4); PHOSPHORUS LEVEL 2.4 MG/DL (2.5-4.9); POTASSIUM SERUM 3.8 MMOL/L (3.5-5.1); SODIUM LEVEL 144 MMOL/L (136-145)
[2024-01-14 07:17] VITALS: BP 122/82; TEMP 97.9; O2SAT 97
[2024-01-14] MEDS: INSULIN LISPRO (NovoLOG) PER UNIT SC SCH (07:21)
[2024-01-14] MEDS ORDERED: INSUHUMDS SC (10:04)
[2024-01-14] MEDS ORDERED: FARX1TAB3 PO (10:04)
[2024-01-14] MEDS ORDERED: CYMB60CA4 PO (10:04)
[2024-01-14] MEDS ORDERED: INSUDET SC (10:04)
[2024-01-14] MEDS ORDERED: BASA100I SC (10:06)
[2024-01-14] MEDS: NEUTRA-PHOS 1.5 GM PACKET PO SCH (12:41)
[2024-01-14] MEDS ORDERED: INSULIN LISPRO (NovoLOG) PER UNIT SC STA (13:12)
[2024-01-14] MEDS ORDERED: INSULADS INJ (18:13)
== END 2024-01-14 13:24 | disposition home or self-care (01) | DRG 420 ==
LOC: EDBD 18:11 → M ED 18:11 → M ED INP 21:18 → M ICU 01-13 00:37
PROVIDERS: ADMIT Student in an Organized Health Care Education/Training Program; ATTEND Student in an Organized Health Care Education/Training Program
DX: E11.10 Type 2 diabetes mellitus with ketoacidosis without coma (principal); K56.1 Intussusception; I10 Essential (primary) hypertension; E28.2 Polycystic ovarian syndrome; E78.5 Hyperlipidemia, unspecified; J30.9 Allergic rhinitis, unspecified; K90.0 Celiac disease; Z98.84 Bariatric surgery status; E11.65 Type 2 diabetes mellitus with hyperglycemia; K52.9 Noninfective gastroenteritis and colitis, unspecified; F32.A Depression, unspecified; Z79.4 Long term (current) use of insulin; Z79.899 Other long term (current) drug therapy; F12.10 Cannabis abuse, uncomplicated; F14.10 Cocaine abuse, uncomplicated

== ENCOUNTER 2024-04-21 09:55 | Inpatient (IN) | payer MEDICAID, OTHER ==
[2024-04-21] VITALS (20 sets, daily range): BP systolic 119–176; BP diastolic 54–81; TEMP 97–99.1; O2SAT 98–100
[~2024-04-21] VITALS: Ht 172.7 cm; Wt 69.4 kg
[~2024-04-21 09:55] MED LIST changes: +ADME100I2 SC; +FARX1TAB3 PO; +INSULADS INJ; +SIMV20TA22 PO
[2024-04-21 10:30] LABS: VENOUS BASE EXCESS -30.4 (-2.0-2.0); VENOUS HCO3 3.4 MMOL/L (23.0-27.0); VENOUS O2 SATURATION 77.2 % (60.0-80.0); VENOUS PARTIAL PRESSURE CO2 21.8 mmHg (38.0-50.0); VENOUS PARTIAL PRESSURE O2 54.7 mmHg (30.0-50.0); VENOUS PH 6.816 UNITS (7.330-7.430); VENOUS STANDARD HCO3 5.1 MMOL/L; VENOUS TOTAL CO2 4.1 MMOL/L (24.0-28.0)
[2024-04-21 10:38] LABS: BASO # 0.1 10^3/uL (0.0-0.2); BASO % 0.6 % (0.0-1.0); EOS # 0.1 10^3/uL (0.0-0.5); EOS % 0.4 % (0.0-3.0); HEMATOCRIT 50.2 % (36.0-47.0); HEMOGLOBIN 14.5 g/dl (12.0-15.5); LYMPH # 0.9 10^3/uL (1.5-5.0); LYMPH % 4.7 % (24.0-44.0); MEAN CORPUSCULAR HEMOGLOBIN 27.1 pg (27.0-33.0); MEAN CORPUSCULAR HGB CONC 28.9 g/dl (32.0-36.5); MEAN CORPUSCULAR VOLUME 93.8 fl (80.0-96.0); MONO # 1.3 10^3/uL (0.0-0.8); MONO % 6.3 % (2.0-8.0); NEUTROPHILS # 17.2 10^3/uL (1.5-8.5); NEUTROPHILS % 85.8 % (36.0-66.0); PLATELET COUNT, AUTOMATED 329 10^3/uL (150-450); RED BLOOD COUNT 5.35 10^6/uL (4.00-5.40)
[2024-04-21] MEDS ORDERED: INSULIN IV RATE CHANGE DOCUMENTATION ML/HR XX SCH ×2 (10:45→12:10)
[2024-04-21 11:05] LABS: LIPASE 19 U/L (12-53)
[2024-04-21] MEDS: HumuLIN R (REGULAR) INSULIN (NovoLIN R) **100U/ML** PER UNIT IV ONE (11:10)
[2024-04-21 11:15] LABS: OSMOLALITY SERUM 321 MOSM/KG (275-295)
[2024-04-21 11:20] LABS: ACETONE/KETONE > 4.50 MMOL/L (0.02-0.27); ALBUMIN 4.1 G/DL (3.2-5.2); ALKALINE PHOSPHATASE 120 U/L (35-104); ALT/SGPT 29 U/L (7.0-40); AST/SGOT 25 U/L (<34); BILIRUBIN,DIRECT 0.2 MG/DL (<0.4); BILIRUBIN,TOTAL 0.6 MG/DL (0.3-1.2); BLOOD UREA NITROGEN 26 MG/DL (9-23); CALCIUM LEVEL 8.6 MG/DL (8.5-10.1); CARBON DIOXIDE LEVEL < 10.0 MMOL/L (20-31); CHLORIDE LEVEL 90 MMOL/L (98-107); CREATININE FOR GFR 1.14 MG/DL (0.55-1.30); GLOMERULAR FILTRATION RATE 53.5 (>51); GLUCOSE, FASTING 650 MG/DL (60-100); POTASSIUM SERUM 6.8 MMOL/L (3.5-5.1); SODIUM LEVEL 122 MMOL/L (136-145); TOTAL PROTEIN 8.1 G/DL (5.7-8.2)
[2024-04-21] MEDS: ONDANSETRON 4MG 2ML VIAL IV PRN (11:36)
[2024-04-21] MEDS: PANTOPRAZOLE 40MG VIAL IV ONE (11:36)
[2024-04-21] MEDS: NS (Normal Saline) 0.9% 1,000 ML IV ONE ×3 (11:37→12:30)
[2024-04-21] MEDS ORDERED: ISOVUE-370 76% 100ML VIAL As Ordered ONE (11:38)
[2024-04-21] MEDS: INSULIN REGULAR IN 0.9 % NACL 100 UNIT in IV 1 EA IV SCH ×2 (11:45→17:42)
[2024-04-21] MEDS ORDERED: SERT50TA29 PO (11:50)
[2024-04-21] MEDS ORDERED: INSUHUMDS SC (11:50)
[2024-04-21] MEDS ORDERED: IRBE75TA11 PO (11:50)
[2024-04-21] MEDS ORDERED: HOME MED LIST COMPLETE! XX SCH (11:50)
[2024-04-21] MEDS ORDERED: ALBUTEROL SULFATE 2.5MG/0.5ML INH NEB SOLN NEB PRN (12:10)
[2024-04-21] MEDS: SODIUM BICARBONATE 8.4% INJ 50ML SYRINGE IV ONE (12:18)
[2024-04-21] MEDS: CALCIUM CHLORIDE 10% 1 GM/10 ML SYR IV ONE (12:18)
[2024-04-21] MEDS: PATIROMER SORBITEX CALCIUM 8.4 GM POWDER PACKET (VELTASSA) PO ONE (12:18)
[2024-04-21 13:14] LABS: MAGNESIUM LEVEL 2.6 MG/DL (1.8-2.4)
[2024-04-21] MEDS: PIPERACILLIN/TAZOBACTAM SOD 3.375 GM in DEXTROSE 5% (D5W) ADV/MINI-BAG 50 ML IV ONE (13:15)
[2024-04-21 13:17] LABS: KETONE, URINE AUTO RFX 2+ mg/dL (NEGATIVE); LEUKOCYTE ESTERASE UR AUTO RFX NEGATIVE (NEGATIVE); MUCUS, URINE RFX SMALL (NEGATIVE); NITRITE, URINE AUTO RFX NEGATIVE (NEGATIVE); RBC, URINE AUTO RFX 0 /HPF (0-3); SQUAM EPITHELIAL CELL UR AURFX 0 /HPF (0-6); WBC, URINE AUTO RFX 1 /HPF (0-3)
[2024-04-21 13:22] LABS: HEMOGLOBIN A1c 8.5 % (4.0-6.0)
[2024-04-21 13:22] LABS: VENOUS BASE EXCESS -28.3 (-2.0-2.0); VENOUS HCO3 4.3 MMOL/L (23.0-27.0); VENOUS O2 SATURATION 97.3 % (60.0-80.0); VENOUS PARTIAL PRESSURE CO2 23.7 mmHg (38.0-50.0); VENOUS PARTIAL PRESSURE O2 119.6 mmHg (30.0-50.0); VENOUS PH 6.875 UNITS (7.330-7.430); VENOUS STANDARD HCO3 6.2 MMOL/L
[2024-04-21 13:55] LABS: BLOOD UREA NITROGEN 25 MG/DL (9-23); CALCIUM LEVEL 8.7 MG/DL (8.5-10.1); CARBON DIOXIDE LEVEL < 10.0 MMOL/L (20-31); CHLORIDE LEVEL 100 MMOL/L (98-107); GLOMERULAR FILTRATION RATE > 60.0 (>51); GLUCOSE, FASTING 479 MG/DL (60-100); POTASSIUM SERUM 6.2 MMOL/L (3.5-5.1); SODIUM LEVEL 130 MMOL/L (136-145)
[2024-04-21] MEDS ORDERED: ACETAMINOPHEN 325 MG TAB PO PRN (14:10)
[2024-04-21] MEDS: LR 1,000 ML IV ONE (14:18)
[2024-04-21 15:16] LABS: VENOUS BASE EXCESS -25.4 (-2.0-2.0); VENOUS HCO3 6.4 MMOL/L (23.0-27.0); VENOUS O2 SATURATION 85.8 % (60.0-80.0); VENOUS PARTIAL PRESSURE CO2 31.4 mmHg (38.0-50.0); VENOUS PARTIAL PRESSURE O2 59.6 mmHg (30.0-50.0); VENOUS PH 6.929 UNITS (7.330-7.430); VENOUS STANDARD HCO3 7.3 MMOL/L; VENOUS TOTAL CO2 7.4 MMOL/L (24.0-28.0)
[2024-04-21 16:00] LABS: BLOOD UREA NITROGEN 25 MG/DL (9-23); CARBON DIOXIDE LEVEL < 10.0 MMOL/L (20-31); CHLORIDE LEVEL 101 MMOL/L (98-107); CREATININE FOR GFR 0.96 MG/DL (0.55-1.30); GLOMERULAR FILTRATION RATE > 60.0 (>51); GLUCOSE, FASTING 344 MG/DL (60-100); POTASSIUM SERUM 5.4 MMOL/L (3.5-5.1); SODIUM LEVEL 131 MMOL/L (136-145)
[2024-04-21] MEDS: NS (Normal Saline) 0.9% 1,000 ML IV SCH (16:00)
[2024-04-21] MEDS: ENOXAPARIN 40MG/0.4ML SYRINGE (J1650 PER 10MG) SC SCH (16:00)
[2024-04-21] MEDS: D5W/0.9% SODIUM CHLORIDE 1,000 ML IV SCH (17:41)
[2024-04-21 18:14] LABS: VENOUS BASE EXCESS -20.1 (-2.0-2.0); VENOUS HCO3 8.4 MMOL/L (23.0-27.0); VENOUS O2 SATURATION 96.6 % (60.0-80.0); VENOUS PARTIAL PRESSURE CO2 28.4 mmHg (38.0-50.0); VENOUS PARTIAL PRESSURE O2 93.5 mmHg (30.0-50.0); VENOUS STANDARD HCO3 10.2 MMOL/L; VENOUS TOTAL CO2 9.3 MMOL/L (24.0-28.0)
[2024-04-21 18:56] LABS: BLOOD UREA NITROGEN 21 MG/DL (9-23); CALCIUM LEVEL 8.6 MG/DL (8.5-10.1); CARBON DIOXIDE LEVEL < 10.0 MMOL/L (20-31); CHLORIDE LEVEL 103 MMOL/L (98-107); CREATININE FOR GFR 0.84 MG/DL (0.55-1.30); GLOMERULAR FILTRATION RATE > 60.0 (>51); GLUCOSE, FASTING 200 MG/DL (60-100); POTASSIUM SERUM 5.1 MMOL/L (3.5-5.1); SODIUM LEVEL 133 MMOL/L (136-145)
[2024-04-21] MEDS: KCL 20MEQ IN D5/0.45NS 1000ML 1,000 ML IV SCH (19:19)
[2024-04-21] MEDS: PANTOPRAZOLE 40MG VIAL IV SCH (20:07)
[2024-04-21 21:15] LABS: VENOUS BASE EXCESS -16.1 (-2.0-2.0); VENOUS O2 SATURATION 98.2 % (60.0-80.0); VENOUS PARTIAL PRESSURE CO2 25.6 mmHg (38.0-50.0); VENOUS PARTIAL PRESSURE O2 130.3 mmHg (30.0-50.0); VENOUS PH 7.211 UNITS (7.330-7.430); VENOUS STANDARD HCO3 12.6 MMOL/L; VENOUS TOTAL CO2 10.8 MMOL/L (24.0-28.0)
[2024-04-21 21:51] LABS: BLOOD UREA NITROGEN 18 MG/DL (9-23); CALCIUM LEVEL 8.3 MG/DL (8.5-10.1); CARBON DIOXIDE LEVEL 11 MMOL/L (20-31); CHLORIDE LEVEL 105 MMOL/L (98-107); CREATININE FOR GFR 0.75 MG/DL (0.55-1.30); GLOMERULAR FILTRATION RATE > 60.0 (>51); GLUCOSE, FASTING 188 MG/DL (60-100); POTASSIUM SERUM 4.7 MMOL/L (3.5-5.1); SODIUM LEVEL 133 MMOL/L (136-145)
[2024-04-22] VITALS (13 sets, daily range): BP systolic 115–160; BP diastolic 59–93; TEMP 97.4–98.9; O2SAT 98–100
[2024-04-22 00:37] LABS: BLOOD UREA NITROGEN 15 MG/DL (9-23); CARBON DIOXIDE LEVEL 14 MMOL/L (20-31); CHLORIDE LEVEL 107 MMOL/L (98-107); CREATININE FOR GFR 0.75 MG/DL (0.55-1.30); GLOMERULAR FILTRATION RATE > 60.0 (>51); GLUCOSE, FASTING 191 MG/DL (60-100); POTASSIUM SERUM 4.4 MMOL/L (3.5-5.1); SODIUM LEVEL 135 MMOL/L (136-145)
[2024-04-22 03:49] LABS: BLOOD UREA NITROGEN 10 MG/DL (9-23); CALCIUM LEVEL 8.9 MG/DL (8.5-10.1); CARBON DIOXIDE LEVEL 13 MMOL/L (20-31); CHLORIDE LEVEL 109 MMOL/L (98-107); CREATININE FOR GFR 0.69 MG/DL (0.55-1.30); GLOMERULAR FILTRATION RATE > 60.0 (>51); GLUCOSE, FASTING 167 MG/DL (60-100); POTASSIUM SERUM 4.8 MMOL/L (3.5-5.1); SODIUM LEVEL 135 MMOL/L (136-145)
[2024-04-22 06:58] LABS: VENOUS BASE EXCESS -7.7 (-2.0-2.0); VENOUS HCO3 16.2 MMOL/L (23.0-27.0); VENOUS O2 SATURATION 98.7 % (60.0-80.0); VENOUS PARTIAL PRESSURE CO2 29.2 mmHg (38.0-50.0); VENOUS PARTIAL PRESSURE O2 161.4 mmHg (30.0-50.0); VENOUS PH 7.362 UNITS (7.330-7.430); VENOUS STANDARD HCO3 18.3 MMOL/L; VENOUS TOTAL CO2 17.1 MMOL/L (24.0-28.0)
[2024-04-22 07:11] LABS: HEMATOCRIT 40.1 % (36.0-47.0); HEMOGLOBIN 13.6 g/dl (12.0-15.5); MEAN CORPUSCULAR HEMOGLOBIN 27.9 pg (27.0-33.0); MEAN CORPUSCULAR HGB CONC 33.9 g/dl (32.0-36.5); MEAN CORPUSCULAR VOLUME 82.2 fl (80.0-96.0); RED BLOOD COUNT 4.88 10^6/uL (4.00-5.40); WHITE BLOOD COUNT 21.7 10^3/uL (4.0-10.0)
[2024-04-22 07:12] LABS: PLATELET COUNT, AUTOMATED 228 10^3/uL (150-450)
[2024-04-22 07:35] LABS: ACETONE/KETONE 2.01 MMOL/L (0.02-0.27)
[2024-04-22 07:52] LABS: PROCALCITONIN 0.55 ng/ml
[2024-04-22 08:09] LABS: BLOOD UREA NITROGEN 16 MG/DL (9-23); CARBON DIOXIDE LEVEL 17 MMOL/L (20-31); CHLORIDE LEVEL 109 MMOL/L (98-107); CREATININE FOR GFR 0.64 MG/DL (0.55-1.30); GLOMERULAR FILTRATION RATE > 60.0 (>51); GLUCOSE, FASTING 146 MG/DL (60-100); SODIUM LEVEL 138 MMOL/L (136-145)
[2024-04-22] MEDS ORDERED: GLUCAGON INJ 1MG VIAL SC PRN (08:15)
[2024-04-22] MEDS ORDERED: GLUCOSE 4 GM CHEW PO PRN (08:15)
[2024-04-22] MEDS ORDERED: DEXTROSE 50% 50ML SYRINGE IV PRN (08:15)
[2024-04-22] MEDS ORDERED: LEVEMIR (INSULIN DETEMIR) 1 UNITS/0.01ML SC SCH (09:00)
[2024-04-22] MEDS: LEVEMIR (INSULIN DETEMIR) 1 UNITS/0.01ML SC SCH (09:34)
[2024-04-22] MEDS: INSULIN LISPRO (NovoLOG) PER UNIT SC STA (10:48)
[2024-04-22] MEDS: INSULIN LISPRO (NovoLOG) PER UNIT SC SCH ×2 (12:56→12:57)
[2024-04-22] MEDS ORDERED: PILL CUTTER 1 EACH XX PRN (13:20)
[2024-04-22] MEDS: ONDANSETRON 4MG 2ML VIAL IV ONE (14:03)
[2024-04-22] MEDS: IRBESARTAN 150MG TAB PO SCH (14:12)
[2024-04-22] MEDS ORDERED: ACETAMINOPHEN 500 MG TAB PO PRN (15:40)
[2024-04-22] MEDS: hydrALAZINE 20MG/ML 1ML VIAL IV ONE (17:13)
[2024-04-22] MEDS: SUCRALFATE 1 GM TAB PO SCH (17:13)
[2024-04-23] VITALS: BP 126/71; O2SAT 98
[2024-04-23 04:00] VITALS: BP 129/80; TEMP 99; O2SAT 100
[2024-04-23 04:58] LABS: HEMATOCRIT 38.4 % (36.0-47.0); MEAN CORPUSCULAR HEMOGLOBIN 27.7 pg (27.0-33.0); MEAN CORPUSCULAR HGB CONC 33.9 g/dl (32.0-36.5); MEAN CORPUSCULAR VOLUME 81.7 fl (80.0-96.0); PLATELET COUNT, AUTOMATED 192 10^3/uL (150-450); WHITE BLOOD COUNT 10.2 10^3/uL (4.0-10.0)
[2024-04-23 05:25] LABS: BLOOD UREA NITROGEN 14 MG/DL (9-23); CALCIUM LEVEL 8.4 MG/DL (8.5-10.1); CARBON DIOXIDE LEVEL 16 MMOL/L (20-31); CHLORIDE LEVEL 103 MMOL/L (98-107); CREATININE FOR GFR 0.68 MG/DL (0.55-1.30); GLOMERULAR FILTRATION RATE > 60.0 (>51); GLUCOSE, FASTING 304 MG/DL (60-100); SODIUM LEVEL 135 MMOL/L (136-145)
[2024-04-23] MEDS: LEVEMIR (INSULIN DETEMIR) 1 UNITS/0.01ML SC SCH ×2 (08:19→20:32)
[2024-04-23 08:21] VITALS: BP 131/72; TEMP 98.3; O2SAT 100
[2024-04-23] MEDS: LEVEMIR (INSULIN DETEMIR) 1 UNITS/0.01ML SC ONE (13:07)
[2024-04-23 16:00] VITALS: BP 136/87; TEMP 98.5; O2SAT 99
[2024-04-23 20:00] VITALS: BP 114/62; TEMP 98.3; O2SAT 99
[2024-04-24 05:00] VITALS: BP 108/63; TEMP 97.6; O2SAT 99
[2024-04-24 08:11] LABS: HEMATOCRIT 38.5 % (36.0-47.0); MEAN CORPUSCULAR HEMOGLOBIN 27.4 pg (27.0-33.0); MEAN CORPUSCULAR HGB CONC 33.8 g/dl (32.0-36.5); MEAN CORPUSCULAR VOLUME 81.2 fl (80.0-96.0); PLATELET COUNT, AUTOMATED 177 10^3/uL (150-450); RED BLOOD COUNT 4.74 10^6/uL (4.00-5.40); WHITE BLOOD COUNT 5.8 10^3/uL (4.0-10.0)
[2024-04-24 08:28] VITALS: BP 129/82; TEMP 98.5; O2SAT 98
[2024-04-24 09:06] LABS: BLOOD UREA NITROGEN 16 MG/DL (9-23); CALCIUM LEVEL 8.6 MG/DL (8.5-10.1); CARBON DIOXIDE LEVEL 27 MMOL/L (20-31); CHLORIDE LEVEL 104 MMOL/L (98-107); CREATININE FOR GFR 0.49 MG/DL (0.55-1.30); GLOMERULAR FILTRATION RATE > 60.0 (>51); GLUCOSE, FASTING 223 MG/DL (60-100); POTASSIUM SERUM 3.3 MMOL/L (3.5-5.1); SODIUM LEVEL 139 MMOL/L (136-145)
[2024-04-24 09:19] VITALS: BP 129/82
[2024-04-24] MEDS: LEVEMIR (INSULIN DETEMIR) 1 UNITS/0.01ML SC ONE (09:21)
[2024-04-24] MEDS: PANTOPRAZOLE 40MG TAB (PROTONIX) PO SCH (09:21)
[2024-04-24] MEDS: LEVEMIR (INSULIN DETEMIR) 1 UNITS/0.01ML SC SCH (09:29)
[2024-04-24] MEDS: POTASSIUM CHLORIDE 10MEQ SR TABLET PO SCH (10:19)
[2024-04-24] MEDS ORDERED: SUCR1TA PO (11:16)
[2024-04-24] MEDS ORDERED: PANT40TA29 PO (11:16)
[2024-04-24] MEDS ORDERED: BASA100I SC (11:16)
== END 2024-04-24 14:05 | disposition home or self-care (01) | DRG 420 ==
LOC: M ED 09:55 → M ED INP 12:04 → M ICU 14:00
PROVIDERS: ADMIT Internal Medicine Pulmonary Disease; ATTEND Student in an Organized Health Care Education/Training Program
DX: E10.10 Type 1 diabetes mellitus with ketoacidosis without coma (principal); K22.6 Gastro-esophageal laceration-hemorrhage syndrome; E87.5 Hyperkalemia; F17.290 Nicotine dependence, other tobacco product, uncomplicated; I10 Essential (primary) hypertension; E78.5 Hyperlipidemia, unspecified; F32.A Depression, unspecified; E10.65 Type 1 diabetes mellitus with hyperglycemia; K90.0 Celiac disease; Z98.84 Bariatric surgery status; Z79.4 Long term (current) use of insulin; Z79.899 Other long term (current) drug therapy; Z91.148 Patient's other noncompliance with medication regimen for other reason

== ENCOUNTER → 2024-04-27 | Outpatient (CLI) | payer OTHER ==
[~2024-04-27] MED LIST changes: +IRBE75TA11 PO; +SERT50TA29 PO; +SUCR1TA PO
[2024-04-27 13:29] LABS: BASO # 0.1 10^3/uL (0.0-0.2); BASO % 0.8 % (0.0-1.0); EOS # 0.2 10^3/uL (0.0-0.5); EOS % 2.9 % (0.0-3.0); HEMATOCRIT 36.5 % (36.0-47.0); HEMOGLOBIN 11.6 g/dl (12.0-15.5); LYMPH # 2.1 10^3/uL (1.5-5.0); LYMPH % 31.5 % (24.0-44.0); MEAN CORPUSCULAR HEMOGLOBIN 26.8 pg (27.0-33.0); MEAN CORPUSCULAR HGB CONC 31.8 g/dl (32.0-36.5); MEAN CORPUSCULAR VOLUME 84.3 fl (80.0-96.0); MONO # 0.8 10^3/uL (0.0-0.8); MONO % 12.1 % (2.0-8.0); NEUTROPHILS # 3.4 10^3/uL (1.5-8.5); NEUTROPHILS % 51.8 % (36.0-66.0); PLATELET COUNT, AUTOMATED 210 10^3/uL (150-450); RED BLOOD COUNT 4.33 10^6/uL (4.00-5.40); WHITE BLOOD COUNT 6.6 10^3/uL (4.0-10.0)
== END ==
LOC: M PLALAB 09:48
PROVIDERS: ATTEND Student in an Organized Health Care Education/Training Program
DX: Z09 Encounter for follow-up examination after completed treatment for conditions other than malignant neoplasm (principal)

== ENCOUNTER → 2024-05-23 | Outpatient (CLI) | payer MEDICAID | LOC: M OUTALCOH 07:35 | PROVIDERS: ATTEND Psychiatry & Neurology Psychiatry | DX: F14.20 Cocaine dependence, uncomplicated (principal); F10.20 Alcohol dependence, uncomplicated; F12.20 Cannabis dependence, uncomplicated; F17.200 Nicotine dependence, unspecified, uncomplicated ==

== ENCOUNTER 2024-06-08 07:59 | Outpatient (RCR) | payer MEDICAID, OTHER | END 2024-06-11 | LOC: M OUTALCOH 07:59 | PROVIDERS: ATTEND Psychiatry & Neurology Psychiatry | DX: F14.20 Cocaine dependence, uncomplicated (principal); F10.20 Alcohol dependence, uncomplicated; F12.20 Cannabis dependence, uncomplicated; F17.200 Nicotine dependence, unspecified, uncomplicated | CPT/HCPCS: 99211; G0397 ==

== ENCOUNTER → 2024-06-18 | Outpatient (CLI) | payer OTHER ==
[2024-06-18 18:43] LABS: HEMATOCRIT 41.2 % (36.0-47.0); HEMOGLOBIN 12.8 g/dl (12.0-15.5); MEAN CORPUSCULAR HEMOGLOBIN 26.4 pg (27.0-33.0); MEAN CORPUSCULAR HGB CONC 31.1 g/dl (32.0-36.5); MEAN CORPUSCULAR VOLUME 84.9 fl (80.0-96.0); PLATELET COUNT, AUTOMATED 248 10^3/uL (150-450); RED BLOOD COUNT 4.85 10^6/uL (4.00-5.40); WHITE BLOOD COUNT 5.6 10^3/uL (4.0-10.0)
[2024-06-18 18:52] LABS: TOTAL 25(OH) VITAMIN D 10.9 NG/ML (20.0-100.0)
[2024-06-18 18:59] LABS: HEMOGLOBIN A1c 8.4 % (4.0-6.0)
[2024-06-18 19:00] LABS: ALBUMIN 3.7 G/DL (3.2-5.2); ALKALINE PHOSPHATASE 131 U/L (35-104); ALT/SGPT 20 U/L (7.0-40); AST/SGOT 10 U/L (<34); BILIRUBIN,DIRECT 0.2 MG/DL (<0.4); BILIRUBIN,TOTAL 0.7 MG/DL (0.3-1.2); BLOOD UREA NITROGEN 11 MG/DL (9-23); CALCIUM LEVEL 9.8 MG/DL (8.5-10.1); CARBON DIOXIDE LEVEL 31 MMOL/L (20-31); CHLORIDE LEVEL 106 MMOL/L (98-107); CHOLESTEROL LEVEL 180 MG/DL (<200); CHOLESTEROL RISK RATIO 1.99 (<5); CREATININE FOR GFR 0.61 MG/DL (0.55-1.30); GLOMERULAR FILTRATION RATE > 60.0 (>51); GLUCOSE, FASTING 87 MG/DL (60-100); HDL CHOLESTEROL 90.3 MG/DL (>40); LDL CHOLESTEROL 77.5 MG/DL (<100); NON-HDL-C 89.7 MG/DL; PHOSPHORUS LEVEL 3.1 MG/DL (2.5-4.9); POTASSIUM SERUM 3.9 MMOL/L (3.5-5.1); SODIUM LEVEL 143 MMOL/L (136-145); TOTAL PROTEIN 7.5 G/DL (5.7-8.2); TRIGLYCERIDES LEVEL 61 MG/DL (<150)
== END ==
LOC: M PLALAB 15:34
PROVIDERS: ATTEND Student in an Organized Health Care Education/Training Program
DX: Z00.00 Encounter for general adult medical examination without abnormal findings (principal)

== ENCOUNTER → 2024-07-04 | Outpatient (CLI) | payer OTHER | LOC: M WHC 07:13 | PROVIDERS: ATTEND Physician Assistant Medical | DX: Z12.31 Encounter for screening mammogram for malignant neoplasm of breast (principal) ==

== ENCOUNTER → 2024-07-11 | Outpatient (RCR) | payer MEDICAID | LOC: M OUTALCOH 06-13 08:40 | PROVIDERS: ATTEND Psychiatry & Neurology Psychiatry | DX: F14.20 Cocaine dependence, uncomplicated (principal); F10.20 Alcohol dependence, uncomplicated; F12.20 Cannabis dependence, uncomplicated; F17.200 Nicotine dependence, unspecified, uncomplicated ==

== ENCOUNTER 2024-10-08 14:00 | Outpatient (RCR) | payer MEDICAID | END 2024-10-11 | LOC: M OUTALCOH 14:00 | PROVIDERS: ATTEND Psychiatry & Neurology Psychiatry | DX: F14.20 Cocaine dependence, uncomplicated (principal); F10.20 Alcohol dependence, uncomplicated; F12.20 Cannabis dependence, uncomplicated; F17.200 Nicotine dependence, unspecified, uncomplicated ==

== ENCOUNTER 2024-11-08 13:00 | Outpatient (RCR) | payer MEDICAID | END 2024-11-11 | LOC: M OUTALCOH 13:00 | PROVIDERS: ATTEND Psychiatry & Neurology Psychiatry | DX: F14.20 Cocaine dependence, uncomplicated (principal); F10.20 Alcohol dependence, uncomplicated; F12.20 Cannabis dependence, uncomplicated; F17.200 Nicotine dependence, unspecified, uncomplicated ==

== ENCOUNTER → 2024-12-11 | Outpatient (RCR) | payer MEDICAID | LOC: M OUTALCOH 11-14 16:00 | PROVIDERS: ATTEND Psychiatry & Neurology Psychiatry | DX: F14.20 Cocaine dependence, uncomplicated (principal); F10.20 Alcohol dependence, uncomplicated; F12.20 Cannabis dependence, uncomplicated; F17.200 Nicotine dependence, unspecified, uncomplicated ==

== ENCOUNTER → 2024-12-25 | Outpatient (CLI) | payer OTHER ==
[2024-12-25 17:42] LABS: CHOLESTEROL LEVEL 184.0 MG/DL (<200); CHOLESTEROL RISK RATIO 2.07 (<5); LDL CHOLESTEROL 83.8 MG/DL (<100); MAGNESIUM LEVEL 2.0 MG/DL (1.8-2.4); NON-HDL-C 95.4 MG/DL; TRIGLYCERIDES LEVEL 58.0 MG/DL (<150)
[2024-12-25 17:43] LABS: IRON (FE) 15.0 UG/DL (50-170); PERCENT SATURATION 3.5 % (13.2-45.0); VITAMIN B12 LEVEL 276.0 PG/ML (211-911)
[2024-12-25 18:05] LABS: CREATININE, URINE 36.8 MG/DL
[2024-12-25 18:06] LABS: MALB URINE SIEMENS < 3.0 MG/L
== END ==
LOC: M PLALAB 15:10
PROVIDERS: ATTEND Student in an Organized Health Care Education/Training Program
DX: Z98.84 Bariatric surgery status (principal); E13.9 Other specified diabetes mellitus without complications

== ENCOUNTER 2025-01-09 08:40 | Outpatient (RCR) | payer MEDICAID | END 2025-01-11 | LOC: M OUTALCOH 08:40 | PROVIDERS: ATTEND Psychiatry & Neurology Psychiatry | DX: F14.20 Cocaine dependence, uncomplicated (principal); F10.20 Alcohol dependence, uncomplicated; F12.20 Cannabis dependence, uncomplicated; F17.200 Nicotine dependence, unspecified, uncomplicated ==

== ENCOUNTER → 2025-01-17 | Outpatient (CLI) | payer OTHER ==
[2025-01-17 13:21] LABS: BASO # 0.1 10^3/uL (0.0-0.2); BASO % 1.3 % (0.0-1.0); EOS # 0.1 10^3/uL (0.0-0.5); EOS % 1.9 % (0.0-3.0); LYMPH # 2.5 10^3/uL (1.5-5.0); LYMPH % 36.7 % (24.0-44.0); MONO # 0.8 10^3/uL (0.0-0.8); MONO % 12.2 % (2.0-8.0); NEUTROPHILS # 3.3 10^3/uL (1.5-8.5); NEUTROPHILS % 47.6 % (36.0-66.0); PLATELET COUNT, AUTOMATED 256 10^3/uL (150-450)
[2025-01-17 13:28] LABS: TOTAL 25(OH) VITAMIN D 28.3 NG/ML (20.0-100.0)
[2025-01-17 13:29] LABS: ALT/SGPT 40 U/L (7.0-40); AST/SGOT 32 U/L (<34); CALCIUM LEVEL 9.4 MG/DL (8.5-10.1); CARBON DIOXIDE LEVEL 29 MMOL/L (20-31); CHLORIDE LEVEL 107 MMOL/L (98-107); CREATININE FOR GFR 0.74 MG/DL (0.55-1.30); GLOMERULAR FILTRATION RATE > 90.0 (>51); IRON (FE) 33 UG/DL (50-170); PERCENT SATURATION 7.9 % (13.2-45.0); POTASSIUM SERUM 3.8 MMOL/L (3.5-5.1); SODIUM LEVEL 142 MMOL/L (136-145); VITAMIN B12 LEVEL 1804 PG/ML (211-911)
[2025-01-17 13:35] LABS: ESTIMATED AVERAGE GLUCOSE 206.0 MG/DL (60-110)
== END ==
LOC: M PLAIMG 10:26
PROVIDERS: ATTEND Student in an Organized Health Care Education/Training Program
DX: R20.0 Anesthesia of skin (principal); E56.9 Vitamin deficiency, unspecified; E55.9 Vitamin D deficiency, unspecified; I10 Essential (primary) hypertension; E13.9 Other specified diabetes mellitus without complications; D50.9 Iron deficiency anemia, unspecified; E53.8 Deficiency of other specified B group vitamins; M47.812 Spondylosis without myelopathy or radiculopathy, cervical region

== ENCOUNTER 2025-02-04 14:00 | Outpatient (RCR) | payer MEDICAID | END 2025-02-10 | LOC: M OUTALCOH 14:00 | DX: F14.20 Cocaine dependence, uncomplicated (principal); F10.20 Alcohol dependence, uncomplicated; F12.20 Cannabis dependence, uncomplicated; F17.200 Nicotine dependence, unspecified, uncomplicated ==

== ENCOUNTER 2025-03-05 10:03 | Outpatient (RCR) | payer MEDICAID | END 2025-03-13 | LOC: M OUTALCOH 10:03 | PROVIDERS: ATTEND Psychiatry & Neurology Psychiatry | DX: F14.20 Cocaine dependence, uncomplicated (principal); F10.20 Alcohol dependence, uncomplicated; F12.20 Cannabis dependence, uncomplicated; F17.200 Nicotine dependence, unspecified, uncomplicated ==